=== PATIENT | female | born 1955 | race Caucasian/White ===

== ENCOUNTER → 2017-11-28 11:00 | Outpatient (CLI) | payer OTHER, SELFPAY ==
--- NOTE | 2017-11-28 11:05 | US_ITS ---
ULTRASOUND THYROID PROCEDURE: Multiple sagittal & transverse ultrasound images of the thyroid. HISTORY of right lobe resection & left lobe nodules COMPARISON: May 2016 ultrasound thyroid ----- FINDINGS: RIGHT LOBE: Surgically absent . LEFT LOBE: 3.1 cm length as 1.4 cm wide x 1.7 cm AP. Nodule A: Small solid nodule upper left lobe up to 8.5 mm size. This has show no significant change since previous 2015 study. This isoechoic nodule blends with the remainder gland is difficult to define margin of this nodule. However it appears similar. A tiny lypoechoic 2 mm debris-filled cyst appearing area again seen along the posterior margin of this nodule. ISTHMUS: Normal thickness 4.2 mm maximally. IMPRESSION no significant change since 2016 Right lobe is been resected. Vague isoechoic nodule at upper pole Left Lobe thyroid. .. Although difficult to delineate , Overall it appears very similar and stable;
== END ==
PROVIDERS: Family Provider Family Medicine; PCP Family Medicine; Visit Provider Otolaryngology
DX: E04.1 Nontoxic single thyroid nodule (principal)
CPT/HCPCS: 76536

== ENCOUNTER 2018-04-17 16:30 | Outpatient (RCR) | payer OTHER, SELFPAY | END 2018-04-17 16:31 | disposition home or self-care (01) | LOC: PT 16:30 | PROVIDERS: Family Provider Family Medicine; PCP Family Medicine; Visit Provider Family Medicine | DX: L03.115 Cellulitis of right lower limb (principal); S81.811A Laceration without foreign body, right lower leg, initial encounter | CPT/HCPCS: 97161; 97597 ==

== ENCOUNTER → 2019-12-07 09:35 | Outpatient (CLI) | payer BC, SELFPAY ==
[2019-12-07 10:22] LABS: Basophils # 0.1 K/mm3 (0-0.2); Basophils % 0.9 % (0.1-2.0); Eosinophils # 0.1 K/mm3 (0.0-0.4); Eosinophils % 1.7 % (0.1-12.0); Hematocrit 47.4 % (37.0-47.0); Hemoglobin 15.3 g/dL (12.2-16.2); Lymphocytes # 2.8 K/mm3 (0.7-4.5); Lymphocytes % 33.5 % (10-50); Mean Corpuscular HGB Conc 32.3 g/dL (31.8-35.4); Mean Corpuscular Volume 96.1 fl (81-99); Mean Platelet Volume 7.6 fl (7.4-10.4); Monocytes # 0.5 K/mm3 (0.1-1.0); Monocytes % 5.9 % (1.7-9.3); Neutrophils # 4.7 K/mm3 (1.8-7.8); Platelet Count 269 K/mm3 (142-424); Red Blood Count 4.93 M/mm3 (4.20-5.40); Red Cell Distribution Width 13.6 % (11.5-17.5); White Blood Count 8.2 K/mm3 (4.8-10.8)
[2019-12-07 10:49] LABS: Chloride 103 mmol/L (98-107); Sodium 143 mmol/L (136-145)
[2019-12-07 10:50] LABS: Potassium 4.1 mmoL/L (3.5-5.1)
[2019-12-07 10:52] LABS: Alanine Aminotransferase 24 U/L (12-78); Albumin Level 5.3 g/dl (3.5-5.0); Alkaline Phosphatase 59 U/L (38-126); Anion Gap 16.1 mEq/L (5-15); Aspartate Amino Transferase 30 U/L (14-36); Blood Urea Nitrogen 10 mg/dl (7-17); Calcium 11.1 mg/dl (8.4-10.2); Carbon Dioxide 28 mmol/L (22.0-30.0); Estimated Glomerular Filt Rate 85 ml/min (>60); GFR (African American) 102 ML/MIN (>60); Globulin 2.6 g/dL (1.3-3.2); Glucose 77 mg/dl (74-100); Total Protein,Serum 7.9 g/dl (6.3-8.2)
[2019-12-07 10:53] LABS: Magnesium 2.2 mg/dl (1.6-2.3)
[2019-12-07 11:19] LABS: Troponin I < 0.01 ng/ml (0.00-0.034)
[2019-12-08 08:15] LABS: Myoglobin 46 ng/mL (25-58)
== END ==
PROVIDERS: PCP Nurse Practitioner Family; Visit Provider Nurse Practitioner Family
DX: R07.9 Chest pain, unspecified (principal); I48.91 Unspecified atrial fibrillation; Z98.890 Other specified postprocedural states
CPT/HCPCS: 36415; 80053; 83735; 83874; 84443; 84484; 85025; 93225; 93226

== ENCOUNTER → 2021-04-15 07:06 | Outpatient (CLI) | payer BC, SELFPAY | PROVIDERS: Visit Provider Internal Medicine Gastroenterology | DX: U07.1 COVID-19 (principal) | CPT/HCPCS: C9803; U0003; U0005 ==

== ENCOUNTER 2021-11-08 09:58 | Emergency (ER) | payer BC, SELFPAY ==
--- NOTE | 2021-11-08 10:34 | HMH.EDUTC ---
[facility] [place] Disposition Clinical Impression: Bronchitis Sinusitis Qualifiers: Sinusitis location: unspecified location Chronicity: acute Recurrence: non-recurrent Qualified Code(s): J01.90 - Acute sinusitis, unspecified Disposition: Home, Self-Care Condition on Discharge: Good Instructions: DI for Sinusitis Additional Instructions: Drink plenty of fluids. Take tylenol or ibuprofen for pain or fever. Take the medications as directed. Follow up with your regular doctor. GO TO THE ER FOR ANY WORSENING SYMPTOMS Prescriptions: Benzonatate [Benzonatate 100mg cap] 100 mg PO TIDP PRN #30 cap PRN Reason: Cough [facility]: [facility] methylPREDNISolone [Medrol] 4 mg PO DIRECTED 6 Days #21 packet Transmission Status: Received by [facility] Azithromycin [Z-Fer 250mg Tab*] 250 mg PO UD DOSE PK #6 tab Transmission Status: [facility] Referrals: Gabby Ceron APRN [Primary Care Provider] - Time of Disposition: 11:10 Medical Decision Making - Medical Records Medical records reviewed: No: I reviewed the patient's medical records. - Bidr Inquiry Pt receiving controlled substance: No Vital Signs: 11/08/21 10:41 11/08/21 11:13 Temperature 98.2 F 98.2 F Temperature Source Oral Pulse Rate 78 Pulse Rate [Left] 78 Respiratory Rate 19 19 Blood Pressure 182/69 H Blood Pressure [Right Arm] 182/69 H Blood Pressure Mean [Right Arm] 106 02 Sat by Pulse Oximetry 95 - Lab Data Lab results reviewed: Yes: I reviewed the patient's lab results. [facility] [place] HPI - General Stated complaint: congestion, cough, DIXON Time Seen by Provider: 11/08/21 10:34 - History of Present Illness Provider Complaint: She states that for the past 5 days she has had worsening sinus congestion and a cough. She states that now her chest seems to be getting more congested. - Related Data Home Medications Medication Instructions Recorded Confirmed Montelukast Sodium [Montelukast 10 mg PO HS 12/11/17 06/13/21 10mg Tab] Alendronate Sodium [Fosamax 70mg 70 mg PO WEEKLY 04/10/21 06/13/21 Tablet] Aspirin [Aspirin 81mg chewable 81 mg PO DAILY 04/10/21 06/13/21 tab] Fluticasone Propionate 15.8 ml NS DAILY 04/10/21 06/13/21 Fluticasone/Umeclidin/Vilanter 1 each IH DAILY 04/10/21 06/13/21 [Speedy Ruiz 100-62.5-25] albuterol sulfate 90 mcg/actuation g INHALATION 06/13/21 06/13/21 aerosol inhaler cetirizine 10 mg tablet 10 mg PO DAILY tab 06/13/21 06/13/21 Previous Rx's Medication Instructions Recorded benzonatate 100 mg capsule 100 mg PO BID PRN #30 cap 06/13/21 cefuroxime axetil 250 mg tablet 250 mg PO BID 10 Days #20 tab 06/13/21 Azithromycin [Z-Fer 250mg Tab*] 250 mg PO UD DOSE PK #6 tab 11/08/21 Benzonatate [Benzonatate 100mg 100 mg PO TIDP PRN #30 cap 11/08/21 cap] methylPREDNISolone [Medrol] 4 mg PO DIRECTED 6 Days #21 11/08/21 packet Allergies Allergy/AdvReac Type Severity Reaction Status Date / Time No Known Allergies Allergy Verified 06/13/21 13:37 [facility] History - Hepatitis A Screen Attestation statement:: This patient has been screened for Hepatitis A risk factors. I have reviewed the patient's past medical history: Yes 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: Reports:: Asthma, Atrial Fibrillation, Chronic Obstructive Pulmonary Disease (COPD), Heart Murmur, Lung Disease Denies:: Cancer, Diabetes Mellitus Type 1, Diabetes Mellitus Type 2, Internal Pacemaker, MRSA, Seizures Laterality Cases: Bilateral: Tonsillectomy Other Surgeries: Yes: Appendectomy, Hysterectomy-Total, Open Heart Surgery, Thyroidectomy. No: Pacemaker Amputation: No Fractures: No - Social History Smoking Status: Never smoker Alcohol Intake: never Occupational Status: employed Housing: house Household Members: none ROS Obtained: Yes All systems reviewed & no additional complaints - Constitutional Constitutional: Reports as per HPI - Eyes Eyes:
[2021-11-08 10:41] VITALS: BP 182/69; PULSE 78; RESP 19; TEMP 36.8; O2SAT 95; BMI 24.1
[2021-11-08 11:13] VITALS: BP 182/69; PULSE 78; RESP 19; TEMP 36.8
== END 2021-11-08 11:23 | disposition home or self-care (01) ==
PROVIDERS: Emergency Provider Nurse Practitioner Family; PCP Nurse Practitioner Family
DX: J01.90 Acute sinusitis, unspecified (principal); R01.1 Cardiac murmur, unspecified; J98.4 Other disorders of lung; J44.9 Chronic obstructive pulmonary disease, unspecified; Z79.51 Long term (current) use of inhaled steroids; Z79.52 Long term (current) use of systemic steroids; Z79.82 Long term (current) use of aspirin; Z79.899 Other long term (current) drug therapy
CPT/HCPCS: 99213; G0463

== ENCOUNTER 2021-11-14 08:59 | Emergency (ER) | payer BC, SELFPAY ==
[2021-11-14 09:05] VITALS: BP 123/86; PULSE 74; RESP 17; TEMP 37.2; O2SAT 98; BMI 24.1
--- NOTE | 2021-11-14 09:15 | HMH.EDUTC ---
[facility] [place] Clinical Impression: Sinusitis Qualifiers: Sinusitis location: maxillary Chronicity: acute Recurrence: non-recurrent Qualified Code(s): J01.00 - Acute maxillary sinusitis, unspecified Disposition: Home, Self-Care Condition on Discharge: Good Instructions: DI for Sinusitis Additional Instructions: Take all medications as prescribed until gone Prescriptions: levoFLOXacin [Levofloxacin] 500 mg PO DAILY 10 Days #10 tab Transmission Status: Pending to [facility] methylPREDNISolone [Medrol 4mg tab] 4 mg PO DIRECTED #21 tab Transmission Status: Pending to [facility] Referrals: Gabby Ceron APRN [Primary Care Provider] - Time of Disposition: 09:30 Medical Decision Making - Bird Inquiry Pt receiving controlled substance: No [facility] [place] HPI - General Stated complaint: head congestion, h/a Time Seen by Provider: 11/14/21 09:15 - History of Present Illness Provider Complaint: Headache, congestion, sore throat, cough X 8 days. No improvement with Z-pack, Prednisone. Onset (ago): day(s) (8) Location: chest Relieving factors: none Exacerbating factors: none Associated symptoms: cough, malaise Treatments prior to arrival: other (zithromax, prednisone) - Related Data Home Medications Medication Instructions Recorded Confirmed Montelukast Sodium [Montelukast 10 mg PO HS 12/11/17 06/13/21 10mg Tab] Alendronate Sodium [Fosamax 70mg 70 mg PO WEEKLY 04/10/21 06/13/21 Tablet] Aspirin [Aspirin 81mg chewable 81 mg PO DAILY 04/10/21 06/13/21 tab] Fluticasone Propionate 15.8 ml NS DAILY 04/10/21 06/13/21 Fluticasone/Umeclidin/Vilanter 1 each IH DAILY 04/10/21 06/13/21 [Treleclinton Ellipta 100-62.5-25] albuterol sulfate 90 mcg/actuation g INHALATION 06/13/21 06/13/21 aerosol inhaler cetirizine 10 mg tablet 10 mg PO DAILY tab 06/13/21 06/13/21 Previous Rx's Medication Instructions Recorded benzonatate 100 mg capsule 100 mg PO BID PRN #30 cap 06/13/21 cefuroxime axetil 250 mg tablet 250 mg PO BID 10 Days #20 tab 06/13/21 Azithromycin [Z-Fer 250mg Tab*] 250 mg PO UD DOSE PK #6 tab 11/08/21 Benzonatate [Benzonatate 100mg 100 mg PO TIDP PRN #30 cap 11/08/21 cap] methylPREDNISolone [Medrol] 4 mg PO DIRECTED 6 Days #21 11/08/21 packet levoFLOXacin [Levofloxacin] 500 mg PO DAILY 10 Days #10 tab 11/14/21 methylPREDNISolone [Medrol 4mg 4 mg PO DIRECTED #21 tab 11/14/21 tab] Allergies Allergy/AdvReac Type Severity Reaction Status Date / Time No Known Allergies Allergy Verified 06/13/21 13:37 [facility] History - Hepatitis A Screen Attestation statement:: This patient has been screened for Hepatitis A risk factors. 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: Reports:: Asthma, Atrial Fibrillation, Chronic Obstructive Pulmonary Disease (COPD), Heart Murmur, Lung Disease Denies:: Cancer, Diabetes Mellitus Type 1, Diabetes Mellitus Type 2, Internal Pacemaker, MRSA, Seizures Laterality Cases: Bilateral: Tonsillectomy Other Surgeries: Yes: Appendectomy, Hysterectomy-Total, Open Heart Surgery, Thyroidectomy. No: Pacemaker Amputation: No Fractures: No - Social History Smoking Status: Never smoker Alcohol Intake: never Occupational Status: employed Housing: house Household Members: none ROS Obtained: Yes All systems reviewed & no additional complaints - Constitutional Constitutional: Reports headache(s) - ENT Ears, Nose, Mouth, and Throat: Reports nasal congestion, Reports nasal discharge - Respiratory Respiratory: Reports cough Physical Exam - General General appearance: alert, in no apparent distress - Head Head exam: normocephalic - Eye Eye exam: Present: PERRL - ENT ENT exam: Present: normal oropharynx, TM's normal bilaterally - Expanded ENT Exam Nose exam: Present: sinus tenderness Throat exam: Present: tonsillar erythema - Neck Neck exam: Present: normal inspection. Absent: lymphadenopathy - Chest Chest inspection: Present: normal in
[2021-11-14 09:41] VITALS: BP 123/86; PULSE 74; RESP 17; TEMP 37.2; O2SAT 98
== END 2021-11-14 09:49 | disposition home or self-care (01) ==
PROVIDERS: Emergency Provider Physician Assistant; PCP Nurse Practitioner Family
DX: J01.00 Acute maxillary sinusitis, unspecified (principal); I48.91 Unspecified atrial fibrillation; R01.1 Cardiac murmur, unspecified
CPT/HCPCS: 96372; 99212; G0463; J0696; J1040

== ENCOUNTER 2023-11-11 22:14 | Emergency (ER) | payer BC, SELFPAY ==
[2023-11-11 22:16] VITALS: BP 148/63; PULSE 67; RESP 20; TEMP 36.3; O2SAT 88; BMI 22.3
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
[2023-11-11 22:35] VITALS: BMI 21.4
[2023-11-11] MEDS: COCAINE 4% TOPICAL SOLN 4ML BOTTLE 1 ML TP (22:46)
[2023-11-11] MEDS: LIDOCAINE 2% UROJET 10ML TP (22:46)
[2023-11-11] MEDS: EPINEPHrine 1 MG/ML AMPUL TP (22:47)
[2023-11-12] MEDS: TET/DIPHTH/PERT-ADULT 0.5ML SYRINGE 0.5 ML IM (00:09)
[2023-11-12 00:27] VITALS: BP 135/63; PULSE 81; RESP 24; TEMP 36.7; O2SAT 87
[2023-11-12] MEDS: LIDOCAINE 1% W/EPI 1:100,000 20ML VIAL 5 ML SQ (00:37)
== END 2023-11-12 00:35 | disposition home or self-care (01) ==
PROVIDERS: Emergency Provider Emergency Medicine; PCP Family Medicine
DX: S01.511A Laceration without foreign body of lip, initial encounter (principal); S62.617A Displaced fracture of proximal phalanx of left little finger, initial encounter for closed fracture; Y04.0XXA Assault by unarmed brawl or fight, initial encounter; Z87.891 Personal history of nicotine dependence; Z23 Encounter for immunization
CPT/HCPCS: 13152; 73130; 90471; 90715; 99284

== ENCOUNTER 2023-11-24 13:55 | Outpatient (CLI) | payer BC, SELFPAY ==
--- NOTE | 2023-11-24 14:00 | XR_ITS ---
FINAL REPORT CLINICAL HISTORY: lt hand pain SPLINT PLACED 2 WEEKS AGO, F/U FX COMPARISON: 11/11/2023 FINDINGS: For images of the left hand were obtained. There is a splint overlying the fourth and fifth fingers of the left hand. The prior films of November 10. No significant callus formation is identified. The joint spaces are intact. There is no soft tissue abnormality identified. IMPRESSION: Mildly displaced transverse fracture of the base of the fifth proximal phalanx, slightly reduced when compared to the prior film of November 10. No significant callus formation is identified. Reviewed, Interpreted and Dictated by Dangelo Thomas MD Transcribed by Shelli Recinos Authenticated and [facility]
== END 2023-11-24 23:59 | disposition home or self-care (01) ==
LOC: RAD 13:56
PROVIDERS: PCP Family Medicine; Visit Provider Orthopaedic Surgery
DX: M79.645 Pain in left finger(s) (principal); S62.617A Displaced fracture of proximal phalanx of left little finger, initial encounter for closed fracture
CPT/HCPCS: 73130

== ENCOUNTER 2023-12-15 13:14 | Outpatient (CLI) | payer BC, SELFPAY ==
--- NOTE | 2023-12-15 13:25 | XR_ITS ---
FINAL REPORT CLINICAL HISTORY: Lt Hand Pain 5 week follow up fx at base of 5th metacarpal COMPARISON: 11/24/2023 FINDINGS: LEFT HAND Three views demonstrate a nondisplaced fracture of the proximal aspect of the fifth proximal phalanx. Mild degenerative changes are noted. Soft tissues are unremarkable. IMPRESSION: Fracture of the proximal aspect of the fifth proximal phalanx. Reviewed, Interpreted and Dictated by Eder Montano III, MD Transcribed by Priyanka Benedict Authenticated and [facility]
== END 2023-12-15 23:59 | disposition home or self-care (01) ==
LOC: RAD 13:15
PROVIDERS: PCP Family Medicine; Visit Provider Orthopaedic Surgery
DX: M79.642 Pain in left hand (principal); S62.617A Displaced fracture of proximal phalanx of left little finger, initial encounter for closed fracture
CPT/HCPCS: 73130

== ENCOUNTER 2024-01-12 13:36 | Outpatient (CLI) | payer BC, SELFPAY ==
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
== END 2024-01-12 23:59 | disposition home or self-care (01) ==
LOC: RAD 13:37
PROVIDERS: PCP Family Medicine; Visit Provider Orthopaedic Surgery
DX: M79.642 Pain in left hand (principal); S62.646A Nondisplaced fracture of proximal phalanx of right little finger, initial encounter for closed fracture
CPT/HCPCS: 73130

== ENCOUNTER 2024-05-25 21:08 | Emergency (ER) | payer BC, SELFPAY ==
[2024-05-25 21:11] VITALS: BP 127/59; PULSE 66; RESP 20; TEMP 36.3; O2SAT 85; BMI 21.9
--- NOTE | 2024-05-25 21:18 | ED_ITS ---
<Statement entered by Willa Kumari DO - 05/25/24 23:25> I was consulted by the ABHISHEK, and we discussed the complexity of the problems being addressed. I approved the treatment and management plan for this patient's care in the emergency department, thus performing a substantive portion of the medical decision making. Willa Kumari DO Discharge Plan Disposition Chief Complaint: Fall Prescriptions Prescriptions: No Action diltiazem HCl 180 mg capsule,extended release 24hr PO Patient Comments: TAKE 1 CAPSULE BY MOUTH ONCE DAILY rosuvastatin 10 mg tablet 10 mg PO DAILY Patient Comments: TAKE 1 TABLET BY MOUTH ONCE DAILY sertraline 50 mg tablet 50 mg PO DAILY sildenafil (pulm.hypertension) 20 mg tablet 20 mg PO TID Patient Comments: TAKE 1 TABLET BY MOUTH THREE TIMES DAILY Trelegy Ellipta 200-62.5-25 mcg blister with device 1 inh inhalation cetirizine 10 mg tablet 10 mg PO DAILY albuterol sulfate 90 mcg/actuation HFA aerosol inhaler INHALATION alendronate 70 MG tablet 70 mg PO WEEKLY aspirin 81 MG tablet,chewable 81 mg PO DAILY fluticasone propionate 15.8 ML spray,suspension 15.8 ml intranasal DAILY montelukast 10 MG tablet 10 mg PO HS Referrals Follow up/Referrals: Red Groves MD [Primary Care Provider] - See instructions Clinical Impressions Clinical Impression: Fall Print Language Print Language: German Discharge ED Provider: Willa Kumari General Adult HPI <Cherry Pollock (ED), STOCK ORDER LISTER - Last Filed: 05/25/24 22:34> General Chief complaint: Fall Stated complaint: AO 05/25/24 2020 injury to face Time Seen by Provider: 05/25/24 21:20 History of Present Illness HPI narrative: This is a 69-year-old female who presents to the ED today for complaint of a fall over a hitch onto the ground. She did not lose consciousness. She hit her face including her nose, forehead. She has skin tears to her right arm and then left elbow pain. Patient has a history of COPD and wears O2 at home. She does take blood pressure medication at home but no blood thinners. Patient complains of morning nasal pain and elbow pain. Related Data Home Medications ?Medication ?Instructions ?Recorded ?Confirmed montelukast 10 mg tablet 10 mg PO HS Allergy symptoms 12/11/17 01/12/24 alendronate 70 mg tablet 70 mg PO WEEKLY Osteoporosis 04/10/21 01/12/24 aspirin 81 mg chewable tablet 81 mg PO DAILY heart health 04/10/21 01/12/24 fluticasone propionate 50 15.8 ml intranasal DAILY Asthma 04/10/21 01/12/24 mcg/actuation nasal spray,suspension albuterol sulfate 90 mcg/actuation g inhalation 06/13/21 01/12/24 aerosol inhaler cetirizine 10 mg tablet 10 mg PO DAILY 06/13/21 01/12/24 diltiazem HCl 180 mg mg PO 07/27/23 01/12/24 capsule,extended release 24 hr fluticasone fur. 200 mcg-umeclid 1 inh inhalation 07/27/23 01/12/24 62.5 mcg-vilant 25 mcg inhalat.powder (Trelegy Ellipta) rosuvastatin 10 mg tablet 10 mg PO DAILY 07/27/23 01/12/24 sertraline 50 mg tablet 50 mg PO DAILY 07/27/23 01/12/24 sildenafil (pulm.hypertension) 20 20 mg PO TID 07/27/23 01/12/24 mg tablet Allergies Allergy/AdvReac Type Severity Reaction Status Date / Time No Known Allergies Allergy Verified 01/12/24 14:01 [facility] <Cherry Pollock (ED), STOCK ORDER LISTER - Last Filed: 05/25/24 22:34> [facility] Disclaimer: The information contained in this section may have been updated after the patient was seen, as this information can be updated by other users. 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 Anxiety and depression Hyperlipidemia History of deviated nasal septum Hammertoe of right foot Pulmonary hypertension Bronchitis Sinusitis Laceration of right lower extremity Visit for suture removal Scalp laceration Laceration Surgical History S/P correction of deviated nasal septum H/O thyroidectomy Hx of appendectomy Hx of tonsillectomy H/O: hysterectomy History of open heart surgery Family History Other No significant family history Social History Smoking Status: Former smoker alcohol intake: never current occupational status: employed Travel in the last 8 weeks: None household members: none housing: house 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 Other 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 Have you received the Flu Vaccine for this season: Yes (2019) Have you received the Pneumonia Vaccine: Yes <Cherry Pollock (ED), STOCK ORDER LISTER - Last Filed: 05/25/24 22:34> ROS Obtained: Yes Systems reviewed as appropriate & no additional complaints except as documented Constitutional Constitutional: Reports as per HPI Physical Exam <Cherry Pollock (ED), ST[employer] ORDER LISTER - Last Filed: 05/25/24 22:34> General General appearance: alert and in distress Comment: From the fall, facial bruising and skin tear to her nose left side forehead Head Head exam: other (Facial trauma) Eye Eye exam: Present PERRL ENT ENT exam: Present other (Abrasions to nose and forehead) Neck Neck exam: Present normal inspection Chest Chest inspection: Present normal inspection Respiratory Respiratory exam: Present normal lung sounds bilaterally Cardiovascular Cardiovascular exam: Present regular rate, +S1 and +S2 Abdominal Exam Abdominal exam: Present soft and normal bowel sounds Extremities Exam Extremities exam: Present full ROM and tenderness (Tenderness to left elbow, skin tears to bilateral arms) Neurological Exam Neurological exam: Present alert Skin Skin exam: Present warm and other (NoseAbrasions and skin tears to, forehead, bilateral arms) Medical Decision Making <Cherry Pollock (ED), ST[employer] ORDER LISTER - Last Filed: 05/25/24 22:34> Medical Records Screening: Per USPSTF and CDC recommendations, given the prevalence of disease in our region, it is our hospital?s policy to screen for HIV and viral Hepatitis for all patients aged 18 and over and those with ongoing risk factors. Bird Inquiry Pt receiving controlled substance: No Vital Signs: 05/25/24 21:11 05/25/24 22:01 05/25/24 22:30 Temperature 97.4 F L Temperature Source Oral Pulse Rate 71 68 Pulse Rate [Left Radial] 66 Respiratory Rate 20 Blood Pressure 118/34 L 104/60 L Blood Pressure [Right Arm] 127/59 L Blood Pressure Mean [Right Arm] 81 Blood Pressure Source [Right Arm] Automatic Cuff 02 Sat by Pulse Oximetry 85 L 97 97 Oxygen Delivery Method Room Air Orders (Tests/Meds): ED MEDICATIONS Discontinued Medications Generic Name Dose Route Start Last Admin Trade Name Freq PRN Reason Stop Dose Admin Hydrocodone Bitart/Acetaminophen 2 tab 05/25/24 21:24 05/25/24 21:30 Hydrocodone/Apap 5/325 Mg Tablet PO 05/25/24 21:25 2 tab ONCE ONE Administration Ondansetron HCl 4 mg 05/25/24 21:25 05/25/24 21:31 Ondansetron 4mg Odt SL 05/25/24 21:26 4 mg ONCE ONE Administration ORDERS Category Date Time Status CT cervical spine wo con Stat Cat Scan 05/25/24 21:[address] facial bones wo con Stat Cat Scan 05/25/24 21:[address] head/brain wo con Stat Cat Scan 05/25/24 21:23 Taken Elbow XR left mininum 3 views [XR elbow LT min 3V] Stat Exams 05/25/24 21:23 Ordered <Willa Kumari, DO - Last Filed: 05/25/24 23:25> Vital Signs: 05/25/24 21:11 05/25/24 22:01 05/25/24 22:30 Temperature 97.4 F L Temperature Source Oral Pulse Rate 71 68 Pulse Rate [Left Radial] 66 Respiratory Rate 20 Blood Pressure 118/34 L 104/60 L Blood Pressure [Right Arm] 127/59 L Blood Pressure Mean [Right Arm] 81 Blood Pressure Source [Right Arm] Automatic Cuff 02 Sat by Pulse Oximetry 85 L 97 97 Oxygen Delivery Method Room Air Orders (Tests/Meds): ED MEDICATIONS Discontinued Medications Generic Name Dose Route Start Last Admin Trade Name Dandyq PRN Reason Stop Dose Admin Hydrocodone Bitart/Acetaminophen 2 tab 05/25/24 21:24 05/25/24 21:30 Hydrocodone/Apap 5/325 Mg Tablet PO 05/25/24 21:25 2 tab ONCE ONE Administration Ondansetron HCl 4 mg 05/25/24 21:25 05/25/24 21:31 Ondansetron 4mg Odt SL 05/25/24 21:26 4 mg ONCE ONE Administration ORDERS Category Date Time Status CT cervical spine wo con Stat Cat Scan 05/25/24 21:[address] facial bones wo con Stat Cat Scan 05/25/24 21:[address] head/brain wo con Stat Cat Scan 05/25/24 21:23 Taken Elbow XR left mininum 3 views [XR elbow LT min 3V] Stat Exams 05/25/24 21:23 Ordered Medical Decision Narrative: In summary, this patient is a 69-year-old female presenting to the Emergency Department for evaluation of traumatic injuries from a ground-level fall. Differential diagnoses considered include but are not limited to fracture, contusion, strain/sprain, intracranial hemorrhage. Ruling out the most morbid conditions drove assessment. It should be noted patient's history includes hypertension, hyperlipidemia, chronic use of aspirin which may or may not be at goal therapy. This complicates all aspects of care by increasing patient's risk for morbidity. On exam, the patient is alert in no acute distress. She does have obvious traumatic injury to the face. CT head, face, C-spine, and x-rays of the injured upper extremity. Patient care signed out to the oncoming provider, Dr. Bailey, pending workup. Critical Care <Cherry Pollock (ED), STOCK ORDER LISTER - Last Filed: 05/25/24 22:34> Critical Care Time Critical Care Time: No
--- NOTE | 2024-05-25 21:23 | CT_ITS ---
PROCEDURE INFORMATION: Exam: CT Cervical Spine Without Contrast Exam date and time: 05/25/2024 11:21 PM Age: 69 years old Clinical indication: Injury or trauma; Fall; Blunt trauma TECHNIQUE: Imaging protocol: Computed tomography of the cervical spine without contrast. Total images: 642 Radiation optimization: All CT scans at this facility use at least one of these dose optimization techniques: automated exposure control; mA and/or kV adjustment per patient size (includes targeted exams where dose is matched to clinical indication); or iterative reconstruction. COMPARISON: CT FACIAL BONES WO CON 05/25/2024 11:15 PM FINDINGS: Bones: Osteopenia. Straightened lordosis. Minor levocurvature at the cervicothoracic junction. Vertebral body height is preserved. Minimal anterolisthesis C3-C4. The base of the dens and C1 and C2 articulations are maintained with moderate degenerative arthropathy. The cervicooccipital junction is intact. Severe multilevel degenerate facet joint spondylosis. Fusion of the right C4-C5 facet joint. Posterior elements are intact. Severe degenerative disc disease C6-C7 with large posterior projecting disc osteophyte complex resulting in moderate to severe acquired spinal canal stenosis. Moderate degenerative disc disease C5-C6. Mild degenerative changes remainder of the cervicothoracic spine. No concerning bone lesions. Status post median sternotomy. Prevertebral and retropharyngeal spaces: No prevertebral soft tissue swelling. Lungs: Upper lungs are clear. Thyroid: Status post right thyroid lobectomy. Vasculature: Moderate calcifications bilateral carotid artery bifurcations. Soft tissues: Unremarkable soft tissues of the neck. IMPRESSION: 1. No acute cervical fracture or traumatic subluxation. 2. Severe degenerative disc disease at C6-C7 with secondary moderate to severe acquired spinal canal stenosis. 3. Straightened cervical lordosis from position or muscle spasm 4. Additional degenerative changes as described
--- NOTE | 2024-05-25 21:23 | CT_ITS ---
PROCEDURE INFORMATION: Exam: CT Head Without Contrast Exam date and time: 05/25/2024 11:09 PM Age: 69 years old Clinical indication: Injury or trauma; Other: Pain after fall TECHNIQUE: Imaging protocol: Computed tomography of the head without contrast. Total images: 542 Radiation optimization: All CT scans at this facility use at least one of these dose optimization techniques: automated exposure control; mA and/or kV adjustment per patient size (includes targeted exams where dose is matched to clinical indication); or iterative reconstruction. COMPARISON: No relevant prior studies available. FINDINGS: Brain: No acute intracranial hemorrhage, midline shift, or mass. Mild cortical and cerebellar atrophy. Mild periventricular and scattered subcortical white matter hypodensity compatible with remote small vessel ischemic changes. Gutierrez-white interface and basilar cisterns are preserved. Cerebral ventricles: Mild ventriculomegaly compatible degree of central atrophy. Paranasal sinuses: 10 mm retention cyst or polyp anterior wall left maxillary sinus. Minor mucosal thickening base of the right maxillary sinus. 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 Mastoid air cells: Visualized mastoid air cells are well aerated. Orbital cavities: Status post bilateral orbital lens replacement. Bones: Osteopenia. Comminuted bilateral nasal bone fractures. Suspect fracture of the anterior nasal septum. No skull fracture. Soft tissues: Mild soft tissue swelling of the forehead and overlying bridge of the nose. Soft tissue swelling left face. Vasculature: Moderate to severe calcifications bilateral intracranial internal carotid arteries. IMPRESSION: 1. No acute intracranial process. 2. Comminuted bilateral nasal bone fractures. 3. Fracture anterior nasal septum. 4. Chronic intracranial findings. 5. No skull fracture.
--- NOTE | 2024-05-25 21:23 | CT_ITS ---
PROCEDURE INFORMATION: Exam: CT Maxillofacial Without Contrast Exam date and time: 05/25/2024 11:15 PM Age: 69 years old Clinical indication: Injury or trauma; Other: Pain after fall TECHNIQUE: Imaging protocol: Computed tomography of the face without contrast. Total images: 265 Radiation optimization: All CT scans at this facility use at least one of these dose optimization techniques: automated exposure control; mA and/or kV adjustment per patient size (includes targeted exams where dose is matched to clinical indication); or iterative reconstruction. COMPARISON: CT HEAD/BRAIN WO CON 05/25/2024 11:09 PM FINDINGS: Paranasal sinuses: Minor mucosal thickening base of the right maxillary sinus. 10 mm polyp or retention cyst anterior wall left maxillary sinus. Osteoma right ethmoid air cell, axial image 27 series 5. Orbital cavities: Status post bilateral orbital lens replacement. Orbital globes are intact and symmetric. Nasal cavity: Nasal septal deviation to the right. Unremarkable nasal turbinates. Teeth: Dental artifact limiting directly adjacent structures. Bones: Acute comminuted and displaced bilateral nasal bone fractures. Acute fracture anterior nasal septum. No additional facial bone fractures. Osteopenia. No mandibular fracture or dislocation. Symmetric bilateral temporomandibular joints. Soft tissues: Mild left facial soft tissue swelling. Soft tissue swelling overlying the bridge of the nose. Additional mild soft tissue swelling in the forehead. IMPRESSION: 1. Acute comminuted and displaced bilateral nasal bone fractures. 2. Acute fracture anterior nasal septum. 3. Facial soft tissue swelling. 4. No orbital globe injury. 5. Incidental findings in the paranasal sinuses.
--- NOTE | 2024-05-25 21:23 | XR_ITS ---
PROCEDURE INFORMATION: Exam: XR Left Elbow Exam date and time: 05/25/2024 11:14 PM Age: 69 years old Clinical indication: Injury or trauma; Other: Pain after fall TECHNIQUE: Imaging protocol: Radiologic exam of the left elbow. Views: 3 or more views. COMPARISON: CR XR HAND LT MIN 3V 01/12/2024 1:46 PM FINDINGS: Bones/joints: The elbow is normally aligned. No acute fracture or appreciable joint effusion. No significant degenerative changes. Soft tissues: Normal. IMPRESSION: No acute findings.
[2024-05-25] MEDS: HYDROCODONE/APAP 5/325 MG TABLET 2 TAB PO (21:30)
[2024-05-25] MEDS: ONDANSETRON 4MG ODT 4 MG SL (21:31)
[2024-05-25 22:01] VITALS: BP 118/34; PULSE 71; O2SAT 97
[2024-05-25 22:30] VITALS: BP 104/60; PULSE 68; O2SAT 97
[2024-05-25 23:00] VITALS: BP 107/71; PULSE 71; O2SAT 95
[2024-05-25 23:31] VITALS: BP 136/64; PULSE 75; O2SAT 90
[2024-05-26] VITALS: BP 103/63; PULSE 71; O2SAT 90
[2024-05-26] MEDS: LIDOCAINE 2% UROJET 10ML TP (01:30)
[2024-05-26] MEDS: COCAINE 4% TOPICAL SOLN 4ML BOTTLE 1 ML TP (01:49)
[2024-05-26 02:10] VITALS: BP 149/73; PULSE 78; RESP 16; TEMP 36.3; O2SAT 94
== END 2024-05-26 02:12 | disposition home or self-care (01) ==
PROVIDERS: Emergency Provider Emergency Medicine; PCP Family Medicine
DX: S01.21XA Laceration without foreign body of nose, initial encounter (principal); S02.2XXA Fracture of nasal bones, initial encounter for closed fracture; M25.522 Pain in left elbow; J34.89 Other specified disorders of nose and nasal sinuses; W01.0XXA Fall on same level from slipping, tripping and stumbling without subsequent striking against object, initial encounter; Y93.89 Activity, other specified; Y92.9 Unspecified place or not applicable
CPT/HCPCS: 12011; 70450; 70486; 72125; 73080; 99284; Q0162

== ENCOUNTER 2024-07-21 11:46 | Emergency (ER) | payer OTHER, SELFPAY ==
[2024-07-21 13:05] VITALS: BP 137/89; PULSE 72; RESP 18; TEMP 37.3; O2SAT 98; BMI 28.3
--- NOTE | 2024-07-21 13:23 | ED_ITS ---
Discharge Plan Disposition Patient Disposition: Home, Self-Care Condition: Good Prescriptions Prescriptions: New levofloxacin 500 mg tablet 500 mg PO DAILY Qty: 5 0RF No Action diltiazem HCl 180 mg capsule,extended release 24hr PO Patient Comments: TAKE 1 CAPSULE BY MOUTH ONCE DAILY rosuvastatin 10 mg tablet 10 mg PO DAILY Patient Comments: TAKE 1 TABLET BY MOUTH ONCE DAILY sertraline 50 mg tablet 50 mg PO DAILY sildenafil (pulm.hypertension) 20 mg tablet 20 mg PO TID Patient Comments: TAKE 1 TABLET BY MOUTH THREE TIMES DAILY Trelegy Ellipta 200-62.5-25 mcg blister with device 1 inh inhalation cetirizine 10 mg tablet 10 mg PO DAILY albuterol sulfate 90 mcg/actuation HFA aerosol inhaler INHALATION alendronate 70 MG tablet 70 mg PO WEEKLY aspirin 81 MG tablet,chewable 81 mg PO DAILY fluticasone propionate 15.8 ML spray,suspension 15.8 ml intranasal DAILY montelukast 10 MG tablet 10 mg PO HS Saline Nasal 0.65 % aerosol,spray 3 spray intranasal Q2H PRN (Reason: dry nasal passages) Qty: 44 0RF Referrals Follow up/Referrals: Red Groves MD [Primary Care Provider] - See instructions Activity Restrictions/Add. Instructions Additional Instructions/Restrictions: Start antibiotic patient to take as ordered for a full length of time even if you feel better. Sinus infections do not get better overnight. It may take 2-3 days to notice much improvement so be sure to use conservative measures as discussed for symptoms. Flonase 1 spray each nostril daily to help with nasal congestion, sinus and ear pressure/information Increase fluids Humidifier/vaporizer as needed Tylenol and ibuprofen as needed for fever or pain. If symptoms do not improve or get worse return or be seen in the ER Follow-up with primary care this week Clinical Impressions Clinical Impression: Sinusitis Qualifiers: Sinusitis location: maxillary Chronicity: acute Recurrence: non-recurrent Qualified Code(s): J01.00 - Acute maxillary sinusitis, unspecified Instructions Patient Instructions: DI for Sinusitis Print Language Print Language: Luxembourgish Discharge ED Provider: Darshan ([facility])[place] [facility] [place] Stated complaint: sinus congestion/ pressure Mode of Arrival: Ambulatory Source of Information: Patient Limitations: No Limitations Time Seen by Provider: 07/21/24 13:08 Description of Symptoms (Recalled from Triage Doc. by RN): PATIENT C/O SINUS PRESSURE AND CHEST CONGESTION THAT STARTED YESTERDAY HEENT Symptoms (Recalled from RN notes): Yes Resp Symptoms (Recalled from RN notes): No Skin Symptoms (Recalled from RN notes): No MS Symptoms (Recalled from RN notes): No Functional Status (Recalled from RN notes): WNL History of Present Illness Provider Complaint: 69-year-old female presents for complaints of sinus pressure, chest congestion, and coughing up thick green-yellow sputum. Related Data Home Medications ?Medication ?Instructions ?Recorded ?Confirmed montelukast 10 mg tablet 10 mg PO HS Allergy symptoms 12/11/17 01/12/24 alendronate 70 mg tablet 70 mg PO WEEKLY Osteoporosis 04/10/21 01/12/24 aspirin 81 mg chewable tablet 81 mg PO DAILY heart health 04/10/21 01/12/24 fluticasone propionate 50 15.8 ml intranasal DAILY Asthma 04/10/21 01/12/24 mcg/actuation nasal spray,suspension albuterol sulfate 90 mcg/actuation g inhalation 06/13/21 01/12/24 aerosol inhaler cetirizine 10 mg tablet 10 mg PO DAILY 06/13/21 01/12/24 diltiazem HCl 180 mg mg PO 07/27/23 01/12/24 capsule,extended release 24 hr fluticasone fur. 200 mcg-umeclid 1 inh inhalation 07/27/23 01/12/24 62.5 mcg-vilant 25 mcg inhalat.powder (Trelegy Ellipta) rosuvastatin 10 mg tablet 10 mg PO DAILY 07/27/23 01/12/24 sertraline 50 mg tablet 50 mg PO DAILY 07/27/23 01/12/24 sildenafil (pulm.hypertension) 20 20 mg PO TID 07/27/23 01/12/24 mg tablet Previous Rx's ?Medication ?Instructions ?Recorded sodium chloride 0.65 % nasal spray 3 spray intranasal Q2H PRN dry 05/26/24 aerosol (Saline Nasal) nasal passages #44 mL levofloxacin 500 mg tablet 500 mg PO DAILY #5 tabs 07/21/24 Allergies Allergy/AdvReac Type Severity Reaction Status Date / Time No Known Allergies Allergy Verified 01/12/24 14:01 Worker's Comp Is this a Worker's Comp case?: No [facility] Disclaimer: The information contained in this section may have been updated after the patient was seen, as this information can be updated by other users. 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) Anxiety and depression Hyperlipidemia History of deviated nasal septum Hammertoe of right foot Pulmonary hypertension Bronchitis Sinusitis Laceration of right lower extremity Visit for suture removal Scalp laceration Laceration Surgical History , OB/GYN PHYSICIAN) S/P correction of deviated nasal septum H/O thyroidectomy Hx of appendectomy Hx of tonsillectomy H/O: hysterectomy History of open heart surgery Family History , OB/GYN PHYSICIAN) No significant family history Social History , OB/GYN PHYSICIAN) Smoking Status: Former smoker alcohol intake: never current occupational status: employed Travel in the last 8 weeks: None household members: none housing: house 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 Have you lived/traveled outside [place] in past 30 days?: No Contact w/someone who lives/traveled outside [place] past 30 days?: No Exposure to someone with infectious disease in past 14 days?: No Do you have a fever (greater than 100.4 F or 38 C)?: No Have you tested positive for COVID-19: No Exposed to someone with COVID-19 in past 14 days?: No Do you have a sore throat?: No Do you have a cough?: Yes Do you have any weakness?: No Do you have any diarrhea?: No Are you experiencing any unusual bleeding?: No Do you have any muscle aches/pain?: No Do you have any abdominal pain?: No Are you experiencing loss of taste or smell?: No ROS Obtained: Yes Systems reviewed as appropriate & no additional complaints except as documented Physical Exam General General appearance: alert and in no apparent distress Eye Eye exam: Present normal appearance and PERRL ENT ENT exam: Present normal oropharynx, mucous membranes moist and TM's normal bilaterally Expanded ENT Exam Nose exam: Present sinus tenderness (Maxillary) Respiratory Respiratory exam: Present normal lung sounds bilaterally Cardiovascular Cardiovascular exam: Present regular rate and normal rhythm Neurological Exam Neurological exam: Present alert and oriented X3 Skin Skin exam: Present warm and intact Medical Decision Making Medical Records Medical records reviewed: Yes I reviewed the patient's medical records. Screening: Per USPSTF and CDC recommendations, given the prevalence of disease in our region, it is our hospital?s policy to screen for HIV and viral Hepatitis for all patients aged 18 and over and those with ongoing risk factors. Bird Inquiry Pt receiving controlled substance: No Vital Signs: 07/21/24 13:05 Temperature 99.2 F Temperature Source Temporal Artery Scan Pulse Rate [Right Brachial] 72 Respiratory Rate 18 Blood Pressure [Right Arm] 137/89 Blood Pressure Mean [Right Arm] 105 Blood Pressure Source [Right Arm] Automatic Cuff Blood Pressure Position [Right Arm] Sitting 02 Sat by Pulse Oximetry 98 Oxygen Delivery Method Nasal Cannula Oxygen Flow Rate (LPM) 3
[2024-07-21 13:34] VITALS: BP 137/89; PULSE 72; RESP 20; TEMP 37.3; O2SAT 98
== END 2024-07-21 13:37 | disposition home or self-care (01) ==
PROVIDERS: Emergency Provider Nurse Practitioner Family; PCP Family Medicine
DX: J01.00 Acute maxillary sinusitis, unspecified (principal)
CPT/HCPCS: 99213; G0381

== ENCOUNTER 2025-04-07 11:45 | Inpatient (IN) | payer MEDICARE, SELFPAY ==
--- OUTSIDE RECORDS SUMMARY | 2022-05-24 09:12 | XMS_ITS | Encounter Summary ---
[facility] [address] [place] [address] Care Team Providers Care Clinical Trials Assistant Name Role Phone Red Groves MD Primary Care Provider + Encounter Details Date Type Department Care Team (Late st Contact Info) Description 05/24/2022 9:12 AM EDT Hospital Encounter [facility] PULMONARY & CRITICAL CARE MEDICINE [address] [place] [phone] Social History Tobacco Use Types Packs/Day Years [...] or training? Not on file Preferred Language Mongolian 04/01/2023 PHQ-2 Answer Date Recorded Patient Health [...] 08/02/2024 9:15 AM Adilia Allen RN * [place] Suicide Severity Rating Scale (Screener/Recent Self-Report) Question [...] Care Team (Late st Contact Info) Description 04/09/2025 11:00 AM EDT Office Visit [facility] PULMONARY & CRITICAL CARE MEDICINE [address] [facility] [place] [phone] 04/09/2025 11:30 AM EDT Office Visit [facility] PULMONARY & CRITICAL CARE MEDICINE [address] [place] [address] Christopher Kelly DO [address] [place], [place] [id number] 04/10/2025 4:15 PM EDT Office Visit [facility] CARDIOLOGY [address] [facility] [address] [place] [phone] Jose Juan Landis MD [address] [facility] [address] [place] [address] 04/16/2025 8:00 AM EDT Appointment [facility] [place] [address] [facility] [address] [place] [address] 12/11/2025 3:00 PM EDT Office Visit [facility] CARDIOLOGY [address] [facility] [address] [place] [phone] Marguerite Moore MD [address] [facility] [address] [facility] [address] [place], [place] [id number] 12/16/2025 10:15 AM EDT Office Visit [facility] FAMILY MEDICINE [address] [facility] [place] [address] Red Groves MD [address] [facility] [place] [address] 03/19/2026 8:00 AM EDT Appointment [facility] BREAST CENTER [address] [facility] [place] [address] 03/19/2026 9:00 AM EDT Office Visit [facility] OBGYN [address] [place] [address] Keyona London, POLICE MANAGER [address] [place] [address] documented as of this encounter Procedures Procedure [...] Narrative 05/24/2022 1:58 PM EDT Davida Kaba [id number] 05/24/2022 Chest X-Ray PA & Lateral Indication: Shortness of breath Findings: Lungs are clear. No effusions. Chronic hyperexpansion of the lungs consistent with underlying emphysema. Heart and mediastinum unremarkable. No pneumothorax. Interpretation: No acute cardiopulmonary findings. Changes consistent with chronic obstructive pulmonary disease. Francisco Kelly, DO Please note that portions of this note may have been completed with a voice recognition program. Efforts were made to edit the dictations, but occasionally words are mistranscribed. Christopher Kelly DO IMG DIAGNOSTIC IMAG ING ORDERABLES Final Result documented in this encounter Visit Diagnoses Not on filedocumented in this encounter Care Teams Clinical Trials Assistant Relationship Specialty Start Date End Date Red Groves MD PCP - General 03/13/15 03/15/23 documented as of this encounter
--- OUTSIDE RECORDS SUMMARY | 2022-05-24 09:12 | XMS_ITS | Encounter Summary ---
[facility] [address] [place] [address] Care Team Providers Care Title 1 Tutor Name Role Phone Red Groves MD Primary Care Provider + Encounter Details Date Type Department Care Team (Late st Contact Info) Description 05/24/2022 9:12 AM EDT Hospital Encounter [facility] PULMONARY & CRITICAL CARE MEDICINE [address] [place] [phone] Social History Tobacco Use Types Packs/Day Years [...] or training? Not on file Preferred Language Occitan 04/01/2023 PHQ-2 Answer Date Recorded Patient Health [...] 08/02/2024 9:15 AM Adilia Allen RN * [place] Suicide Severity Rating Scale (Screener/Recent Self-Report) Question [...] Description 04/09/2025 11:00 AM EDT Office Visit [facility] PULMONARY & CRITICAL CARE MEDICINE [address] [place] [address] 04/09/2025 11:30 AM EDT Office Visit [facility] PULMONARY & CRITICAL CARE MEDICINE [address] [place] [address] Christopher Kelly DO [address] [place], [place] [id number] 04/10/2025 4:15 PM EDT Office Visit [facility] CARDIOLOGY [address] [facility] [address] [place] [address] Jose Juan Landis MD [address] [facility] [address] [place] [address] 04/16/2025 8:00 AM EDT Appointment [facility]VASIVE LAB [place] [address] [facility] [address] [place] [address] 12/11/2025 3:00 PM EDT Office Visit [facility] CARDIOLOGY [address] [facility] [address] [place] [address] Marguerite Moore MD [address] [facility] [address] E [facility] [address] [place], [place] [address] 12/16/2025 10:15 AM EDT Office Visit [facility] FAMILY MEDICINE 210 [facility] [place] [address] Red Groves MD 210 [facility] [place] [address] 03/19/2026 8:00 AM EDT Appointment [facility] BREAST CENTER [address] [facility] [place] [address] 03/19/2026 9:00 AM EDT Office Visit [facility] OBGYN [address] [place] [address] Keyona London, MANAGER GARDEN [address] [place] [address] documented as of this encounter Procedures Procedure [...] Narrative 05/24/2022 1:58 PM EDT Davida Kaba [id number] 05/24/2022 Chest X-Ray PA & Lateral Indication: [...] on filedocumented in this encounter Care Teams Title 1 Tutor Relationship Specialty Start Date End Date Red Groves MD PCP - General 03/13/15 03/15/23 documented as of this encounter
--- OUTSIDE RECORDS SUMMARY | 2022-07-06 20:45 | XMS_ITS | Encounter Summary ---
[facility] [address] [place] [address] Care Team Providers Care Rubber Goods Inspector Tester Name Role Phone Red Groves MD Primary Care Provider + Reason for Visit * Hospital - Outpatient (Routine) - Closed Specialty Diagnoses / Procedures Referred By Contac t Referred To Contact Sleep Medicine Diagnoses Sleep apnea, unspecified type Procedures Polysomnography 4 or More Parameters Todd Cruz MD Phone: tel: fax: [facility] SLEEP LAB [address] [address] Phone: tel: fax: Referral ID Status Reason Start Date Expiration Date Visits Re quested Visits Authorized [id number] Closed 06/21/2022 06/21/2023 1 1 Encounter Details Date Type Department Care Team (Late st Contact Info) Description 07/06/2022 7:45 PM EST Hospital Encounter [facility] SLEEP [facility] [address] [facility] [facility] [address] [place] [address] Todd Cruz MD [address] [place] [address] Social History Tobacco Use Types Packs/Day Years [...] or training? Not on file Preferred Language Maori 04/01/2023 PHQ-2 Answer Date Recorded Patient Health [...] 08/02/2024 9:15 AM Adilia Allen RN * [place] Suicide Severity Rating Scale (Screener/Recent Self-Report) Question [...] Description 04/09/2025 11:00 AM EDT Office Visit [facility] PULMONARY & CRITICAL CARE MEDICINE [address] [place] [address] 04/09/2025 11:30 AM EDT Office Visit [facility] PULMONARY & CRITICAL CARE MEDICINE [address] [place] [address] Christopher Kelly DO [address] [place] [address] 04/10/2025 4:15 PM EDT Office Visit [facility] CARDIOLOGY [address] [place] [address] Jose Juan Landis MD [address] [place] [address] 04/16/2025 8:00 AM EDT Appointment [facility] [place] [address] [facility] [address] [place] [phone] 12/11/2025 3:00 PM EDT Office Visit [facility] CARDIOLOGY [address] [facility] [address] [place] [address] Marguerite Moore MD [address] [facility] [address] [address] [place] [address] 12/16/2025 10:15 AM EDT Office Visit [facility] FAMILY MEDICINE [address] [place] [address] Red Groves MD [address] [place] [address] 03/19/2026 8:00 AM EDT Appointment [facility] [address] [place] [address] 03/19/2026 9:00 AM EDT Office Visit [facility] OBGYN [address] [place] [address] Keyona London, POWDER MONKEY 1700 [facility] [address] [place] [address] documented as of this encounter Procedures Procedure [...] by: Todd Cruz MD 07/21/22 09:28 EST Todd Campo MD - 07/21/2022 9:32 AM EST Table [...] on filedocumented in this encounter Care Teams Rubber Goods Inspector Tester Relationship Specialty Start Date End Date Red Groves MD PCP - General 03/13/15 03/15/23 documented as of this encounter
--- OUTSIDE RECORDS SUMMARY | 2022-07-06 20:45 | XMS_ITS | Encounter Summary ---
[facility] [address] [place] [address] Care Team Providers Care Customer Relations Advisor Name Role Phone Red Groves MD Primary Care Provider + Reason for Visit * Hospital - Outpatient (Routine) - Closed Specialty Diagnoses / Procedures Referred By Contac t Referred To Contact Sleep Medicine Diagnoses Sleep apnea, unspecified type Procedures Polysomnography 4 or More Parameters Todd Cruz MD Phone: tel: fax: [facility] SLEEP LAB [address] [address] Phone: tel: fax: Referral ID Status Reason Start Date Expiration Date Visits Re quested Visits Authorized [id number] Closed 06/21/2022 06/21/2023 1 1 Encounter Details Date Type Department Care Team (Late st Contact Info) Description 07/06/2022 7:45 PM EST Hospital Encounter [facility] SLEEP [facility] [address] [facility] [address] [place] [address] Todd Cruz MD [address] [place] [address] Social History Tobacco Use Types Packs/Day Years [...] or training? Not on file Preferred Language Sinhala 04/01/2023 PHQ-2 Answer Date Recorded Patient Health [...] 08/02/2024 9:15 AM Adilia Allen RN * [place] Suicide Severity Rating Scale (Screener/Recent Self-Report) Question [...] Description 04/09/2025 11:00 AM EDT Office Visit [facility] PULMONARY & CRITICAL CARE MEDICINE [address] [place] [address] 04/09/2025 11:30 AM EDT Office Visit [facility] PULMONARY & CRITICAL CARE MEDICINE [address] [place] [address] Christopher Kelly DO [address] [place] [address] 04/10/2025 4:15 PM EDT Office Visit [facility] CARDIOLOGY [address] [place] [address] Jose Juan Landis MD [address] [place] [address] 04/16/2025 8:00 AM EDT Appointment [facility] LAB [place] [address] [facility] [address] [address] [place] [address] 12/11/2025 3:00 PM EDT Office Visit [facility] CARDIOLOGY [address] [facility] [address] [place] [address] Marguerite Moore MD [address] [facility] [address] [address] [place] [address] 12/16/2025 10:15 AM EDT Office Visit [facility] FAMILY MEDICINE [address] [place] [address] Red Groves MD [address] [place] [address] 03/19/2026 8:00 AM EDT Appointment [facility] [address] [place] [address] 03/19/2026 9:00 AM EDT Office Visit [facility] OBGYN [address] [place] [address] Keyona London, CERTIFIED PHARMACY TECHNICIAN 1700 [facility] [address] [place] [address] documented as of this encounter Procedures Procedure [...] on filedocumented in this encounter Care Teams Customer Relations Advisor Relationship Specialty Start Date End Date Red Groves MD PCP - General 03/13/15 03/15/23 documented as of this encounter
--- OUTSIDE RECORDS SUMMARY | 2022-09-24 15:50 | XMS_ITS | Encounter Summary ---
[facility] Address [address] [place] [address] Care Team Providers Care Garnett Feeder Name Role Phone Red Groves MD Primary Care Provider + Encounter Details Date Type Department Care Team (Late st Contact Info) Description 09/24/2022 2:50 PM EST Hospital Encounter [facility] PULMONARY & [facility]IT[facility]ARE MEDICINE [address] [place] [phone] Social History Tobacco Use Types Packs/Day Years [...] or training? Not on file Preferred Language Bulgarian 04/01/2023 PHQ-2 Answer Date Recorded Patient Health [...] 08/02/2024 9:15 AM Adilia Allen RN * [place] Suicide Severity Rating Scale (Screener/Recent Self-Report) Question [...] Description 04/09/2025 11:00 AM EDT Office Visit [facility] MEDICINE [address] [place] [address] 04/09/2025 11:30 AM EDT Office Visit [facility] MEDICINE [address] [place] [address] Christopher Kelly DO [address] [place], [place] [phone] 04/10/2025 4:15 PM EDT Office Visit [facility] CARDIOLOGY [address] [facility] [address] [place] [phone] Jose Juan Landis MD [address] [facility] [address] [place] [address] 04/16/2025 8:00 AM EDT Appointment [facility] [place] [address] [facility] [address] [place] [address] 12/11/2025 3:00 PM EDT Office Visit [facility] C[facility] [address] [facility] [address] [place] [phone] Marguerite Moore MD [address] [facility] [address] [address] [place] [address] 12/16/2025 10:15 AM EDT Office Visit [facility] FAMILY MEDICINE [address] [facility] [place] [address] Red Groves MD [address] [facility] [place] [address] 03/19/2026 8:00 AM EDT Appointment [facility] [address] [facility] [place] [address] 03/19/2026 9:00 AM EDT Office Visit [facility] OBGYN [address] [place] [address] Lita Keyona Jo, KETTLE OPERATOR [address] [facility] [address] [place] [address] documented as of this encounter Procedures Procedure Name Priority Date/Time Associated Diagnosis Comments XR CHEST PA AND LATERAL Routine 09/24/2022 2:51 PM EST Preoperative respiratory examination documented in this encounter Results * XR Chest PA & Lateral (09/24/2022 2:51 PM EST) Anatomical Region Laterality Modality Body, Chest N/A Radiographic Shabnam ging Narrative 09/24/2022 4:31 PM EST Davida Kaba [id number] 09/24/2022 Chest X-Ray PA & Lateral Indication: [...] on filedocumented in this encounter Care Teams Garnett Feeder Relationship Specialty Start Date End Date Red Groves MD PCP - General 03/13/15 03/15/23 documented as of this encounter
--- OUTSIDE RECORDS SUMMARY | 2022-09-24 15:50 | XMS_ITS | Encounter Summary ---
[facility] [address] [place] [address] Care Team Providers Care Robotic Weld Technician Name Role Phone Red Groves MD Primary Care Provider + Encounter Details Date Type Department Care Team (Late st Contact Info) Description 09/24/2022 2:50 PM EST Hospital Encounter [facility] PULMONARY [facility] CRITICAL CARE MEDICINE [address] [place] [phone] Social History Tobacco Use Types Packs/Day Years [...] or training? Not on file Preferred Language French 04/01/2023 PHQ-2 Answer Date Recorded Patient Health [...] 08/02/2024 9:15 AM Adilia Allen RN * [place] Suicide Severity Rating Scale (Screener/Recent Self-Report) Question [...] Description 04/09/2025 11:00 AM EDT Office Visit [facility]ULMON[facility] CRITICAL CARE MEDICINE [address] [place] [address] 04/09/2025 11:30 AM EDT Office Visit [facility]ULMON[facility] CRITICAL CARE MEDICINE [address] [place] [address] Christopher Kelly DO [address] [place], [place] [phone] 04/10/2025 4:15 PM EDT Office Visit [facility] CARDIOLOG[facility] [address] [facility] 400 [place] [phone] Jose Juan Landis MD [address] [facility] [address] [address] [place] [address] 04/16/2025 8:00 AM EDT Appointment [facility] [place] [address] [facility] [address] [place] [address] 12/11/2025 3:00 PM EDT Office Visit [facility] CARDI[facility] [address] [facility] [address] [place] [phone] Marguerite Moore MD [address] [facility] [address] [address] [facility] [address] [place] [address] 12/16/2025 10:15 AM EDT Office Visit [facility] [address] [facility] [place] [address] Red Groves MD [address] [facility] [place] [address] 03/19/2026 8:00 AM EDT Appointment [facility] [address] [facility] [place] [address] 03/19/2026 9:00 AM EDT Office Visit [facility] OBG[facility] [address] [place] [address] Lita Keyona Jo, PLANNING LEAD [address] [facility] [address] [place] [address] documented as of this encounter Procedures Procedure Name Priority Date/Time Associated Diagnosis Comments XR CHEST PA AND LATERAL Routine 09/24/2022 2:51 PM EST Preoperative respiratory examination documented in this encounter Results * XR Chest PA & Lateral (09/24/2022 2:51 PM EST) Anatomical Region Laterality Modality Body, Chest N/A Radiographic Shabnam ging Narrative 09/24/2022 4:31 PM EST Davida Kaba [id number] 09/24/2022 Chest X-Ray PA & Lateral Indication: [...] on filedocumented in this encounter Care Teams Robotic Weld Technician Relationship Specialty Start Date End Date Red Groves MD PCP - General 03/13/15 03/15/23 documented as of this encounter
--- OUTSIDE RECORDS SUMMARY | 2025-03-06 11:00 | XMS_ITS | Encounter Summary ---
[facility] Address [address] [place] [address] Care Team Providers Care Consulting Sales Manager Name Role Phone Red Groves MD Primary Care Provider + Reason for Visit * Reason Comments Pulmonary hypertension Encounter Details Date Type Department Care Team (Late st Contact Info) Description 03/06/2025 11:00 AM EDT Office Visit [facility] CARDIOLOGY [address] [facility] [address] [address] [place] [phone] Marguerite Moore MD [address] [facility] [address] [place] [address] Atrial fibrillation and flutter (Primary Dx); ASD (atrial septal defect); Atherosclerotic vascular disease Social History Tobacco Use Types Packs/Day Years Used Date Smoking Tobacco: Former Cigarettes 1 30 0 08/01/1979 - 08/01/2009 Smokeless Tobacco: Never Tobacco Cessation:Counseling Given: Not Answered Alcohol Use Standard Drinks/Week Comments Not Currently [...] or training? Not on file Preferred Language Yemeni 04/01/2023 PHQ-2 Answer Date Recorded Patient Health [...] Sign Reading Time Taken Comments Blood Pressure 118/58 03/06/2025 10:51 AM EDT Pulse 80 03/06/2025 10:51 AM EDT Temperature - - Respiratory Rate - - Oxygen Saturation 94% 03/06/2025 10:51 AM EDT Inhaled Oxygen Concentration - - Weight 50.4 kg (111 lb 3.2 oz) 03/06/2025 10:51 AM EDT Height 154.9 cm (5' 1 ) 03/06/2025 10:51 AM EDT Body Mass Index 21.01 03/06/2025 10:51 AM EDT documented in this encounter Progress Notes * Marguerite Moore MD - 03/06/2025 11:00 AM EDT [facility] Cardiology Patient ID: Davida Kaba is a 70 y.o. female. : 1955 Contact: Encounter date: 03/06/2025 PCP: Red Groves MD Chief complaint: Chief Complaint Patient presents with Pulmonary hypertension Problem List: Pulmonary hypertension Echocardiogram 10/10/2008 RVSP 42 mmHg. Echo 04/14/2016: RVSP 37 mmHg by echo Echo 02/10/2021: RVSP by echo 64 mmHg. RHC, 04/20/2022: Excellent response to nitric oxide in a patient with severe pulmonary hypertension. Echo, 06/02/2022; LVEF estimated 55%. RVSP estimated 63 mmHg. Echo, 08/04/2021, LVEF 55%. RVSP improved from 63 to 53 mmHg Who Group 1, placed on sildenafil with improvement in RVSP from 63 to 53 mmHg Echo 06/20/2024: EF 55%, moderate to severe TR RVSP 66 mmHg RHC, 08/02/2024: Very good response to nitric oxide in a patient with severe pulmonary hypertension. Echo, 10/30/2024: EF 55%. Grade I impaired relaxation. Trace MR. Moderate to severe TR with RVSP of55 mmHg. Atrial fibrillation and flutter Atrial ablation, 2010 ECV, 09/20/2013; Successful external cardioversion of atrial flutter with a 50- joule shock. Dr. Landis. CTA chest, 07/16/2014; No evidence of significant pulmonary vein stenosis, or irregular pulmonary venous anatomy. No significant incidental chest findings. Echo, 04/14/2016; EF 55%. Mild [place]. Moderate TR. Mild MR. Echo, 02/10/2021; EF 46-50%. Moderate TR with RVSP >55 mmHg. Mild MR. Aortic valve stenosis. Echo, 06/02/2022; LVEF estimated 55%. RVSP estimated 63 mmHg. Echo, 08/04/2021, LVEF 55%. RVSP improved from 63 to 53 mmHg h. Echo 08/04/22: EF 55%, mod TR, RVSP 53 mmHg ASD Status postrepair at age 11 [facility] 2000: No coronary disease Atherosclerotic disease CT scan of the abdomen and pelvis 11/07/2009: Atherosclerotic disease within the abdominal aorta and iliac vessels. Atrial tachycardia COPD/asthma On CPAP Thyroid nodule/hyperthyroidism Diverticulosis Surgical history Hysterectomy Appendectomy Hammertoe repair Allergies Allergen Reactions Augmentin [Amoxicillin-Pot Clavulanate] Nausea And Vomiting Drixoral Non-Drowsy [Pseudoephedrine] Anxiety makes me anxious - cant sleep Current Medications: Current Outpatient Medications: albuterol sulfate HFA 108 (90 Base) MCG/ACT inhaler, Inhale 2 puffs Every 4 (Four) Hours As Needed for Wheezing., Disp: 18 g, Rfl: 11 alendronate (Fosamax) 70 MG tablet, Take 30 minutes before first morning food, drink or other medication. Avoid lying down for 30 minutes after dose administered., Disp: 4 tablet, Rfl: 12 Calcium Carbonate-Vitamin D 600-200 MG-UNIT tablet, Take 1 tablet by mouth 2 (Two) Times a Day., Disp: , Rfl: dilTIAZem XR (Dilt-XR) 180 MG 24 hr capsule, Take 1 capsule by mouth once daily, Disp: 90 capsule, Rfl: 3 fluticasone (FLONASE) 50 MCG/ACT nasal spray, Administer 2 sprays into the nostril(s) as directed by provider Daily for 360 days., Disp: 48 g, Rfl: 3 montelukast (SINGULAIR) 10 MG tablet, Take 1 tablet by mouth Every Night., Disp: 90 tablet, Rfl: 3 multivitamin with minerals (MULTIVITAMIN ADULT PO), Take 1 tablet by mouth Every Morning., Disp: 30tablet, Rfl: 1 NON FORMULARY, Place 1 dose under the tongue Daily. MULLEIN EXTRACT DROPS, Disp: , Rfl: O2 (OXYGEN), Inhale 3 L/min As Needed., Disp: , Rfl: rosuvastatin (CRESTOR) 10 MG tablet, Take 1 tablet by mouth Daily., Disp: 90 tablet, Rfl: 3 sertraline (ZOLOFT) 50 MG tablet, Take 1 tablet by mouth Daily., Disp: 90 tablet, Rfl: 3 sildenafil (REVATIO) 20 MG tablet, TAKE 1 TABLET BY MOUTH THREE TIMES DAILY, Disp: 90 tablet, Rfl: 6 Trelegy Ellipta 200-62.5-25 MCG/ACT inhaler, INHALE 1 PUFF ONCE DAILY, Disp: 60 each, Rfl: 3 cetirizine (zyrTEC) 10 MG tablet, Take 1 tablet by mouth Daily. (Patient not taking: Reported on 03/05/2025), Disp: 90 tablet, Rfl: 3 HPI Davida Kaba is a 70 y.o. female who presents today for a follow up of ASD, atrial fibrillation, and cardiac risk factors. Since last visit, patient has been doing well overall from a cardiovascular standpoint. She reports her breathing is stable and is on oxygen (3 L/min). Patient mentions her right foot can swell at night. She is on CPAP and her recent CPAP machine readings have been good. She recently retired and remains active walking her dog daily and housework. Patient denies chest pain, shortness of breath, orthopnea, palpitations, dizziness, and syncope. The following portions of the patient's history were reviewed and updated as appropriate: allergies, current medications and problem list. Pertinent positives as listed in the HPI. All other systems reviewed are negative. Vitals: 03/06/25 1051 BP: 118/58 BP Location: Left arm Patient Position: Sitting Pulse: 80 SpO2: 94% Weight: 50.4 kg (111 lb 3.2 oz) Height: 154.9 cm (61 ) Physical Exam: General: Alert and oriented. Neck: Jugular venous pressure is within normal limits. Carotids have normal upstrokes without bruits. Cardiovascular: Heart has a nondisplaced focal PMI. Regular rate and rhythm. No murmur, gallop or rub. Lungs: Clear, no rales or wheezes. Equal expansion is noted. Extremities: Show no edema. Skin: Warm and dry. Neurologic: Nonfocal. Diagnostic Data (reviewed with patient): Lab Results Component Value Date GLUCOSE 67 10/17/2024 BUN 7 (L) 10/17/2024 CREATININE 0.49 (L) 10/17/2024 BCR 14.3 10/17/2024 NA 140 10/17/2024 K 3.0 (L) 10/17/2024 CL 104 10/17/2024 CO2 24.0 10/17/2024 CALCIUM 9.9 10/17/2024 ALBUMIN 3.8 10/17/2024 ALKPHOS 67 10/17/2024 AST 24 10/17/2024 ALT 17 10/17/2024 Lab Results Component Value Date WBC 12.03 (H) 10/17/2024 RBC 4.16 10/17/2024 HGB 13.1 10/17/2024 HCT 37.9 10/17/2024 MCV 91.1 10/17/2024 PLT 225 10/17/2024 Advance Care Planning ACP discussion was held with the patient during this visit. Patient has an advance directive in EMRwhich is still valid. Procedures Assessment: ICD-10-CM ICD-9-CM 1. Atrial fibrillation and flutter I48.91 427.31 I48.92 427.32 2. ASD (atrial septal defect) Q21.10 745.5 3. Atherosclerotic vascular disease I70.90 440.9 Plan: Recheck echo to reevaluate pulmonary hypertension. Encouraged to remain active for 30 mins daily. Continue on diltiazem 180 mg daily for rate control and hypertension. Continue on rosuvastatin 10 mg daily for hyperlipidemia. Continue Revatio 20 mg 3 times daily Continue all other current medications. F/up in 6 months, sooner if needed. Scribed for Marguerite Moore MD by Austin Dai. 03/06/2025 11:15 EDT I Marguerite Moore MD personally performed the services described in this documentation as scribed by the above individual in my presence, and it is both accurate and complete. Marguerite Moore MD, FACC documented in this encounter Plan of Treatment Upcoming Encounters Date Type Department Care Team (Late st Contact Info) Description 04/09/2025 11:00 AM EDT Office Visit [facility] PULMONARY & CRITICAL CARE MEDICINE [address] [facility] [place] [address] 04/09/2025 11:30 AM EDT Office Visit [facility] PULMONARY & CRITICAL CARE MEDICINE [address] [place] [address] Christopher Kelly, [address] [place] [address] 04/10/2025 4:15 PM EDT Office Visit [facility] CARDIOLOGY [address] [place] [phone] Jose Juan Landis MD [address] [place] [address] 04/16/2025 8:00 AM EDT Appointment [facility] [place] [address] [facility] [address] [place] [address] 12/11/2025 3:00 PM EDT Office Visit [facility]ARDIOLOGY [address] [facility] [address] [place] [phone] Marguerite Moore MD [address] [place] [address] 12/16/2025 10:15 AM EDT Office Visit [facility] FAMILY MEDICINE [address] [place] [address] Red Groves MD [address] [place] [address] 03/19/2026 8:00 AM EDT Appointment [facility] [address] [place] [address] 03/19/2026 9:00 AM EDT Office Visit [facility] OBGYN [address] [place] [address] Keyona London, [employer] [address] [facility] [address] [place] [address] documented as of this encounter Visit Diagnoses Diagnosis Atrial fibrillation and flutter- Primary ASD (atrial septal defect) Ostium secundum type atrial septal defect Atherosclerotic vascular disease Generalized and unspecified atherosclerosis documented in this encounter Care Teams Consulting Sales Manager Relationship Specialty Start Date End Date Red Groves MD [address] [place] [address] PCP - General Family Medicine 03/16/23 documented as of this encounter
--- OUTSIDE RECORDS SUMMARY | 2025-03-06 11:00 | XMS_ITS | Encounter Summary ---
[facility] Address [address] [place] [address] Care Team Providers Care Wood Stainer Name Role Phone Red Groves MD Primary Care Provider + Reason for Visit * Reason Comments Pulmonary hypertension Encounter Details Date Type Department Care Team (Late st Contact Info) Description 03/06/2025 11:00 AM EDT Office Visit [facility] CARDIOLOGY [address] [facility] [address] [place] [phone] Marguerite Moore MD [address] [facility] [address] [facility] [address] [place] [address] Atrial fibrillation and flutter (Primary Dx); ASD [...] or training? Not on file Preferred Language Dutch 04/01/2023 PHQ-2 Answer Date Recorded Patient Health [...] Moore MD - 03/06/2025 11:00 AM EDT [facility] Cardiology Patient ID: Davida Kaba is a [...] chest findings. Echo, 04/14/2016; EF 55%. Mild [place]. Moderate TR. Mild MR. Echo, 02/10/2021; EF 46-50%. Moderate TR with RVSP >55 mmHg. Mild MR. Aortic valve stenosis. Echo, 06/02/2022; LVEF estimated 55%. RVSP estimated 63 mmHg. Echo, 08/04/2021, LVEF 55%. RVSP improved from 63 to 53 mmHg h. Echo 08/04/22: EF 55%, mod TR, RVSP 53 mmHg ASD Status postrepair at age 11 [facility] 2000: No coronary disease Atherosclerotic disease [...] Description 04/09/2025 11:00 AM EDT Office Visit [facility] PULMONARY & CRITICAL CARE MEDICINE [address] [facility] [place] [address] 04/09/2025 11:30 AM EDT Office Visit [facility] PULMONARY & CRITICAL CARE MEDICINE [address] [place] [address] Christopher Kelly, [address] [place] [address] 04/10/2025 4:15 PM EDT Office Visit [facility] CARDIOLOGY [address] [place] [phone] Jose Juan Landis MD [address] [place] [address] 04/16/2025 8:00 AM EDT Appointment [facility] [place] [address] [facility] [facility] [place] [address] 12/11/2025 3:00 PM EDT Office Visit [facility] [address] [facility] [address] [place] [phone] Marguerite Moore MD [address] [facility] [address] [address] [place] [address] 12/16/2025 10:15 AM EDT Office Visit [facility] FAMILY MEDICINE [address] [place] [address] Red Groves MD [address] [place] [address] 03/19/2026 8:00 AM EDT Appointment [facility] [address] [place] [address] 03/19/2026 9:00 AM EDT Office Visit [facility] OBGYN [address] [place] [address] Keyona London, VALET PARKER [address] [facility] [address] [place] [address] documented as of this encounter Visit Diagnoses Diagnosis Atrial fibrillation and flutter- Primary ASD (atrial septal defect) Ostium secundum type atrial septal defect Atherosclerotic vascular disease Generalized and unspecified atherosclerosis documented in this encounter Care Teams Wood Stainer Relationship Specialty Start Date End Date Red Groves MD [address] [place] [address] PCP - General Family Medicine 03/16/23 documented as of this encounter
--- OUTSIDE RECORDS SUMMARY | 2025-03-13 13:00 | XMS_ITS | Encounter Summary ---
[facility] Address [address] [place] [address] Care Team Providers Care Medical Sales Name Role Phone Red Groves MD Primary Care Provider + Reason for Visit * Reason Comments Gynecologic Exam Encounter Details Date Type Department Care Team (Late st Contact Info) Description 03/13/2025 1:00 PM EDT Office Visit [facility] [address] [place] [address] Keyona London, TURBINE OPERATOR [address] [facility] [address] [place] [address] Pap test, as part of routine gynecological examination (Primary Dx); Women's annual routine gynecological examination; Breast cancer screening by mammogram; Menopausal state; Osteopenia, senile; History of hysterectomy, supracervical; Age-related osteoporosis without current pathological fracture Social History Tobacco Use Types Packs/Day Years [...] or training? Not on file Preferred Language Maltese 04/01/2023 PHQ-2 Answer Date Recorded Patient Health [...] Sign Reading Time Taken Comments Blood Pressure 124/64 03/13/2025 1:19 PM EDT Pulse - - Temperature - - Respiratory Rate 18 03/13/2025 1:19 PM EDT Oxygen Saturation - - Inhaled Oxygen Concentration - - Weight 50.8 kg (112 lb) 03/13/2025 1:19 PM EDT Height 154.9 cm (5' 0.98 ) 03/13/2025 1:19 PM ED T Body Mass Index 21.17 03/13/2025 1:19 PM EDT documented in this encounter Progress Notes * Keyona London, ACACIA - 03/13/2025 1:00 PM EDT Images from the original note were not included. Gynecologic Annual Exam Note CLIENT MANAGER LARGE LAW Annual Exam CC - Here for annual exam. HPI Davida Kaba is a 70 y.o. female, , who presents for annual well woman exam as a established patient. She is s/p Supracervical abdominal hysterectomy, bilateral salpingo-oophorectomy in 2006 for endometriosis .. Denies vaginal bleeding. There were no changes to her medical or surgical history since her last visit. Marital Status: . She is not currently sexually active. STDtesting recommendations have been explained to the patient and she declines STD testing. The patient would like to discuss the following complaints today: none Additional VISUAL MERCHANDISER History On HRT? No Last Pap : 02/24/2022. Results: negative. HPV: negative. History of abnormal Pap smear: no Family history of uterine, colon, breast, or ovarian cancer: no Performs monthly Self-Breast Exam: no Last mammogram: 03/08/2024. Done at [facility]. There is a copy in the chart. Last Completed Mammogram Upcoming MAMMOGRAM (Every 2 Years) Next due on 03/08/2026 03/08/2024 Mammo Screening Digital Tomosynthesis Bilateral With CAD 02/24/2022 SCANNED - MAMMO 12/22/2021 Done - [facility] - Normal 06/10/2017 SCANNED - MAMMO 04/26/2016 SCANNED - MAMMO Only the first 5 history entries have been loaded, but more history exists. Last colonoscopy: has had a colonoscopy 3 years ago Last Completed Colonoscopy Upcoming COLORECTAL CANCER SCREENING (COLONOSCOPY - Every 10 Years) Next due on 09/07/2031 09/07/2021 COLONOSCOPY (Done - Repeat in 2026) Her last bone density scan was 3 years ago and results were Osteopenia Exercises Regularly: yes Feelings of Anxiety or Depression: yes - zoloft Tobacco Usage?: No Current Outpatient Medications: albuterol sulfate HFA 108 [...] mouth Every Morning., Disp: 30tablet, Rfl: 1 nxcxpvwe-jvyucpxlk-eimtzbqmvsysx (MAXITROL) 0.1 % ophthalmic suspension, INSTILL 1 DROP INTO LEFT EYE 4 TIMES DAILY FOR 7 DAYS, Disp: , Rfl: NON FORMULARY, Place 1 dose under the [...] ONCE DAILY, Disp: 60 each, Rfl: 3 Patient is requesting refills of fosamax. OB History 2 Para 2 Term 2 0 AB 0 Living 2 SAB 0 IAB 0 Ectopic 0 Molar 0 Multiple 0 Live Births 2 Past 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: Diagnosis Date Abnormal ECG Anxiety Arrhythmia Previously Asthma rescue inhaler prn and trilegy daily Asthma, extrinsic Atherosclerotic vascular disease 04/08/[address] scan of abdomen and pelvis, 11/07/2009: Atherosclerotic disease within abdominal aorta and iliac vessels. Atrial fibrillation and flutter 04/08/2016 COPD (chronic obstructive pulmonary disease) Coronary artery disease Diverticulosis 04/08/2016 Emphysema of lung GERD (gastroesophageal reflux disease) Heart murmur Heart valve disease History of atrial septal defect repair repaired 50plus years ago History of transfusion transfused with heart surgery approx 50 years ago Hyperlipidemia Hypertension Hyperthyroidism 04/08/2016 Thyroid nodule/hyperthyroidism: Diagnosed, September 2013. On methimazole with upcoming thyroidectomy per Dr. Magallanes, December 2013. Partial thyroidectomy by Dr. Jonathan Magallanes, 03/18/2014, with benign biopsy. Menopause On home O2 1L with cpap at HS, PRN 3 liters during day Osteopenia 2018 Osteoporosis Pneumonia PONV (postoperative nausea and vomiting) moderate after thyroidectomy; for EP ablation used scopolamine patch which prevented PONV Primary central sleep apnea Pulmonary hypertension 04/08/2016 Sleep apnea cpap compliant with 1L o2 Tobacco abuse 04/08/2016 Past Surgical History: Procedure Laterality Date ABLATION OF DYSRHYTHMIC FOCUS APPENDECTOMY CARDIAC ABLATION x2 (last one in 2013) CARDIAC CATHETERIZATION Right 04/20/2022 Procedure: Right Heart Cath; Surgeon: Marguerite Moore MD; Location: [facility]; Service: Cardiology; Laterality: Right; CARDIAC CATHETERIZATION N/A 08/02/2024 Procedure: Right Heart Cath - Right brachial/Right femoral access; Surgeon: Marguerite Moore MD; Location: [facility]; Service: Cardiovascular; Laterality: N/A; CARDIAC SURGERY paco patch 11 y/o CARDIOVERSION x 2 CATARACT EXTRACTION Bilateral COLONOSCOPY HAMMER TOE REPAIR Right LAPAROSCOPY WITH LASER attempted removal of endometriosis (unsuccessful) SEPTOPLASTY, RESECTION INFERIOR TURBINATES Left 04/08/2023 Procedure: SEPTOPLASTY, LEFT NASAL TURBINATE REDUCTION; Surgeon: Jonathan Magallanes MD; Location: [facility] OR; Service: ENT; Laterality: Left; SUPRACERVICAL HYSTERECTOMY SALPINGO OOPHORECTOMY Bilateral 2006 THYROIDECTOMY, PARTIAL Right TONSILLECTOMY WISDOM TOOTH EXTRACTION Health Maintenance Topic Date Due DXA SCAN 04/23/2018 COVID-19 Vaccine ( season) 2024 INFLUENZA VACCINE 05/01/2025 ANNUAL WELLNESS VISIT 12/10/2025 MAMMOGRAM 03/08/2026 TDAP/TD VACCINES (3 - Td or Tdap) 05/29/2026 COLORECTAL CANCER SCREENING 09/07/2031 HEPATITIS C SCREENING Completed Pneumococcal Vaccine 50+ Completed ZOSTER VACCINE Completed LUNG CANCER SCREENING Discontinued The additional following portions of the patient's history were reviewed and updated as appropriate: allergies, current medications, past family history, past medical history, past social history, past surgical history, and problem list. Review of Systems I have reviewed and agree with the HPI, ROS, and historical information as entered above. Keyona Marilou Lita, TURBINE OPERATOR Objective BP 124/64 Resp 18 Ht 154.9 cm (60.98 ) Wt 50.8 kg (112 lb) LMP (LMP Unknown) BMI 21.17 kg/m?? Physical Exam Vitals and nursing note reviewed. Exam conducted with a remote recruiter present. Constitutional: General: She is not in acute distress. Appearance: Normal appearance. She is well-developed. She is not ill-appearing. Pulmonary: Effort: Pulmonary effort is normal. No respiratory distress or retractions. Chest: Chest wall: No mass. Breasts: Right: Normal. No mass, nipple discharge, skin change or tenderness. Left: Normal. No mass, nipple discharge, skin change or tenderness. Abdominal: General: There is no distension. Palpations: Abdomen is soft. Abdomen is not rigid. There is no mass. Tenderness: There is no abdominal tenderness. There is no guarding or rebound. Hernia: No hernia is present. There is no hernia in the left inguinal area. Genitourinary: General: Normal vulva. Labia: Right: No rash, tenderness or lesion. Left: No rash, tenderness or lesion. Vagina: Normal. No vaginal discharge or lesions. Cervix: Normal. Uterus: Normal. Not enlarged, not fixed and not tender. Adnexa: Right adnexa normal and left adnexa normal. Right: No mass or tenderness. Left: No mass or tenderness. Rectum: No external hemorrhoid. Comments: Vaginal atrophy Skin: General: Skin is warm and dry. Neurological: Mental Status: She is alert and oriented to person, place, and time. Psychiatric: Mood and Affect: Mood normal. Behavior: Behavior normal. Assessment and Plan Problem List Items Addressed This Visit Endocrine and Metabolic Age-related osteoporosis without current pathological fracture Relevant Medications rosuvastatin (CRESTOR) 10 MG tablet alendronate (Fosamax) 70 MG tablet Other Visit Diagnoses Pap test, as part of routine gynecological examination - Primary Relevant Orders LIQUID-BASED PAP SMEAR WITH HPV GENOTYPING IF ASCUS (RADHA,COR,MAD) Women's annual routine gynecological examination Breast cancer screening by mammogram Menopausal state Osteopenia, senile Relevant Medications alendronate (Fosamax) 70 MG tablet History of hysterectomy, supracervical CLIENT MANAGER LARGE LAW annual well woman exam. Reviewed monthly self breast exams. Instructed to call with lumps, pain, or breast discharge. Yearly mammograms ordered. Ordered mammogram today. Recommended use of Vitamin D and getting adequate calcium in her diet. (1500mg) Reviewed exercise as a preventative health measures. Colonoscopy recommended. Recommended Flu Vaccine in Fall of each year. RTC in 1 year or PRN with problems. Return in about 1 year (around 03/13/2026) for Annual physical. Pt declines another DEXA and requests refill Fosamax. D/w pt need to repeat DEXA; also need for drug holiday. She declines both. Will visit/recommend again next year. Keyona London APRN 03/13/2025 documented in this encounter Plan of Treatment Upcoming Encounters Date Type Department Care Team (Late st Contact Info) Description 04/09/2025 11:00 AM EDT Office Visit [facility] MEDICINE [address] [place] [address] 04/09/2025 11:30 AM EDT Office Visit [facility] [address] [place] [address] Christopehr Kelly, [address] [place] [address] 04/10/2025 4:15 PM EDT Office Visit [facility] [address] [facility] [address] [place] [address] Jose Juan Landis MD 1720 [facility] [address] [place] [address] 04/16/2025 8:00 AM EDT Appointment [facility] [place] [address] [facility] [address] [place] [id number] 12/11/2025 3:00 PM EDT Office Visit [facility] [address] [facility] [address] [place] [address] Marguerite Moore MD [address] [facility] [address] [address] [place], [place] [id number] 12/16/2025 10:15 AM EDT Office Visit [facility] [address] [place] [address] Red Groves MD [address] [place], [place] [id number] 03/19/2026 8:00 AM EDT Appointment [facility] [address] [place] [address] 03/19/2026 9:00 AM EDT Office Visit [facility] [address] [place] [address] Keyona London, TURBINE OPERATOR [address] [facility] [address] [place] [address] Scheduled Orders Name Type Priority Associated Diagnoses Orde r Schedule LIQUID-BASED PAP SMEAR WITH HPV GENOTYPING IF ASCUS (RADHA,COR,MAD) Pathology and Cytology Routine Pap test, as part of routine gynecological examination Expected: 03/13/2025 (Approximate), Expires: 06/13/2026 documented as of this encounter Visit Diagnoses Diagnosis Pap test, as part of routine gynecological examination- Primary Screening for malignant neoplasm of the cervix Women's annual routine gynecological examination Breast cancer screening by mammogram Menopausal state Symptomatic menopausal or female climacteric states Osteopenia, senile History of hysterectomy, supracervical Acquired absence of uterus with remaining cervical stump Age-related osteoporosis without current pathological fracture documented in this encounter Care Teams Medical Sales Relationship Specialty Start Date End Date Red Groves MD [address] [place] [address] PCP - General Family Medicine 03/16/23 documented as of this encounter
--- OUTSIDE RECORDS SUMMARY | 2025-03-13 13:00 | XMS_ITS | Encounter Summary ---
[facility] Address [address] [place] [address] Care Team Providers Care Centrifuge Separator Tender Name Role Phone Red Groves MD Primary Care Provider + Reason for Visit * Reason Comments Gynecologic Exam Encounter Details Date Type Department Care Team (Late st Contact Info) Description 03/13/2025 1:00 PM EDT Office Visit [facility] OBGYN [address] [place] [address] Keyona London, SPECIAL MACHINE STITCHER [address] [facility] [address] [place] [address] Pap test, as part of routine gynecological [...] or training? Not on file Preferred Language Lao 04/01/2023 PHQ-2 Answer Date Recorded Patient Health [...] were not included. 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 No Last Pap : 02/24/2022. Results: negative. HPV: negative. History of abnormal Pap smear: no Family history of uterine, colon, breast, or ovarian cancer: no Performs monthly Self-Breast Exam: no Last mammogram: 03/08/2024. Done at [facility]. There is a copy in the chart. Last Completed Mammogram Upcoming MAMMOGRAM (Every 2 Years) Next due on 03/08/2026 03/08/2024 Mammo Screening Digital Tomosynthesis Bilateral With CAD 02/24/2022 SCANNED - MAMMO 12/22/2021 Done - [facility] - Normal 06/10/2017 SCANNED - MAMMO [...] mouth Every Morning., Disp: 30tablet, Rfl: 1 chosbbru-qvzfjupoe-ircactlcgbmoa (MAXITROL) 0.1 % ophthalmic suspension, INSTILL 1 [...] information as entered above. Keyona Marilou Lita, SPECIAL MACHINE STITCHER Objective BP 124/64 Resp 18 Ht 154.9 cm (60.98 ) Wt 50.8 kg (112 lb) LMP (LMP Unknown) BMI 21.17 kg/m?? Physical Exam Vitals and nursing note reviewed. Exam conducted with a professor of kinesiology present. Constitutional: General: She is not in [...] 70 MG tablet History of hysterectomy, supracervical RENEWALS SPECIALIST annual well woman exam. Reviewed monthly self [...] Description 04/09/2025 11:00 AM EDT Office Visit [facility] PULMON[facility] & CRITICAL CARE MEDICINE [address] [place] [address] 04/09/2025 11:30 AM EDT Office Visit [facility] PULMON[facility] & CRITICAL CARE MEDICINE [address] [facility] [place] [address] Christopher Kelly, [address] [place] [address] 04/10/2025 4:15 PM EDT Office Visit [facility] C[facility] 1720 [facility] [address] [place] [address] Jose Juan Landis MD [address] [facility] [address] [place] [address] 04/16/2025 8:00 AM EDT Appointment [facility] [place] [address] [facility] [address] [place] [id number] 12/11/2025 3:00 PM EDT Office Visit [facility] [address] [facility] [address] [place] [address] Marguerite Moore MD [address] [facility] [address] [address] [place], [place] [id number] 12/16/2025 10:15 AM EDT Office Visit [facility] FAM[facility] MEDIC[facility] [address] [place] [address] Red Groves MD [address] [place], [place] [id number] 03/19/2026 8:00 AM EDT Appointment [facility] [address] [place] [address] 03/19/2026 9:00 AM EDT Office Visit [facility] OBGYN [address] [place] [address] Keyona London, SPECIAL MACHINE STITCHER [address] [facility] [address] [address] [place] [address] Scheduled Orders Name Type Priority Associated Diagnoses [...] fracture documented in this encounter Care Teams Centrifuge Separator Tender Relationship Specialty Start Date End Date Red Groves MD [address] [place] [address] PCP - General Family Medicine 03/16/23 documented as of this encounter
--- OUTSIDE RECORDS SUMMARY | 2025-04-02 08:00 | XMS_ITS | Encounter Summary ---
[facility] Address [address] [place] [address] Care Team Providers Care Cloth Presser Name Role Phone Red Groves MD Primary Care Provider + Reason for Referral * Diagnostic Imaging (Routine) - Closed Specialty Diagnoses / Procedures Referred By Jaime fountain Referred To Contact Radiology Diagnoses Abnormality of left breast on screening mammogram Procedures Mammo Diagnostic Digital Tomosynthesis Left With CAD Red Groves MD [address] [place] [address] Phone: tel: fax: [facility] [address] [place] [address] Phone: tel: Referral ID Status Reason Start Date Expiration Date Visits Re quested Visits Authorized [id number] Closed 03/18/2025 06/17/2026 1 1 Reason for Visit * Diagnostic Imaging (Routine) - Closed Specialty Diagnoses / Procedures Referred By Jaime fountain Referred To Contact Radiology Diagnoses Abnormality of left breast on screening mammogram Procedures Mammo Diagnostic Digital Tomosynthesis Left With CAD Red Groves MD [address] [place] [address] Phone: tel: fax: [facility] [address] [place] [address] Phone: tel: Referral ID Status Reason Start Date Expiration Date Visits Re quested Visits Authorized [id number] Closed 03/18/2025 06/17/2026 1 1 Encounter Details Date Type Department Care Team (Latest Contact Info) Description 04/02/2025 8:00 AM EDT - 04/02/2025 11:59 PM EDT Hospital Encounter [facility] BREAST [facility]ENTER [address] [facility] [address] [place] [address] Red Groves MD [address] [place] [address] Abnormality of left breast on screening mammogram Discharge Disposition: Home or Self Care Social History Tobacco Use Types Packs/Day Years [...] or training? Not on file Preferred Language Turkmen 04/01/2023 PHQ-2 Answer Date Recorded Patient Health Questionnaire-2 Score 0 12/10/2024 Comments No Sex and Gender Information Value Date Recorded Sex Assigned at Female 04/01/2025 8:23 AM EDT Legal Sex Female 10:22 AM EDT Gender Identity Not on file Sexual Orientation Straight 04/01/2025 8: 23 AM EDT documented as of this encounter Medications at Time of Discharge albuterol sulfate HFA 108 (90 Base) MCG/ACT inhalerIndications :Asthma-COPD overlap syndrome Inhale 2 puffs Every 4 (Four) Hours As Needed for Wheezing. 18 g 11 12/07/2023 alendronate (Fosamax) 70 MG tabletIndications: Osteopenia, senile,Age-related osteoporosis without current pathological fracture Take 30 minutes before first morning food, drink or other medication. Avoid lying down for 30 minutes after dose administered. 4 tablet 12 03/13/2025 Calcium Carbonate-Vitamin D 600-200 MG-UNIT tablet Take 1 tablet by mouth 2 (Two) Times a Day. dilTIAZem XR (Dilt-XR) 180 MG 24 hr capsule Take 1 capsule by mouth once daily 90 capsule 3 07/04/2024 fluticasone (FLONASE) 50 MCG/ACT nasal sprayIndications:N on-seasonal allergic rhinitis due to pollen Administer 2 sprays into the nostril(s) as directed by provider Daily for 360 days. 48 g 3 12/10/2024 montelukast (SINGULAIR) 10 MG tabletIndications: Non-seasonal allergic rhinitis due to pollen Take 1 tablet by mouth Every Night. 90 tablet 3 12/10/2024 multivitamin with minerals (MULTIVITAMIN ADULT PO) Take 1 tablet by mouth Every Morning. 30 tablet 1 04/09/2023 neomycin-polymyxin -dexamethasone (MAXITROL) 0.1 % ophthalmic suspension INSTILL 1 DROP INTO LEFT EYE 4 TIMES DAILY FOR 7 DAYS 03/08/[address] 1 dose under the tongue Daily. MULLEIN EXTRACT DROPS O2 (OXYGEN) Inhale 3 L/min As Needed. rosuvastatin (CRESTOR) 10 MG tabletIndications: Atherosclerotic vascular disease Take 1 tablet by mouth Daily. 90 tablet 3 12/10/2024 sertraline (ZOLOFT) 50 MG tabletIndications: Anxiety disorder, unspecified type Take 1 tablet by mouth Daily. 90 tablet 3 12/10/2024 sildenafil (REVATIO) 20 MG tablet TAKE 1 TABLET BY MOUTH THREE TIMES DAILY 90 tablet 6 09/06/2024 Trelegy Ellipta 200-62.5-25 MCG/ACT inhalerIndications :Asthma-COPD overlap syndrome INHALE 1 PUFF ONCE DAILY 60 each 3 12/12/2024 documented as of this encounter Plan of Treatment Upcoming Encounters Date Type Department Care Team (Late st Contact Info) Description 04/09/2025 11:00 AM EDT Office Visit [facility] PULMONARY & CRITICAL CARE MEDICINE [address] [place] [address] 04/09/2025 11:30 AM EDT Office Visit [facility] PULMONARY & CRITICAL CARE MEDICINE [address] [place] [address] Christopher Kelly DO [address] [place] [address] 04/10/2025 4:15 PM EDT Office Visit [facility] CARDIOLOGY [address] [facility] [address] [place] [address] Jose Juan Landis MD [address] [facility] E [address] [place] [address] 04/16/2025 8:00 AM EDT Appointment [facility] NONINVASIVE LAB [place] [address] [facility] [address] [place] [address] 12/11/2025 3:00 PM EDT Office Visit [facility] CARDIOLOGY [address] [facility] [address] [place] [address] Marguerite Moore MD [address] [facility] [address] [address] [place] [address] 12/16/2025 10:15 AM EDT Office Visit [facility] FAMILY MEDICINE [address] [place] [address] Red Groves MD [address] [place] [address] 03/19/2026 8:00 AM EDT Appointment [facility] BREAST CENTER [address] [place] [address] 03/19/2026 9:00 AM EDT Office Visit [facility] OBGYN [address] [place] [address] Keyona London, SOFTWARE DEVELOPMENT MANAGER [address] [facility] [address] [place] [address] documented as of this encounter Procedures Procedure Name Priority Date/Time Associated Diagnosis Comments MAMMO DIAGNOSTIC DIGITAL TOMOSYNTHESIS LEFT W CAD Routine 04/02/2025 9:12 AM EDT Abnormality of left breast on screening mammogram documented in this encounter Results * Mammo Diagnostic Digital Tomosynthesis Left With CAD (04/02/2025 9:12 AM EDT) Anatomical Region Laterality Modality Breast Left Mammography 04/02/2025 9:02 AM EDT Impressions 04/02/2025 9:03 AM EDT BI-RADS 1 negative exam RECOMMENDATION: Routine annual screening mammography in 1 year unless clinically indicated sooner. The standard false-negative rate of mammography is between 10% and 25%. Complex patterns or increased breast density will markedly elevate the false-negative rate of mammography. A results letter, in lay terminology, will be given to the patient at the conclusion of the exam. 04/02/2025 9:[address] Tisha Brown MD on Narrative 04/02/2025 9:03 AM EDT EXAMINATION:MAMMO DIAGNOSTIC DIGITAL TOMOSYNTHESIS LEFT W CAD- HISTORY: 70-year-old female recalled from screening examination with tomosynthesis from [facility] for focal asymmetry in the left breast TECHNIQUE: Combination 2D 3D standard views of the left breast combination 2D 3D left CC and left MLO spot compression views combination 2D 3D left 90 degree lateral view COMPARISON: Comparison is made to prior left mammograms dating back to 12/22/2021 FINDINGS: There are scattered areas of fibroglandular density. No suspicious masses microcalcifications or areas of architectural distortion are identified. Focused compression effaces the area of concern on screening mammography. The breast parenchymal pattern is stable dating back to 12/22/2021 Red Groves MD IMG MAMMOGRAPHY ORDERABL ES Final Result documented in this encounter Visit Diagnoses Diagnosis Abnormality of left breast on screening mammogram documented in this encounter Care Teams Cloth Presser Relationship Specialty Start Date End Date Red Groves MD [address] [place] [address] [place] [address] PCP - General Family Medicine 03/16/23 documented as of this encounter
--- OUTSIDE RECORDS SUMMARY | 2025-04-02 08:00 | XMS_ITS | Encounter Summary ---
[facility] Address [address] [place] [address] Care Team Providers Care Ground Water Technician Name Role Phone Red Groves MD Primary Care Provider + Reason for Referral * Diagnostic Imaging (Routine) - Closed Specialty Diagnoses / Procedures Referred By Jaime fountain Referred To Contact Radiology Diagnoses Abnormality of left breast on screening mammogram Procedures Mammo Diagnostic Digital Tomosynthesis Left With CAD Red Groves MD [address] [place] [address] Phone: tel: fax: [facility] [address] [place] [address] Phone: tel: Referral ID Status Reason Start Date Expiration Date Visits Re quested Visits Authorized [id number] Closed 03/18/2025 06/17/2026 1 1 Reason for Visit * Diagnostic Imaging (Routine) - Closed Specialty Diagnoses / Procedures Referred By Jaime fountain Referred To Contact Radiology Diagnoses Abnormality of left breast on screening mammogram Procedures Mammo Diagnostic Digital Tomosynthesis Left With CAD Red Groves MD [address] [place] [address] Phone: tel: fax: [facility] [address] [facility] [place] [address] Phone: tel: Referral ID Status Reason Start Date Expiration Date Visits Re quested Visits Authorized [id number] Closed 03/18/2025 06/17/2026 1 1 Encounter Details Date Type Department Care Team (Latest Contact Info) Description 04/02/2025 8:00 AM EDT - 04/02/2025 11:59 PM EDT Hospital Encounter [facility] BREAST CENTER [address] [facility] [address] [place] [address] Red Groves MD [address] [place] [address] Abnormality of left breast on [...] Description 04/09/2025 11:00 AM EDT Office Visit [facility] PULMONARY & CRITICAL CARE MEDICINE [address] [facility] [place] [address] 04/09/2025 11:30 AM EDT Office Visit [facility] PULMONARY & CRITICAL CARE MEDICINE [address] [place] [address] Christopher Kelly DO [address]00 [place] [address] 04/10/2025 4:15 PM EDT Office Visit [facility] CARDIOLOGY [address] [facility] [address] [place] [address] Jose Juan Landis MD [address] [facility] [address] [place] [address] 04/16/2025 8:00 AM EDT Appointment [facility] NONINVASIVE LAB [place] [address] [facility] [address] [place] [address] 12/11/2025 3:00 PM EDT Office Visit [facility] CARDIOLOGY [address] [facility] [address] [place] [address] Marguerite Moore MD [address] [facility] [address] [place] [address] 12/16/2025 10:15 AM EDT Office Visit [facility] FAMILY MEDICINE [address] [place] [address] Red Groves MD [address] [place] [address] 03/19/2026 8:00 AM EDT Appointment [facility] BREAST CENTER [address] [place] [address] 03/19/2026 9:00 AM EDT Office Visit [facility] OBGYN [address] [place] [address] Keyona London, REPEAT PHOTOCOMPOSING MACHINE OPERATOR [address] [facility] [address] [place] [address] documented as of this encounter Procedures Procedure [...] the exam. 04/02/2025 9:[address] Tihsa Brown MD on Narrative 04/02/2025 9:03 AM EDT EXAMINATION:MAMMO DIAGNOSTIC DIGITAL TOMOSYNTHESIS LEFT W CAD- HISTORY: 70-year-old female recalled from screening examination with tomosynthesis from [facility] for focal asymmetry in the left breast [...] mammogram documented in this encounter Care Teams Ground Water Technician Relationship Specialty Start Date End Date Red Groves MD [address] [place] [address] [place] [address] PCP - General Family Medicine 03/16/23 documented as of this encounter
[2025-04-07] VITALS (20 sets, daily range): BP systolic 102–147; BP diastolic 45–103; PULSE 83–113; RESP 20–43; TEMP 37.2–37.8; O2SAT 85–96; BMI 21.5
--- OUTSIDE RECORDS SUMMARY | 2025-04-07 11:59 | XMS_ITS | Encounter Summary ---
[facility] Address [address] [place] [address] Care Team Providers Care Critical Care Specialist Name Role Phone Red Groves MD Primary Care Provider + Encounter Details Date Type Department Care Team (Late st Contact Info) Description 03/06/2025 Patient rounding ([facility] only) [facility] CARDIOLOGY [address] [facility] [address] [place] [address] Addis Rubalcava, [facility] Rep Social History Tobacco Use Types Packs/Day Years [...] or training? Not on file Preferred Language Serbian 04/01/2023 PHQ-2 Answer Date Recorded Patient Health Questionnaire-2 Score 0 12/10/2024 Comments No Sex and Gender Information Value Date Recorded Sex Assigned at Female 04/01/2025 8:23 AM EDT Legal Sex Female 10:22 AM EDT Gender Identity Not on file Sexual Orientation Straight 04/01/2025 8: 23 AM EDT documented as of this encounter Progress Notes * Addis Rubalcava RegSched Rep - 03/06/2025 11:14 AM EDT March 06, 2025 gwendolyn I speak with Davida Kaba? My name is ADDIS I am with KARMEN JOHNSON [facility] CARDIOLOGY [address] [facility] [address] [facility] [address] . Before we get started november I verify your date of ? 1955 I am calling to officially welcome you to our practice and ask about your recent visit. Is this a good time to talk? yes Tell me about your visit with us. What things went well? EVERYTHING WAS GOOD. We're always looking for ways to make our patients' experiences even better. Do you have recommendations on ways we may improve? NO NONE Overall were you satisfied with your first visit to our practice? VERY SATISFIED. I appreciate you taking the time to speak with me today. Is there anything else I can do for you? no Thank you, and have a great day. documented in this encounter Plan of Treatment Upcoming Encounters Date Type Department Care Team (Late st Contact Info) Description 04/09/2025 11:00 AM EDT Office Visit [facility] PULMONARY & CRITICAL CARE MEDICINE [address] [place] [address] 04/09/2025 11:30 AM EDT Office Visit [facility] PULMONARY & CRITICAL CARE MEDICINE [address] [place] [address] Christopher Kelly DO [address] [place] [address] 04/10/2025 4:15 PM EDT Office Visit [facility] CARDIOLOGY [address] [facility] [address] [place] [address] Jose Juan Landis MD [address] [facility] [address] [address] [place] [address] 04/16/2025 8:00 AM EDT Appointment [facility] NONINVASIVE LAB [place] [address] [facility] [address] [place] [address] 12/11/2025 3:00 PM EDT Office Visit [facility] CARDIOLOGY [address] [facility] [address] [place] [address] Marguerite Moore MD [address] [facility] [address] [address] [place] [address] 12/16/2025 10:15 AM EDT Office Visit [facility] FAMILY MEDICINE [address] [place] [address] Red Groves MD 210 [place] [address] 03/19/2026 8:00 AM EDT Appointment [facility] 206 [place] [address] 03/19/2026 9:00 AM EDT Office Visit [facility] OBGYN [address] [place] [address] Keyona London, MANAGER OUTPATIENT [address] [facility] [address] [place] [id number] documented as of this encounter Visit Diagnoses Not on filedocumented in this encounter Care Teams Critical Care Specialist Relationship Specialty Start Date End Date Red Groves MD [address] [place] [address] PCP - General Family Medicine 03/16/23 documented as of this encounter
--- OUTSIDE RECORDS SUMMARY | 2025-04-07 11:59 | XMS_ITS | Encounter Summary ---
[facility] Address [address] [place] [id number] Care Team Providers Care Business Services Vice President Name Role Phone Red Groves MD Primary Care Provider + Reason for Referral * Diagnostic Imaging (Routine) - Closed Specialty Diagnoses / Procedures Referred By Contac t Referred To Contact Radiology Diagnoses Abnormality of left breast on screening mammogram Procedures US breast left limited Red Groves MD [address] [place] [address] Phone: tel: fax: [facility] [place] [address] [place] [address] Phone: tel: Referral ID Status Reason Start Date Expiration Date Visits Re quested Visits Authorized [id number] Closed 03/18/2025 06/17/2026 1 1 * Diagnostic Imaging (Routine) - Closed Specialty Diagnoses / Procedures Referred By Contac t Referred To Contact Radiology Diagnoses Abnormality of left breast on screening mammogram Procedures Mammo Diagnostic Digital Tomosynthesis Left With CAD Red Groves MD [address] [place] [address] Phone: tel: fax: [facility] [address] [place] [address] Phone: tel: Referral ID Status Reason Start Date Expiration Date Visits Re quested Visits Authorized [id number] Closed 03/18/2025 06/17/2026 1 1 Encounter Details Date Type Department Care Team (Late st Contact Info) Description 03/18/2025 Results Follow-Up [facility] FAMILY MEDICINE [address] [address] Red Groves MD [address] [place] [address] Social History Tobacco Use Types Packs/Day Years [...] with school or training? Not on file 09 /08/2022 Preferred Language Marshallese 04/01/2023 PHQ-2 Answer Date Recorded Patient Health Questionnaire-2 Score 0 12/10/2024 Comments No Sex and Gender Information Value Date Recorded Sex Assigned at Female 04/01/2025 8:23 AM EDT Legal Sex Female 10:22 AM EDT Gender Identity Not on file Sexual Orientation Straight 04/01/2025 8: 23 AM EDT documented as of this encounter Plan of Treatment Upcoming Encounters Date Type Department Care Team (Late st Contact Info) Description 04/09/2025 11:00 AM EDT Office Visit [facility] P[facility] MEDICINE [address] [place] [address] 04/09/2025 11:30 AM EDT Office Visit [facility] MEDICINE [address] [place] [address] Christopher Kelly DO [address] [place] [address] 04/10/2025 4:15 PM EDT Office Visit [facility] CARDIOLOGY [address] [facility] [address] [place] [address] Jose Juan Landis MD [address] [facility] E [facility] [address] [place] [address] 04/16/2025 8:00 AM EDT Appointment [facility] [place] [address] [facility] [address] [place] [address] 12/11/2025 3:00 PM EDT Office Visit [facility] [address] [facility] [address] [place] [address] Marguerite Moore MD [address] [facility] [address] [place] [address] 12/16/2025 10:15 AM EDT Office Visit [facility] [address] [place] [address] Red Groves MD [address] [place] [address] 03/19/2026 8:00 AM EDT Appointment [facility] [address] [place] [address] 03/19/2026 9:00 AM EDT Office Visit [facility] OBGYN [address] [place] [address] Keyona London, BRIM CUTTER [address] [facility] [address] [place] [address] Scheduled Orders Name Type Priority Associated Diagnoses Orde r Schedule US breast left limited Imaging Routine Abnormality of left breast on screening mammogram Expected: 03/19/2025, Expires: 06/18/2026 documented as of this encounter Results * Mammo Diagnostic Digital [...] recalled from screening examination with tomosynthesis from [facility] for focal asymmetry in the left [...] Diagnosis Abnormality of left breast on screening mammogram- Primary Abnormality of left breast on screening mammogram documented in this encounter Care Teams Business Services Vice President Relationship Specialty Start Date End Date Red Groves MD [address] [place] [address] PCP - General Family Medicine 03/16/23 documented as of this encounter
--- OUTSIDE RECORDS SUMMARY | 2025-04-07 11:59 | XMS_ITS | Encounter Summary ---
[facility] Address [address] [place] [address] Care Team Providers Care Utility Inspector Name Role Phone Red Groves MD Primary Care Provider + Encounter Details Date Type Department Care Team (Latest Contact Info) Description 03/06/2025 Travel Social History Tobacco Use Types Packs/Day Years [...] or training? Not on file Preferred Language Kiswahili 04/01/2023 PHQ-2 Answer Date Recorded Patient Health [...] [facility] [address] [facility] [place] [address] 04/09/2025 11:30 AM EDT Office Visit [facility] [address] [facility] [place] [address] Christopher Kelly DO [address] [place] [address] 04/10/2025 4:15 PM EDT Office Visit [facility] CARDIOLOGY [address] [facility] [address] [place] [address] Jose Juan Landis MD [address] [facility] [address] [place] [address] 04/16/2025 8:00 AM EDT Appointment [facility] [place] [address] [facility] [address] [place] [address] 12/11/2025 3:00 PM EDT Office Visit [facility] [address] [facility] [address] [place] [address] Marguerite Moore MD [address] [facility] [address] [address] [place] [address] 12/16/2025 10:15 AM EDT Office Visit [facility] FAM[facility] [address] [place] [address] Red Groves MD [address] [place] [address] 03/19/2026 8:00 AM EDT Appointment [facility] [address] [place] [address] 03/19/2026 9:00 AM EDT Office Visit [facility] OBGYN [address] [place] [address] Keyona London, GREETING CARD WRITER [address] [facility] [address] [place] [id number] documented as of this encounter Visit Diagnoses Not on filedocumented in this encounter Care Teams Utility Inspector Relationship Specialty Start Date End Date Red Groves MD [address] [place] [address] PCP - General Family Medicine 03/16/23 documented as of this encounter
--- OUTSIDE RECORDS SUMMARY | 2025-04-07 11:59 | XMS_ITS | Clinical Summary ---
[facility] [address] [place] [address] Care Team Providers Care Barrel Roller Name Role Phone Red Groves MD Primary Care Provider + Allergies Active Allergy Reactions Criticality Noted Date Comments Amoxicillin-Pot Clavulanate Nausea And Vomiting Low 03/14/2023 Pseudoephedrine Anxiety Low 04/08/2016 makes me anxious - cant sleep Medications Calcium Carbonate-Vitami n D 600-200 MG-UNIT tablet Take 1 tablet by mouth 2 (Two) Times a Day. Active multivitamin with minerals (MULTIVITAMIN ADULT PO) Take 1 tablet by mouth Every Morning. 30 tablet 1 3 Active O2 (OXYGEN) Inhale 3 L/min As Needed. Active albuterol sulfate HFA 108 (90 Base) MCG/ACT inhalerIndicatio ns:Asthma-COPD overlap syndrome Inhale 2 puffs Every 4 (Four) Hours As Needed for Wheezing. 18 g 11 4 Active dilTIAZem XR (Dilt-XR) 180 MG 24 hr capsule Take 1 capsule by mouth once daily 90 capsule 3 4 Active sildenafil (REVATIO) 20 MG tablet TAKE 1 TABLET BY MOUTH THREE TIMES DAILY 90 tablet 6 5 Active fluticasone (FLONASE) 50 MCG/ACT nasal sprayIndications :Non-seasonal allergic rhinitis due to pollen Administer 2 sprays into the nostril(s) as directed by provider Daily for 360 days. 48 g 3 5 026 Active montelukast (SINGULAIR) 10 MG tabletIndication s:Non-seasonal allergic rhinitis due to pollen Take 1 tablet by mouth Every Night. 90 tablet 3 5 Active rosuvastatin (CRESTOR) 10 MG tabletIndication s:Atheroscleroti c vascular disease Take 1 tablet by mouth Daily. 90 tablet 3 5 Active sertraline (ZOLOFT) 50 MG tabletIndication s:Anxiety disorder, unspecified type Take 1 tablet by mouth Daily. 90 tablet 3 5 Active Trelegy Ellipta 200-62.5-25 MCG/ACT inhalerIndicatio ns:Asthma-COPD overlap syndrome INHALE 1 PUFF ONCE DAILY 60 each [address] 1 dose under the tongue Daily. MULLEIN EXTRACT DROPS Active neomycin-polymyx in-dexamethasone (MAXITROL) 0.1 % ophthalmic suspension INSTILL 1 DROP INTO LEFT EYE 4 TIMES DAILY FOR 7 DAYS 5 Active alendronate (Fosamax) 70 MG tabletIndication s:Osteopenia, senile,Age-relat ed osteoporosis without current pathological fracture Take 30 minutes before first morning food, drink or other medication. Avoid lying down for 30 minutes after dose administered. 4 tablet 12 5 Active cetirizine (zyrTEC) 10 MG tabletIndication s:Non-seasonal allergic rhinitis due to pollen Take 1 tablet by mouth Daily. 90 tablet 3 4 025 Discontin ued(*Ther apy completed ) alendronate (Fosamax) 70 MG tabletIndication s:Age-related osteoporosis without current pathological fracture Take 30 minutes before first morning food, drink or other medication. Avoid lying down for 30 minutes after dose administered. 4 tablet 12 4 025 Discontin ued(Reord er) Active Problems Problem Noted Date Diagnosed Date Pulmonary HTN 07/02/2024 Pulmonary hypertension 11/22/2023 Chronic rhinitis 01/05/2023 Obstructive sleep apnea 11/22/2022 Chronic respiratory failure with hypoxia 022 Atrial tachycardia, paroxysmal 01/31/2019 Age-related osteoporosis wit hout current pathological fracture 07/12/2017 Vaginal atrophy 04/21/2016 Thyroid nodule 04/21/2016 Atrial fibrillation and flutter 04/08/2016 Overview (04/08/2016): a. Diagnosed in 2006, at the time of foot surgery. b. ROXI external cardioversion to normal sinus rhythm, 12/12/2006, with moderate pulmonary hypertension, EF 35%. c. Holter monitor, 04/04/2007, heart rate 44-92; average 60 BPM with no arrhythmias. d. CHADS score of 0. e. ROXI-guided external cardioversion of atrial flutter, May 2010, by Dr. Marguerite Moore with ROXI demonstrating a left ventricular ejection fraction of 55% to 60%, moderate to severe TR, and mild to moderate MR. f. EP study with radiofrequency ablation of 2 right atrial tachycardias, induction of a left atrial flutter not ablated, 08/20/2010. g. Echocardiogram, 03/06/2012, showing left ventricular ejection fraction of 50% to 55%, mild MR and mild to moderate TR. h. Recurrent atrial flutter, status post external cardioversion to normal sinus rhythm, 09/21/2013. i. Atrial flutter by EKG, 10/23/2013. j. External cardioversion of her atrial flutter with recurrent atrial fibrillation shortly thereafter, May 2014. k. Tikosyn initiation, May 2014 with conversion to normal sinus rhythm. l. Pulmonary vein ablation, RFA of atrial flutter and RFA of atrial tachycardia, 07/17/[address] Jose Juan Landis. m. Event monitor, April 2015: no evidence of atrial fibrillation, predominant rhythm is sinus with occasional PACs, with subsequent discontinuation of Eliquis. n. A 12-lead EKG 09/23/2015 shows normal sinus rhythm with PACs, ventricular rate of 63 beats per minute. Normal TX, QRS and QTc intervals. Nonspecific ST-T wave abnormality. Diverticulosis 04/08/2016 Atherosclerotic vascular disease 04/08/2016 Overview (04/08/2016): A. CT scan of abdomen and pelvis, 11/07/2009: Atherosclerotic disease within abdominal aorta and iliac vessels. Assessment & Plan (12/10/2024 10:49 AM EDT): Orders: rosuvastatin (CRESTOR) 10 MG tablet; Take 1 tablet by mouth Daily. ASD (atrial septal defect) 04/08/2016 Overview (04/08/2016): a. Repair at age 11. b. Left heart catheterization in 2000, with no coronary artery disease. c. Echocardiogram, 10/10/2008, with mild pulmonary hypertension, RVSP 42 mmHg, EF 65%. Personal history of smoking (quit 2009) 04/08/20 16 Hyperthyroidism 04/08/2016 Overview (04/08/2016): Thyroid nodule/hyperthyroidism: a. Diagnosed, September 2013. b. On methimazole with upcoming thyroidectomy per Dr. Magallanes, December 2013. c. Partial thyroidectomy by Dr. Jonathan Magallanes, 03/18/2014, with benign biopsy. WHO group 1 PAH 04/08/2016 Overview (04/08/2016): Mild pulmonary hypertension per echocardiogram in 2011. Menopause Asthma-COPD overlap syndrome Encounters Date Type Department Care Team Description 04/02/2025 8:00 AM EDT - 04/02/2025 11:59 PM EDT [facility] [address] [id number] Red Groves MD Abnormality of left breast on screening mammogram Discharge Disposition: Home or Self Care 04/02/2025 Results Follow-Up [facility] [address] [address] Red Groves MD 04/02/2025 Travel 03/26/2025 Telephone [facility] [address] [address] Red Groves MD 03/26/2025 Results [facility]Up [facility] [address] [facility] [address] [place] [address] Red Groves MD 03/18/2025 Results Follow-Up [facility] [address] [address] Red Groves MD 03/13/2025 1:00 PM EDT Office Visit [facility] [address] [place] [address] Keyona London, WEB APPLICATIONS PROGRAMMER Pap test, as part of routine gynecological examination (Primary Dx); Women's annual routine gynecological examination; Breast cancer screening by mammogram; Menopausal state; Osteopenia, senile; History of hysterectomy, supracervical; Age-related osteoporosis without current pathological fracture 03/13/2025 Telephone [facility] [address] [facility] [address] [place] [address] Keyona London APRN 03/13/2025 Travel 03/06/2025 11:00 AM EDT Office Visit [facility]IOLOG[facility] [address] [facility] [address] [place] [address] Marguerite Moore MD Atrial fibrillation and flutter (Primary Dx); ASD (atrial septal defect); Atherosclerotic vascular disease 03/06/2025 Patient rounding ([facility]) [facility] [address] [facility] [address] [place] [address] Addis Rubalcava, RegSched Rep 03/06/2025 Travel 03/05/2025 Telephone [facility] [address] [facility] [address] [place] [address] Marguerite Moore MD Medication Reconciliation from Last 3 Months Immunizations Immunization Administration Dates Next Due Arexvy (RSV, Adults 60+ yrs) 08/25/2023 COVID-19 (PFIZER) Purple Cap Monovalent 04/25/20,10/14/2020,09/21/2020 Covid-19 (Pfizer) Gutierrez Cap Monovalent 12/09/2021 Flu Vaccine Quad PF >36MO 04/04/2020,04/30/2019, 04/23/2017 Fluzone >6mos 05/15/2010 Fluzone (or Fluarix & Flulav al for VFC) >6mos 04/04/2020,04/30/2019,04/23/2017 Fluzone High-Dose 65+YRS 05/12/2024 Fluzone High-Dose 65+yrs 05/07/2023,04/27/2022,1 Hepatitis A 01/22/2019,07/20/2018 Pneumococcal Conjugate 13-Valent (PCV13) 021 Pneumococcal Conjugate 20-Valent (PCV20) 022 Shingrix 09/07/2019,05/25/2019 Td (TDVAX) 10/05/1996 Tdap 05/29/2016 Zostavax 04/03/2016 Family History 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 Relation Name Comments Diabetes Brother 1 Manohar Barber Scoliosis Brother 2 Cancer Father Zak Barber bladder cancer Scoliosis Maternal Grandmother Alzheimer's disease Mother Shila Barber - dece ased Thyroid disease Mother Shila Barber - Heart attack Paternal Grandfather Eder Barber Heart attack Paternal Grandmother Mackenzie Barber Breast cancer Neg Hx Colon cancer Neg Hx Ovarian cancer Neg Hx Uterine cancer Neg Hx Relation Name Status Comments Brother 1 Manohar Elisabeth Brother 2 Father Zak Barber Maternal Grandmother Mother Shila Barber - Paternal Grandfather Eder Barber Paternal Grandmother Mackenzie Barber Social History Tobacco Use Types Packs/Day Years [...] or training? Not on file Preferred Language Panamanian 04/01/2023 PHQ-2 Answer Date Recorded Patient Health Questionnaire-2 Score 0 12/10/2024 Comments No Sex and Gender Information Value Date Recorded Sex Assigned at Female 04/01/2025 8:23 AM EDT Legal Sex Female 10:22 AM EDT Gender Identity Not on file Sexual Orientation Straight 04/01/2025 8: 23 AM EDT Last Filed Vital Signs Vital Sign Reading Time Taken Comments Blood Pressure 124/64 03/13/2025 1:19 PM EDT Pulse 80 03/06/2025 10:51 AM EDT Temperature 36.4 C (97.5 F) 12/10/2024 10:22 AM EDT Respiratory Rate 18 03/13/2025 1:19 PM EDT Oxygen Saturation 94% 03/06/2025 10:51 AM EDT Inhaled Oxygen Concentration - - Weight 50.8 kg (112 lb) 03/13/2025 1:19 PM EDT Height 154.9 cm (5' 0.98 ) 03/13/2025 1:19 PM ED T Body Mass Index 21.17 03/13/2025 1:19 PM EDT Plan of Treatment Upcoming Encounters Date Type Department Care Team (Late st Contact Info) Description 04/09/2025 11:00 AM EDT Office Visit [facility] [address] [place] [address] 04/09/2025 11:30 AM EDT Office Visit [facility] [address] [place] [address] Christopher Kelly DO [address] [place] [address] 04/10/2025 4:15 PM EDT Office Visit [facility] [address] [facility] [address] [place] [address] Jose Juan Landis MD [address] [facility] [address] [place] [address] 04/16/2025 8:00 AM EDT Appointment [facility] [place] [address] [facility] [address] [place] [address] 12/11/2025 3:00 PM EDT Office Visit [facility] [address] [facility] [address] [place] [address] Marguerite Moore MD [address] [facility] [address] [address] [place], [place] [address] 12/16/2025 10:15 AM EDT Office Visit [facility] [address] [place] [address] Red Groves MD [address] [place] [address] 03/19/2026 8:00 AM EDT Appointment [facility] [address] [place] [address] 03/19/2026 9:00 AM EDT Office Visit [facility] O[facility]YN [address] [place] [address] Keyona London, WEB APPLICATIONS PROGRAMMER [address] [facility] [address] [place] [address] Health Maintenance Due Date Last Done Comments COLOGUARD 01/27/2001 COLON CANCER SCREENING 5 YEA R SIGMOIDOSCOPY 01/27/2001 CT COLONOGRAPHY 01/27/2001 FECAL OCCULT BLOOD TEST 01/27/2001 FIT Testing (1 year) 01/27/2001 DXA SCAN 04/23/2018 04/23/2016 COVID-19 Vaccine (8 - 2023-2 5 season) 2025 05/12/2024, 07/02/2023, 05/15/2022, Additional history exists INFLUENZA VACCINE 05/01/2025 05/12/2024, , 04/27/2022, Additional history exists ANNUAL WELLNESS VISIT 12/10/2025 12/10/2024, 025 TDAP/TD VACCINES (3 - Td or Tdap) 05/29/2026 016, 10/05/1996 MAMMOGRAM 04/02/2027 04/02/2025, 03/01, 03/13/2025, Additional history exists COLONOSCOPY 09/07/2031 09/07/2021 COLORECTAL CANCER SCREENING 09/07/2031 ZOSTER VACCINE Completed 09/07/2019, 05/02, 04/03/2016 HEPATITIS C SCREENING Completed 11/20/2021 Pneumococcal Vaccine 50+ Completed 04/27/2022, 09/2020 LUNG CANCER SCREENING Discontinued 08/14/2024, 014 Medical Devices Implanted Type Area Boiler Attendant Device Identifier Shelf Expiration Date Model / Serial / Lot Tam Patch (Asd Repair) Procedures Procedure Name Priority Date/Time Associated Diagnosis Comments MAMMO DIAGNOSTIC DIGITAL TOMOSYNTHESIS LEFT W CAD Routine 04/02/2025 9:12 AM EDT Abnormality of left breast on screening mammogram AMBRY GENETIC ASSESSMENT Routine 04/01/2025 7:08 PM EDT MAMMO OUTSIDE FILMS Routine 03/13/2025 1 2:00 AM EDT H/O mammogram SCANNED - MAMMO 03/13/2025 CT CHEST LOW DOSE WO CANCER SCREENING Routine 08/14/2024 9:28 AM EST Personal history of smoking HEPATITIS C ANTIBODY Routine 11/20/2021 9:10 AM EDT DEXA BONE DENSITY AXIAL Routine 04/23/2016 8:32 AM EDT Menopause from Last 3 Months or Most Recently Relevant to Health Maintenance Results * Mammo Diagnostic Digital Tomosynthesis Left [...] recalled from screening examination with tomosynthesis from [facility] for focal asymmetry in the left [...] MD IMG MAMMOGRAPHY ORDERABL ES Final Result * [facility] GENETIC RISK ASSESSMENT QUESTIONNAIRE - , (04/01/2025 7:08 PM EDT) Robbin 2.6 [employer] NCCN NCCN not met [employer] Comment:High Risk Cancer Ris k Assessment 04/01/2025 7:08 PM EDT us Red Groves MD GENETIC TESTING Final Re sult GEM MITCHELL
[address] [place] [address], [place] [phone] * MAMMO Scan (03/13/2025) Anatomical Region Laterality Modality Other us Red Groves MD CHART REVIEW TABS Fin al Result * MAMMO Outside Films (03/13/2025 12:00 AM EDT) Narrative 03/25/2025 1:02 PM EDT This procedure was auto-finalized with no dictation required. Procedure Note 03/25/2025 This procedure was auto-finalized with no dictation required. us Red Groves MD IMG MAMMOGRAPHY ORDERABL ES Final Result * CT Chest Low Dose Cancer Screening WO (08/14/2024 9:28 AM EST) Anatomical Region Laterality Modality Chest Computed Tomogra phy 08/15/2024 3:52 PM EST Impressions 08/15/2024 3:56 PM EST Impression: 1.No suspicious pulmonary nodules. Recommendation: Continue annual screening with LDCT Lung Rads Assessment: Lung-RADS L1 - Negative, <1% chance of malignancy. Electronically Signed: Brent Wood MD 08/15/2024 3:56 PM EST Workstation ID: [id number] Narrative 08/15/2024 3:[address] CHEST LOW DOSE CANCER SCREENING WO Date of Exam: 08/14/2024 9:15 AM EST Indication: . Smoker Comparison: None available. Technique: Low dose CT imaging of the chest was performed without intravenous contrast enhancement. Automated exposure control and iterative reconstruction methods were used. Findings: Central airways are patent. Moderate changes of emphysema. Linear opacities consistent with atelectasis. Calcified pulmonary nodules consistent with prior granulomatous infection. Scarring in the lingula. Status post right thyroidectomy. No axillary or mediastinal adenopathy. Aorta and pulmonary artery are normal in caliber. Moderate coronary artery calcifications. The esophagus is unremarkable. Limited evaluation of the upper abdomen is unremarkable. No aggressive appearing lytic or sclerotic bone lesions. Status post median sternotomy. Procedure Note Brent Wood MD - 08/15/2024 CT CHEST LOW DOSE CANCER SCREENING WO Date of Exam: 08/14/2024 9:15 AM EST Indication: . Smoker Comparison: None available. Technique: Low dose CT imaging of the chest was performed withoutintravenous contrast enhancement. Automated exposure control anditerative reconstruction methods were used. Findings: Central airways are patent. Moderate changes of emphysema. Linearopacities consistent with atelectasis. Calcified pulmonary nodulesconsistent with prior granulomatous infection. Scarring in the lingula. Status post right thyroidectomy. No axillary or mediastinal adenopathy.Aorta and pulmonary artery are normal in caliber. Moderate coronary arterycalcifications. The esophagus is unremarkable. Limited evaluation of theupper abdomen is unremarkable. No aggressive appearing lytic or sclerotic bone lesions. Status postmedian sternotomy. IMPRESSION: Impression: 1.No suspicious pulmonary nodules. Recommendation: Continue annual screening with LDCT Lung Rads Assessment: Lung-RADS L1 - Negative, <1% chance of malignancy. Electronically Signed: Brent Wood MD 08/15/2024 3:56 PM EST Workstation ID: [id number] Christopher Kelly DO [facility] [place] ORDERABLES F inal Result * Hepatitis C Antibody (11/20/2021 9:10 AM EDT) Hep C Virus Ab <0.1 0.0 - 0.9 s/co ratio [facility] Comment: Negative: < 0.8 Indeterminate: 0.8 - 0.9 Positive: > 0.9 The CDC recommends that a positive HCV antibody result be followed up with a HCV Nucleic Acid Amplification test (566116). 11/20/2021 9:10 AM EDT 11/20/2021 Narrative [facility] - 11/21/2021 8:11 AM EDT Performed at: 02 - [facility] [address] [place], [place] [id number] Allergist: Kt Sinclair PhD, Phone: [phone] Patient Fasting: Y us Red Groves MD LAB BLOOD ORDERABLES Fin al Result [facility] ([facility]) [address] [place] [address], [facility] [address] [place] [address], * DEXA Bone Density Axial (04/23/2016 8:32 AM EDT) Anatomical Region Laterality Modality Wrist, Hip, L-spine N/A Other 04/23/2016 4:32 PM EDT Impressions 04/23/2016 4:34 PM EDT The BMD fulfills the WHO classification for osteoporosis. FOLLOWUP: Consider repeating the study in 2-3 years to reassess the patient's status or sooner if there is some new clinical indication. This report was finalized on 04/23/2016 4:[address] Cata Duque MD. Narrative 04/23/2016 4:34 PM EDT BONE DENSITOMETRY: HISTORY: 61-year-old patient was currently on calcium and vitamin D supplementation. The patient has COPD. COMPARISON: baseline EXAM: A BMD test was performed using the IntellitixXA DXA System manufactured by [employer]. The bone densitometry was evaluated by determining the bone mineral density (BMD) of the first four lumbar vertebral bodies and at 4 sites in the bilateral proximal femurs. The World Health Organization ten year fracture risk assessment (FRAX) was then calculated based on the patient's bone mineral density and specific International Society of Clinical Densitometry (ISCD) qualifiers, as provided by the patient's personal risk history (attached). The T value compares the patient's BMD with the peak BMD of young normal patients. Postmenopausal patients with T values between 1 and 2.5 standard deviations below the mean are osteopenic. Patients with T values greater than 2.5 standard deviations below the mean are osteoporotic. The Z score compares the patient's BMD with age and sex matched peers. Premenopausal patients with Z scores below 2.0 have lower than expected bone mineral density. At this facility, the least significant change in the BMD at the lumbar spine with 95% confidence is 0.010 g/cm2. The least significant change in the BMD at the femoral neck with 95% confidence is 0.014 g/cm2. The least significant change in the BMD at the total femur with 95% confidence is 0.012 g/cm2. The average bone mineral density in the lumbar spine is 1.000 grams per square cm. This represents a T value of -1.5 and a Z score of -0.2. The average bone mineral density of the right hip is 0.657 grams per square cm. The average T value is -2.8. The Z score is -1.8. The T value of the femoral neck is -2.8. The average bone mineral density of the left hip is 0.667 grams per square cm. The average T value is -2.7. The Z score is -1.7. The T value of the femoral neck is -2.8. Procedure Note Cata Duque MD - 04/23/2016 BONE DENSITOMETRY: HISTORY: 61-year-old patient was currently on calcium and vitamin D supplementation. The patient has COPD. COMPARISON: baseline EXAM: A BMD test was performed using the IntellitixXA DXA System manufactured by [employer]. The bone densitometry was evaluated by determining the bone mineral density (BMD) of the first four lumbar vertebral bodies and at 4 sites in the bilateral proximal femurs. The World Health Organization ten year fracture risk assessment (FRAX) was then calculated based on the patient's bone mineral density and specific International Society of Clinical Densitometry (ISCD) qualifiers, as provided by the patient's personal risk history (attached). The T value compares the patient's BMD with the peak BMD of young normal patients. Postmenopausal patients with T values between 1 and 2.5 standard deviations below the mean are osteopenic. Patients with T values greater than 2.5 standard deviations below the mean are osteoporotic. The Z score compares the patient's BMD with age and sex matched peers. Premenopausal patients with Z scores below 2.0 have lower than expected bone mineral density. At this facility, the least significant change in the BMD at the lumbar spine with 95% confidence is 0.010 g/cm2. The least significant change in the BMD at the femoral neck with 95% confidence is 0.014 g/cm2. The least significant change in the BMD at the total femur with 95% confidence is 0.012 g/cm2. The average bone mineral density in the lumbar spine is 1.000 grams per square cm. This represents a T value of -1.5 and a Z score of -0.2. The average bone mineral density of the right hip is 0.657 grams per square cm. The average T value is -2.8. The Z score is -1.8. The T value of the femoral neck is -2.8. The average bone mineral density of the left hip is 0.667 grams per square cm. The average T value is -2.7. The Z score is -1.7. The T value of the femoral neck is -2.8. IMPRESSION: The BMD fulfills the WHO classification for osteoporosis. FOLLOWUP: Consider repeating the study in 2-3 years to reassess the patient's status or sooner if there is some new clinical indication. This report was finalized on 04/23/2016 4:[address] Cata Duque MD. Abraham Garrett MD IMG DXA ORDERABLES Final Result from Last 3 Months or Most Recently Relevant to Health Maintenance Insurance [facility] MEDICARE ADVANTAGE PPO Advance Directives Documents on File Type Date Recorded Patient Telephone Clerks Supervisor Expl anation PATIENT ADVANCE DIRECTIVES - SCAN 04/20/2022 10:30 AM JEFFERY ADVANCE DIRECTIVE S, 08/18/2010 POWER OF MASTER CONTROL ENGINEER - SCAN 04/20/2022 10:30 AM DURABLE POWER OF MASTER CONTROL ENGINEER, 08/18/2010 * CPR (Attempt to Resuscitate) (Latest Code Status on File) Date Activated Date Inactivated Comments 04/20/2022 1:44 PM 04/20/2022 8:27 PM Question Answer Comments Code Status (Patient has no pulse and is not breathing): CPR (Attempt to Resuscitate) Medical Interventions (Patie nt has pulse or is breathing): Full Level Of Support Discussed With: Patient Care Teams Barrel Roller Relationship Specialty Start Date End Date Red Groves MD [address] [place] [address] PCP - General Family Medicine 03/16/23
--- OUTSIDE RECORDS SUMMARY | 2025-04-07 11:59 | XMS_ITS | Encounter Summary ---
Author Organization [facility] Address [address] [place] [address] Care Team Providers Care Supervisor Concrete Stone Fabricating Name Role Phone Red Groves MD Primary Care Provider + Encounter Details Date Type Department Care Team (Late st Contact Info) Description 03/26/2025 Results Follow-Up [facility] [address] [address] Red Groves MD [address] [place] [address] Social History Tobacco Use Types Packs/Day Years [...] no 08/02/2024 Feels Threatened by Someone no 01/0 09/2024 Does Anyone Try to Keep You [...] Description 04/09/2025 11:00 AM EDT Office Visit [facility] PULMONARY & [facility]ICAL [facility]ARE MEDICINE [address] [place] [address] 04/09/2025 11:30 AM EDT Office Visit [facility] P[facility] MEDICINE [address] [place] [address] Christopher Kelly, 2400 [place] [address] 04/10/2025 4:15 PM EDT Office Visit [facility] CARDIOLOGY 1720 [facility] 400 [place] [address] Jose Juan Landis MD [address] [facility] [address] [place] [address] 04/16/2025 8:00 AM EDT Appointment [facility] NONINVASIVE LAB [place] 3000 [facility] STAN [address] [place] [address] 12/11/2025 3:00 PM EDT Office Visit [facility]ARDI[facility] 1720 [facility] [address] [place] [address] Marguerite Moore MD 1720 [facility] [address] STAN [address] [place] [address] 12/16/2025 10:15 AM EDT Office Visit [facility] FAMILY MEDICINE 210 [place] [address] Red Groves MD 210 [place] [address] 03/19/2026 8:00 AM EDT Appointment [facility] 206 [place] [address] 03/19/2026 9:00 AM EDT Office Visit [facility] OBGYN 206 [place] [address] Keyona London, DRUPAL WEB DEVELOPER 17[address] [facility] [address] [address] [address] [place] [address] documented as of this encounter Visit Diagnoses Not on filedocumented in this encounter Care Teams Supervisor Concrete Stone Fabricating Relationship Specialty Start Date End Date Red Groves MD 210 [place] [address] PCP - General Family Medicine 03/16/23 documented as of this encounter
--- OUTSIDE RECORDS SUMMARY | 2025-04-07 11:59 | XMS_ITS | Encounter Summary ---
[facility] Organization [facility] Address [address] [place] [address] Care Team Providers Care Office Machine Installer Name Role Phone Red Groves MD Primary Care Provider + Encounter Details Date Type Department Care Team (Late st Contact Info) Description 10/22/2024 Results Follow-Up [facility] 206 [place] [address] Giovanna rPater L, KNIFE EDGER 210 [place] [address] Social History Tobacco Use Types Packs/Day [...] or training? Not on file Preferred Language Thai 04/01/2023 PHQ-2 Answer Date Recorded Patient Health Questionnaire-2 Score 0 10/17/2024 Comments No Sex and Gender Information Value [...] CENTER PULMONARY & CRITICAL CARE MEDICINE [address]00 [place] [address] 04/09/2025 11:30 AM EDT Office Visit [facility] PULMONARY & [facility]ITICAL CARE MEDICINE [address] [facility] [place] [address] Christopher Kelly DO 2400 [place] [address] 04/10/2025 4:15 PM EDT Office Visit [facility] CARDIOLOGY 1720 [facility] 400 [place] [address] Jose Juan Landis MD 1720 [facility] 400 [place] [address] 04/16/2025 8:00 AM EDT Appointment [facility] NONINVASIVE LAB [place] 3000 [facility] 210 [place] [address] 12/11/2025 3:00 PM EDT Office Visit [facility] CARDI[facility] 1720 [facility] [address] [place] [address] Marguerite Moore MD 1720 [facility] [address] [address] [address] [place] [address] 12/16/2025 10:15 AM EDT Office Visit [facility] FAMILY MEDICINE 210 [place] [address] Red Groves MD 210 [place] [address] 03/19/2026 8:00 AM EDT Appointment [facility] 206 [place] [address] 03/19/2026 9:00 AM EDT Office Visit [facility] OBGYN 206 [place] [address] Keyona London, KNIFE EDGER 1700 [facility] 701 [place] [address] documented as of this encounter Visit Diagnoses Not on filedocumented in this encounter Care Teams Office Machine Installer Relationship Specialty Start Date End Date Red Groves MD 210 [place] [address] PCP - General Family Medicine 03/16/23 documented as of this encounter
--- OUTSIDE RECORDS SUMMARY | 2025-04-07 11:59 | XMS_ITS | Patient Health Record ---
Author Organization Cecelia Sampson MD [facility] Address [address] [id number] Reason For Referral No Information Plan Of Treatment No Information Medical (General) History 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 History ICD Code pulmonary htn osteoporosis sleep apnea congenital heart disease- surgery at 11 years old at [place]
--- OUTSIDE RECORDS SUMMARY | 2025-04-07 11:59 | XMS_ITS | Encounter Summary ---
Author Organization [facility] Address [address] [place] [address] Care Team Providers Care Cold Roll Operator Name Role Phone eRd Groves MD Primary Care Provider + Encounter Details Date Type Department Care Team (Late st Contact Info) Description 10/18/2024 Results [facility]-Up [facility] 206 [place] [address] Giovanna Prater L, WING COMMANDER 210 [place] [address] Social History Tobacco Use Types [...] or training? Not on file Preferred Language Japanese 04/01/2023 PHQ-2 Answer Date Recorded Patient Health [...] HOSPITAL PULMONARY & CRITICAL CARE MEDICINE 2400 [place] [address] 04/09/2025 11:30 AM EDT Office Visit [facility] PULMONARY & CRITICAL CARE MEDICINE [address]00 [facility] [place] [address] Christopher Kelly DO 2400 [place] [address] 04/10/2025 4:15 PM EDT Office Visit [facility] CARDIOLOGY 1720 [facility] 400 [place] [address] Jose Juan Landis MD [address] [facility] 400 [place] [address] 04/16/2025 8:00 AM EDT Appointment NONINVASIVE [facility] [place] 3000 [facility] 210 [place] [address] 12/11/2025 3:00 PM EDT Office Visit [facility] CARDIOLOG[facility] 17[address] [facility] 400 [place] [address] Marguerite Moore MD 1720 [facility] [address] STAN 400 [place] [address] 12/16/2025 10:15 AM EDT Office Visit [facility] FAMILY MEDICINE 210 [place] [address] Red Groves MD 210 [place] [address] 03/19/2026 8:00 AM EDT Appointment [facility] 206 [place] [address] 03/19/2026 9:00 AM EDT Office Visit [facility] OBGYN 206 [place] [address] Keyona London, WING COMMANDER 1700 [facility] 701 [place] [address] documented as of this encounter Visit Diagnoses Not on filedocumented in this encounter Care Teams Cold Roll Operator Relationship Specialty Start Date End Date Red Groves MD 210 [place] [address] PCP - General Family Medicine 03/16/23 documented as of this encounter
--- OUTSIDE RECORDS SUMMARY | 2025-04-07 11:59 | XMS_ITS | Encounter Summary ---
[facility] Address [address] [id number] Care Team Providers Care Bush And Vine Farmer Fruit Crops Name Role Phone Red Groves MD Primary Care Provider + Encounter Details Date Type Department Care Team (Late st Contact Info) Description 03/13/2025 Telephone [facility] OBGYN 1700 [facility] [address] [place] [address] LitaKeyona, PROCESS TANK TENDER 1700 [facility] [address] [place], [place] [id number] Social History Tobacco Use Types Packs/Day Years [...] or training? Not on file Preferred Language Swazi 04/01/2023 PHQ-2 Answer Date Recorded Patient Health Questionnaire-2 Score 0 12/10/2024 Comments No Sex and Gender Information Value Date Recorded Sex Assigned at Female 04/01/2025 8:23 AM EDT Legal Sex Female 10:22 AM EDT Gender Identity Not on file Sexual Orientation Straight 04/01/2025 8: 23 AM EDT documented as of this encounter Miscellaneous Notes * Telephone Encounter - Mariola Hernandez RN - 03/13/2025 3:09 PM EDT Patient of Dr. Amos; JIHAN was today with Carlos London APRN. Returned call to Melissa at [facility] pharmacy. Clarified that Fosamax dosing should be one tablet onceweekly. She v/u. * Telephone Encounter - Sherry Mendez RegSched Rep - 03/13/2025 2:56 PM EDT [facility] Melissa needing some medication clarification on alendronate (Fosamax) 70 MG tablet - please call Melissa at [phone] documented in this encounter Plan of Treatment Upcoming Encounters Date Type Department Care Team (Late st Contact Info) Description 04/09/2025 11:00 AM EDT Office Visit [facility] PULMONARY & CRITICAL CARE MEDICINE [address] [place] [address] 04/09/2025 11:30 AM EDT Office Visit [facility] PULMONARY & CRITICAL CARE MEDICINE [address] [place] [address] Christopher Kelly DO [address] [place] [address] 04/10/2025 4:15 PM EDT Office Visit [facility] CARDIOLOGY 1720 [facility] [address] 400 [place] [address] Jose Juan Landis MD 1720 [facility] [address] [place] [address] 04/16/2025 8:00 AM EDT Appointment [facility] NONINVASIVE LAB [place] 3000 [facility] [address] [place] [address] 12/11/2025 3:00 PM EDT Office Visit [facility] CARDIOLOGY 1720 [facility] [address] [address] [place] [address] Marguerite Moore MD 1720 [facility] [address] [address] [place] [address] 12/16/2025 10:15 AM EDT Office Visit [facility] FAMILY MEDICINE 210 [place] [address] Red Groves MD 210 [place] [address] 03/19/2026 8:00 AM EDT Appointment [facility] 206 [place] [address] 03/19/2026 9:00 AM EDT Office Visit [facility] OBGYN 206 [place] [address] Keyona London, PROCESS TANK TENDER 1700 [facility] 701 [place] [address] documented as of this encounter Visit Diagnoses Not on filedocumented in this encounter Care Teams Bush And Vine Farmer Fruit Crops Relationship Specialty Start Date End Date Red Groves MD [address] [place] [address] PCP - General Family Medicine 03/16/23 documented as of this encounter
--- OUTSIDE RECORDS SUMMARY | 2025-04-07 11:59 | XMS_ITS | Encounter Summary ---
[facility] Address [address] [place] [address] Care Team Providers Care Imagery Analyst Name Role Phone Red Groves MD Primary Care Provider + Encounter Details Date Type Department Care Team (Latest Contact Info) Description 03/13/2025 Travel Social History Tobacco Use Types Packs/Day [...] or training? Not on file Preferred Language Georgian 04/01/2023 PHQ-2 Answer Date Recorded Patient Health [...] Description 04/09/2025 11:00 AM EDT Office Visit [facility] PULMONARY & CRITICAL CARE MEDICINE [address]00 [facility] [place] [address] 04/09/2025 11:30 AM EDT Office Visit [facility] PULMONARY & CRITICAL CARE MEDICINE [address] [facility] [place] [address] Christopher Kelly DO 2400 [place] [address] 04/10/2025 4:15 PM EDT Office Visit [facility] CARDIOLOGY 1720 [facility] ST[address] 400 [place] [address] Jose Juan Landis MD 1720 [facility] ST[facility] [address] [place] [address] 04/16/2025 8:00 AM EDT Appointment [facility] NONINVASIVE LAB [place] 3000 [facility] STAN 210 [place] [address] 12/11/2025 3:00 PM EDT Office Visit [facility] CARDIOLOGY 1720 [facility] ST[facility] [address] [place] [address] Marguerite Moore MD 1720 [facility] [address] [place] [address] 12/16/2025 10:15 AM EDT Office Visit [facility] FAMILY MEDICINE [address] [place] [address] Red Groves MD 210 [place] [address] 03/19/2026 8:00 AM EDT Appointment [facility] 206 [place] [address] 03/19/2026 9:00 AM EDT Office Visit [facility] OBGYN [address] [place] [address] Keyona London, CUTTER AND PASTER PRESS CLIPPINGS 1700 [facility] [address] [place] [address] documented as of this encounter Visit Diagnoses Not on filedocumented in this encounter Care Teams Imagery Analyst Relationship Specialty Start Date End Date Red Groves MD [address] [place] [address] PCP - General Family Medicine 03/16/23 documented as of this encounter
--- OUTSIDE RECORDS SUMMARY | 2025-04-07 11:59 | XMS_ITS | Encounter Summary ---
[facility] Address [address] [place] [address] Care Team Providers Care Shore Working Supervisor Name Role Phone Red Groves MD Primary Care Provider + Reason for Visit * Reason Onset Date Comments Medication Reconciliation 03/05/2025 Encounter Details Date Type Department Care Team (Late st Contact Info) Description 03/05/2025 Telephone [facility] CARDIOLOGY 1720 [facility] STAN [address] [place] [address] Marguerite Moore MD 17[address] [facility] [address] [place] [address] Medication Reconciliation Social History Tobacco Use Types Packs/Day Years [...] or training? Not on file Preferred Language Danish 04/01/2023 PHQ-2 Answer Date Recorded Patient Health Questionnaire-2 Score 0 12/10/2024 Comments No Sex and Gender Information Value Date Recorded Sex Assigned at Female 04/01/2025 8:23 AM EDT Legal Sex Female 10:22 AM EDT Gender Identity Not on file Sexual Orientation Straight 04/01/2025 8: 23 AM EDT documented as of this encounter Miscellaneous Notes * Telephone Encounter - Gillian Hay CMA - 03/05/2025 8:55 AM EDT Medication reconciliation completed with patient. documented in this encounter Plan of Treatment Upcoming Encounters Date Type Department Care Team (Late st Contact Info) Description 04/09/2025 11:00 AM EDT Office Visit [facility] PULMONARY & CRITICAL CARE MEDICINE [address] [place] [address] 04/09/2025 11:30 AM EDT Office Visit [facility] PULMONARY & CRITICAL CARE MEDICINE [address] [place] [address] Christopher Kelly, [address] [place] [address] 04/10/2025 4:15 PM EDT Office Visit [facility] CARDIOLOGY 1720 [facility] STAN [address] [place] [address] Jose Juan Landis MD 1720 [facility] [address]LD[address] E STAN 400 [place] [address] 04/16/2025 8:00 AM EDT Appointment [facility] NONINVASIVE LAB [place] 3000 [facility] [address] [place] [address] 12/11/2025 3:00 PM EDT Office Visit [facility] CARDIOLOGY 1720 [facility] STAN [address] [place] [address] Marguerite Moore MD 1720 [facility] ST[address] 400 [place], [place] [address] 12/16/2025 10:15 AM EDT Office Visit [facility] FAMILY MEDICINE 210 [place] [address] Red Groves MD 210 [place] [address] 03/19/2026 8:00 AM EDT Appointment [facility] 206 [place] [address] 03/19/2026 9:00 AM EDT Office Visit [facility] OBGYN 206 [place] [address] Keyona London, CLERICAL STOCK INSPECTOR 1700 [facility] 701 [place] [address] documented as of this encounter Visit Diagnoses Not on filedocumented in this encounter Care Teams Shore Working Supervisor Relationship Specialty Start Date End Date Red Groves MD 210 [place] [address] PCP - General Family Medicine 03/16/23 documented as of this encounter
--- NOTE | 2025-04-07 12:00 | ED_ITS ---
Discharge Plan Disposition Patient Disposition: Admitted Condition: Serious Prescriptions Prescriptions: No Action diltiazem HCl 180 mg capsule,extended release 24hr PO Patient Comments: TAKE 1 CAPSULE BY MOUTH ONCE DAILY rosuvastatin 10 mg tablet 10 mg PO DAILY Patient Comments: TAKE 1 TABLET BY MOUTH ONCE DAILY sertraline 50 mg tablet 50 mg PO DAILY sildenafil (pulm.hypertension) 20 mg tablet 20 mg PO TID Patient Comments: TAKE 1 TABLET BY MOUTH THREE TIMES DAILY Trelegy Ellipta 200-62.5-25 mcg blister with device 1 inh inhalation methylprednisolone [Medrol (Fer)] 4 mg tablets,dose pack See Rx Instructions PO PER PKG DIR Qty: 21 0RF Rx Instructions: PO PER PKG DIR for 6 days benzonatate 100 mg capsule 100 mg PO TID PRN (Reason: cough) Qty: 30 0RF guaifenesin [Mucinex] 600 mg tablet extended release 12hr 600 mg PO BID PRN (Reason: congestion) Qty: 10 0RF cetirizine 10 mg tablet 10 mg PO DAILY albuterol sulfate 90 mcg/actuation HFA aerosol inhaler INHALATION nystatin 100,000 unit/mL suspension 5 ml PO QID 7 Days Qty: 140 0RF Rx Instructions: swish and spit alendronate 70 MG tablet 70 mg PO WEEKLY fluticasone propionate 15.8 ML spray,suspension 15.8 ml intranasal DAILY montelukast 10 MG tablet 10 mg PO HS Referrals Follow up/Referrals: Red Groves MD [Primary Care Provider, Medical] - See instructions Clinical Impressions Clinical Impression: Multifocal pneumonia, Acute and chronic respiratory failure with hypoxia, Nausea vomiting and diarrhea, Severe sepsis Print Language Print Language: [place] Islander Discharge ED Provider: Abraham Stuart Adult HPI General Chief complaint: Weakness Stated complaint: vomiting, diarrhea Time Seen by Provider: 04/07/25 12:00 History of Present Illness HPI narrative: Patient is a 70-year-old female with history of COPD on 3 L nasal cannula at home, pulmonary hypertension, A-fib. She is not currently anticoagulated. She presents today due to concerns for diarrhea vomiting and shortness of breath. She reports that late last week, she began to develop nonbloody diarrhea that then progressed to vomiting 2 days ago nonbloody. She has not been able to keep any down. Just this morning, she is more short of breath than usual, worse on exertion. She is not significantly orthopneic. She denies any chest pain. She reports cough that is more significantly purulent. She denies known sick contacts. She reports no dysuria hematuria or flank pain, but does endorse some cramping diffuse abdominal pain. Chills without objective fever. On 5 L nasal cannula now up from her home 3 L. Denies any lower extremity edema. Related Data Home Medications ?Medication ?Instructions ?Recorded ?Confirmed montelukast 10 mg tablet 10 mg PO HS Allergy symptoms 12/11/17 10/13/24 alendronate 70 mg tablet 70 mg PO WEEKLY Osteoporosis 04/10/21 10/13/24 fluticasone propionate 50 15.8 ml intranasal DAILY Ast hma 04/10/21 10/13/24 mcg/actuation nasal spray,suspension albuterol sulfate 90 mcg/actuation g inhalation 10/13/24 aerosol inhaler cetirizine 10 mg tablet 10 mg PO DAILY 06/13/2109/29 diltiazem HCl 180 mg mg PO 07/27/23 10/13/24 capsule,extended release 24 hr fluticasone fur. 200 mcg-umeclid 1 inh inhalation 07/0210/13/24 62.5 mcg-vilant 25 mcg inhalat.powder (Trelegy Ellipta) rosuvastatin 10 mg tablet 10 mg PO DAILY 07/27/2309/29 sertraline 50 mg tablet 50 mg PO DAILY 07/27/2309/29 sildenafil (pulm.hypertension) 20 20 mg PO TID 3 10/13/24 mg tablet Previous Rx's ?Medication ?Instructions ?Recorded benzonatate 100 mg capsule 100 mg PO TID PRN cough #30 caps 10/04/24 guaifenesin 600 mg tablet, 600 mg PO BID PRN congestio n #10 10/04/24 extended release 12 hr (Mucinex) tabs methylprednisolone 4 mg tablets in See Rx Instructions PO PER PKG DIR 10/04/24 a dose pack (Medrol (Fer)) #21 tabs nystatin 100,000 unit/mL oral 5 ml PO QID 7 days #140 mL 10/13/24 suspension Allergies Allergy/AdvReac Type Severity Reaction Status Date / Time No Known Allergies Allergy Verified 10/13/24 09:26 [facility] Disclaimer: The information contained in this section may have been updated after the patient was seen, as this information can be updated by other users. 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 MACHINE TENDER) No significant family history Social History Smoking Status: Former smoker alcohol intake: never current occupational status: employed Travel in the last 8 weeks?: None household members: none housing: house 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 Have you lived/traveled outside US in past 30 days?: No Contact w/someone who lives/traveled outside US past 30 days?: No Exposure to someone with infectious disease in past 14 days?: No Do you have a fever (greater than 100.4 F or 38 C)?: No Have you tested positive for COVID-19?: No Exposed to someone with COVID-19 in past 14 days?: No Do you have a sore throat?: No Do you have a cough?: No Do you have any weakness?: No Do you have any diarrhea?: Yes Are you experiencing any unusual bleeding?: No Do you have any muscle aches/pain?: No Do you have any abdominal pain?: No Are you experiencing loss of taste or smell?: No Other 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 Have you received the Flu Vaccine for this season: Yes (2019) Have you received the Pneumonia Vaccine: Yes ROS Obtained: Yes All systems reviewed & no additional complaints except as documented Physical Exam General General appearance: alert and cachectic Head Head exam: atraumatic and normocephalic Eye Eye exam: Present PERRL and EOMI ENT ENT exam: Present mucous membranes dry Neck Neck exam: Present full ROM and trachea midline Chest Chest inspection: Present symmetric chest wall rise Respiratory Respiratory exam: Present normal lung sounds bilaterally and wheezes (Scant expiratory, with diminished breath sounds in the bases with prolonged expiratory phase. Tachypnea. Retractions.); Absent stridor Cardiovascular Cardiovascular exam: Present normal rhythm and tachycardia Abdominal Exam Abdominal exam: Present soft and tenderness (Diffuse mild); Absent distention, guarding or rebound Extremities Exam Extremities exam: Present full ROM Neurological Exam Neurological exam: Present alert and oriented X3 Psychiatric Psychiatric exam: Present normal mood Skin Skin exam: Present warm and dry Medical Decision Making Medical Records Screening: Per USPSTF and CDC recommendations, given the prevalence of disease in our region, it is our hospital?s policy to screen for HIV and viral Hepatitis for all patients aged 18 and over and those with ongoing risk factors. Bird Inquiry Pt receiving controlled substance: No Vital Signs: 04/07/25 12:01 04/07/25 12:01 04/07/25 12:30 Temperature 99.0 F 99.0 F Temperature Source Oral Pulse Rate 112 H 101 H Pulse Rate [Left] 112 H Respiratory Rate 26 H 26 H Blood Pressure 147/64 H 134/71 Blood Pressure [Right Arm] 147/64 H Blood Pressure Mean [Right Arm] 91 02 Sat by Pulse Oximetry 85 L 85 L 96 Oxygen Delivery Method Nasal Cannula Nasal Cannula Nasal Cannula Oxygen Flow Rate (LPM) 3 3 3 Fraction of Inspired Oxygen 04/07/25 13:00 04/07/25 13:30 04/07/25 13:41 Temperature Temperature Source Pulse Rate 96 H 96 H 94 H Pulse Rate [Left] Respiratory Rate 39 H Blood Pressure 137/45 L 129/51 L Blood Pressure [Right Arm] Blood Pressure Mean [Right Arm] 02 Sat by Pulse Oximetry 96 91 L 92 L Oxygen Delivery Method Nasal Cannula Nasal Cannula Oxygen Flow Rate (LPM) 3 3 Fraction of Inspired Oxygen 04/07/25 13:45 04/07/25 13:57 04/07/25 14:02 Temperature Temperature Source Pulse Rate 100 H 99 H 83 Pulse Rate [Left] Respiratory Rate 33 H 28 H 43 H Blood Pressure 135/103 H 115/81 Blood Pressure [Right Arm] Blood Pressure Mean [Right Arm] 02 Sat by Pulse Oximetry 86 L 87 L 88 L Oxygen Delivery Method Oxygen Flow Rate (LPM) 3 3 Fraction of Inspired Oxygen 04/07/25 14:25 Temperature Temperature Source Pulse Rate Pulse Rate [Left] Respiratory Rate Blood Pressure Blood Pressure [Right Arm] Blood Pressure Mean [Right Arm] 02 Sat by Pulse Oximetry 92 L Oxygen Delivery Method Vapotherm Oxygen Flow Rate (LPM) 30 Fraction of Inspired Oxygen 50 Lab Data Lab Results 04/07/25 12:00: SARS-CoV-2 (PCR) Not detected, Influenza A Untype (PCR) Not detected, Influenza Type B (PCR) Not detected 04/07/25 12:20: WBC 17.8 H, RBC 4.56, Hgb 14.0, Hct 42.0, MCV 92.1, MCH 30.7, MCHC 33.3, RDW 14.0, Plt Count 178, MPV 10.2, Neut % (Auto) 87.4 H, Lymph % (Auto) 4.5 L, [place] % (Auto) 4.6, Eos % (Auto) 2.1, Baso % (Auto) 0.5, Neut # (Auto) 15.6 H, Lymph # (Auto) 0.8, [place] # (Auto) 0.8, Eos # (Auto) 0.4, Baso # (Auto) 0.1, PT 13.5 H, INR 1.24 H, VBG pH 7.37, VBG pCO2 37.0, VBG pO2 29.5, VBG HCO3 20.8 L, VBG Total CO2 21.9 L, VBG O2 Saturation 57.9, VBG Base Excess -4.5 L, VBG Lactic Acid 2.6 H, Sodium 141, Potassium 3.1 L, Chloride 108 H, Carbon Dioxide 23, Anion Gap 13.1, BUN 27 H, Creatinine 0.90, Estimated Creat Clear 43, Estimated GFR 62, Est GFR ( Amer) 75, Glucose 125 H, Calcium 9.7, P hosphorus 2.1 L, Magnesium 1.7, Total Bilirubin 2.5 H, AST 63 H, ALT 38, Alkaline Phosphatase 82, Troponin I 0.02, NT-Pro-B Natriuret Pep 4560 H, Total Protein 7.4, Albumin 4.4, Globulin 3.0, Albumin/Globulin Ratio 1.5, Lipase 17 L 04/07/25 12:20 04/07/25 12:20 Orders (Tests/Meds): ED MEDICATIONS Generic Name Dose Route Start Last Admin Trade Name Freq PRN Reason Stop Dose Admin Piperacillin Sod/Tazobactam 100 mls @ 200 mls/hr 04/07/25 13:00 04/07/25 13:55 Sod 4.5 gm/ Sodium Chloride IV 04/17/25 12:59 Infused Q6H KRISTYN Infusion Vancomycin/PEG/NADA/Lysine/Water 1.25 gm in 250 mls @ 125 mls/hr 04/07/25 13:15 04/07/25 13:55 Vancomycin 1.25gm/250ml (Peg) Premix IV 04/07/25 15:14 125 mls/hr ONCE ONE Administration Discontinued Medications Generic Name Dose Route Start Last Admin Trade Name Freq PRN Reason Stop Dose Admin Albuterol/Ipratropium 3 ml 04/07/25 12:10 04/07/25 12:28 Ipratropium/Albuterol 3 Ml Neb IH 04/07/25 12:11 3 ml ONCE ONE Administration Lactated Ringer's 1,000 mls @ 999 mls/hr 04/07/25 12:10 04/07/25 12:28 Lactated Ringer's 1000 Ml Bag IV 04/07/25 13:10 999 mls/hr .Q1H1M ONE Administration Iopamidol 80 ml 04/07/25 13:10 04/07/25 13:13 Iopamidol-370 (76%);100ml Bottle IV 04/07/25 13:11 80 ml ONCE ONE Administration Miscellaneous 1 each 04/07/25 13:00 04/07/25 13:58 Vancomycin Consult Request NOTAPPLIC 05/07/25 12:59 1 each CONSULT PHARMACY KRISTYN Administration Sodium Chloride 10 ml 04/07/25 13:10 04/07/25 13:13 Sodium Chloride 0.9% 10ml Syr (Rad Only) IV 04/07/25 13:11 10 ml ONCE ONE Administration Sodium Chloride 50 ml 04/07/25 13:10 04/07/25 13:13 0.9 % Sodium Chloride 50 Ml Vial IV 04/07/25 13:11 50 ml ONCE ONE Administration ORDERS Category Date Time Status CT abdomen pelvis w con Stat Cat Scan 04/07/25 12:11 Completed CTA Chest [CT angio chest PE protocol] Stat Cat Scan 04/07/25 12:11 Completed BNP [NT Pro Brain Natriuretic Pep.] Stat Lab 04/07/25 12:20 Completed CBC w/Auto Diff [Complete Blood Count Auto Diff] Stat Lab 04/07/25 12:20 Completed CMP [Comprehensive Metabolic Panel] Stat Lab 04/07/25 12:20 Completed Lactic Acid Stat Lab 04/07/25 12:12 Ordered Lipase Stat Lab 04/07/25 12:20 Completed MAG [Magnesium] Stat Lab 04/07/25 12:20 Completed PHOS [Phosphorous] Stat Lab 04/07/25 12:20 Completed PT INR [Prothrombin Time INR] Stat Lab 04/07/25 12:20 Completed Rapid PCR Covid and Flu A/B Stat Lab 04/07/25 12:00 Completed Trop I [Troponin I] Stat Lab 04/07/25 12:20 Completed Troponin I Q3H Lab 04/07/25 15:15 Ordered Troponin I Q3H Lab 04/07/25 18:15 Ordered UA [Urinalysis and Microscopic] Stat Lab 04/07/25 12:12 Ordered Blood Culture Stat Micro 04/07/25 12:59 Received Urine Culture Stat Micro 04/07/25 12:12 Ordered VBG [Venous Blood Gas] Stat RT 04/07/25 12:20 Completed Tissue Perfus/Sepsis Re-Eval Sepsis Re-Evaluation Performed: Yes Date Performed: 04/07/25 Time Performed: 14:38 Medical Decision Narrative: In summary, this 70-year-old female presents to the emergency department today with vomiting diarrhea and shortness of breath and cough. On initial evaluation patient is afebrile, tachycardic, hypoxic requiring increased oxygen requirement to maintain oxygen saturations above 88%, tachypneic, retractions, diminished breath sounds bilaterally. Diffuse abdominal tenderness without peritoneal signs.. Differential diagnosis includes but is not limited to intra-abdominal abscess, bowel obstruction, viral gastroenteritis, pneumonia, acute hypoxic respiratory failure, COPD exacerbation, PE. Based on these concerns, I ordered as above. I am concerned for sepsis, will begin with 1 L of crystalloid resuscitation with holding further given volume overload and elevated BNP, lactate elevated, good perfusion initially, will begin broad-spectrum antibiotics given severe sepsis criteria met with source of infection of the probable pneumonia I suspect it may be aspiration pneumonia given that she was vomiting and then her cough and shortness of breath began. ECG personally interpreted demonstrates significant artifact, looks like A-fib with slight RVR with a rate of 106 no obvious acute ischemic ST changes, there are some T wave inversions in the anterior and throughout the lateral precordium, will obtain repeat when patient is more relaxed.. Patient received IV fluid resuscitation, vancomycin, Zosyn, Zofran for treatment. Labs personally reviewed demonstrate leukocytosis to 17.8, lactate elevated to 2.7, BNP elevated to 4500, no evidence of respiratory acidosis. CT imaging personally interpreted demonstrate bilateral pneumonia. I had an interactive discussion with Dr. Levine who agrees to admit the patient to the service for further workup definitive management. Patient returns to the service hemodynamically stable on Vapotherm 30 L, 50%. On reassessment, her perfusion remains good. On reassessment patient's work of breathing is slightly increased, her oxygenation remains okay at 90% which is appropriate given her COPD. Given her increased work of breathing with tachypnea at 40, I have placed her on Vapotherm. She is beginning to improve on this.. Of note, social determinants of health include poor health literacy. Critical Care Critical Care Time Critical Care Time: Yes Attestation: On 04/07/25, the high probability of a clinically significant, sudden or life threatening deterioration of the following system(s) required my full and direct attention, intervention and personal management. The time I documented below is in addition to time spent performing reported procedures but includes the following listed in this critical care notation. Frequent reassessments, uptitrated respiratory support with high flow Vapotherm, business systems consultant consultations Total Time Total Critical Care Time: 32
--- OUTSIDE RECORDS SUMMARY | 2025-04-07 12:00 | XMS_ITS | Encounter Summary ---
[facility] Address [address] [place] [address] Care Team Providers Care Patcher Wood Welder Name Role Phone Red Groves MD Primary Care Provider + Encounter Details Date Type Department Care Team (Latest Contact Info) Description 04/02/2025 Travel Social History Tobacco Use Types Packs/Day [...] or training? Not on file Preferred Language Divehi 04/01/2023 PHQ-2 Answer Date Recorded Patient Health [...] HOSPITAL PULMONARY & CRITICAL CARE MEDICINE 2400 [facility] [address] 04/09/2025 11:30 AM EDT Office Visit [facility] PULMONARY & CRITICAL CARE MEDICINE 2400 [facility] [address] Christopher Kelly DO [address]00 [place] [address] 04/10/2025 4:15 PM EDT Office Visit [facility] CARDIOLOGY 1720 [facility] ST[facility] [address] [place] [address] Jose Juan Landis MD 1720 [facility] ST[address] [place] [address] 04/16/2025 8:00 AM EDT Appointment [facility] NONINVASIVE LAB [place] 3000 [facility] ST[address] [place] [address] 12/11/2025 3:00 PM EDT Office Visit [facility]IOLOGY [facility] [facility] [address] [address] [place] [address] Marguerite Moore MD 17[address] [facility] [address] [address] [address] [place] [address] 12/16/2025 10:15 AM EDT Office Visit [facility] FAMILY MEDICINE [address] [place] [address] Red Groves MD 210 [place] [address] 03/19/2026 8:00 AM EDT Appointment [facility] 206 [place] [address] 03/19/2026 9:00 AM EDT Office Visit [facility] OBGYN [address] [place] [address] Keyona London, CITRUS PICKER 1700 [facility] [address] [place] [address] documented as of this encounter Visit Diagnoses Not on filedocumented in this encounter Care Teams Patcher Wood Welder Relationship Specialty Start Date End Date Red Groves MD [address] [place] [address] PCP - General Family Medicine 03/16/23 documented as of this encounter
--- OUTSIDE RECORDS SUMMARY | 2025-04-07 12:00 | XMS_ITS | Encounter Summary ---
Author Organization [facility] Address [address] [place] [address] Care Team Providers Care Section Leader Screen Printing Name Role Phone Red Groves MD Primary Care Provider + Encounter Details Date Type Department Care Team (Late st Contact Info) Description 04/02/2025 Results Follow-Up [facility] FAMILY MEDICINE 210 [place] [address] Red Groves MD 210 [place] [address] Social History Tobacco Use Types [...] or training? Not on file Preferred Language Syriac 04/01/2023 PHQ-2 Answer Date Recorded Patient Health Questionnaire-2 Score 0 12/10/2024 Comments No Sex and Gender Information Value Date Recorded Sex Assigned at Female 04/01/2025 8:23 AM EDT Legal Sex Female 10:22 AM EDT Gender Identity Not on file Sexual Orientation Straight 04/01/2025 8 :23 AM EDT documented as of this encounter Plan of Treatment Upcoming Encounters Date Type Department Care Team (Late st Contact Info) Description 04/09/2025 11:00 AM EDT Office Visit [facility] PULMONARY & CRITICAL CARE MEDICINE [address] [place] [address] 04/09/2025 11:30 AM EDT Office Visit [facility] PULMONARY & CRITICAL CARE MEDICINE [address]00 [place] [address] Christopher Kelly, 2400 [place] [address] 04/10/2025 4:15 PM EDT Office Visit [facility] CARDIOLOGY 1720 [facility] 400 [place] [address] Jose Juan Landis MD [address] [place] [address] 04/16/2025 8:00 AM EDT Appointment [facility]INVASIVE [facility] [place] 3000 [facility] [address] [place] [address] 12/11/2025 3:00 PM EDT Office Visit [facility] CARDIOLOGY 1720 [facility] ST[facility] [address] [place] [address] Marguerite Moore MD 1720 [facility] [address] ST[address] [place] [address] 12/16/2025 10:15 AM EDT Office Visit [facility] FAMILY MEDICINE 210 [place] [address] Red Groves MD 210 [place] [address] 03/19/2026 8:00 AM EDT Appointment [facility] 206 [place] [address] 03/19/2026 9:00 AM EDT Office Visit [facility] OBGYN 206 [place] [address] Keyona London, LINKING MACHINE OPERATOR 1700 [facility] 701 [place] [address] documented as of this encounter Visit Diagnoses Not on filedocumented in this encounter Care Teams Section Leader Screen Printing Relationship Specialty Start Date End Date Red Groves MD 210 [place] [address] PCP - General Family Medicine 03/16/23 documented as of this encounter
--- OUTSIDE RECORDS SUMMARY | 2025-04-07 12:00 | XMS_ITS | Encounter Summary ---
Author Organization [facility] Address [address] [place] [address] Care Team Providers Care Distribution Dispatcher Name Role Phone Red Mills MD Primary Care Provider + Encounter Details Date Type Department Care Team (Late st Contact Info) Description 03/26/2025 Telephone [facility] [address] [place] [address] Red Mills MD [address] [place] [address] Social History Tobacco Use Types [...] or training? Not on file Preferred Language Wallisian 04/01/2023 PHQ-2 Answer Date Recorded Patient Health Questionnaire-2 Score 0 12/10/2024 Comments No Sex and Gender Information Value Date Recorded Sex Assigned at Female 04/01/2025 8:23 AM EDT Legal Sex Female 10:22 AM EDT Gender Identity Not on file Sexual Orientation Straight 04/01/2025 8: 23 AM EDT documented as of this encounter Miscellaneous Notes * Telephone Encounter - Red Mills MD - 03/26/2025 1:27 PM EDT I called and spoke with the patient. I had reviewed her previous years mammogram and incorrectly informed the patient that she did not need repeat testing for another year. Current mammogram performed March 13, 2025 did show an asymmetry that requires further views which are already scheduled for April. Patient will complete additional testing * Telephone Encounter - Vaishali Jay RegSched Rep - 03/26/2025 8:46 AM EDT PATIENT CALLED IN ASKING IF SHE NEEDS TO KEEP HER YOLIS THAT IS SCHEDULED FOR OR BECAUSE OF DR MILLS NOTE FRON 824 SHE IS ASKING IF SHE SHOULD WAIT A YEAR. documented in this encounter Plan of Treatment Upcoming Encounters Date Type Department Care Team (Late st Contact Info) Description 04/09/2025 11:00 AM EDT Office Visit [facility] [address] [place] [address] 04/09/2025 11:30 AM EDT Office Visit [facility] [address] [place] [address] Christopher Kelly DO [address] [place] [address] 04/10/2025 4:15 PM EDT Office Visit [facility] [address] [facility] [address] [place] [phone] Jose Juan Landis MD [address] [facility] [address] [place] [address] 04/16/2025 8:00 AM EDT Appointment [facility] [place] [address] [facility] [address] [place] [phone] 12/11/2025 3:00 PM EDT Office Visit [facility] [address] [facility] [address] [place] [phone] Marguerite Moore MD [address] [facility] [address] [facility] [address] [place] [address] 12/16/2025 10:15 AM EDT Office Visit [facility] [address] [place] [address] Red Mills MD [address] [place] [address] 03/19/2026 8:00 AM EDT Appointment [facility] [address] [place] [address] 03/19/2026 9:00 AM EDT Office Visit [facility] [address] [place] [address] Keyona London, [employer] [address] [facility] [address] [place] [address] documented as of this encounter Visit Diagnoses Not on filedocumented in this encounter Care Teams Distribution Dispatcher Relationship Specialty Start Date End Date Red Mills MD [address] [place] [address] PCP - General Family Medicine 03/16/23 documented as of this encounter
--- NOTE | 2025-04-07 12:02 | ECG_ITS ---
APPROVED REPORT Exam: Resting ECG HR:106 bpm ECG Measurements Heart Rate 106 AXES QRSd 105 QRS 102 QT 317 T 267 QTc 379 Conclusion ATRIAL FIBRILLATION WITH RAPID VENTRICULAR RESPONSE ST DEPRESSION, CONSIDER SUBENDOCARDIAL INJURY [0.1+ mV ST DEPRESSION] ABNORMAL ECG UNCONFIRMED REPORT Electronically signed by : Abraham Stuart, 04/07/2025 16:10:00
[2025-04-07 12:08] LABS: Coronavirus 19, PCR Not Detected (NotDetected); Influenza A, PCR Not Detected (NotDetected); Influenza B, PCR Not Detected (NotDetected)
--- NOTE | 2025-04-07 12:11 | CT_ITS ---
PROCEDURE INFORMATION: Exam: CTA Chest With Contrast Exam date and time: 04/07/2025 1:13 PM Age: 70 years old Clinical indication: Other: Hypoxic; Additional info: Tachy, hypoxic TECHNIQUE: Imaging protocol: Computed tomographic angiography of the chest with contrast. Exam focused on the arteries. 3D rendering (Not supervised by radiologist): MIP and/or 3D reconstructed images were created by the technologist. Radiation optimization: All CT scans at this facility use at least one of these dose optimization techniques: automated exposure control; mA and/or kV adjustment per patient size (includes targeted exams where dose is matched to clinical indication); or iterative reconstruction. Contrast material: ISOVUE; Contrast volume: 80 ml; Contrast route: INTRAVENOUS (IV); COMPARISON: CT CERVICAL SPINE WO CON 05/25/2024 11:21 PM FINDINGS: Pulmonary arteries: Normal. No pulmonary emboli. Great vessels off aortic arch: Supra-aortic great vessel atherosclerosis. Aorta: Aortic atherosclerosis. Lungs: Large areas of consolidation with air bronchograms in the upper lobes and lingula, consistent with pneumonia. Calcified pulmonary granulomata. Pleural spaces: Unremarkable. No pneumothorax. No pleural effusion. Heart: Unremarkable. No cardiomegaly. No pericardial effusion. Coronary arteries: Coronary artery atherosclerosis. Lymph nodes: Mild mediastinal and bilateral hilar adenopathy, including 1.5 cm short axis diameter distal pre-carinal lymph node. Calcified infra carinal granulomata. Bones/joints: Osteopenia. Sternal sutures. Soft tissues: Unremarkable. IMPRESSION: 1. Bilateral multi lobar pneumonia. 2. Mild mediastinal and bilateral hilar adenopathy is probably probably reactive, although a neoplastic process is not excluded if there is clinical concern. 3. Atherosclerosis, including the coronary arteries. 4. Evidence of prior granulomatous disease. 5. Upper abdominal findings are reported with dedicated CT abdomen and pelvis.
--- NOTE | 2025-04-07 12:11 | CT_ITS ---
PROCEDURE INFORMATION: Exam: CT Abdomen And Pelvis With Contrast Exam date and time: 04/07/2025 1:13 PM Age: 70 years old Clinical indication: Abdominal pain; Additional info: Diffuse abd ttp, vomiting, diarrhea, septic TECHNIQUE: Imaging protocol: Computed tomography of the abdomen and pelvis with contrast. 3D rendering (Not supervised by radiologist): MIP and/or 3D reconstructed images were created by the technologist. Radiation optimization: All CT scans at this facility use at least one of these dose optimization techniques: automated exposure control; mA and/or kV adjustment per patient size (includes targeted exams where dose is matched to clinical indication); or iterative reconstruction. Contrast material: ISOVUE; Contrast volume: 80 ml; Contrast route: IV; COMPARISON: CT ANGIO CHEST PE PROTOCOL 04/07/2025 1:13 PM FINDINGS: Liver: Mild fatty liver. 9 mm left lobe liver cyst. Gallbladder and biliary ducts: Normal. No calcified stones. No ductal dilation. Pancreas: Normal. No ductal dilation. Spleen: Calcified splenic granulomata. Adrenal glands: Normal. No mass. Kidneys and ureters: Normal. No hydronephrosis. Stomach and bowel: Colonic diverticulosis. No bowel dilation. No bowel wall thickening. Appendix: No evidence of appendicitis. Intraperitoneal space: Unremarkable. No free air. No significant fluid collection. Vasculature: Atherosclerosis. Lymph nodes: Unremarkable. No enlarged lymph nodes. Urinary bladder: Unremarkable as visualized. Reproductive: Unremarkable as visualized. Bones/joints: Osteopenia. Soft tissues: Unremarkable. IMPRESSION: 1. No acute findings. 2. Additional chronic/nonemergent findings as detailed above.
[2025-04-07 12:28] LABS: Hematocrit 42.0 % (37.0-47.0); Hemoglobin 14.0 g/dL (12.2-16.2); Immature Granulocytes % 0.9 %; Mean Corpuscular HGB Conc 33.3 g/dL (31.8-35.4); Mean Corpuscular Hemoglobin 30.7 pg (27.0-31.2); Mean Corpuscular Volume 92.1 fl (81-99); Nucleated Red Blood Cells % 0 %; Platelet Count 178 K/mm3 (142-424); Red Blood Count 4.56 M/mm3 (4.20-5.40); Red Cell Distribution Width-SD 47.6 fL; White Blood Count 17.8 K/mm3 (4.8-10.8)
[2025-04-07] MEDS: LACTATED RINGERS 1000ML 1,000 ML 999 ML IV (12:28)
[2025-04-07] MEDS: IPRATROPIUM/ALBUTEROL 3 ML NEB IH (12:28)
[2025-04-07 12:33] LABS: Albumin Level 4.4 g/dl (3.5-5.0); Chloride 108 mmol/L (98-107); Potassium 3.1 mmoL/L (3.5-5.1); Sodium 141 mmol/L (136-145); VBG HCO3 20.8 mmol/L (23-30); VBG PCO2 37.0 mmol/L (35-51); VBG PH 7.37 mmol/L (7.31-7.41); VBG PO2 29.5 mmol/L (28-40)
[2025-04-07 12:34] LABS: Lactate Venous 2.6 mmol/L (0.4-2.0)
[2025-04-07 12:36] LABS: Alanine Aminotransferase 38 U/L (12-78); Albumin/Globulin Ratio 1.5 (1.1-1.8); Alkaline Phosphatase 82 U/L (38-126); Anion Gap 13.1 mEq/L (5-15); Aspartate Amino Transferase 63 U/L (14-36); Bilirubin,Total 2.5 mg/dl (0.2-1.3); Blood Urea Nitrogen 27 mg/dl (7-17); Carbon Dioxide 23 mmol/L (22.0-30.0); Creatinine Clearance Estimated 43 mL/min (50-200); Creatinine,Serum 0.90 mg/dl (0.52-1.04); Estimated Glomerular Filt Rate 62 ml/min (>60); GFR (African American) 75 ML/MIN (>60); Globulin 3.0 g/dL (1.3-3.2); Lipase 17 U/L (23-300); Phosphorous 2.1 mg/dl (2.5-4.5); Total Protein,Serum 7.4 g/dl (6.3-8.2)
[2025-04-07 12:37] LABS: Calcium 9.7 mg/dl (8.4-10.2); Glucose 125 mg/dl (74-100); Magnesium 1.7 mg/dl (1.6-2.3)
[2025-04-07 12:42] LABS: INR 1.24 (0.9-1.1); Prothrombin Time 13.5 seconds (10.1-12.5)
[2025-04-07 12:46] LABS: NT Pro Brain Natriuretic Pep. 4560 pg/mL (0-125)
[2025-04-07 12:48] LABS: Troponin I 0.02 ng/ml (0.00-0.034)
[2025-04-07] MEDS: IOPAMIDOL-370 (76%);100ML BOTTLE 80 ML IV (13:13)
[2025-04-07] MEDS: SODIUM CHLORIDE 0.9% 10ML SYR (RAD ONLY) 10 ML IV (13:13)
[2025-04-07] MEDS: 0.9 % SODIUM CHLORIDE 50 ML VIAL IV (13:13)
[2025-04-07] MEDS: PIPERACILLIN/TAZO 4.5 GM in 0.9 % SODIUM CHLORIDE 100 ML IV (13:21)
--- NOTE | 2025-04-07 13:40 | ECG_ITS ---
APPROVED REPORT Exam: Resting ECG HR:97 bpm ECG Measurements Heart Rate 97 AXES QRSd 102 QRS 103 QT 315 T -51 QTc 370 Conclusion ATRIAL FIBRILLATION RIGHT AXIS DEVIATION [QRS AXIS > 100] ST DEVIATION AND MODERATE T-WAVE ABNORMALITY, CONSIDER ANTERIOR ISCHEMIA [-0.1+ mV T-WAVE IN V3/V4] ABNORMAL ECG UNCONFIRMED REPORT Electronically signed by : Abraham Stuart, 04/07/2025 16:09:39
[2025-04-07] MEDS: VANCOMYCIN/WATER FOR INJ (PEG) 1.25 GM/250 ML PIGGYBACK IV (13:55)
[2025-04-07] MEDS: VANCOMYCIN CONSULT REQUEST 1 EACH NOTAPPLIC (13:58)
--- NOTE | 2025-04-07 14:03 | PC.NURSE ---
Respiratory was called per Dr. Stuart.
--- NOTE | 2025-04-07 14:29 | PC.NURSE ---
press supervisor contacted for bed.
--- NOTE | 2025-04-07 15:22 | PC.NURSE ---
Report called to IVIS Sharpe at this time.
--- NOTE | 2025-04-07 15:33 | EXP.HP ---
History of Present Illness *Admission Date: 04/07/25 *Reason for visit:: Nausea/vomiting/diarrhea, shortness of breath *History of present illness: Belle Kaba is a 70-year-old female with a medical history significant for COPD on 3 L baseline, pulmonary hypertension, former tobacco smoker, A-fib s/p ablation x 2, anxiety/depression presents to the ED with nausea/vomiting/diarrhea and shortness of breath. Patient states she began having nausea/vomiting on Tuesday after eating supper at [employer]. She then proceeded to have shortness of breath, diarrhea on Tuesday and Tuesday which have progressively gotten worse. She denies fever/chills, chest pain, abdominal pain, urinary symptoms. No recent sick known contacts. Has been adherent to her oxygen, trilogy at home. She also notes that her A-fib has been in NSR for many years since ablation, and that she is in A-fib today. Workup in the ED significant for WBC 17.8 , proBNP 4560, and CTA chest revealing bilateral multifocal pneumonia, with likely reactive hilar adenopathy. She was saturating 87% on 3 L, escalated to Vapotherm 30 L 50% with saturations in the low 90s. She was given vancomycin, Zosyn, DuoNeb, 1 L LR bolus. Full sepsis bolus was not given due to elevated BNP and concern for heart failure. Given these findings, ED provider discussed case with me and I decided to admit patient for acute hypoxic respiratory failure secondary to community-acquired pneumonia. [facility] Disclaimer: The information contained in this section may have been updated after the patient was seen, as this information can be updated by other users. 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) Bronchitis Anxiety and depression Hyperlipidemia History of deviated nasal septum Hammertoe of right foot Pulmonary hypertension Bronchitis Sinusitis Laceration of right lower extremity Visit for suture removal Scalp laceration Laceration Surgical History , ENVIRONMENTAL ADVISER) S/P correction of deviated nasal septum H/O thyroidectomy Hx of appendectomy Hx of tonsillectomy H/O: hysterectomy History of open heart surgery Family History , ENVIRONMENTAL ADVISER) No significant family history Social History Smoking Status: Former smoker alcohol intake: never current occupational status: employed Travel in the last 8 weeks?: None household members: none housing: house 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 Have you lived/traveled outside [place] in past 30 days?: No Contact w/someone who lives/traveled outside US past 30 days?: No Exposure to someone with infectious disease in past 14 days?: No Do you have a fever (greater than 100.4 F or 38 C)?: No Have you tested positive for COVID-19?: No Exposed to someone with COVID-19 in past 14 days?: No Do you have a sore throat?: No Do you have a cough?: No Do you have any weakness?: No Do you have any diarrhea?: Yes Are you experiencing any unusual bleeding?: No Do you have any muscle aches/pain?: No Do you have any abdominal pain?: No Are you experiencing loss of taste or smell?: No Other 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 Have you received the Flu Vaccine for this season: Yes (2019) Have you received the Pneumonia Vaccine: Yes Meds Home Medications and Allergies Home Medications ?Medication ?Instructions ?Recorded ?Confirmed ?Type montelukast 10 mg tablet 10 mg PO HS Allergy symptoms 12/11/17 04/07/25 History alendronate 70 mg tablet 70 mg PO WEEKLY Osteoporosis 04/10/21 04/07/25 History albuterol sulfate 90 mcg/actuation 2 puff inhalation Q4HP PRN short 06/13/21 04/07/25 History aerosol inhaler of breath diltiazem HCl 180 mg 180 mg PO DAILY 07/27/23 04/07/25 History capsule,extended release 24 hr fluticasone fur. 200 mcg-umeclid 1 inh inhalation AM 07/27/23 04/07/25 History 62.5 mcg-vilant 25 mcg inhalat.powder (Trelegy Ellipta) rosuvastatin 10 mg tablet 10 mg PO DAILY 07/27/23 04/07/25 History sertraline 50 mg tablet 50 mg PO DAILY 07/27/23 04/07/25 History sildenafil (pulm.hypertension) 20 20 mg PO TID 07/27/23 04/07/25 History mg tablet guaifenesin 600 mg tablet, 600 mg PO BID PRN congestion #10 10/04/24 04/07/25 Rx extended release 12 hr (Mucinex) tabs New Prescriptions to Start Prescriptions: Allergies Allergy/AdvReac Type Severity Reaction Status Date / Time No Known Allergies Allergy Verified 04/07/25 16:44 Exam Data for Last 24 hours Vital signs and Labs for Last 24 Hours: Temp Pulse Resp BP Pulse Ox O2 Del Method O2 Flow Rate 99.0 F 102 H 31 H 106/53 L 93 L Nasal Cannula 3 04/07/25 12:01 04/07/25 14:04/07/25 14:04/07/25 14:31 04/07/25 14:04/07/25 14:04/07/25 14:31 FiO2 50 04/07/25 14:25 Laboratory Results - last 24 hr 04/07/25 12:00: SARS-CoV-2 (PCR) Not detected, Influenza A Untype (PCR) Not detected, Influenza Type B (PCR) Not detected 04/07/25 12:20: WBC 17.8 H, RBC 4.56, Hgb 14.0, Hct 42.0, MCV 92.1, MCH 30.7, MCHC 33.3, RDW 14.0, Plt Count 178, MPV 10.2, Neut % (Auto) 87.4 H, Lymph % (Auto) 4.5 L, [place] % (Auto) 4.6, Eos % (Auto) 2.1, Baso % (Auto) 0.5, Neut # (Auto) 15.6 H, Lymph # (Auto) 0.8, [place] # (Auto) 0.8, Eos # (Auto) 0.4, Baso # (Auto) 0.1, PT 13.5 H, INR 1.24 H, VBG pH 7.37, VBG pCO2 37.0, VBG pO2 29.5, VBG HCO3 20.8 L, VBG Total CO2 21.9 L, VBG O2 Saturation 57.9, VBG Base Excess -4.5 L, VBG Lactic Acid 2.6 H, Sodium 141, Potassium 3.1 L, Chloride 108 H, Carbon Dioxide 23, Anion Gap 13.1, BUN 27 H, Creatinine 0.90, Estimated Creat Clear 43, Estimated GFR 62, Est GFR ( Amer) 75, Glucose 125 H, Calcium 9.7, Phosphorus 2.1 L, Magnesium 1.7, Total Bilirubin 2.5 H, AST 63 H, ALT 38, Alkaline Phosphatase 82, Troponin I 0.02, NT-Pro-B Natriuret Pep 4560 H, Total Protein 7.4, Albumin 4.4, Globulin 3.0, Albumin/Globulin Ratio 1.5, Lipase 17 L I & O for Last 24 hours: Intake & Output 04/04/25 04/05/25 04/06/25 04/07/25 23:59 23:59 23:59 23:59 Intake Total 100 / 100 Balance 100 / 100 Weight 51.71 kg Constitutional Constitutional: mild distress *Routine HEENT Exam Head: Present normocephalic Eye: Present EOMI and PERRL ENT: Present mucous membranes moist *Routine Neck Exam Neck: Present supple; Absent lymphadenopathy *Routine Respiratory Exam Respiratory: Present distant breath sounds and diminished air movement; Absent CTA bilaterally *Routine Cardiovascular Exam Cardiovascular: Present RRR *Routine Abdominal Exam Abdominal: Present soft and normoactive bowel sounds; Absent tenderness *Routine Rectal Exam Rectal:: deferred *Routine Genitalia Exam Genitalia:: deferred *Routine Extremities Exam Extremities: Absent cyanosis, clubbing or edema *Routine Skin Exam Skin: Present warm; Absent rash *Routine Neurological Exam Neurological: Present alert and oriented X3 Assessment and Plan *Assessment and plan (1) Severe sepsis: Status: Acute Category: Medical Code(s): A41.9 - Sepsis, unspecified organism; R65.20 - Severe sepsis without septic shock (2) Nausea vomiting and diarrhea: Status: Acute Category: Medical Code(s): R11.2 - Nausea with vomiting, unspecified; R19.7 - Diarrhea, unspecified (3) Multifocal pneumonia: Status: Acute Category: Medical Code(s): J18.8 - Other pneumonia, unspecified organism (4) Afib: Status: Acute Category: Medical Code(s): I48.91 - Unspecified atrial fibrillation (5) COPD (chronic obstructive pulmonary disease): Status: Acute Category: Medical Code(s): J44.9 - Chronic obstructive pulmonary disease, unspecified Plan Belle Kaba is a 70-year-old female with a medical history significant for COPD on 3 L baseline, pulmonary hypertension, former tobacco smoker, A-fib s/p ablation x 2, anxiety/depression presents to the ED with nausea/vomiting/diarrhea and shortness of breath. Patient states she began having nausea/vomiting on Tuesday after eating supper at [employer]. She then proceeded to have shortness of breath, diarrhea on Tuesday and Tuesday which have progressively gotten worse. She denies fever/chills, chest pain, abdominal pain, urinary symptoms. No recent sick known contacts. Has been adherent to her oxygen, trilogy at home. She also notes that her A-fib has been in NSR for many years since ablation, and that she is in A-fib today. Workup in the ED significant for WBC 17.8 , proBNP 4560, and CTA chest revealing bilateral multifocal pneumonia, with likely reactive hilar adenopathy. She was saturating 87% on 3 L, escalated to Vapotherm 30 L 50% with saturations in the low 90s. She was given vancomycin, Zosyn, DuoNeb, 1 L LR bolus. Full sepsis bolus was not given due to elevated BNP and concern for heart failure. Given these findings, ED provider discussed case with me and I decided to admit patient for acute hypoxic respiratory failure secondary to community-acquired pneumonia. #Acute hypoxic respiratory failure #Community-acquired pneumonia #COPD exacerbation #Severe sepsis ? Presented with nausea/vomiting/diarrhea, shortness of breath. CTA chest showed multifocal pneumonia. ? Initial WBC 17.8, lactic acid 2.7, heart rate 104, procalcitonin 11.3, CRP 433. Currently requiring Vapotherm 30L 50%. Baseline 3 L. ? On my evaluation, patient had restricted airway and was breathing through pursed lips. Concern for COPD exacerbation as well. ? Started vancomycin, cefepime 2 g every 12 hours. Continue to renally dose. ? Started levalbuterol, ipratropium every 4 hours, Pulmicort twice daily. ? Ordered one-time dose of IV Solu-Medrol 40 mg. Will hold off on further steroids pending pulmonology recommendations. ? Follow-up sputum, blood cultures, UA. ? Follow-up full respiratory panel, MRSA screen. ? Follow-up morning CBC, CMP. ? Pulmonology consulted for further recommendations. #Possible heart failure ? Initial BNP 4560, escalated to Vapotherm after 1L LR bolus in the ED. ? Ordered one-time dose of IV Lasix 20 mg. Follow-up response. #A-fib ? Currently rate controlled, 90 bpm. In A-fib however. ? Patient states he has been in NSR since ablation few years ago at [facility]. Not on anticoagulation since. ? Started therapeutic Lovenox, cardiology consulted for further recommendations. ? Hold home diltiazem 180 mg pending ECHO to rule out HFrEF. IV Lopressor 5 mg as needed for HR >120. ? Follow-up ECHO in the morning. #Nausea/vomiting/diarrhea ? Follow-up full respiratory panel, diarrhea panel. Concern for viral syndrome, gastroenteritis. No abdominal pain. #History of pulmonary hypertension ? Resume home sildenafil once appropriate and reconciled. Full code DVT prophylaxis: Therapeutic Lovenox as above
--- NOTE | 2025-04-07 16:21 | PC.NURSE ---
patient arrived to the unit via stretcher at 1550
[2025-04-07 16:35] LABS: Reflex Lactic Add Lactic Reflex
[2025-04-07 16:47] LABS: Troponin I 0.03 ng/ml (0.00-0.034)
--- NOTE | 2025-04-07 17:00 | P.ENSEP_ITS ---
[facility] Tissue Perfusion Eval Sepsis Re-Evaluation Performed: Yes Date Performed: 04/07/25 Time Performed: 17:00
[2025-04-07 17:07] LABS: Procalcitonin 11.3 ng/mL (0.0-2.0)
[2025-04-07] MEDS: WHITE PETROLATUM 5GM UDP 5 GM TP (17:20)
[2025-04-07] MEDS: HYDROCODONE/APAP 5/325 MG TABLET 1 TAB PO (17:58)
[2025-04-07 18:13] LABS: Lactic Acid Follow Up (RFLX 1) 2.7 mmol/L (0.7-2.1)
[2025-04-07 18:22] LABS: Troponin I 0.03 ng/ml (0.00-0.034)
[2025-04-07 18:27] LABS: C-Reactive Protein 433.4 mg/L (0-4)
[2025-04-07] MEDS: POTASSIUM CHLORIDE 20MEQ TAB 40 MEQ PO ×2 (18:29→21:38)
[2025-04-07] MEDS: FUROSEMIDE 40MG/4ML VIAL 20 MG IV (18:30)
[2025-04-07 19:55] LABS: Reflex Lactic (2 hrs) Add Lactic Reflex
[2025-04-07] MEDS: CEFEPIME HCL 2 GM in 0.9 % SODIUM CHLORIDE 50 ML IV (20:02)
[2025-04-07] MEDS: METHYLPREDNISOLONE SOD SUCC 40MG VIAL 40 MG IV (20:06)
[2025-04-07 20:33] LABS: Adenovirus F 40/41, stool Not Detected (NotDetected); Clostridium Difficile A/B, PCR Not Detected (NotDetected); Cyclospora Cayetanesis Not Detected (NotDetected); Plesimonas Shigalloides, PCR Not Detected (NotDetected); Salmonella, PCR Not Detected (NotDetected); Shiga-like toxin E coli Not Detected (NotDetected); Shigella Enterovasive E coli Not Detected (NotDetected); Vibrio, PCR Not Detected (NotDetected); Yersinia Entercolitica, PCR Not Detected (NotDetected)
[2025-04-07 20:37] LABS: Adenovirus,PCR Not Detected (NotDetected); Chlamydophila Pneumoniae, PCR Not Detected (NotDetected); Coronavirus 19, PCR Not Detected (NotDetected); Coronovirus HKU1,PCR Not Detected (NotDetected); Influenza A, PCR Not Detected (NotDetected); Influenza AH1, 2009 Not Detected (NotDetected); Influenza AH1, PCR Not Detected (NotDetected); Influenza AH3,PCR Not Detected (NotDetected); Influenza B, PCR Not Detected (NotDetected); Mycoplasma Pneumoniae, PCR Not Detected (NotDetected); Parainfluenza 1, PCR Not Detected (NotDetected); Parainfluenza 2, PCR Not Detected (NotDetected); Parainfluenza 3, PCR Not Detected (NotDetected); Parainfluenza 4, PCR Not Detected (NotDetected)
[2025-04-07 20:41] LABS: Lactic Acid Follow up (RFLX 2) 1.9 mmol/L (0.7-2.1)
[2025-04-07] MEDS: LEVALBUTEROL 1.25MG/3ML NEB 1.25 MG IH (22:21)
[2025-04-07] MEDS: IPRATROPIUM BROMIDE 0.5 MG/2.5ML SOLUTION IH (22:21)
[2025-04-08] VITALS (41 sets, daily range): BP systolic 85–148; BP diastolic 52–105; PULSE 78–118; RESP 15–33; TEMP 36.5–37.2; O2SAT 80–99; BMI 21.2
[2025-04-08] MEDS: LEVALBUTEROL 1.25MG/3ML NEB 1.25 MG IH ×6 (01:59→23:05)
[2025-04-08] MEDS: IPRATROPIUM BROMIDE 0.5 MG/2.5ML SOLUTION IH ×6 (02:00→23:05)
[2025-04-08] MEDS: POTASSIUM CHLORIDE 20MEQ TAB 40 MEQ PO (03:05)
[2025-04-08] MEDS: ACETAMINOPHEN 325MG TAB 650 MG PO ×2 (03:05→10:08)
[2025-04-08 06:17] LABS: Hematocrit 33.9 % (37.0-47.0); Immature Granulocytes % 0.3 %; Mean Corpuscular HGB Conc 33.6 g/dL (31.8-35.4); Mean Corpuscular Hemoglobin 31.1 pg (27.0-31.2); Mean Corpuscular Volume 92.6 fl (81-99); Nucleated Red Blood Cells % 0 %; Platelet Count 172 K/mm3 (142-424); Red Blood Count 3.66 M/mm3 (4.20-5.40); Red Cell Distribution Width-SD 48.3 fL; White Blood Count 12.6 K/mm3 (4.8-10.8)
[2025-04-08] MEDS: BUDESONIDE 0.5MG/2ML NEB 0.5 MG IH ×2 (06:18→18:41)
[2025-04-08 06:20] LABS: Hemoglobin 11.1 g/dL (12.2-16.2)
[2025-04-08 06:49] LABS: Alanine Aminotransferase 40 U/L (12-78); Albumin Level 3.3 g/dl (3.5-5.0); Albumin/Globulin Ratio 1.3 (1.1-1.8); Alkaline Phosphatase 72 U/L (38-126); Anion Gap 11.9 mEq/L (5-15); Aspartate Amino Transferase 54 U/L (14-36); Bilirubin,Total 1.2 mg/dl (0.2-1.3); Blood Urea Nitrogen 25 mg/dl (7-17); Calcium 8.3 mg/dl (8.4-10.2); Carbon Dioxide 18 mmol/L (22.0-30.0); Chloride 112 mmol/L (98-107); Creatinine Clearance Estimated 43 mL/min (50-200); Creatinine,Serum 0.70 mg/dl (0.52-1.04); Estimated Glomerular Filt Rate 83 ml/min (>60); GFR (African American) 100 ML/MIN (>60); Globulin 2.6 g/dL (1.3-3.2); Glucose 203 mg/dl (74-100); Magnesium 2.0 mg/dl (1.6-2.3); Potassium 3.9 mmoL/L (3.5-5.1); Sodium 138 mmol/L (136-145); Total Protein,Serum 5.9 g/dl (6.3-8.2)
[2025-04-08 07:14] LABS: RBC Morphology Normal; Total Cells Counted 100
[2025-04-08 07:30] LABS: Procalcitonin 12.5 ng/mL (0.0-2.0)
--- NOTE | 2025-04-08 07:32 | P.CONPHA_ITS ---
Pharmacy Consult Date: 04/08/25 Time: 07:32 Referring provider: DR. NIEVES Reason for Consult:: VANCOMYCIN DOSING Allergies Allergy/AdvReac Type Severity Reaction Status Date / Time No Known Allergies Allergy Verified 04/07/25 16:44 Home Medications ?Medication ?Instructions ?Recorded ?Confirmed ?Type montelukast 10 mg tablet 10 mg PO HS Allergy symptoms 12/11/17 04/07/25 History alendronate 70 mg tablet 70 mg PO WEEKLY Osteoporosis 04/10/21 04/07/25 History albuterol sulfate 90 mcg/actuation 2 puff inhalation Q 4HP PRN short 06/13/21 04/07/25 History aerosol inhaler of breath diltiazem HCl 180 mg 180 mg PO DAILY 07/27/2302/22 History capsule,extended release 24 hr fluticasone fur. 200 mcg-umeclid 1 inh inhalation AM 1 09/27/22 04/07/25 History 62.5 mcg-vilant 25 mcg inhalat.powder (Trelegy Ellipta) rosuvastatin 10 mg tablet 10 mg PO DAILY 07/27/2302/22 History sertraline 50 mg tablet 50 mg PO DAILY 07/27/2302/22 History sildenafil (pulm.hypertension) 20 20 mg PO TID 3 04/07/25 History mg tablet guaifenesin 600 mg tablet, 600 mg PO BID PRN congestio n #10 10/04/24 04/07/25 Rx extended release 12 hr (Mucinex) tabs New Prescriptions to Start Prescriptions: Height: 1.55 m Weight: 50.9 kg Laboratory Results:: Laboratory Results - last 24 hr 04/07/25 12:00: SARS-CoV-2 (PCR) Not detected, Influenza A Untype (PCR) Not detected, Influenza Type B (PCR) Not detected 04/07/25 12:20: WBC 17.8 H, RBC 4.56, Hgb 14.0, Hct 42.0, MCV 92.1, MCH 30.7, MCHC 33.3, RDW 14.0, Plt Count 178, MPV 10.2, Neut % (Auto) 87.4 H, Lymph % (Auto) 4.5 L, [place] % (Auto) 4.6, Eos % (Auto) 2.1, Baso % (Auto) 0.5, Neut # (Auto) 15.6 H, Lymph # (Auto) 0.8, [place] # (Auto) 0.8, Eos # (Auto) 0.4, Baso # (Auto) 0.1, ESR 40 H, PT 13.5 H, INR 1.24 H, VBG pH 7.37, VBG pCO2 37.0, VBG pO2 29.5, VBG HCO3 20.8 L, VBG Total CO2 21.9 L, VBG O2 Saturation 57.9, VBG Base Excess -4.5 L, VBG Lactic Acid 2.6 H, Sodium 141, Potassium 3.1 L, Chloride 108 H, Carbon Dioxide 23, Anion Gap 13.1, BUN 27 H, Creatinine 0.90, Estimated Creat Clear 43, Estimated GFR 62, Est GFR ( Amer) 75, Glucose 125 H, Calcium 9.7, Phosphorus 2.1 L, Magnesium 1.7, Total Bilirubin 2.5 H, AST 63 H, ALT 38, Alkaline Phosphatase 82, Troponin I 0.02, NT-Pro-B Natriuret Pep 4560 H, Total Protein 7.4, Albumin 4.4, Globulin 3.0, Albumin/Globulin Ratio 1.5, Lipase 17 L 04/07/25 16:20: Lactate 1.8, Lactate Dehydrogenase 299 L, Troponin I 0.03, C- Reactive Protein 433.4 H, Procalcitonin 11.3 H 04/07/25 17:55: Lactate 2.7 H, Troponin I 0.03 04/07/25 18:50: Stl C. cayetanensis PCR Not detected, Stool Rotavirus (PCR) Not detected, Stl Adenov F 40/41 PCR Not detected, Stool Astrovirus (PCR) Not detected, Stool Campylobacter PCR Not detected, Stl C.difficile Tox PCR Not detected, Stool Cryptosporidium PCR Not detected, Stl E.coli Shiga Tox PCR Not detected, Stool E coli O157 PCR Not detected, Stl Enterotoxigenic E PCR Not detected, Stool EPEC (PCR) Not detected, Stool EAEC (PCR) Not detected, Stl E. histolytica PCR Not detected, Stool Giardia Lamblia PCR Not detected, Stool Salmonella PCR Not detected, Stool Sapovirus (PCR) Not detected, Stl P. sh igelloides PCR Not detected, Stl Shigella/EIEC PCR Not detected, St Y.enterocolitica PCR Not detected, Stool Vibrio (PCR) Not detected, Stl Vibrio cholerae PCR Not detected, Stl Norovirus GI/GII PCR Not detected 04/07/25 20:02: Chlamy pneumoniae PCR Not detected, Adenovirus (PCR) Not detected, B. pertussis DNA (PCR) Not detected, Coronavirus OC43 (PCR) Not detected, Coronavirus HKU1 (PCR) Not detected, Coronavirus 229E (PCR) Not detected, SARS-CoV-2 (PCR) Not detected, Coronavirus NL63 (PCR) Not detected, Human Metapneumovir PCR Not detected, Influenza A (H1) PCR Not detected, Influ A (H1N1/09) PCR Not detected, Influenza A (H3) PCR Not detected, Influenza Type A (PCR) Not detected, Influenza Type B (PCR) Not detected, M. pneumoniae (PCR) Not detected, Parainfluenza 1 (PCR) Not detected, Parainfluenza 2 (PCR) Not detected, Parainfluenza 3 (PCR) Not detected, Parainfluenza 4 (PCR) Not detected, RSV (PCR) Not detected, Entero/Rhino (PCR) Not detected 04/07/25 20:20: Lactate 1.9 04/08/25 05:41: WBC 12.6 H D, RBC 3.66 L, Hgb 11.1 L D, Hct 33.9 L, MCV 92.6, MCH 31.1, MCHC 33.6, RDW 14.2, Plt Count 172, MPV 10.8 H, Neut % (Auto) 90.6 H, Lymph % (Auto) 4.0 L, [place] % (Auto) 4.7, Eos % (Auto) 0.0 L, Baso % (Auto) 0.4, Neut # (Auto) 11.4 H, Lymph # (Auto) 0.5 L, [place] # (Auto) 0.6, Eos # (Auto) 0.0, Baso # (Auto) 0.1, Total Counted 100, Neutrophils % (Manual) 85 H, Lymphocytes % (Manual) 12, Atypical Lymphs % 1.0, Monocytes % (Manual) 2, Platelet Estimate Normal, RBC Morphology Normal, ESR 81 H, Sodium 138, Potassium 3.9 D, Chloride 112 H, Carbon Dioxide 18 L, Anion Gap 11.9, BUN 25 H, Creatinine 0.70 D, Estimated Creat Clear 43, Estimated GFR 83, Est GFR ( Amer) 100 D, Glucose 203 H D, Calcium 8.3 L, Magnesium 2.0 D, Total Bilirubin 1.2, AST 54 H, ALT 40, Alkaline Phosphatase 72, Total Protein 5.9 L, Albumin 3.3 L D, Globulin 2.6, Albumin/Globulin Ratio 1.3 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: 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 (Updated 04/07/25 @ 20:38 by Sridhar Nieves MD) Bronchitis Anxiety and depression Hyperlipidemia History of deviated nasal septum Hammertoe of right foot Pulmonary hypertension Bronchitis Sinusitis Laceration of right lower extremity Visit for suture removal Scalp laceration Laceration Assessment and Plan Assessment and plan all Dx Assessment and Plan for all problems:: Pharmacokinetic dosing service Objective: Patient: Floor: Age: 70 yo Serum creatinine: 0.70 mg/dL Height: 61.0 Inches Weight (kg): 50.9 Assessment: IBW (kg): 47.80 Dosing wt(kg): 50.9 Estimated Creatinine clearance (ml/min): 57.2 CRCL method: Cockcroft and Gault using ibw(default). Drug selected: Vancomycin Loading dose (mg): Vd (liters): 40.7 (factor used: 0.8 L/kg) John (hr-1): 0.052 Half life (hrs): 13.33 CLvanco=?? 2.116 L/hr Recommended dose: 1250 mg Interval: 24 hrs Infusion time (hrs): 2.0 Predicted peak (mcg/mL): 40.9 Predicted trough (mcg/mL): 13.03 Total body weight is being used for vancomycin dosing. Recommendations: Give Vancomycin 1250 mg q 24 hrs with an expected Cpeak of 40.9 mcg/ml and an expected Ctrough of 13.03 mcg/ml AUC 0-24 /MARIUSZ Data: MARIUSZ 0.5 mcg/mL:?? AUC/MARIUSZ:? 1181.5 MARIUSZ 1.0 mcg/mL:?? AUC/MARIUSZ:? 590.7 --------- MARIUSZ 1.5 mcg/mL:?? AUC/MARIUSZ:? 393.8 MARIUSZ 2.0 mcg/mL:?? AUC/MARIUSZ:? 295.4 Thank you for the consult, will continue to follow. -PREET DUFFY, NANCYD
[2025-04-08 07:37] LABS: C-Reactive Protein 436.8 mg/L (0-4)
--- NOTE | 2025-04-08 08:03 | HMH.PHAINT1 ---
Pharmacy Intervention Comments: HOME MEDICATION RECONCILIATION LIST CONFIRMED USING LIST FROM OUTPATIENT PHARMACY
--- NOTE | 2025-04-08 08:30 | PC.NURSE ---
Respiratory at bedside. Respiratory titrated patients Vapotherm. Patient on 20 LPM and FiO2 of 30. Patients oxygen saturation of 93% at this time. Continuation of care plan.
--- NOTE | 2025-04-08 08:32 | EXP.ACUTE.PN ---
Subjective *Date: 04/08/25 *Time: 15:51 Interval history: Continues to shortness of breath today. Weaning off Vapotherm this morning on rounds however. Weaned from Vapotherm 25 L/35% to 3 L nasal cannula oxygen. Sats are main above 90%. Cardiology and pulmonology to see patient today. Still tachycardic but questionable as to whether it is A-fib versus MAT on telemetry. Denies chest pain. Afebrile. No nausea or vomiting. Medical Exam Vital signs and Labs for Last 24 Hours: Vital Signs Temp Pulse Pulse Pulse Resp BP BP 04/08/25 08:01 98 H 18 127/69 04/08/25 08:00 97.7 F 101 H 20 04/08/25 08:00 100 H 04/08/25 07:58 04/08/25 07:45 88 28 H 04/08/25 07:30 93 H 26 H 04/08/25 07:15 95 H 20 04/08/25 07:00 98 H 18 120/60 04/08/25 06:58 04/08/25 06:18 82 04/08/25 06:18 81 04/08/25 06:18 04/08/25 06:00 87 22 119/64 04/08/25 04:57 04/08/25 04:00 98.9 F 85 27 H 101/52 L 04/08/25 04:00 90 04/08/25 03:10 83 04/08/25 03:00 04/08/25 02:00 80 27 H 104/55 L 04/08/25 02:00 84 04/08/25 01:00 04/08/25 00:10 04/08/25 00:01 98.7 F 88 31 H 124/61 04/08/25 00:00 80 04/07/25 23:00 04/07/25 22:30 87 04/07/25 22:00 88 27 H 102/52 L 04/07/25 21:00 04/07/25 20:00 99.2 F 98 H 119/62 04/07/25 20:00 90 04/07/25 20:00 90 04/07/25 19:00 04/07/25 18:00 104 H 20 110/64 04/07/25 17:00 04/07/25 16:18 96 H 04/07/25 16:00 100.0 F H 113 H 32 H 110/64 04/07/25 15:42 99.0 F 99 H 26 H 131/79 04/07/25 15:30 98 H 33 H 131/79 04/07/25 15:05 101 H 04/07/25 15:00 100 H 31 H 128/57 L 04/07/25 14:31 102 H 31 H 106/53 L 04/07/25 14:25 04/07/25 14:02 83 43 H 115/81 04/07/25 13:57 99 H 28 H 135/103 H 04/07/25 13:45 100 H 33 H 04/07/25 13:41 94 H 39 H 04/07/25 13:30 96 H 129/51 L 04/07/25 13:00 96 H 137/45 L 04/07/25 12:30 101 H 134/71 04/07/25 12:01 99.0 F 112 H 26 H 147/64 H 04/07/25 12:01 99.0 F 112 H 26 H 147/64 H Pulse Ox O2 Del Method O2 Flow Rate FiO2 04/08/25 08:01 93 L Vapotherm 25 35 04/08/25 08:00 91 L Vapotherm 25 35 04/08/25 08:00 04/08/25 07:58 90 L Vapotherm 25 35 04/08/25 07:45 93 L Vapotherm 25 35 04/08/25 07:30 95 Vapotherm 25 35 04/08/25 07:15 94 L Vapotherm 25 35 04/08/25 07:00 94 L Vapotherm 25 35 04/08/25 06:58 Vapotherm 25 04/08/25 06:18 04/08/25 06:18 04/08/25 06:18 93 L Vapotherm 25 35 04/08/25 06:00 91 L Vapotherm 25 35 04/08/25 04:57 Vapotherm 25 04/08/25 04:00 93 L Vapotherm 25 35 04/08/25 04:00 04/08/25 03:10 04/08/25 03:00 Vapotherm 25 04/08/25 02:00 93 L Vapotherm 25 35 04/08/25 02:00 95 Vapotherm 25 35 04/08/25 01:00 Vapotherm 25 04/08/25 00:10 93 L Vapotherm 25 35 04/08/25 00:01 90 L Vapotherm 25 35 04/08/25 00:00 04/07/25 23:00 Vapotherm 25 04/07/25 22:30 04/07/25 22:00 91 L Vapotherm 30 50 04/07/25 21:00 Vapotherm 30 04/07/25 20:00 93 L Vapotherm 30 50 04/07/25 20:00 93 L Vapotherm 30 50 04/07/25 20:00 04/07/25 19:00 Vapotherm 30 04/07/25 18:00 90 L Vapotherm 30 50 04/07/25 17:00 Vapotherm 30 04/07/25 16:18 04/07/25 16:00 90 L Vapotherm 30 50 04/07/25 15:42 04/07/25 15:30 91 L 04/07/25 15:05 92 L Vapotherm 30 50 04/07/25 15:00 92 L 04/07/25 14:31 93 L Nasal Cannula 3 04/07/25 14:25 92 L Vapotherm 30 50 04/07/25 14:02 88 L 3 04/07/25 13:57 87 L 3 04/07/25 13:45 86 L 04/07/25 13:41 92 L 04/07/25 13:30 91 L Nasal Cannula 3 04/07/25 13:00 96 Nasal Cannula 3 04/07/25 12:30 96 Nasal Cannula 3 04/07/25 12:01 85 L Nasal Cannula 3 04/07/25 12:01 85 L Nasal Cannula 3 Intake and Output 04/07/25 04/08/25 04/08/25 23:59 07:59 15:59 Intake Total 1540 / 1640 Output Total 0 / 0 Balance 1540 / 1640 Intake: Intake, Oral Amount 240 / 240 Intake, Total IV Amount 1300 / 1400 Cefepime HCl 2 gm In 0.9 % 50 / 50 Sodium Chloride 50 ml @ 100 mls /hr IV Q12H [facility] Rx#:[id number] Lactated Ringers 1000ML 1,000 1000 / 1000 ml @ 999 mls/hr IV .Q1H1M ONE Rx#:[id number] Vancomycin/Water For Inj (Peg) 250 / 250 1.25 gm In 250 ml @ 125 mls/hr IV ONCE ONE Rx#:[id number] Output: Output, Urine Amount 0 / 0 Other: Number of Unmeasured Voids 1 0 Number of Bowel Movements 1 1 Weight 50.9 kg Patient Weight 04/08/25 23:59 Weight 50.9 kg Laboratory Results - last 24 hr 04/07/25 12:00: SARS-CoV-2 (PCR) Not detected, Influenza A Untype (PCR) Not detected, Influenza Type B (PCR) Not detected 04/07/25 12:20: WBC 17.8 H, RBC 4.56, Hgb 14.0, Hct 42.0, MCV 92.1, MCH 30.7, MCHC 33.3, RDW 14.0, Plt Count 178, MPV 10.2, Neut % (Auto) 87.4 H, Lymph % (Auto) 4.5 L, Miller % (Auto) 4.6, Eos % (Auto) 2.1, Baso % (Auto) 0.5, Neut # (Auto) 15.6 H, Lymph # (Auto) 0.8, Miller # (Auto) 0.8, Eos # (Auto) 0.4, Baso # (Auto) 0.1, ESR 40 H, PT 13.5 H, INR 1.24 H, VBG pH 7.37, VBG pCO2 37.0, VBG pO2 29.5, VBG HCO3 20.8 L, VBG Total CO2 21.9 L, VBG O2 Saturation 57.9, VBG Base Excess -4.5 L, VBG Lactic Acid 2.6 H, Sodium 141, Potassium 3.1 L, Chloride 108 H, Carbon Dioxide 23, Anion Gap 13.1, BUN 27 H, Creatinine 0.90, Estimated Creat Clear 43, Estimated GFR 62, Est GFR ( Amer) 75, Glucose 125 H, Calcium 9.7, Phosphorus 2.1 L, Magnesium 1.7, Total Bilirubin 2.5 H, AST 63 H, ALT 38, Alkaline Phosphatase 82, Troponin I 0.02, NT-Pro-B Natriuret Pep 4560 H, Total Protein 7.4, Albumin 4.4, Globulin 3.0, Albumin/Globulin Ratio 1.5, Lipase 17 L 04/07/25 16:20: Lactate 1.8, Lactate Dehydrogenase 299 L, Troponin I 0.03, C-Reactive Protein 433.4 H, Procalcitonin 11.3 H 04/07/25 17:55: Lactate 2.7 H, Troponin I 0.03 04/07/25 18:50: Stl C. cayetanensis PCR Not detected, Stool Rotavirus (PCR) Not detected, Stl Adenov F 40/41 PCR Not detected, Stool Astrovirus (PCR) Not detected, Stool Campylobacter PCR Not detected, Stl C.difficile Tox PCR Not detected, Stool Cryptosporidium PCR Not detected, Stl E.coli Shiga Tox PCR Not detected, Stool E coli O157 PCR Not detected, Stl Enterotoxigenic E PCR Not detected, Stool EPEC (PCR) Not detected, Stool EAEC (PCR) Not detected, Stl E. histolytica PCR Not detected, Stool Giardia Lamblia PCR Not detected, Stool Salmonella PCR Not detected, Stool Sapovirus (PCR) Not detected, Stl P. shigelloides PCR Not detected, Stl Shigella/EIEC PCR Not detected, St Y.enterocolitica PCR Not detected, Stool Vibrio (PCR) Not detected, Stl Vibrio cholerae PCR Not detected, Stl Norovirus GI/GII PCR Not detected 04/07/25 20:02: Chlamy pneumoniae PCR Not detected, Adenovirus (PCR) Not detected, B. pertussis DNA (PCR) Not detected, Coronavirus OC43 (PCR) Not detected, Coronavirus HKU1 (PCR) Not detected, Coronavirus 229E (PCR) Not detected, SARS-CoV-2 (PCR) Not detected, Coronavirus NL63 (PCR) Not detected, Human Metapneumovir PCR Not detected, Influenza A (H1) PCR Not detected, Influ A (H1N1/09) PCR Not detected, Influenza A (H3) PCR Not detected, Influenza Type A (PCR) Not detected, Influenza Type B (PCR) Not detected, M. pneumoniae (PCR) Not detected, Parainfluenza 1 (PCR) Not detected, Parainfluenza 2 (PCR) Not detected, Parainfluenza 3 (PCR) Not detected, Parainfluenza 4 (PCR) Not detected, RSV (PCR) Not detected, Entero/Rhino (PCR) Not detected 04/07/25 20:20: Lactate 1.9 04/08/25 05:41: WBC 12.6 H D, RBC 3.66 L, Hgb 11.1 L D, Hct 33.9 L, MCV 92.6, MCH 31.1, MCHC 33.6, RDW 14.2, Plt Count 172, MPV 10.8 H, Neut % (Auto) 90.6 H, Lymph % (Auto) 4.0 L, Miller % (Auto) 4.7, Eos % (Auto) 0.0 L, Baso % (Auto) 0.4, Neut # (Auto) 11.4 H, Lymph # (Auto) 0.5 L, Miller # (Auto) 0.6, Eos # (Auto) 0.0, Baso # (Auto) 0.1, Total Counted 100, Neutrophils % (Manual) 85 H, Lymphocytes % (Manual) 12, Atypical Lymphs % 1.0, Monocytes % (Manual) 2, Platelet Estimate Normal, RBC Morphology Normal, ESR 81 H, Sodium 138, Potassium 3.9 D, Chloride 112 H, Carbon Dioxide 18 L, Anion Gap 11.9, BUN 25 H, Creatinine 0.70 D, Estimated Creat Clear 43, Estimated GFR 83, Est GFR ( Amer) 100 D, Glucose 203 H D, Calcium 8.3 L, Magnesium 2.0 D, Total Bilirubin 1.2, AST 54 H, ALT 40, Alkaline Phosphatase 72, C-Reactive Protein 436.8 H, Total Protein 5.9 L, Albumin 3.3 L D, Globulin 2.6, Albumin/Globulin Ratio 1.3, Procalcitonin 12.5 H I & O for Labs for Last 24 Hours: Intake & Output 04/05/25 04/06/25 04/07/25 04/08/25 23:59 23:59 23:59 23:59 Intake Total 1640 / 1640 Output Total 0 / 0 Balance 1640 / 1640 Weight 51.71 kg 50.9 kg Constitutional: Present moderate distress, thin and cooperative Head: Present atraumatic and normocephalic ENT: Present normal exam Respiratory: Present accessory muscle use, prolonged expiratory phase and crackles; Absent rhonchi or wheezes Cardiac: Present Tachycardia Comment:: Irregular rhythm; well-healed midline scar of chest GI: Present soft and normal bowel sounds; Absent distention or tenderness Extremities: Present normal inspection and full ROM; Absent edema Skin: Present intact; Absent erythema Neuro: Present Grossly Intact, alert, awake, oriented x 3 and moves all extremities Assessment and Plan *Assessment and plan (1) Severe sepsis: Status: Acute Category: Medical Code(s): A41.9 - Sepsis, unspecified organism; R65.20 - Severe sepsis without septic shock (2) Acute hypoxemic respiratory failure: Status: Acute Category: Medical Code(s): J96.01 - Acute respiratory failure with hypoxia (3) Multifocal pneumonia: Status: Acute Category: Medical Code(s): J18.8 - Other pneumonia, unspecified organism (4) Nausea vomiting and diarrhea: Status: Acute Category: Medical Code(s): R11.2 - Nausea with vomiting, unspecified; R19.7 - Diarrhea, unspecified (5) Afib: Status: Acute Qualifiers: Atrial fibrillation type: paroxysmal Qualified Code(s): I48.0 - Paroxysmal atrial fibrillation Category: Medical Code(s): I48.91 - Unspecified atrial fibrillation (6) COPD (chronic obstructive pulmonary disease): Status: Acute Qualifiers: COPD type: unspecified COPD Qualified Code(s): J44.9 - Chronic obstructive pulmonary disease, unspecified Category: Medical Code(s): J44.9 - Chronic obstructive pulmonary disease, unspecified (7) Pulmonary hypertension: Status: Acute Category: Medical Code(s): I27.20 - Pulmonary hypertension, unspecified Plan Belle Kaba is a 70-year-old female with a medical history significant for COPD on 3 L baseline, pulmonary hypertension, former tobacco smoker, A-fib s/p ablation x 2, anxiety/depression presents to the ED with nausea/vomiting/diarrhea and shortness of breath. Patient states she began having nausea/vomiting on Tuesday after eating supper at [employer]. She then proceeded to have shortness of breath, diarrhea on Tuesday and Tuesday which have progressively gotten worse. She denies fever/chills, chest pain, abdominal pain, urinary symptoms. No recent sick known contacts. Has been adherent to her oxygen, trilogy at home. She also notes that her A-fib has been in NSR for many years since ablation, and that she is in A-fib today. Workup in the ED significant for WBC 17.8 , proBNP 4560, and CTA chest revealing bilateral multifocal pneumonia, with likely reactive hilar adenopathy. She was saturating 87% on 3 L, escalated to Vapotherm 30 L 50% with saturations in the low 90s. She was given vancomycin, Zosyn, DuoNeb, 1 L LR bolus. Full sepsis bolus was not given due to elevated BNP and concern for heart failure. Given these findings, ED provider discussed case with me and I decided to admit patient for acute hypoxic respiratory failure secondary to community-acquired pneumonia. Continues to require stepdown level of care. Weaning oxygen as tolerated. Cardiology and pulmonology evaluating today. Problems addressed as follows: #Acute hypoxic respiratory failure #Community-acquired pneumonia #COPD exacerbation #Severe sepsis ? Presented with nausea/vomiting/diarrhea, shortness of breath. CTA chest showed multifocal pneumonia. ? Initial WBC 17.8, lactic acid 2.7, heart rate 104, procalcitonin 11.3, CRP 433. White count improved to 12.6 today, ESR remains elevated to 81, CRP 486, Pro-Olivier 12. -Continue supplemental oxygen for goal sats greater 90%. Currently on 3 L nasal cannula oxygen, discontinued Vapotherm this morning -Pulmonology evaluated, discussed case today, plan to continue broad-spectrum antibiotics with vancomycin and cefepime 2 g IV every 12 hours. -Continue levalbuterol/ipratropium every 4 hours scheduled. Pulmicort twice daily -Pulmonology recommends considering transition to Zosyn and then Levaquin pending sputum cultures and blood cultures -Blood cultures pending, inducing sputum today. If able to produce sputum sample, will hold on bronchoscopy. If unable to get any samples, consider bronchoscopy in the next day or 2. -Respiratory panel negative - Repeat CBC, CMP, magnesium ordered for the morning #Possible heart failure Tachyarrhythmia ? Initial BNP 4560, escalated to Vapotherm after 1L LR bolus in the ED. ? Ordered one-time dose of IV Lasix 20 mg. Follow-up response. - Cardiology evaluated today, feels the patient is in multifocal atrial tachycardia and not A-fib. Converted back to sinus rhythm after rounds. Continue anticoagulation with therapeutic Lovenox. ? Patient states he has been in NSR since ablation few years ago at [facility]. Not on anticoagulation since. -Echo obtained, formal read still pending - Continue diltiazem 180 mg daily, Anxiety/depression: Continue Zoloft 50 mg daily #Nausea/vomiting/diarrhea ? Diarrhea panel negative. Concern for viral syndrome, gastroenteritis. No abdominal pain. Imodium as needed for diarrhea #History of pulmonary hypertension ? Resume sildenafil 20 mg 3 times a day Full code DVT prophylaxis: Therapeutic Lovenox 1 mg/kg twice daily Cardiac diet
[2025-04-08] MEDS: CEFEPIME HCL 2 GM in 0.9 % SODIUM CHLORIDE 100 ML IV ×2 (08:33→20:20)
--- OUTSIDE RECORDS SUMMARY | 2025-04-08 08:39 | XMS_ITS | Encounter Summary ---
Author Organization [facility] Address [address] [place] [address] Care Team Providers Care Gis Developer Name Role Phone Red Groves MD Primary Care Provider + Encounter Details Date Type Department Care Team (Late st Contact Info) Description 03/06/2025 Patient rounding ([facility] [facility] CARDIOLOGY [address] [facility] [address] [place] [address] Addis Rubalcava, [facility] Rep Social History Tobacco Use Types Packs/Day [...] or training? Not on file Preferred Language Telugu 04/01/2023 PHQ-2 Answer Date Recorded Patient Health [...] is ADDIS I am with KARMEN JOHNSON [facility] CARDIOLOGY [address] [facility] [address] [facility] [address] . Before we get [...] PULMONARY & CRITICAL CARE MEDICINE [address] [place] [address] 04/09/2025 11:30 AM EDT Office Visit [facility] PULMONARY & CRITICAL CARE MEDICINE [address] [place] [address] Christopher Kelly DO [address] [place] [address] 04/10/2025 4:15 PM EDT Office Visit [facility] CARDIOLOGY [address] [facility] [address] [place] [address] Jose Juan Landis MD [address] [facility] [facility] [address] [place] [address] 04/16/2025 8:00 AM EDT Appointment [facility] [place] [address] [facility] [address] [place] [address] 12/11/2025 3:00 PM EDT Office Visit [facility] CARDIOLOGY [address] [facility] [address] [place] [address] Marguerite Moore MD [address] [facility] [facility] [address] [place] [address] 12/16/2025 10:15 AM EDT Office Visit [facility] FAMILY MEDICINE [address] [place] [address] Red Groves MD [address] [place] [address] 03/19/2026 8:00 AM EDT Appointment [facility] [address] [place] [address] 03/19/2026 9:00 AM EDT Office Visit [facility] OBGYN [address] [place] [address] Keyona London, CHIEF CONCIERGE [address] [facility] [address] [place] [id number] documented as of this encounter Visit Diagnoses Not on filedocumented in this encounter Care Teams Gis Developer Relationship Specialty Start Date End Date Red Groves MD [address] [place] [address] PCP - General Family Medicine 03/16/23 documented as of this encounter
--- OUTSIDE RECORDS SUMMARY | 2025-04-08 08:39 | XMS_ITS | Encounter Summary ---
[facility] Organization [facility] Address [address] [place] [address] Care Team Providers Care Data Specialist Name Role Phone Red Groves MD Primary Care Provider + Encounter Details Date Type Department Care Team (Late st Contact Info) Description 03/26/2025 Results [facility]Up [facility] [address] [address] Red Groves MD [address] [place] [id number] Social History Tobacco Use Types Packs/Day Years [...] or training? Not on file Preferred Language Upper Sorbian 04/01/2023 PHQ-2 Answer Date Recorded Patient Health [...] 11:00 AM EDT Office Visit [facility] PULMONARY & CRITICAL CARE MEDICINE [address] [facility] [place] [address] 04/09/2025 11:30 AM EDT Office Visit [facility] PULMONARY & CRITICAL CARE MEDICINE [address] [facility] [place] [place] [address] Christopher Kelly, [address] [place] [address] 04/10/2025 4:15 PM EDT Office Visit [facility] CARDIOLOGY [address] [facility] 400 [place] [address] Jose Juan Landis MD [address] [facility] [address] [place] [address] 04/16/2025 8:00 AM EDT Appointment [facility] [place] [address] [facility] [address] [place] [phone] 12/11/2025 3:00 PM EDT Office Visit [facility] CARDIOLOGY [address] [facility] [address] [place] [address] Marguerite Moore MD [address] [facility] [address] [place] [address] 12/16/2025 10:15 AM EDT Office Visit [facility] FAMILY MEDICINE [address] [place] [address] Red Groves MD [address] [place] [address] 03/19/2026 8:00 AM EDT Appointment [facility] 206 [place] [address] 03/19/2026 9:00 AM EDT Office Visit [facility] OBGYN [address] [place] [address] Keyona London, OUTBOUND TELEMARKETING REPRESENTATIVE [address] [facility] [address] [place] [address] documented as of this encounter Visit Diagnoses Not on filedocumented in this encounter Care Teams Data Specialist Relationship Specialty Start Date End Date Red Groves MD [address] [place] [address] PCP - General Family Medicine 03/16/23 documented as of this encounter
--- OUTSIDE RECORDS SUMMARY | 2025-04-08 08:39 | XMS_ITS | Encounter Summary ---
[facility] [address] [place] [address] Care Team Providers Care Abstract Writer Name Role Phone Red Groves MD Primary [...] or training? Not on file Preferred Language Indonesian 04/01/2023 PHQ-2 Answer Date Recorded Patient Health [...] Description 04/09/2025 11:00 AM EDT Office Visit [facility] PULMONARY & CRITICAL CARE MEDICINE [address] [facility] [place] [place] [address] 04/09/2025 11:30 AM EDT Office Visit [facility] PULMONARY & CRITICAL CARE MEDICINE [address] [facility] [place] [place] [address] Christopher Kelly DO [address] [place] [address] 04/10/2025 4:15 PM EDT Office Visit [facility] CARDIOLOGY [address] [facility] [address] [place] [address] Jose Juan Landis MD [address] [facility] [address] [address] [place] [address] 04/16/2025 8:00 AM EDT Appointment [facility] [place] [address] [facility] [address] [place] [phone] 12/11/2025 3:00 PM EDT Office Visit [facility]ARDIOLOGY [address] [facility] [address] [place] [address] Marguerite Moore MD [address] [facility] [address] [place] [address] 12/16/2025 10:15 AM EDT Office Visit [facility] FAMILY MEDICINE [address] [place] [address] Red Groves MD 210 [place] [address] 03/19/2026 8:00 AM EDT Appointment [facility] 206 [place] [address] 03/19/2026 9:00 AM EDT Office Visit [facility] OBGYN [address] [place] [address] Keyona London, BI DEVELOPER [address] [facility] [address] [place] [address] documented as of this encounter Visit Diagnoses Not on filedocumented in this encounter Care Teams Abstract Writer Relationship Specialty Start Date End Date Red Groves MD [address] [place] [address] PCP - General Family Medicine 03/16/23 documented as of this encounter
--- OUTSIDE RECORDS SUMMARY | 2025-04-08 08:39 | XMS_ITS | Encounter Summary ---
[facility] Address [address] [place] [address] Care Team Providers Care Silk Screen Operator Name Role Phone Red Groves MD Primary Care Provider + Encounter Details Date Type Department Care Team (Late st Contact Info) Description 10/22/2024 Results Follow-Up [facility] [address] [place] [address] Giovanna Prater L, RADIO DIRECTOR [address] [place] [address] Social History Tobacco Use Types [...] or training? Not on file Preferred Language Pashto 04/01/2023 PHQ-2 Answer Date Recorded Patient Health [...] CENTER PULMONARY & CRITICAL CARE MEDICINE [address] [place] [address] 04/09/2025 11:30 AM EDT Office Visit [facility] PULMONARY & CRITICAL CARE MEDICINE [address] [facility] [address] Christopher Kelly DO [address] [place] [address] 04/10/2025 4:15 PM EDT Office Visit [facility] CARDIOLOGY [address] [facility] [address] [place] [phone] Jose Juan Landis MD [address] [facility] [address] [place] [address] 04/16/2025 8:00 AM EDT Appointment [facility] [place] [address] [facility] [address] [place] [address] 12/11/2025 3:00 PM EDT Office Visit [facility] CARDIOLOGY [address] [facility] [address] [place] [address] Marguerite Moore MD [address] [facility] [address] [address] [place] [address] 12/16/2025 10:15 AM EDT Office Visit [facility] FAMILY MEDICINE [address] [place] [address] Red Groves MD 210 [place] [address] 03/19/2026 8:00 AM EDT Appointment [facility] 206 [place] [address] 03/19/2026 9:00 AM EDT Office Visit [facility] OBGYN 206 [place] [address] Keyona London, RADIO DIRECTOR [address] [facility] [address] [place] [address] documented as of this encounter Visit Diagnoses Not on filedocumented in this encounter Care Teams Silk Screen Operator Relationship Specialty Start Date End Date Red Groves MD [address] [place] [address] PCP - General Family Medicine 03/16/23 documented as of this encounter
--- OUTSIDE RECORDS SUMMARY | 2025-04-08 08:39 | XMS_ITS | Encounter Summary ---
[facility] Address [address] [place] [address] Care Team Providers Care Core Winding Operator Name Role Phone Red Groves MD Primary Care Provider + Encounter Details Date Type Department Care Team (Late st Contact Info) Description 10/18/2024 Results Follow-Up [facility] 206 [place] [address] Giovanna Prater L, ROOFING APPRENTICE 210 [place] [address] Social History Tobacco Use Types [...] or training? Not on file Preferred Language Vietnamese 04/01/2023 PHQ-2 Answer Date Recorded Patient Health [...] HOSPITAL PULMONARY & CRITICAL CARE MEDICINE [address] [place] [address] 04/09/2025 11:30 AM EDT Office Visit [facility] PULMONARY & [facility]ICAL [facility]ARE MEDICINE 2400 [facility] [place] [address] Christopher Kelly DO 2400 [place] [address] 04/10/2025 4:15 PM EDT Office Visit [facility] CARDIOLOGY 1720 [facility] 400 [place] [address] Jose Juan Landis MD [address] [facility] 400 [place] [address] 04/16/2025 8:00 AM EDT Appointment [facility] NONINVASIVE LAB [place] 3000 [facility] 210 [place] [address] 12/11/2025 3:00 PM EDT Office Visit [facility]ARDIOLOGY [address] [facility] [address] [place] [address] Marguerite Moore MD 1720 [facility] STAN 400 [place] [address] 12/16/2025 10:15 AM EDT Office Visit [facility] FAMILY MEDICINE 210 [place] [address] Red Groves MD 210 [place] [address] 03/19/2026 8:00 AM EDT Appointment [facility] 206 [place] [address] 03/19/2026 9:00 AM EDT Office Visit [facility] OBGYN 206 [place] [address] Keyona London, ROOFING APPRENTICE 1700 [facility] 701 [place] [address] documented as of this encounter Visit Diagnoses Not on filedocumented in this encounter Care Teams Core Winding Operator Relationship Specialty Start Date End Date Red Groves MD 210 [place] [address] PCP - General Family Medicine 03/16/23 documented as of this encounter
--- OUTSIDE RECORDS SUMMARY | 2025-04-08 08:39 | XMS_ITS | Encounter Summary ---
[facility] Address [address] [place] [id number] Care Team Providers Care Flag Car Driver Name Role Phone Red Groves MD Primary Care Provider + Encounter Details Date Type Department Care Team (Late st Contact Info) Description 03/13/2025 Telephone [facility] OBGYN 1700 [facility] [address] [place] [address] LitaKeyona, INSIDE UPHOLSTERER 1700 [facility] [address] [place], [place] [address] Social History Tobacco Use Types Packs/Day Years [...] or training? Not on file Preferred Language Swedish 04/01/2023 PHQ-2 Answer Date Recorded Patient Health [...] London APRN. Returned call to Melissa at [facility] pharmacy. Clarified that Fosamax dosing should be one tablet onceweekly. She v/u. * Telephone Encounter - Sherry Mendez RegSched Rep - 03/13/2025 2:56 PM EDT [facility] Melissa needing some medication clarification on alendronate (Fosamax) 70 MG tablet - please call Melissa at [phone] documented in this encounter Plan of Treatment Upcoming Encounters Date Type Department Care Team (Late st Contact Info) Description 04/09/2025 11:00 AM EDT Office Visit [facility] PULMONARY & CRITICAL CARE MEDICINE [address] [place] [address] 04/09/2025 11:30 AM EDT Office Visit [facility] PULMONARY & CRITICAL CARE MEDICINE [address] [place] [address] Christopher Kelly DO [address] [place] [address] 04/10/2025 4:15 PM EDT Office Visit [facility] CARDIOLOGY [address] [facility] [address] [place] [address] Jose Juan Landis MD [address] [facility] [address] [address] [place] [address] 04/16/2025 8:00 AM EDT Appointment [facility] NONINVASIVE LAB [place] 3000 [facility] STAN 210 [place] [address] 12/11/2025 3:00 PM EDT Office Visit [facility] CARDIOLOGY [address] [facility] [address] [address] [place] [address] Marguerite Moore MD [address] [facility] [address] [address] [place] [address] 12/16/2025 10:15 AM EDT Office Visit [facility] FAMILY MEDICINE 210 [place] [address] Red Groves MD 210 [place] [address] 03/19/2026 8:00 AM EDT Appointment [facility] [address] [place] [address] 03/19/2026 9:00 AM EDT Office Visit [facility] OBGYN [address] [place] [address] Keyona London, INSIDE UPHOLSTERER 1700 [facility] 701 [place] [address] documented as of this encounter Visit Diagnoses Not on filedocumented in this encounter Care Teams Flag Car Driver Relationship Specialty Start Date End Date Red Groves MD [address] [place] [address] PCP - General Family Medicine 03/16/23 documented as of this encounter
--- OUTSIDE RECORDS SUMMARY | 2025-04-08 08:39 | XMS_ITS | Encounter Summary ---
Author Organization [facility] Address [address] [place] [phone] Care Team Providers Care Silk Spreader Name Role Phone Red Groves MD Primary Care Provider + Reason for Referral * Diagnostic Imaging (Routine) - Closed Specialty Diagnoses / Procedures Referred By Contac t Referred To Contact Radiology Diagnoses Abnormality of left breast on screening mammogram Procedures US breast left limited Red Groves MD 210 [place] [address] Phone: tel: fax: [facility] [place] 206 [place] [address] Phone: tel: Referral ID Status Reason Start Date Expiration Date Visits Re quested Visits Authorized [id number] Closed 03/18/2025 06/17/2026 1 1 * Diagnostic Imaging (Routine) - Closed Specialty Diagnoses / Procedures Referred By Contac t Referred To Contact Radiology Diagnoses Abnormality of left breast on screening mammogram Procedures Mammo Diagnostic Digital Tomosynthesis Left With CAD Red Groves MD 210 [place] [address] Phone: tel: fax: [facility] BREAST [facility]ENTER 206 [place] [address] Phone: tel: Referral ID Status Reason Start Date Expiration Date Visits Re quested Visits Authorized [id number] Closed 03/18/2025 06/17/2026 1 1 Encounter Details Date Type Department Care Team (Late st Contact Info) Description 03/18/2025 Results Follow-Up [facility] FAMILY MEDICINE [address] [place] [address] Red Groves MD [address] [place] [address] Social History Tobacco Use Types Packs/Day [...] Not on file 09 /08/2022 Preferred Language Malawian 04/01/2023 PHQ-2 Answer Date Recorded Patient Health [...] Description 04/09/2025 11:00 AM EDT Office Visit [facility] PULMONARY & CRITICAL CARE MEDICINE 2400 [place] [address] 04/09/2025 11:30 AM EDT Office Visit [facility] PULMONARY & CRITICAL CARE MEDICINE 2400 [place] [address] Christopher Kelly DO 2400 [place] [address] 04/10/2025 4:15 PM EDT Office Visit [facility] CARDIOLOGY 1720 [facility] 400 [place] [address] Jose Juan Landis MD 1720 [facility] 400 [place] [address] 04/16/2025 8:00 AM EDT Appointment [facility] NONINVASIVE LAB [place] 3000 [facility] 210 [place] [address] 12/11/2025 3:00 PM EDT Office Visit [facility] CARDIOLOGY 1720 [facility] 400 [place] [address] Marguerite Moore MD 1720 [facility] ST[facility] [address] [place] [address] 12/16/2025 10:15 AM EDT Office Visit [facility] FAMILY MEDICINE [address] [place] [address] Red Groves MD [address] [place] [address] 03/19/2026 8:00 AM EDT Appointment [facility] [address] [place] [address] 03/19/2026 9:00 AM EDT Office Visit [facility] OBGYN [address] [place] [address] Keyona London, CHARGE MASTER COORDINATOR 1700 [facility] 701 [place] [address] Scheduled Orders Name Type Priority Associated Diagnoses [...] recalled from screening examination with tomosynthesis from [facility] for focal asymmetry in the left [...] mammogram documented in this encounter Care Teams Silk Spreader Relationship Specialty Start Date End Date Red Groves MD 210 [place] [address] PCP - General Family Medicine 03/16/23 documented as of this encounter
--- OUTSIDE RECORDS SUMMARY | 2025-04-08 08:39 | XMS_ITS | Encounter Summary ---
[facility] Address [address] [place] [address] Care Team Providers Care Electric Gas Appliances Demonstrator Name Role Phone Red Groves MD Primary Care Provider + Reason for Visit * Reason Onset Date Comments Medication Reconciliation 03/05/2025 Encounter Details Date Type Department Care Team (Late st Contact Info) Description 03/05/2025 Telephone [facility] CARDIOLOGY 1720 [facility] ST[facility] 400 [place] [address] Marguerite Moore MD [address] [facility] [address] [place] [address] Medication Reconciliation Social History Tobacco Use Types [...] & CRITICAL CARE MEDICINE [address] [place] [address] 04/09/2025 11:30 AM EDT Office Visit [facility] PULMONARY & CRITICAL CARE MEDICINE [address] [place] [address] Christopher Kelly, [address] [place] [address] 04/10/2025 4:15 PM EDT Office Visit [facility] CARDIOLOGY 17[address] [facility] ST[facility] [address] [place] [address] Jose Juan Landis MD 17[address] [facility] [address] [address] ST[address] [place] [address] 04/16/2025 8:00 AM EDT Appointment [facility] NONINVASIVE LAB [place] 3000 [facility] ST[facility] 210 [place] [address] 12/11/2025 3:00 PM EDT Office Visit [facility] CARDIOLOGY 17[address] [facility] ST[facility] [address] [place] [address] Marguerite Moore MD 1720 [facility] ST[facility] [address] [place], [place] [address] 12/16/2025 10:15 AM EDT Office Visit [facility] FAMILY MEDICINE 210 [place] [address] Red Groves MD 210 [place] [address] 03/19/2026 8:00 AM EDT Appointment [facility] 206 [place] [address] 03/19/2026 9:00 AM EDT Office Visit [facility] OBGYN 206 [place] [address] Keyona London, HAIRSPRING FABRICATION SUPERVISOR 1700 [facility] 701 [place] [address] documented as of this encounter Visit Diagnoses Not on filedocumented in this encounter Care Teams Electric Gas Appliances Demonstrator Relationship Specialty Start Date End Date Red Groves MD 210 [place] [address] PCP - General Family Medicine 03/16/23 documented as of this encounter
--- OUTSIDE RECORDS SUMMARY | 2025-04-08 08:39 | XMS_ITS | Encounter Summary ---
Author Organization [facility] Address [address] [place] [address] Care Team Providers Care Control Officer Name Role Phone Red Groves MD [...] or training? Not on file Preferred Language Fijian 04/01/2023 PHQ-2 Answer Date Recorded Patient Health [...] CENTER PULMONARY & CRITICAL CARE MEDICINE [address] [facility] [address] 04/09/2025 11:30 AM EDT Office Visit [facility] PULMONARY & CRITICAL CARE MEDICINE 2400 [facility] [address] Christopher Kelly DO 2400 [place] [address] 04/10/2025 4:15 PM EDT Office Visit [facility] CARDIOLOGY 17[address] [facility] ST[facility] 400 [place] [address] Jose Juan Landis MD 1720 [facility] ST[facility] 400 [place] [address] 04/16/2025 8:00 AM EDT Appointment [facility] NONINVASIVE LAB [place] 3000 [facility] ST[facility] 210 [place] [address] 12/11/2025 3:00 PM EDT Office Visit [facility] CARDIOLOGY [address] [facility] [address] [place] [address] Marguerite Moore MD [address] [facility] [address] [place] [address] 12/16/2025 10:15 AM EDT Office Visit [facility] FAMILY MEDICINE [address] [place] [address] Red Groves MD 210 [place] [address] 03/19/2026 8:00 AM EDT Appointment [facility] 206 [place] [address] 03/19/2026 9:00 AM EDT Office Visit [facility] OBGYN [address] [place] [address] Keyona London, POULTRY FARM SUPERVISOR 1700 [facility] [address] [place] [address] documented as of this encounter Visit Diagnoses Not on filedocumented in this encounter Care Teams Control Officer Relationship Specialty Start Date End Date Red Groves MD [address] [place] [address] PCP - General Family Medicine 03/16/23 documented as of this encounter
--- OUTSIDE RECORDS SUMMARY | 2025-04-08 08:40 | XMS_ITS | Encounter Summary ---
Author Organization [facility] Address [address] [place] [address] Care Team Providers Care Elephant Tamer Name Role Phone Red Groves MD Primary Care Provider + Encounter Details Date Type Department Care Team (Late st Contact Info) Description 04/02/2025 Results Follow-Up [facility] FAMILY MEDICINE 210 [place] [address] Red Groves MD 210 [place] [address] Social History Tobacco Use Types [...] or training? Not on file Preferred Language Hungarian 04/01/2023 PHQ-2 Answer Date Recorded Patient Health [...] Description 04/09/2025 11:00 AM EDT Office Visit [facility] PULMONARY & CRITICAL CARE MEDICINE [address] [place] [address] 04/09/2025 11:30 AM EDT Office Visit [facility] PULMONARY & CRITICAL CARE MEDICINE [address]00 [place] [address] Christopher Kelly, 2400 [place] [address] 04/10/2025 4:15 PM EDT Office Visit [facility] CARDIOLOGY 1720 [facility] 400 [place] [address] Jose Juan Landis MD [address] [place] [address] 04/16/2025 8:00 AM EDT Appointment [facility] NONINVASIVE LAB [place] 3000 [facility] ST[facility] 210 [place] [address] 12/11/2025 3:00 PM EDT Office Visit [facility] CARDIOLOGY 1720 [facility] ST[facility] [address] [place] [address] Marguerite Moore MD 1720 [facility] BLD[facility] E STAN [address] [place] [address] 12/16/2025 10:15 AM EDT Office Visit [facility] FAMILY MEDICINE 210 [place] [address] Red Groves MD 210 [place] [address] 03/19/2026 8:00 AM EDT Appointment [facility] 206 [place] [address] 03/19/2026 9:00 AM EDT Office Visit [facility] OBGYN 206 [place] [address] Keyona London, SAFE AND VAULT INSTALLER 1700 [facility] 701 [place] [address] documented as of this encounter Visit Diagnoses Not on filedocumented in this encounter Care Teams Elephant Tamer Relationship Specialty Start Date End Date Red Groves MD 210 [place] [address] PCP - General Family Medicine 03/16/23 documented as of this encounter
--- OUTSIDE RECORDS SUMMARY | 2025-04-08 08:40 | XMS_ITS | Clinical Summary ---
Author Organization [facility] Address [address] [place] [address] Care Team Providers Care Center Machine Operator Name Role Phone Red Groves MD [...] rate of 63 beats per minute. Normal [place], QRS and QTc intervals. Nonspecific ST-T wave [...] - 04/02/2025 11:59 PM EDT Hospital Encounter [facility] [address] [place] [phone] Red Groves MD Abnormality of left breast on screening mammogram Discharge Disposition: Home or Self Care 04/02/2025 Results Follow-Up [facility] FAMILY MEDICINE [address] [place] [address] Red Groves MD 04/02/2025 Travel 03/26/2025 Telephone [facility] MEDIC[facility] [address] [place] [address] Red Groves MD 03/26/2025 Results Follow-Up [facility] 1760 [facility] [address] [place] [address] Red Groves MD 03/18/2025 Results Follow-Up [facility] FAMILY MEDICINE [address] [place] [address] Red Groves MD 03/13/2025 1:00 PM EDT Office Visit [facility] OBGYN [address] [place] [address] Keyona London, MANAGER CUSTOMS Pap test, as part of routine gynecological examination (Primary Dx); Women's annual routine gynecological examination; Breast cancer screening by mammogram; Menopausal state; Osteopenia, senile; History of hysterectomy, supracervical; Age-related osteoporosis without current pathological fracture 03/13/2025 Telephone [facility] OBGYN 1700 [facility] ST[facility] [address] [place] [address] Keyona London APRN 03/13/2025 Travel 03/06/2025 11:00 AM EDT Office Visit [facility] CARDIOLOGY 1720 [facility] ST[facility] [address] [place] [address] Marguerite Moore MD Atrial fibrillation and flutter (Primary Dx); ASD (atrial septal defect); Atherosclerotic vascular disease 03/06/2025 Patient rounding ([facility] only) [facility] CARDIOLOGY 1720 [facility] ST[facility] [address] [place] [address] Addis Rubalcava, RegSched Rep 03/06/2025 Travel 03/05/2025 Telephone [facility] CARDIOLOGY 1720 [facility] ST[facility] [address] [place] [address] Marguerite Moore MD Medication Reconciliation from Last [...] or training? Not on file Preferred Language Mexican 04/01/2023 PHQ-2 Answer Date Recorded Patient Health [...] Description 04/09/2025 11:00 AM EDT Office Visit [facility] PULMONARY & CRITICAL CARE MEDICINE [address] [place] [address] 04/09/2025 11:30 AM EDT Office Visit [facility] PULMONARY & CRITICAL CARE MEDICINE [address] [place] [address] Christopher Kelly DO [address] [place] [address] 04/10/2025 4:15 PM EDT Office Visit [facility]ARDIOLOGY [facility] [facility] [address] [place] [address] Jose Juan Landis MD 1720 [facility] BLD[facility] E STAN [address] [place] [address] 04/16/2025 8:00 AM EDT Appointment [facility] NONINVASIVE LAB [place] 3000 [facility] ST[facility] [address] [place] [address] 12/11/2025 3:00 PM EDT Office Visit [facility] CARDIOLOGY [facility] [facility] [address] [place] [address] Marguerite Moore MD 1720 [facility] [address] ST[address] [place], [place] [address] 12/16/2025 10:15 AM EDT Office Visit [facility] FAMILY MEDICINE [address] [place] [address] Red Groves MD 210 [place] [address] 03/19/2026 8:00 AM EDT Appointment [facility] [address] [place] [address] 03/19/2026 9:00 AM EDT Office Visit [facility] OBGYN [address] [place] [address] Keyona London, MANAGER CUSTOMS 1700 [facility] ST[facility] [address] [place] [address] Health Maintenance Due Date Last Done Comments [...] 08/14/2024, 014 Medical Devices Implanted Type Area Scrum Project Manager Device Identifier Shelf Expiration Date Model / [...] recalled from screening examination with tomosynthesis [facility] for focal asymmetry in the left [...] IMG MAMMOGRAPHY ORDERABL ES Final Result * [facility] GENETIC RISK ASSESSMENT QUESTIONNAIRE - , (04/01/2025 7:08 PM EDT) Robbin 2.6 [employer] NCCN NCCN not met spotflux Comment:High Risk Cancer Ris k Assessment 04/01/2025 7:08 PM EDT us Red Groves MD GENETIC TESTING Final Re sult GEM MITCHELL
[address] [place] [address], [place] [phone] * MAMMO Scan (03/13/2025) Anatomical Region Laterality [...] MD 08/15/2024 3:56 PM EST Workstation ID: [id number] Narrative 08/15/2024 3:[address] CHEST [...] MD 08/15/2024 3:56 PM EST Workstation ID: [id number] Christopher Kelly DO [facility] ORDERABLES F inal Result * Hepatitis C Antibody (11/20/2021 9:10 AM EDT) Hep C Virus Ab <0.1 0.0 - 0.9 s/co ratio [facility] Comment: Negative: < 0.8 Indeterminate: 0.8 - 0.9 Positive: > 0.9 The CDC recommends that a positive HCV antibody result be followed up with a HCV Nucleic Acid Amplification test (548528). 11/20/2021 9:10 AM EDT 11/20/2021 Narrative [facility] - 11/21/2021 8:11 AM EDT Performed at: 02 - [facility] [address] [place], [place] [id number] Director Of Public Safety: Kt Sinclair PhD, Phone: [phone] Patient Fasting: Y us Red Groves MD LAB BLOOD ORDERABLES Fin al Result [facility] ([facility]UL[facility]) [address] [place] [address], [facility] [address] [place] [address], * DEXA Bone Density Axial (04/23/2016 8:32 [...] A BMD test was performed using the [employer] DXA System manufactured by [employer]. The bone densitometry was evaluated by determining [...] A BMD test was performed using the [employer] DXA System manufactured by [employer]. The bone densitometry was evaluated by determining [...] Most Recently Relevant to Health Maintenance Insurance [facility] MEDICARE ADVANTAGE PPO Advance Directives Documents on File Type Date Recorded Patient Esthetician Makeup Artist Expl anation PATIENT ADVANCE DIRECTIVES - SCAN 04/20/2022 10:30 AM JEFFERY ADVANCE DIRECTIVE S, 08/18/2010 POWER OF DOOR TO DOOR SELLING DISTRIBUTOR - SCAN 04/20/2022 10:30 AM DURABLE POWER OF DOOR TO DOOR SELLING DISTRIBUTOR, 08/18/2010 * CPR (Attempt to Resuscitate) (Latest Code Status on File) Date Activated Date Inactivated Comments 04/20/2022 1:44 PM 04/20/2022 8:27 PM Question Answer Comments Code Status (Patient has no pulse and is not breathing): CPR (Attempt to Resuscitate) Medical Interventions (Patie nt has pulse or is breathing): Full Level Of Support Discussed With: Patient Care Teams Center Machine Operator Relationship Specialty Start Date End Date Red Groves MD [address] [place] [address] PCP - General Family Medicine 03/16/23
--- OUTSIDE RECORDS SUMMARY | 2025-04-08 08:40 | XMS_ITS | Encounter Summary ---
[facility] Organization [facility] Address [address] [place] [address] Care Team Providers Care Director Of Research Name Role Phone Red Mills MD Primary Care Provider + Encounter Details Date Type Department Care Team (Late st Contact Info) Description 03/26/2025 Telephone [facility] FAMILY MEDICINE [address] [place] [address] Red Mills MD [address] [place] [address] Social History Tobacco Use Types [...] or training? Not on file Preferred Language Moroccan 04/01/2023 PHQ-2 Answer Date Recorded Patient Health [...] Description 04/09/2025 11:00 AM EDT Office Visit [facility] PULMONARY & CRITICAL CARE MEDICINE [address] [place] [address] 04/09/2025 11:30 AM EDT Office Visit [facility] PULMONARY & CRITICAL CARE MEDICINE [address] [place] [address] Christopher Kelly DO [address] [place] [address] 04/10/2025 4:15 PM EDT Office Visit [facility] CARDIOLOGY [address] [facility] [address] [place] [phone] Jose Juan Landis MD [address] [facility] [address] [place] [address] 04/16/2025 8:00 AM EDT Appointment [facility] NONINVASIVE LAB [place] [address] [facility] [address] [place] [phone] 12/11/2025 3:00 PM EDT Office Visit [facility] CARDIOLOGY [address] [facility] [address] [place] [phone] Marguerite Moore MD [address] [facility] [address] [place] [address] 12/16/2025 10:15 AM EDT Office Visit [facility] FAMILY MEDICINE [address] [place] [address] Red Mills MD [address] [place] [address] 03/19/2026 8:00 AM EDT Appointment [facility] [address] [place] [address] 03/19/2026 9:00 AM EDT Office Visit [facility] OBGYN [address] [place] [address] Keyona oLndon, PUBLIC POLICY MEDIATOR [address] [facility] [address] [place] [address] documented as of this encounter Visit Diagnoses Not on filedocumented in this encounter Care Teams Director Of Research Relationship Specialty Start Date End Date Red Mills MD [address] [place] [address] PCP - General Family Medicine 03/16/23 documented as of this encounter
--- OUTSIDE RECORDS SUMMARY | 2025-04-08 08:40 | XMS_ITS | Patient Health Record ---
Author Organization Cecelia Sampson MD [facility] Address [address] [phone] Reason For Referral No Information Plan Of Treatment No Information Medical (General) History 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 History ICD Code pulmonary htn osteoporosis sleep apnea congenital heart disease- surgery at 11 years old at [place]
--- OUTSIDE RECORDS SUMMARY | 2025-04-08 08:40 | XMS_ITS | Encounter Summary ---
Author Organization [facility] Address [address] [place] [address] Care Team Providers Care Nurse Transitional Name Role Phone Red Groves MD Primary [...] CENTER PULMONARY & CRITICAL CARE MEDICINE [address] [place] [address] 04/09/2025 11:30 AM EDT Office Visit [facility] PULMONARY & CRITICAL CARE MEDICINE [address] [place] [address] Christopher Kelly DO [address] [place] [address] 04/10/2025 4:15 PM EDT Office Visit [facility] CARDIOLOGY [address] [facility] [address] [place] [address] Jose Juan Landis MD [address] [facility] [address] [place] [address] 04/16/2025 8:00 AM EDT Appointment [facility] NONINVASIVE LAB [place] [address] [facility] [address] [place] [phone] 12/11/2025 3:00 PM EDT Office Visit [facility] CARDIOLOGY [address] [facility] [address] [place] [address] Marguerite Moore MD [address] [facility] [address] [place] [address] 12/16/2025 10:15 AM EDT Office Visit [facility] FAMILY MEDICINE [address] [place] [address] Red Groves MD [address] [place] [address] 03/19/2026 8:00 AM EDT Appointment [facility] [address] [place] [address] 03/19/2026 9:00 AM EDT Office Visit [facility] OBGYN [address] [place] [address] Keyona London, EXCEPTION[employer] CHILDREN[employer] TE[employer]ER [address] [facility] [address] [place] [address] documented as of this encounter Visit Diagnoses Not on filedocumented in this encounter Care Teams Nurse Transitional Relationship Specialty Start Date End Date Red Groves MD [address] [place] [address] PCP - General Family Medicine 03/16/23 documented as of this encounter
--- NOTE | 2025-04-08 09:24 | HMH.OTEV ---
OT Evaluation Rehab OT IP Evaluation Start: 04/07/25 17:11 Freq: ONCE Status: Active Protocol: [facility]25 [facility] (Rec: 04/08/25 09:24 [id number]) Rehab OT IP Assessment Subjective History Pt oriented x 3 on arrival. Pt agreeable to engage in therapy evaluation. Pt admitted on 04/07/25 due to respiratory failure, nausea, and vomiting. History and physical: Belle Kaba is a 70-year-old female with a medical history significant for COPD on 3 L baseline, pulmonary hypertension, former tobacco smoker, A-fib s/p ablation x 2, anxiety/depression presents to the ED with nausea/vomiting/diarrhea and shortness of breath. Patient states she began having nausea/vomiting on Tuesday after eating supper at [employer]. She then proceeded to have shortness of breath, diarrhea on Tuesday and Tuesday which have progressively gotten worse. She denies fever/chills, chest pain, abdominal pain, urinary symptoms. No recent sick known contacts. Has been adherent to her oxygen, trilogy at home. She also notes that her A-fib has been in NSR for many years since ablation, and that she is in A-fib today. Workup in the ED significant for WBC 17.8 , proBNP 4560 , and CTA chest revealing bilateral multifocal pneumonia, with likely reactive hilar adenopathy. She was saturating 87% on 3 L, escalated to Vapotherm 30 L 50% with saturations in the low 90s. She was given vancomycin, Zosyn, DuoNeb, 1 L LR bolus. Full sepsis bolus was not given due to elevated BNP and concern for heart failure. Given these findings, ED provider discussed case with me and I decided to admit patient for acute hypoxic respiratory failure secondary to community-acquired pneumonia. Subjective Prior to admission, pt claims she was independent with all ADL and IADL tasks including functional mobility, bathing, dressing, oral and self-care, cleaning, cooking, etc. Pt also claims prior to admission that she was still driving. Pt states she lives alone in a one story home and although previously completed functional mobility independently, she has a walker and cane at home if necessary. Pt was also oxygen dependent prior to admission. Objective Patient Orientation Person,Place,Name,Birthday Right Upper WFL Extremity Gross ROM Left Upper Extremity WFL Gross ROM Bed Mobility bed mobility-scooting,bed mobility - supine/sit Assist Level Contact Guard/Hand Hold Transfer Training Sit/Stand Transfer Assist Level Contact Guard/Hand Hold Decrease in Yes Endurance Rehab OT IP prob,goals,plan Problems Date of Evaluation: 04/08/25 OT IP Problems Bed Mobility,Transfers,Balance,Self care,Safety Rehab Potential Rehab Potential Good Equipment Needs Assistive Devices Rolling / Wheeled Walker Plan OT intervention Plan Bed Mobility,Transfers,Balance,Self care,Safety, Therapeutic Exercise OT Plan Frequency Daily Duration LOS Discharge Goals Bed Mobility Ability Standby Assistance Sit to Stand Chair Supervision/Stand by Transfer Ability Chair Transfer Supervision/Stand by Ability Chair Transfer Stand Step Pivot Technique Chair Transfer Rolling Walker Assistive Devices Self care skills fully toilet trained,dressing/undressing independently, uses utensils to feed self Lower Body Dressing Standby Assistance Ability Performing Toilet Standby Assistance Hygiene Ability Overall Commode/ Standby Assistance Toilet Transfer Ability Commode/Toilet Sit to/from Ambulatory Transfer Technique Discharge Plan OT Discharge Plan Pt will continue to be seen for OT services while at [facility]. At this time, pt would benefit most from short term rehab following discharge since she does live alone and will not have 24/7 assistance. However, if she demonstrates improvement with functional transfers and overall endurance while in the hospital, she could possibly discharge home with OT evaluation. Continued skilled therapy is important in order for patient to improve strength, safety, endurance, functional transfers, and ADL independence to reach OF. Eval Complexity Eval Charge Codes 23875 - Moderate Complexity PHYSICIAN CERTIFICATION: I certify the specified therapy services for Belle Kaba are required, authorized, and reviewed every 30 days.
[2025-04-08] MEDS: SODIUM CHLORIDE 3% 15ML NEB 3 ML IH ×2 (09:30→13:42)
--- NOTE | 2025-04-08 09:51 | EXP.PULM.CON ---
History of Present Illness History of present illness: Ms. Kaba is a 70-year-old female with reported history of COPD chronic hypoxic respiratory failure 3 L nasal oxygen supplementation, pulmonary hypertension atrial fibrillation status post ablation presented here with worsening respiratory status nausea and vomiting and pulmonary was called for further evaluation and management. [facility] Disclaimer: The information contained in this section may have been updated after the patient was seen, as this information can be updated by other users. 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 (Updated 04/08/25 @ 12:02 by Karen Morales MD) Pneumonia Bronchitis Anxiety and depression Hyperlipidemia History of deviated nasal septum Hammertoe of right foot Pulmonary hypertension Bronchitis Sinusitis Laceration of right lower extremity Visit for suture removal Scalp laceration Laceration Surgical History S/P correction of deviated nasal septum H/O thyroidectomy Hx of appendectomy Hx of tonsillectomy H/O: hysterectomy History of open heart surgery Family History (Reviewed 10/13/24 @ 09:34 by Tarah Sexton ([facility] LION TRAINER) No significant family history Social History Smoking Status: Former smoker alcohol intake: never current occupational status: employed Travel in the last 8 weeks?: None household members: none housing: house 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 Have you lived/traveled outside US in past 30 days?: No Contact w/someone who lives/traveled outside US past 30 days?: No Exposure to someone with infectious disease in past 14 days?: No Do you have a fever (greater than 100.4 F or 38 C)?: No Have you tested positive for COVID-19?: No Exposed to someone with COVID-19 in past 14 days?: No Do you have a sore throat?: No Do you have a cough?: No Do you have any weakness?: No Do you have any diarrhea?: Yes Are you experiencing any unusual bleeding?: No Do you have any muscle aches/pain?: No Do you have any abdominal pain?: No Are you experiencing loss of taste or smell?: No Review of Systems Constitutional Constitutional: Reports anorexia, Reports body ache(s) and Reports fatigue Eyes Eyes: Denies eye discharge, Denies dry eyes, Denies irritation and Denies itchy eyes ENT Ears, Nose, Mouth, and Throat: Denies epistaxis, Denies facial pain, Denies lip swelling and Denies throat swelling *Cardiovascular Cardiovascular: Reports dyspnea and Reports dyspnea on exertion *Respiratory Respiratory: Reports change in phlegm color, Reports chest congestion, Reports cough, Reports dyspnea, Reports dyspnea on exertion, Reports excessive phlegm production, Denies hemoptysis, Reports pain on inspiration and Reports wheezing *Gastrointestinal Gastrointestinal: Denies abdominal pain, Denies belching and Denies cramping *Musculoskeletal Musculoskeletal: Reports back pain, Reports myalgias and Reports other (No small joint swelling or Pain) Psychiatric Psychiatric: Denies homicidal ideation and Denies suicidal ideation Endocrine Endocrine: Reports fatigue and Denies heat intolerance Hematologic/Lymphatic Hematologic/Lymphatic: Denies easy bleeding and Denies lymphadenopathy Allergic/Immunologic Allergic/Immunologic: Denies itchy eyes, Denies lip swelling, Denies throat swelling and Reports wheezing Pulmonology Exam Inpatient Vital signs and Labs for Last 24 Hours: Temp Pulse Resp BP Pulse Ox O2 Del Method O2 Flow Rate 97.7 F 96 H 18 127/69 92 L Vapotherm 20 04/08/25 08:00 04/08/25 09:37 04/08/25 09:37 04/08/25 08:01 04/08/25 09:37 04/08/25 09:37 04/08/25 09:37 FiO2 30 04/08/25 09:37 Laboratory Results - last 24 hr 04/07/25 12:00: SARS-CoV-2 (PCR) Not detected, Influenza A Untype (PCR) Not detected, Influenza Type B (PCR) Not detected 04/07/25 12:20: WBC 17.8 H, RBC 4.56, Hgb 14.0, Hct 42.0, MCV 92.1, MCH 30.7, MCHC 33.3, RDW 14.0, Plt Count 178, MPV 10.2, Neut % (Auto) 87.4 H, Lymph % (Auto) 4.5 L, [place] % (Auto) 4.6, Eos % (Auto) 2.1, Baso % (Auto) 0.5, Neut # (Auto) 15.6 H, Lymph # (Auto) 0.8, [place] # (Auto) 0.8, Eos # (Auto) 0.4, Baso # (Auto) 0.1, ESR 40 H, PT 13.5 H, INR 1.24 H, VBG pH 7.37, VBG pCO2 37.0, VBG pO2 29.5, VBG HCO3 20.8 L, VBG Total CO2 21.9 L, VBG O2 Saturation 57.9, VBG Base Excess -4.5 L, VBG Lactic Acid 2.6 H, Sodium 141, Potassium 3.1 L, Chloride 108 H, Carbon Dioxide 23, Anion Gap 13.1, BUN 27 H, Creatinine 0.90, Estimated Creat Clear 43, Estimated GFR 62, Est GFR ( Amer) 75, Glucose 125 H, Calcium 9.7, Phosphorus 2.1 L, Magnesium 1.7, Total Bilirubin 2.5 H, AST 63 H, ALT 38, Alkaline Phosphatase 82, Troponin I 0.02, NT-Pro-B Natriuret Pep 4560 H, Total Protein 7.4, Albumin 4.4, Globulin 3.0, Albumin/Globulin Ratio 1.5, Lipase 17 L 04/07/25 16:20: Lactate 1.8, Lactate Dehydrogenase 299 L, Troponin I 0.03, C-Reactive Protein 433.4 H, Procalcitonin 11.3 H 04/07/25 17:55: Lactate 2.7 H, Troponin I 0.03 04/07/25 18:50: Stl C. cayetanensis PCR Not detected, Stool Rotavirus (PCR) Not detected, Stl Adenov F 40/41 PCR Not detected, Stool Astrovirus (PCR) Not detected, Stool Campylobacter PCR Not detected, Stl C.difficile Tox PCR Not detected, Stool Cryptosporidium PCR Not detected, Stl E.coli Shiga Tox PCR Not detected, Stool E coli O157 PCR Not detected, Stl Enterotoxigenic E PCR Not detected, Stool EPEC (PCR) Not detected, Stool EAEC (PCR) Not detected, Stl E. histolytica PCR Not detected, Stool Giardia Lamblia PCR Not detected, Stool Salmonella PCR Not detected, Stool Sapovirus (PCR) Not detected, Stl P. shigelloides PCR Not detected, Stl Shigella/EIEC PCR Not detected, St Y.enterocolitica PCR Not detected, Stool Vibrio (PCR) Not detected, Stl Vibrio cholerae PCR Not detected, Stl Norovirus GI/GII PCR Not detected 04/07/25 20:02: Chlamy pneumoniae PCR Not detected, Adenovirus (PCR) Not detected, B. pertussis DNA (PCR) Not detected, Coronavirus OC43 (PCR) Not detected, Coronavirus HKU1 (PCR) Not detected, Coronavirus 229E (PCR) Not detected, SARS-CoV-2 (PCR) Not detected, Coronavirus NL63 (PCR) Not detected, Human Metapneumovir PCR Not detected, Influenza A (H1) PCR Not detected, Influ A (H1N1/09) PCR Not detected, Influenza A (H3) PCR Not detected, Influenza Type A (PCR) Not detected, Influenza Type B (PCR) Not detected, M. pneumoniae (PCR) Not detected, Parainfluenza 1 (PCR) Not detected, Parainfluenza 2 (PCR) Not detected, Parainfluenza 3 (PCR) Not detected, Parainfluenza 4 (PCR) Not detected, RSV (PCR) Not detected, Entero/Rhino (PCR) Not detected 04/07/25 20:20: Lactate 1.9 04/08/25 05:41: WBC 12.6 H D, RBC 3.66 L, Hgb 11.1 L D, Hct 33.9 L, MCV 92.6, MCH 31.1, MCHC 33.6, RDW 14.2, Plt Count 172, MPV 10.8 H, Neut % (Auto) 90.6 H, Lymph % (Auto) 4.0 L, [place] % (Auto) 4.7, Eos % (Auto) 0.0 L, Baso % (Auto) 0.4, Neut # (Auto) 11.4 H, Lymph # (Auto) 0.5 L, [place] # (Auto) 0.6, Eos # (Auto) 0.0, Baso # (Auto) 0.1, Total Counted 100, Neutrophils % (Manual) 85 H, Lymphocytes % (Manual) 12, Atypical Lymphs % 1.0, Monocytes % (Manual) 2, Platelet Estimate Normal, RBC Morphology Normal, ESR 81 H, Sodium 138, Potassium 3.9 D, Chloride 112 H, Carbon Dioxide 18 L, Anion Gap 11.9, BUN 25 H, Creatinine 0.70 D, Estimated Creat Clear 43, Estimated GFR 83, Est GFR ( Amer) 100 D, Glucose 203 H D, Calcium 8.3 L, Magnesium 2.0 D, Total Bilirubin 1.2, AST 54 H, ALT 40, Alkaline Phosphatase 72, C-Reactive Protein 436.8 H, Total Protein 5.9 L, Albumin 3.3 L D, Globulin 2.6, Albumin/Globulin Ratio 1.3, Procalcitonin 12.5 H I & O for Labs for Last 24 Hours: Intake & Output 04/05/25 04/06/25 04/07/25 04/08/25 23:59 23:59 23:59 23:59 Intake Total 1640 / 1640 200 / 200 Output Total 0 / 0 Balance 1640 / 1640 200 / 200 Weight 114 lb 112 lb 3.445 oz Constitutional: Present moderate distress Head: Present normocephalic and atraumatic ENT: Present normal exam, normal oropharynx and mucous membranes moist Neck: Present normal inspection and full ROM Respiratory: Present respiratory distress, rhonchi, wheezes, crackles, diminished air movement and able to speak in complete sentences; Absent prolonged expiratory phase Cardiac: Present S1/S2, Tachycardia and radial pulses present GI: Present soft and distention; Absent tenderness or guarding Rectal (female): Present deferred (female): Present deferred Skin: Present intact; Absent cyanosis or jaundice Neuro: Present alert, awake and oriented x 3 Extremities: Present normal inspection; Absent clubbing or cyanosis Psychiatric: Present normal affect and cooperative Meds Home Medications and Allergies Home Medications ?Medication ?Instructions ?Recorded ?Confirmed ?Type montelukast 10 mg tablet 10 mg PO HS 12/11/17 04/07/25 History alendronate 70 mg tablet 70 mg PO WEEKLY Osteoporosis 04/10/21 04/07/25 History albuterol sulfate 90 mcg/actuation 2 puff inhalation Q4HP PRN short 06/13/21 04/07/25 History aerosol inhaler of breath diltiazem HCl 180 mg 180 mg PO DAILY 07/27/23 04/07/25 History capsule,extended release 24 hr fluticasone fur. 200 mcg-umeclid 1 inh inhalation DAILY 07/27/23 04/08/25 History 62.5 mcg-vilant 25 mcg inhalat.powder (Trelegy Ellipta) rosuvastatin 10 mg tablet 10 mg PO DAILY 07/27/23 04/07/25 History sertraline 50 mg tablet 50 mg PO DAILY 07/27/23 04/07/25 History sildenafil (pulm.hypertension) 20 20 mg PO TID 07/27/23 04/07/25 History mg tablet New Prescriptions to Start Prescriptions: Allergies Allergy/AdvReac Type Severity Reaction Status Date / Time No Known Allergies Allergy Verified 04/07/25 16:44 Results Laboratory Findings 04/08/25 05:41 04/08/25 05:41 PT/INR, D-dimer PT 13.5 seconds (10.1-12.5) H 04/07/25 12:20 INR 1.24 (0.9-1.1) H 04/07/25 12:20 Abnormal lab findings: Abnormal Labs 04/07/25 04/07/25 04/07/25 12:20 16:20 17:55 WBC 17.8 H RBC Hgb Hct MPV Neut % (Auto) 87.4 H Lymph % (Auto) 4.5 L Eos % (Auto) Neut # (Auto) 15.6 H Lymph # (Auto) Neutrophils % (Manual) ESR 40 H PT 13.5 H INR 1.24 H VBG HCO3 20.8 L VBG Total CO2 21.9 L VBG Base Excess -4.5 L VBG Lactic Acid 2.6 H Potassium 3.1 L Chloride 108 H Carbon Dioxide BUN 27 H Glucose 125 H Lactate 2.7 H Calcium Phosphorus 2.1 L Total Bilirubin 2.5 H AST 63 H Lactate Dehydrogenase 299 L C-Reactive Protein 433.4 H NT-Pro-B Natriuret Pep 4560 H Total Protein Albumin Lipase 17 L Procalcitonin 11.3 H 04/08/25 05:41 WBC 12.6 H D RBC 3.66 L Hgb 11.1 L D Hct 33.9 L MPV 10.8 H Neut % (Auto) 90.6 H Lymph % (Auto) 4.0 L Eos % (Auto) 0.0 L Neut # (Auto) 11.4 H Lymph # (Auto) 0.5 L Neutrophils % (Manual) 85 H ESR 81 H PT INR VBG HCO3 VBG Total CO2 VBG Base Excess VBG Lactic Acid Potassium Chloride 112 H Carbon Dioxide 18 L BUN 25 H Glucose 203 H D Lactate Calcium 8.3 L Phosphorus Total Bilirubin AST 54 H Lactate Dehydrogenase C-Reactive Protein 436.8 H NT-Pro-B Natriuret Pep Total Protein 5.9 L Albumin 3.3 L D Lipase Procalcitonin 12.5 H Assessment and Plan *Assessment and plan (1) Pulmonary hypertension: Status: Acute Category: Medical Code(s): I27.20 - Pulmonary hypertension, unspecified (2) Acute and chronic respiratory failure with hypoxia: Status: Acute Category: Medical Code(s): J96.21 - Acute and chronic respiratory failure with hypoxia (3) Severe sepsis: Status: Acute Category: Medical Code(s): A41.9 - Sepsis, unspecified organism; R65.20 - Severe sepsis without septic shock (4) Pneumonia: Status: Acute Category: Medical Code(s): J18.9 - Pneumonia, unspecified organism Plan Ms. Kaba is a 70-year-old female with reported history of COPD chronic hypoxic respiratory failure 3 L nasal oxygen supplementation, pulmonary hypertension atrial fibrillation status post ablation presented here with worsening respiratory status nausea and vomiting and pulmonary was called for further evaluation and management. Afebrile. Hemodynamically stable. Neutrophilic predominant leukocytosis. Comprehensive respiratory viral PCR panel negative. Blood gas upon admission no evidence of hypercarbic respiratory failure. CTA upon admission no evidence of pulmonary embolism. Bilateral upper lobe predominant dense consolidative changes noted right greater than left. Mediastinal and hilar lymphadenopathy noted bilateral. Currently receiving vancomycin and cefepime. On examination severe respiratory distress. Patient admits including abdominal distress nausea and vomiting followed by worsening respiratory distress. Concerning for aspiration event. Plan: Continue oxygen supplementation to maintain O2 saturation goal of 90% and above Continue vancomycin and cefepime pending blood culture results. Will repeat sputum induction. Follow urine strep Legionella antigens and nasal MRSA PCR Incentive spirometry and flutter valve Unable to perform bronchoscopy today, patient ate her breakfast this morning
--- NOTE | 2025-04-08 09:57 | PC.NURSE ---
Respiratory at bedside. Patient placed on 3 L NC. Patients oxygen saturation 94% at this time. Continuation of care plan.
[2025-04-08 09:58] LABS: Hemoglobin A1C 5.4 % (4.0-6.0)
--- NOTE | 2025-04-08 10:11 | HMH.PTEV ---
Physical Therapy Evaluation Rehab PT IP Evaluation Start: 04/07/25 17:11 Freq: ONCE Status: Active Protocol: Document 04/08/25 09:31 NARAYAN (Rec: 04/08/25 10:11 NARAYAN [id number]) Subjective/History History History Per H&P: Belle Kaba is a 70-year-old female with a medical history significant for COPD on 3 L baseline, pulmonary hypertension, former tobacco smoker, A-fib s /p ablation x 2, anxiety/depression presents to the ED with nausea/vomiting/diarrhea and shortness of breath. Patient states she began having nausea/vomiting on Tuesday after eating supper at [employer]. She then proceeded to have shortness of breath, diarrhea on Tuesday and Tuesday which have progressively gotten worse. She denies fever/chills, chest pain, abdominal pain, urinary symptoms. No recent sick known contacts. Has been adherent to her oxygen, trilogy at home. She also notes that her A-fib has been in NSR for many years since ablation, and that she is in A-fib today. Workup in the ED significant for WBC 17.8 , proBNP 4560 , and CTA chest revealing bilateral multifocal pneumonia, with likely reactive hilar adenopathy. She was saturating 87% on 3 L, escalated to Vapotherm 30 L 50% with saturations in the low 90s. She was given vancomycin, Zosyn, DuoNeb, 1 L LR bolus. Full sepsis bolus was not given due to elevated BNP and concern for heart failure. Given these findings, ED provider discussed case with me and I decided to admit patient for acute hypoxic respiratory failure secondary to community-acquired pneumonia. Subjective Subjective PLOF: IND with all household and community level mobility without AD use. Still driving. HOME: Lives alone in a single-story home. Pt owns a RW. New diagnosis of No cancer in past 12 months? [facility] How much help from another person do you currently need... Turning from your None back to your side while in a flat bed without using bedrails? Moving from lying on None back to sitting on the side of a flat bed without using bedrails? Moving to and from a None bed to a chair ( including a wheelchair)? Standing up from a None chair using your arms? (e.g., wheelchair, bedside chair) Walking in hospital A little room? Climbing 3-5 steps A little with a railing? Mobility Score 22 Mobility Level [facility] Mobility 7 Walk 25 feet or more Mobility Calculator Rehab PT IP Eval Objective Appearance Patient Behavior Appropriate,Cooperative Patient Orientation Person,Place,Situation Difficulty following none instructions Speech Pattern Clear Balance Ability to Arise Able, uses arms to help Sitting Balance Steady, safe Standing Balance Steady, wide stance Dynamic Sitting Good Balance Ability Dynamic Standing Good Balance Ability Transfers Bed Transfer Ability Independent Sit to Stand Bed Supervision/Stand by Transfer Ability Rehab PT IP prob,goals,plan Problems Date of Evaluation: 04/08/25 PT IP Problems Transfers,Gait,Balance,Self care,Safety Rehab Potential Rehab Potential Good Plan PT Intervention Plan Bed Mobility,Transfers,Gait,Balance,Self care,Safety, Therapeutic Exercise Other Intervention 1- 2 times Plan PT Plan Frequency Daily Duration Goals Met Discharge Goals Bed Transfer Ability Independent Sit to Stand Chair Independent Transfer Ability Ambulation Assistive Rolling Walker Device Ambulation Distance 50 (feet) Discharge Plan PT Discharge Plan Initial physical therapy evaluation performed. Patient presents below baseline at this time in functional mobility, transfers, and strength. At this time, pt's mobility level mostly limited by SOB, lightheadedness, and bowel incontinence. Pt demo'd good static standing balance at EOB but ambulation assessment not attempted at this time d/t Vapotherm and O2 saturation <88% SpO2 after standing. PT will further assess pt's mobility during her stay at [facility]. PT recommending pt ambulate with RW and d/c home once medically stable with 24/7 assistance. PT recommending PT services. However, if pt's mobility does not improve (ambulate with independence) during her stay and she does not have 24/ 7 assistance at home, PT recommending IRF placement upon d/c from [facility] to maximize safety. Pt would benefit from skilled PT while at [facility] to prevent further functional decline and maximize safety with mobility. Eval Complexity Eval Charge Codes 28219 - Moderate Complexity PHYSICIAN CERTIFICATION: I certify the specified therapy services for Belle Kaba are required, authorized, and reviewed every 30 days.
--- NOTE | 2025-04-08 10:29 | PC.NURSE ---
Janett Portillo at bedside. Continuation of care plan.
--- NOTE | 2025-04-08 10:31 | PC.NURSE ---
Per Janett Portillo, Resume patients Diltiazem order of 180mg capsule extended release PO Q24H and get an EKG one hour following administration of Diltiazem. Continuation of care plan.
--- NOTE | 2025-04-08 10:40 | PC.NURSE ---
at bedside. Per , keep patient NPO for a bronchoscopy today. Continuation of care plan.
[2025-04-08] MEDS: dilTIAZem HCL 180MG CAP.ER.24H 180 MG PO (10:49)
--- NOTE | 2025-04-08 10:58 | PC.NURSE ---
Patient bladder scanned at this time. Bladder scanner reads >908ml. notified. Per , get patient up to bathroom to try to pee. Wait until 1300, then if patient has not peed In and Out cath patient. Continuation of care plan.
--- NOTE | 2025-04-08 10:58 | PC.NURSE ---
Patient bladder scanned at this time. Bladder scanner reads >908ml. notified. Per , get patient up to bathroom to try to pee. If patient has not peed by 1300, then In and Out cath patient. Continuation of care plan.
--- NOTE | 2025-04-08 11:20 | PC.NURSE ---
Patient up to bedside commode. Patient urinated 600mL's at this time. notified. Continuation of care plan.
[2025-04-08] MEDS: HYDROCODONE/APAP 5/325 MG TABLET 1 TAB PO ×3 (11:23→20:37)
[2025-04-08 11:27] LABS: Microscopic, Urine URINE MICROSCOPIC (MICROSCOPIC)
[2025-04-08 11:36] LABS: Bilirubin,Urine Negative (Negative); Color,Urine YELLOW (Yellow); Glucose,Urine (UA) Negative (Negative); Ketones,Urine Negative (Negative); Leukocyte Esterase,Urine Negative (Negative); PH,Urine 6.0 (5.0-8.5); Protein,Urine 2+ (Negative); Specific Gravity, Urine 1.015 (1.005-1.030); Urobilinogen,Urine 0.2 EU/dl (0.2)
--- NOTE | 2025-04-08 11:39 | P.CONCA_ITS ---
History of Present Illness History of Present Illness Consult date: 04/08/25 Requesting physician: Khadar Kay Chief complaint: Nausea, vomiting, diarrhea, shortness of breath History of present illness: This is a 70-year-old white female who has a past medical history of atrial fibrillation status post ablation x 2, pulmonary hypertension, anxiety/depression and former smoker. The patient states that she started having nausea and vomiting on Tuesday. Then on Tuesday it turned in to diarrhea and the nausea and vomiting stopped. She states that on Tuesday she was still having diarrhea and was very short of breath. She states that her shortness of breath just continued to progressively worsen throughout the day. She denied any chest pain or pressure. She denied any fever, chills, PND or orthopnea. She was not around any sick contacts that she is aware of. She states that she has a history of paroxysmal atrial fibrillation and she sees Dr. Moore and had an ablation done x 2 with her last [place] [address] Landis. She is also treated for pulmonary hypertension with sildenafil. She has no history of coronary artery disease. She states that she is feeling much better since being in the hospital. [facility] Disclaimer: The information contained in this section may have been updated after the olegario fountain was seen, as this information can be updated by other users. 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 (Updated 04/08/25 @ 12:02 by Karen Morales MD) Pneumonia Bronchitis Anxiety and depression Hyperlipidemia History of deviated nasal septum Hammertoe of right foot Pulmonary hypertension Bronchitis Sinusitis Laceration of right lower extremity Visit for suture removal Scalp laceration Laceration Surgical History S/P correction of deviated nasal septum H/O thyroidectomy Hx of appendectomy Hx of tonsillectomy H/O: hysterectomy History of open heart surgery Family History , ADDING MACHINE OPERATOR) No significant family history Social History Smoking Status: Former smoker alcohol intake: never current occupational status: employed Travel in the last 8 weeks?: None household members: none housing: house 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 Have you lived/traveled outside [place] in past 30 days?: No Contact w/someone who lives/traveled outside US past 30 days?: No Exposure to someone with infectious disease in past 14 days?: No Do you have a fever (greater than 100.4 F or 38 C)?: No Have you tested positive for COVID-19?: No Exposed to someone with COVID-19 in past 14 days?: No Do you have a sore throat?: No Do you have a cough?: No Do you have any weakness?: No Do you have any diarrhea?: Yes Are you experiencing any unusual bleeding?: No Do you have any muscle aches/pain?: No Do you have any abdominal pain?: No Are you experiencing loss of taste or smell?: No Review of Systems Review of Systems Review of systems:: pertinent systems reviewed and negative unless documented below Constitutional Constitutional: Reports system reviewed and no additional complaints, except as documented, Reports fatigue and Reports lethargy Eyes Eyes: Reports system reviewed and no additional complaints, except as documented ENT Ears, Nose, Mouth, and Throat: Reports system reviewed and no additional complaints, except as documented *Cardiovascular Cardiovascular: Reports system reviewed and no additional complaints, except as documented, Reports dyspnea and Reports dyspnea on exertion *Respiratory Respiratory: Reports system reviewed and no additional complaints, except as documented, Reports dyspnea and Reports dyspnea on exertion *Gastrointestinal Gastrointestinal: Reports system reviewed and no additional complaints, except as documented, Reports diarrhea, Reports nausea and Reports vomiting *Genitourinary Genitourinary: Reports system reviewed and no additional complaints, except as documented *Musculoskeletal Musculoskeletal: Reports system reviewed and no additional complaints, except as documented Integumentary/Breasts Skin/Breast: Reports system reviewed and no additional complaints, except as documented *Neurologic Neurologic: Reports system reviewed and no additional complaints, except as documented Psychiatric Psychiatric: Reports system reviewed and no additional complaints, except as documented Endocrine Endocrine: Reports system reviewed and no additional complaints, except as documented and Reports fatigue Hematologic/Lymphatic Hematologic/Lymphatic: Reports system reviewed and no additional complaints, except as documented Allergic/Immunologic Allergic/Immunologic: Reports system reviewed and no additional complaints, except as documented Exam Data for Last 24 hours Vital signs and Labs for Last 24 Hours: Temp Pulse Resp BP Pulse Ox O2 Del Method O2 Flow Rate 97.7 F 95 H 26 H 114/63 99 Nasal Cannula 3 04/08/25 08:00 04/08/25 10:00 04/08/25 10:00 04/08/25 10:00 04/08/25 10:00 04/08/25 11:00 04/08/25 11:00 FiO2 35 04/08/25 10:00 Laboratory Results - last 24 hr 04/07/25 12:00: SARS-CoV-2 (PCR) Not detected, Influenza A Untype (PCR) Not detected, Influenza Type B (PCR) Not detected 04/07/25 12:20: WBC 17.8 H, RBC 4.56, Hgb 14.0, Hct 42.0, MCV 92.1, MCH 30.7, MCHC 33.3, RDW 14.0, Plt Count 178, MPV 10.2, Neut % (Auto) 87.4 H, Lymph % (Auto) 4.5 L, Holmes % (Auto) 4.6, Eos % (Auto) 2.1, Baso % (Auto) 0.5, Neut # (Auto) 15.6 H, Lymph # (Auto) 0.8, Holmes # (Auto) 0.8, Eos # (Auto) 0.4, Baso # (Auto) 0.1, ESR 40 H, PT 13.5 H, INR 1.24 H, VBG pH 7.37, VBG pCO2 37.0, VBG pO2 29.5, VBG HCO3 20.8 L, VBG Total CO2 21.9 L, VBG O2 Saturation 57.9, VBG Base Excess -4.5 L, VBG Lactic Acid 2.6 H, Sodium 141, Potassium 3.1 L, Chloride 108 H, Carbon Dioxide 23, Anion Gap 13.1, BUN 27 H, Creatinine 0.90, Estimated Creat Clear 43, Estimated GFR 62, Est GFR ( Amer) 75, Glucose 125 H, Calcium 9.7, Phosphorus 2.1 L, Magnesium 1.7, Total Bilirubin 2.5 H, AST 63 H, ALT 38, Alkaline Phosphatase 82, Troponin I 0.02, NT-Pro-B Natriuret Pep 4560 H, Total Protein 7.4, Albumin 4.4, Globulin 3.0, Albumin/Globulin Ratio 1.5, Lipase 17 L 04/07/25 16:20: Lactate 1.8, Lactate Dehydrogenase 299 L, Troponin I 0.03, C- Reactive Protein 433.4 H, Procalcitonin 11.3 H 04/07/25 17:55: Lactate 2.7 H, Troponin I 0.03 04/07/25 18:50: Stl C. cayetanensis PCR Not detected, Stool Rotavirus (PCR) Not detected, Stl Adenov F 40/41 PCR Not detected, Stool Astrovirus (PCR) Not detected, Stool Campylobacter PCR Not detected, Stl C.difficile Tox PCR Not detected, Stool Cryptosporidium PCR Not detected, Stl E.coli Shiga Tox PCR Not detected, Stool E coli O157 PCR Not detected, Stl Enterotoxigenic E PCR Not detected, Stool EPEC (PCR) Not detected, Stool EAEC (PCR) Not detected, Stl E. histolytica PCR Not detected, Stool Giardia Lamblia PCR Not detected, Stool Salmonella PCR Not detected, Stool Sapovirus (PCR) Not detected, Stl P. shigelloides PCR Not detected, Stl Shigella/EIEC PCR Not detected, St Y.enterocolitica PCR Not detected, Stool Vibrio (PCR) Not detected, Stl Vibrio cholerae PCR Not detected, Stl Norovirus GI/GII PCR Not detected 04/07/25 20:02: Chlamy pneumoniae PCR Not detected, Adenovirus (PCR) Not detected, B. pertussis DNA (PCR) Not detected, Coronavirus OC43 (PCR) Not detected, Coronavirus HKU1 (PCR) Not detected, Coronavirus 229E (PCR) Not detected, SARS-CoV-2 (PCR) Not detected, Coronavirus NL63 (PCR) Not detected, Human Metapneumovir PCR Not detected, Influenza A (H1) PCR Not detected, Influ A (H1N1/09) PCR Not detected, Influenza A (H3) PCR Not detected, Influenza Type A (PCR) Not detected, Influenza Type B (PCR) Not detected, M. pneumoniae (PCR) Not detected, Parainfluenza 1 (PCR) Not detected, Parainfluenza 2 (PCR) Not detected, Parainfluenza 3 (PCR) Not detected, Parainfluenza 4 (PCR) Not detected, RSV (PCR) Not detected, Entero/Rhino (PCR) Not detected 04/07/25 20:20: Lactate 1.9 04/08/25 05:41: WBC 12.6 H D, RBC 3.66 L, Hgb 11.1 L D, Hct 33.9 L, MCV 92.6, MCH 31.1, MCHC 33.6, RDW 14.2, Plt Count 172, MPV 10.8 H, Neut % (Auto) 90.6 H, Lymph % (Auto) 4.0 L, Holmes % (Auto) 4.7, Eos % (Auto) 0.0 L, Baso % (Auto) 0.4, Neut # (Auto) 11.4 H, Lymph # (Auto) 0.5 L, Holmes # (Auto) 0.6, Eos # (Auto) 0.0, Baso # (Auto) 0.1, Total Counted 100, Neutrophils % (Manual) 85 H, Lymphocytes % (Manual) 12, Atypical Lymphs % 1.0, Monocytes % (Manual) 2, Platelet Estimate Normal, RBC Morphology Normal, ESR 81 H, Sodium 138, Potassium 3.9 D, Chloride 112 H, Carbon Dioxide 18 L, Anion Gap 11.9, BUN 25 H, Creatinine 0.70 D, Estimated Creat Clear 43, Estimated GFR 83, Est GFR ( Amer) 100 D, Glucose 203 H D, Hemoglobin A1c 5.4, Calcium 8.3 L, Magnesium 2.0 D, Total Bilirubin 1.2, AST 54 H, ALT 40, Alkaline Phosphatase 72, C-Reactive Protein 43 6.8 H, Total Protein 5.9 L, Albumin 3.3 L D, Globulin 2.6, Albumin/Globulin Ratio 1.3, Procalcitonin 12.5 H 04/08/25 11:18: Urine Color Yellow, Urine Appearance Clear, Urine pH 6.0, Ur Specific [place] 1.015, Urine Protein 2+ A, Urine Glucose (UA) Negative, Urine Ketones Negative, Urine Blood 2+ A, Urine Nitrate Negative, Urine Bilirubin Negative, Urine Urobilinogen 0.2, Ur Leukocyte Esterase Negative I & O for Last 24 hours: Intake & Output 04/05/25 04/06/25 04/07/25 04/08/25 23:59 23:59 23:59 23:59 Intake Total 1640 / 1640 200 / 200 Output Total 0 / 0 600 / 600 Balance 1640 / 1640 -400 / -400 Weight 114 lb 112 lb 3.445 oz Constitutional Constitutional: no acute distress and average body habitus *Routine HEENT Exam Head: Present normocephalic and atraumatic ENT: Present mucous membranes moist *Routine Neck Exam Neck: Present supple, full ROM and normal carotid upstroke; Absent JVD, carotid bruit or lymphadenopathy *Routine Respiratory Exam Respiratory: Present CTA bilaterally, normal respiratory effort, able to speak in complete sentences and symmetric chest movement *Routine Cardiovascular Exam Cardiovascular: Present RRR, Normal S1 and Normal S2; Absent murmur or gallop *Routine Abdominal Exam Abdominal: Present soft and normoactive bowel sounds; Absent tenderness, distended or organomegaly *Routine Extremities Exam Extremities: Present full ROM, pulses intact and normal capillary refill; Absent cyanosis, clubbing or edema *Routine Skin Exam Skin: Present intact and warm; Absent erythema *Routine Neurological Exam Neurological: Present alert, oriented X3 and CN II-XII intact; Absent sensory deficit or motor deficit Routine Psychiatric Exam Psychiatric: Present normal affect Meds Home Medications and Allergies Home Medications ?Medication ?Instructions ?Recorded ?Confirmed ?Type montelukast 10 mg tablet 10 mg PO HS 12/11/17 5 History alendronate 70 mg tablet 70 mg PO WEEKLY Osteoporosis 04/10/21 04/07/25 History albuterol sulfate 90 mcg/actuation 2 puff inhalation Q 4HP PRN short 06/13/21 04/07/25 History aerosol inhaler of breath diltiazem HCl 180 mg 180 mg PO DAILY 07/27/2302/22 History capsule,extended release 24 hr fluticasone fur. 200 mcg-umeclid 1 inh inhalation SHARLENE Y 07/27/23 04/08/25 History 62.5 mcg-vilant 25 mcg inhalat.powder (Trelegy Ellipta) rosuvastatin 10 mg tablet 10 mg PO DAILY 07/27/2302/22 History sertraline 50 mg tablet 50 mg PO DAILY 07/27/2302/22 History sildenafil (pulm.hypertension) 20 20 mg PO TID 3 04/07/25 History mg tablet New Prescriptions to Start Prescriptions: Allergies Allergy/AdvReac Type Severity Reaction Status Date / Time No Known Allergies Allergy Verified 04/07/25 16:44 Assessment and Plan *Assessment and plan (1) Afib: Status: Acute Qualifiers: Atrial fibrillation type: paroxysmal Qualified Code(s): I48.0 - Paroxysmal atrial fibrillation Category: Medical Code(s): I48.91 - Unspecified atrial fibrillation (2) Severe sepsis: Status: Acute Category: Medical Code(s): A41.9 - Sepsis, unspecified organism; R65.20 - Severe sepsis without septic shock (3) COPD (chronic obstructive pulmonary disease): Status: Acute Qualifiers: COPD type: unspecified COPD Qualified Code(s): J44.9 - Chronic obstructive pulmonary disease, unspecified Category: Medical Code(s): J44.9 - Chronic obstructive pulmonary disease, unspecified (4) Nausea vomiting and diarrhea: Status: Acute Category: Medical Code(s): R11.2 - Nausea with vomiting, unspecified; R19.7 - Diarrhea, unspecified (5) Acute and chronic respiratory failure with hypoxia: Status: Acute Category: Medical Code(s): J96.21 - Acute and chronic respiratory failure with hypoxia (6) Multifocal pneumonia: Status: Acute Category: Medical Code(s): J18.8 - Other pneumonia, unspecified organism (7) Pulmonary hypertension: Status: Acute Category: Medical Code(s): I27.20 - Pulmonary hypertension, unspecified (8) Hyperlipidemia: Status: Acute Qualifiers: Hyperlipidemia type: mixed hyperlipidemia Qualified Code(s): E78.2 - Mixed hyperlipidemia Category: Medical Code(s): E78.5 - Hyperlipidemia, unspecified Plan Plan: 1. The patient was admitted to the hospital with sepsis and bilateral pneumonia. She is getting IV antibiotics. Will defer to the hospitalist. 2. The patient was found to be in multifocal atrial tachycardia on admission. She was not in atrial fibrillation. However, she does have a history of atrial fibrillation with an ablation x 2. During my examination this morning the patient appears to be in sinus rhythm. Will restart her home diltiazem ER 180 mg p.o. daily for suppression of her atrial fibrillation and atrial tachycardia. 3. The patient is currently on Lovenox for anticoagulation. However she was not in atrial fibrillation on admission and does not need to be anticoagulated for multifocal tachycardia per Dr. Gonzalez. 4. Her blood pressure is well-controlled. 5. Her LDL goal is less than 100. Will get a lipid panel. She is on Crestor at home. 6. She denies chest pain or pressure. She ruled out for an CA. No plans for invasive left cardiac catheterization at this time. She does have coronary calcifications noted on CT of the chest. She would benefit from an outpatient ischemic evaluation once she is discharged from the hospital. She sees Dr. Moore for cardiology. 7. The patient does have a history of pulmonary hypertension. She is on sildenafil. Her BNP was elevated on admission. Will continue sildenafil at this time and she will need to be aggressively diuresed. Will start her on Lasix 40 mg IV twice daily. 8. Her echocardiogram shows a normal ejection fraction. The patient does have a septal bounce and elevated RVSP at 50 to 55 mmHg very suspicious for constrictive pericarditis. As mentioned above we will diurese her with IV Lasix. She will also need to have right cardiac catheterization tomorrow to evaluate her intracardial pressures to evaluate for constrictive pericarditis. 9. The patient has been educated on the risks and benefits of proceeding with right cardiac catheterization. The patient verbalizes understanding and is agreeable in proceeding with the procedure. 10. The patient will be n.p.o. after midnight in preparation for right cardiac catheterization in the morning. 11. Further recommendations will be made pending the patient's response to treatment. Thank you for the opportunity to help participate in the care of this patient. All recommendations and orders as per Dr. Carr.
[2025-04-08 11:44] LABS: Bacteria,Urine Trace /lpf; Hyaline Casts,Urine OCC #/lpf (0); Squamous Epithelial Cell,Urine Occasional #/hpf (0-5); WBC,Urine Occasional #/hpf (0-3)
--- NOTE | 2025-04-08 11:49 | PC.NURSE ---
EKG obtained. Continuation of care plan.
--- NOTE | 2025-04-08 11:55 | ECG_ITS ---
APPROVED REPORT Exam: Resting ECG HR:105 bpm ECG Measurements Heart Rate 105 AXES SC 106 P 49 QRSd 102 QRS 92 QT 330 T -10 QTc 391 Conclusion SINUS TACHYCARDIA WITH SHORT SC INTERVAL WITH FREQUENT SUPRAVENTRICULAR PREMATURE COMPLEXES BORDERLINE RIGHT AXIS DEVIATION [QRS AXIS > 90] ST DEVIATION AND MODERATE T-WAVE ABNORMALITY, CONSIDER ANTERIOR ISCHEMIA [-0.1+ mV T-WAVE IN V3/V4] ABNORMAL ECG UNCONFIRMED REPORT Electronically signed by : Red Costello MD 04/08/2025 14:33:56
[2025-04-08] MEDS: VANCOMYCIN/WATER FOR INJ (PEG) 1.25 GM/250 ML PIGGYBACK IV (14:10)
--- NOTE | 2025-04-08 14:33 | SW/DCPLANNER ---
Spoke with patient and her son regarding home health services or going to rehab for services. Pt and OT recommended both. Patient and son asked if i could give them some time to think it over for they can either see if she can get someone to stay 24/7 care. I will go back tomorrow 04/09/25 and see if the patient and son has made their decision. Rika Payan
--- NOTE | 2025-04-08 15:00 | PC.NURSE ---
Janett Portillo at bedside. Per Janett Portillo, Patient can be unhooked from monitor to go down for ordered MRI. Continuation of care plan.
--- NOTE | 2025-04-08 15:07 | PC.NURSE ---
Patient off unit with Primary RN to MRI.
--- NOTE | 2025-04-08 15:10 | PC.NURSE ---
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 MRI notified. Brenda from MRI states she will contact Janett Portillo. Continuation of care plan.
--- NOTE | 2025-04-08 15:32 | PC.NURSE ---
Patient requests Sertraline like she takes at home. notified. Continuation of care plan.
--- NOTE | 2025-04-08 15:40 | PC.NURSE ---
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 Per Janett Portillo, MRI is getting information on the Tam. Continuation of care plan.
[2025-04-08] MEDS: FUROSEMIDE 40MG/4ML VIAL 40 MG IV (16:22)
[2025-04-08] MEDS: SERTRALINE 50MG TABLET 50 MG PO (16:22)
[2025-04-08] MEDS: SILDENAFIL 20 MG 1 EACH PO ×2 (16:25→20:21)
--- NOTE | 2025-04-08 16:43 | HMH.ITSTN ---
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 Implant information request sent to [facility]. [facility] stated they will have to request the information from an off site facility since the records are so old. Dr. Gonzalez and Janett Portillo were both informed of this, and Dr. Gonzalez declined to sign off on the procedure being done without implant information. waiting for implant information at this time.
--- NOTE | 2025-04-08 20:38 | CA_ITS ---
APPROVED REPORT EXAM: Comprehensive 2D, Doppler, and color-flow Echocardiogram Traveling Electrician: Chichi Glover CRT Ht: 5 ft 1 in Wt: 114lbs BSA: 1.49 BP: 106/53 mmHg Indications: Congestive Heart Failure, COPD, Shortness of Breath, Atrial Fibrillation, ablation x 2 2D Dimensions LA Volume 26.10 mL LA Volume Index 17.20 mL/m2 (M/F) 16-34 M-Mode Dimensions RVDd 2.50 cm (0.9-2.6) LA Diam 2.95 cm (1.9-4.0) LVDd 4.17 cm (3.5-5.7) LVDs 2.89 cm (3.5-5.7) IVSd 1.07 cm (0.6-1.1) PWd 0.64 cm (0.6-1.1) EF (Teich) 58.70% FS 30.70% EDV (Teich) 77.30 mL TAPSE 0.75 (<1.7) ESV (Teich) 31.90 mL LV Diastology E Decel Time 127 (160-240 msec) E/A Ratio 1.65 MED A' 10.70 cm/s LAT A' 12.60 cm/s Aortic Valve AO Peak GR. 10.20 mmHg Mitral Valve MV A Velocity 71.0 (40-130 cm/s) E/A Ratio 1.65 Pulmonary Valve PV Peak Velocity 266.0 (50-150 cm/s) Tricuspid Valve TR P. Velocity 388.00 cm/s RAP Estimate 10.00 mmHg RVSP 70.40 mmHg Left Ventricle The left ventricle is normal size. Left ventricular systolic function is normal. The left ventricular ejection fraction is within the normal range. There is increased left ventricular wall thickness. A septal bounce is noted. The left ventricular diastolic function is indeterminate. LVEF is 55%. Right Ventricle The right ventricle is moderately dilated. The right ventricular systolic function is moderately reduced. Atria The left atrium is mildly dilated. The right atrium is mildly dilated. There is no color Doppler evidence of interatrial shunt. Aortic Valve The aortic valve is mildly thickened. There is no hemodynamically significant aortic valvular stenosis. Mild aortic regurgitation is present. Mitral Valve The mitral valve is normal in structure. No evidence of mitral valve stenosis. Mild mitral regurgitation is present. Tricuspid Valve The tricuspid valve leaflets are thin and pliable. Moderate tricuspid regurgitation. RVSP is 50-55 mmHg. Pulmonic Valve The pulmonary valve is grossly normal in structure. Trace pulmonic valve regurgitation is present. Great Vessels The aortic root is normal in size. IVC is normal in size and collapses >50% with inspiration. Pericardium There is no pericardial effusion. Other Information Study Quality: Fair Conclusion Normal LV systolic function. A septal bounce is noted. Moderate RV dilation with moderate reduction in RV function. Biatrial dilation. Moderate TR. Mild MR, mild AI. Markedly elevated RVSP 50-55 mmHg. The presence of RV dilation, presence of septal bounce, and elevated RVSP raise the suspicion for constrictive pericarditis, in the appropriate clinical setting. Clinical correlation is recommended. Electronically signed by : Lisa Carr MD 04/08/2025 12:55:10
[2025-04-08 22:20] LABS: MRSA DNA PCR Positive (Negative)
[2025-04-09] VITALS (22 sets, daily range): BP systolic 100–153; BP diastolic 45–71; PULSE 66–103; RESP 16–28; TEMP 36.5–37.2; O2SAT 87–96; BMI 22.3
[2025-04-09 06:16] LABS: Hematocrit 32.4 % (37.0-47.0); Hemoglobin 11.0 g/dL (12.2-16.2); Immature Granulocytes % 0.8 %; Mean Corpuscular HGB Conc 34.0 g/dL (31.8-35.4); Mean Corpuscular Hemoglobin 31.1 pg (27.0-31.2); Mean Corpuscular Volume 91.5 fl (81-99); Nucleated Red Blood Cells % 0 %; Platelet Count 203 K/mm3 (142-424); Red Blood Count 3.54 M/mm3 (4.20-5.40); Red Cell Distribution Width-SD 49.1 fL; White Blood Count 14.7 K/mm3 (4.8-10.8)
[2025-04-09] MEDS: LEVALBUTEROL 1.25MG/3ML NEB 1.25 MG IH ×4 (06:17→23:24)
[2025-04-09] MEDS: BUDESONIDE 0.5MG/2ML NEB 0.5 MG IH ×2 (06:17→18:24)
[2025-04-09] MEDS: IPRATROPIUM BROMIDE 0.5 MG/2.5ML SOLUTION IH ×4 (06:17→23:24)
[2025-04-09 06:28] LABS: Alanine Aminotransferase 53 U/L (12-78); Albumin Level 3.4 g/dl (3.5-5.0); Albumin/Globulin Ratio 1.2 (1.1-1.8); Alkaline Phosphatase 78 U/L (38-126); Anion Gap 10.2 mEq/L (5-15); Aspartate Amino Transferase 57 U/L (14-36); Bilirubin,Total 0.8 mg/dl (0.2-1.3); Blood Urea Nitrogen 26 mg/dl (7-17); Calcium 9.0 mg/dl (8.4-10.2); Carbon Dioxide 22 mmol/L (22.0-30.0); Chloride 111 mmol/L (98-107); Creatinine Clearance Estimated 45 mL/min (50-200); Creatinine,Serum 0.80 mg/dl (0.52-1.04); Estimated Glomerular Filt Rate 71 ml/min (>60); GFR (African American) 86 ML/MIN (>60); Globulin 2.9 g/dL (1.3-3.2); Glucose 112 mg/dl (74-100); Magnesium 2.1 mg/dl (1.6-2.3); Potassium 3.2 mmoL/L (3.5-5.1); Sodium 140 mmol/L (136-145); Total Protein,Serum 6.3 g/dl (6.3-8.2)
[2025-04-09] MEDS: HYDROCODONE/APAP 5/325 MG TABLET 1 TAB PO (06:28)
[2025-04-09 06:47] LABS: Cholesterol 95 mg/dl (140-200); HDL Cholesterol 24 mg/dl (40-60); Triglycerides 125 mg/dl (30-150)
[2025-04-09] MEDS: POTASSIUM CHLORIDE 20MEQ TAB 40 MEQ PO ×2 (06:54→11:43)
[2025-04-09] MEDS: dilTIAZem HCL 180MG CAP.ER.24H 180 MG PO (08:19)
[2025-04-09] MEDS: SILDENAFIL 20 MG 1 EACH PO ×3 (08:19→20:17)
[2025-04-09] MEDS: FUROSEMIDE 40MG/4ML VIAL 40 MG IV ×2 (08:19→16:21)
[2025-04-09] MEDS: SERTRALINE 50MG TABLET 50 MG PO (08:19)
--- NOTE | 2025-04-09 11:32 | EXP.CARD.PN ---
Subjective Subjective Date: 04/09/25 Time: 09:30 Principal diagnosis: PAH, Interval history: This is a 70-year-old white female who has a past medical history of atrial fibrillation status post ablation x 2, pulmonary hypertension, anxiety/depression and former smoker. The patient states that she started having nausea and vomiting on Tuesday. Then on Tuesday it turned in to diarrhea and the nausea and vomiting stopped. She states that on Tuesday she was still having diarrhea and was very short of breath. She states that her shortness of breath just continued to progressively worsen throughout the day. She denied any chest pain or pressure. She denied any fever, chills, PND or orthopnea. She was not around any sick contacts that she is aware of. She states that she has a history of paroxysmal atrial fibrillation and she sees Dr. Moore and had an ablation done x 2 with her last ablation in [address] Landis. She is also treated for pulmonary hypertension with sildenafil. She has no history of coronary artery disease. The patient reports that her shortness of breath is much better today. She states that she has no chest pain or pressure. She denies any fever, chills, nausea, vomiting or diarrhea. She is able to lie flat today much better than she was yesterday without feeling like she needs to sit up. Exam Data for Last 24 hours Vital signs and Labs for Last 24 Hours: Temp Pulse Resp BP Pulse Ox O2 Del Method O2 Flow Rate 98.9 F 87 18 120/71 93 L Nasal Cannula 2 04/09/25 10:05 04/09/25 11:12 04/09/25 10:05 04/09/25 10:05 04/09/25 11:12 04/09/25 11:12 04/09/25 11:12 FiO2 35 04/08/25 10:00 Laboratory Results - last 24 hr 04/07/25 18:11: MRSA (PCR) Positive A 04/08/25 11:18: Urine Color Yellow, Urine Appearance Clear, Urine pH 6.0, Ur Specific [place] 1.015, Urine Protein 2+ A, Urine Glucose (UA) Negative, Urine Ketones Negative, Urine Blood 2+ A, Urine Nitrate Negative, Urine Bilirubin Negative, Urine Urobilinogen 0.2, Ur Leukocyte Esterase Negative, Urine RBC None, Urine WBC Occasional, Ur Squamous Epith Cells Occasional, Urine Bacteria Trace, Hyaline Casts Occ 04/09/25 05:29: WBC 14.7 H, RBC 3.54 L, Hgb 11.0 L, Hct 32.4 L, MCV 91.5, MCH 31.1, MCHC 34.0, RDW 14.6, Plt Count 203, MPV 10.5 H, Neut % (Auto) 84.6 H, Lymph % (Auto) 7.6 L, [place] % (Auto) 6.8, Eos % (Auto) 0.0 L, Baso % (Auto) 0.2, Neut # (Auto) 12.4 H, Lymph # (Auto) 1.1, [place] # (Auto) 1.0, Eos # (Auto) 0.0, Baso # (Auto) 0.0, Sodium 140, Potassium 3.2 L, Chloride 111 H, Carbon Dioxide 22, Anion Gap 10.2, BUN 26 H, Creatinine 0.80, Estimated Creat Clear 45, Estimated GFR 71, Est GFR ( Amer) 86, Glucose 112 H D, Calcium 9.0, Magnesium 2.1, Total Bilirubin 0.8, AST 57 H, ALT 53 D, Alkaline Phosphatase 78, Total Protein 6.3, Albumin 3.4 L, Globulin 2.9, Albumin/Globulin Ratio 1.2, Triglycerides 125, Cholesterol 95 L, LDL Cholesterol Direct 36.84 L, VLDL Cholesterol 25, HDL Cholesterol 24 L, Cholesterol/HDL Ratio 4.0 H I & O for Last 24 hours: Intake & Output 04/06/25 04/07/25 04/08/25 04/09/25 23:59 23:59 23:59 23:59 Intake Total 1640 / 1640 740 / 740 120 / 120 Output Total 0 / 0 2500 / 2750 250 / 250 Balance 1640 / 1640 -1760 / -2009130 / -130 Weight 114 lb 112 lb 3.445 oz 118 lb 6.212 oz Microbiology Reports for the Last 24 Hours: Microbiology 04/08/25 12:35 Nose - Nasal MRSA Culture - Final 04/07/25 12:57 Blood Blood Culture - Preliminary NO GROWTH AFTER 24 HOURS 04/07/25 12:20 Blood Blood Culture - Preliminary NO GROWTH AFTER 24 HOURS Constitutional Constitutional: no acute distress and average body habitus *Routine HEENT Exam Head: Present normocephalic and atraumatic ENT: Present mucous membranes moist *Routine Neck Exam Neck: Present supple, full ROM and normal carotid upstroke; Absent JVD, carotid bruit or lymphadenopathy *Routine Respiratory Exam Respiratory: Present CTA bilaterally, normal respiratory effort, able to speak in complete sentences and symmetric chest movement *Routine Cardiovascular Exam Cardiovascular: Present RRR, Normal S1 and Normal S2; Absent murmur or gallop *Routine Abdominal Exam Abdominal: Present soft and normoactive bowel sounds; Absent tenderness, distended or organomegaly *Routine Extremities Exam Extremities: Present full ROM, pulses intact and normal capillary refill; Absent cyanosis, clubbing or edema *Routine Skin Exam Skin: Present intact and warm; Absent erythema *Routine Neurological Exam Neurological: Present alert, oriented X3 and CN II-XII intact; Absent sensory deficit or motor deficit Routine Psychiatric Exam Psychiatric: Present normal affect Progress Note: A&P Assessment and plan (1) Restrictive pericarditis: Status: Suspected (2) Multifocal atrial tachycardia: Status: Acute (3) Pulmonary hypertension: Status: Acute (4) Severe sepsis: Status: Acute (5) Acute hypoxemic respiratory failure: Status: Acute (6) Multifocal pneumonia: Status: Acute (7) Nausea vomiting and diarrhea: Status: Acute (8) Afib: Status: Acute (9) COPD (chronic obstructive pulmonary disease): Status: Acute Assessment and Plan Assessment and Plan for All Diagnoses:: Plan: 1. The patient was admitted to the hospital with sepsis and bilateral pneumonia. She is getting IV antibiotics. Will defer to the hospitalist. 2. The patient was found to be in multifocal atrial tachycardia on admission. She was not in atrial fibrillation. However, she does have a history of atrial fibrillation with an ablation x 2. During my examination this morning the patient appears to be in sinus rhythm. Will restart her home diltiazem ER 180 mg p.o. daily for suppression of her atrial fibrillation and atrial tachycardia. 3. The patient is currently on Lovenox for anticoagulation. However she was not in atrial fibrillation on admission and does not need to be anticoagulated for multifocal tachycardia per Dr. Gonzalez. 4. Echocardiogram shows a normal ejection fraction with a septal bounce and elevated RVSP. This is very concerning for restrictive pericarditis. The septal bounce is new. Her echocardiogram from October 2024 from her primary novelty balloon assembler and packer, Dr. Moore showed normal septal motion at that time. Because of this new septal bounce and elevated RVSP, would like to proceed with right cardiac catheterization at this time to rule out restrictive pericarditis. However, the patient and son decline and states that she would like to have this completed once she recovers from her pneumonia with Dr. Moore so she can compare her previous exams and pressures at that time. This is reasonable to wait and do as an outpatient with her primary novelty balloon assembler and packer as we want the patient's lungs to be in its most optimal state when she does have her right cardiac catheterization. 6. Will cancel her right cardiac catheterization this morning. 7. We did attempt to proceed with cardiac MRI for evaluation of restrictive pericarditis but the patient has a Tam patch in her heart from a previous ASD repair. At the age of 11. We have requested the records for this Tam patch to make sure it is MRI compatible but we are still awaiting these records. They state that it might be a while because the records are so old and they are at a outlying facility that they have to physically go get the records. 8. Her LDL goal is less than 100. Her LDL is 36.8.. She is on Crestor at home. 9. She denies chest pain or pressure. She ruled out for an [place]. No plans for invasive left cardiac catheterization at this time. She does have coronary calcifications noted on CT of the chest. She would benefit from an outpatient ischemic evaluation once she is discharged from the hospital. She would like this completed with Dr. Moore. 10. The patient does have a history of pulmonary hypertension. She is on sildenafil. Her BNP was elevated on admission. Will continue sildenafil at this time and she will need to be aggressively diuresed. Continue IV diuretics for her pulmonary hypertension. She will need to be discharged on oral diuretics when she is ready for discharge home as well. 11. Further recommendations will be made pending the patient's response to treatment. Thank you for the opportunity to help participate in the care of this patient. All recommendations and orders as per Dr. Carr.
[2025-04-09] MEDS: MAGIC MOUTHWASH 300ML BOTTLE 15 ML PO ×3 (13:22→20:17)
[2025-04-09] MEDS: CEFEPIME HCL 2 GM in 0.9 % SODIUM CHLORIDE 100 ML IV ×2 (13:33→20:17)
[2025-04-09] MEDS: VANCOMYCIN/WATER FOR INJ (PEG) 1.25 GM/250 ML PIGGYBACK IV (14:24)
--- NOTE | 2025-04-09 16:59 | PC.NURSE ---
Pt is A&Ox4. Vital signs stable tolerating baseline O2 requirement of 3L NC. No complaints of shortness of breath. Pt states she feels better. IV diuretics and abx given per SEP. Pt unable to produce sputum for a sample this shift. Pt resting comfortably supine in bed with no further needs voiced at this time. Call light within reach.
--- NOTE | 2025-04-09 17:00 | P.PN_ITS ---
Subjective *Date: 04/09/25 *Time: 17:00 Interval history: Patient states she continues to feel better, breathing easier. Requiring 2 L nasal cannula. Exam Data for Last 24 hours Vital signs and Labs for Last 24 Hours: Temp Pulse Resp BP Pulse Ox O2 Del Method O2 Flow Rate 97.8 F 95 H 28 H 129/65 87 L Nasal Cannula 3 04/09/25 12:00 04/09/25 12:01 04/09/25 12:01 04/09/25 12:01 04/09/25 12:01 04/09/25 15:00 04/09/25 15:00 FiO2 35 04/08/25 10:00 Laboratory Results - last 24 hr 04/07/25 18:11: MRSA (PCR) Positive A 04/09/25 05:29: WBC 14.7 H, RBC 3.54 L, Hgb 11.0 L, Hct 32.4 L, MCV 91.5, MCH 31.1, MCHC 34.0, RDW 14.6, Plt Count 203, MPV 10.5 H, Neut % (Auto) 84.6 H, Lymph % (Auto) 7.6 L, [place] % (Auto) 6.8, Eos % (Auto) 0.0 L, Baso % (Auto) 0.2, Neut # (Auto) 12.4 H, Lymph # (Auto) 1.1, [place] # (Auto) 1.0, Eos # (Auto) 0.0, Baso # (Auto) 0.0, Sodium 140, Potassium 3.2 L, Chloride 111 H, Carbon Dioxide 22, Anion Gap 10.2, BUN 26 H, Creatinine 0.80, Estimated Creat Clear 45, Estimated GFR 71, Est GFR ( Amer) 86, Glucose 112 H D, Calcium 9.0, Magnesium 2.1, Total Bilirubin 0.8, AST 57 H, ALT 53 D, Alkaline Phosphatase 78, Total Protein 6.3, Albumin 3.4 L, Globulin 2.9, Albumin/Globulin Ratio 1.2, Triglycerides 125, Cholesterol 95 L, LDL Cholesterol Direct 36.84 L, VLDL Cholesterol 25, HDL Cholesterol 24 L, Cholesterol/HDL Ratio 4.0 H I & O for Last 24 hours: Intake & Output 09/06/25 09/07/25 09/08/25 09/09/25 23:59 23:59 23:59 23:59 Intake Total 1640 / 1640 740 / 740 740 / 740 Output Total 0 / 0 2500 / 2750 250 / 250 Balance 1640 / 1640 -1760 / -2009 490 / 490 Weight 51.71 kg 50.9 kg 53.7 kg Microbiology Reports for the Last 24 Hours: Microbiology 04/07/25 12:57 Blood Blood Culture - Preliminary NO GROWTH AFTER 48 HOURS 04/07/25 12:20 Blood Blood Culture - Preliminary NO GROWTH AFTER 48 HOURS 04/08/25 12:35 Nose - Nasal MRSA Culture - Final Constitutional Constitutional: no acute distress and average body habitus *Routine HEENT Exam Head: Present normocephalic and atraumatic ENT: Present mucous membranes moist *Routine Neck Exam Neck: Present supple, full ROM and normal carotid upstroke; Absent JVD, carotid bruit or lymphadenopathy *Routine Respiratory Exam Respiratory: Present CTA bilaterally, normal respiratory effort, able to speak in complete sentences and symmetric chest movement *Routine Cardiovascular Exam Cardiovascular: Present RRR, Normal S1 and Normal S2; Absent murmur or gallop *Routine Abdominal Exam Abdominal: Present soft and normoactive bowel sounds; Absent tenderness, distended or organomegaly *Routine Extremities Exam Extremities: Present full ROM, pulses intact and normal capillary refill; Absent cyanosis, clubbing or edema *Routine Skin Exam Skin: Present intact and warm; Absent erythema *Routine Neurological Exam Neurological: Present alert, oriented X3 and CN II-XII intact; Absent sensory deficit or motor deficit Routine Psychiatric Exam Psychiatric: Present normal affect Assessment and Plan *Assessment and plan (1) Severe sepsis: Status: Acute Category: Medical Code(s): A41.9 - Sepsis, unspecified organism; R65.20 - Severe sepsis without septic shock (2) Acute hypoxemic respiratory failure: Status: Acute Category: Medical Code(s): J96.01 - Acute respiratory failure with hypoxia (3) Multifocal pneumonia: Status: Acute Category: Medical Code(s): J18.8 - Other pneumonia, unspecified organism (4) Nausea vomiting and diarrhea: Status: Acute Category: Medical Code(s): R11.2 - Nausea with vomiting, unspecified; R19.7 - Diarrhea, unspecified (5) Afib: Status: Acute Qualifiers: Atrial fibrillation type: paroxysmal Qualified Code(s): I48.0 - Paroxysmal atrial fibrillation Category: Medical Code(s): I48.91 - Unspecified atrial fibrillation (6) COPD (chronic obstructive pulmonary disease): Status: Acute Qualifiers: COPD type: unspecified COPD Qualified Code(s): J44.9 - Chronic obstructive pulmonary disease, unspecified Category: Medical Code(s): J44.9 - Chronic obstructive pulmonary disease, unspecified (7) Pulmonary hypertension: Status: Acute Category: Medical Code(s): I27.20 - Pulmonary hypertension, unspecified Plan Belle Kaba is a 70-year-old female with a medical history significant for COPD on 3 L baseline, pulmonary hypertension, former tobacco smoker, A-fib s/p ablation x 2, anxiety/depression presents to the ED with nausea/vomiting/diarrhea and shortness of breath. Patient states she began having nausea/vomiting on Tuesday after eating supper at [employer]. She then proceeded to have shortness of breath, diarrhea on Tuesday and Tuesday which have progressively gotten worse. She denies fever/chills, chest pain, abdominal pain, urinary symptoms. No recent sick known contacts. Has been adherent to her oxygen, trilogy at home. She also notes that her A-fib has been in NSR for many years since ablation, and that she is in A-fib today. Workup in the ED significant for WBC 17.8 , proBNP 4560, and CTA chest revealing bilateral multifocal pneumonia, with likely reactive hilar adenopathy. She was saturating 87% on 3 L, escalated to Vapotherm 30 L 50% with saturations in the low 90s. She was given vancomycin, Zosyn, DuoNeb, 1 L LR bolus. Full sepsis bolus was not given due to elevated BNP and concern for heart failure. Given these findings, ED provider discussed case with me and I decided to admit patient for acute hypoxic respiratory failure secondary to community-acquired pneumonia. #Acute hypoxic respiratory failure #Community-acquired pneumonia #COPD exacerbation #Severe sepsis ? Presented with nausea/vomiting/diarrhea, shortness of breath. CTA chest 04/07/2025 showed multifocal pneumonia. ? Initial WBC 17.8, lactic acid 2.7, heart rate 104, procalcitonin 11.3, CRP 433. WBC bumped slightly to 14.7 today. - Currently on 3 L nasal cannula oxygen. Initially required Vapotherm. ? MRSA PCR positive, patient unable to produce sputum. Blood cultures NGTD. Respiratory panel negative. - Pulmonology following, discussed case today, plan to continue broad-spectrum antibiotics with vancomycin and cefepime 2 g IV every 12 hours. May consider weaning tomorrow. - Continue levalbuterol/ipratropium every 6 hours scheduled. Pulmicort twice daily. - Repeat CBC, CMP, magnesium, CRP, procalcitonin ordered for the morning #HFpEF exacerbation #RV failure #Suspected restrictive pericarditis #Atrial tachyarrhythmia ? Initial BNP 4560, ECHO 04/08/2025 showing moderately reduced RV function, septal bounce, elevated RVSP 50 to 55 mmHg. Has history of pulmonary hypertension. ? Cardiology consider cardiac MRI, but patient has Tam patch for her ASD repair. Patient refused RHC as she has had an RHC earlier this year, but her cardiology team believes there was increased RVSP which would benefit from RHC. Patient will discuss with family. ? Discussed with cardiology, continue IV Lasix 40 mg twice daily. - Cardiology believes the patient is in multifocal atrial tachycardia and not A- fib. Converted back to sinus rhythm during admission. Continue anticoagulation with therapeutic Lovenox. ? Patient states he has been in NSR since ablation few years ago at [facility]. Not on anticoagulation since. - Continue diltiazem 180 mg daily. #Sleep apnea ? Resumed CPAP nightly. Anxiety/depression: Continue Zoloft 50 mg daily #Nausea/vomiting/diarrhea ? Diarrhea panel negative. Concern for viral syndrome, gastroenteritis. No abdominal pain. Imodium as needed for diarrhea #History of pulmonary hypertension ? Resume sildenafil 20 mg 3 times a day Full code DVT prophylaxis: Therapeutic Lovenox 1 mg/kg twice daily Cardiac diet
[2025-04-10] VITALS (7 sets, daily range): BP systolic 102–128; BP diastolic 43–65; PULSE 70–99; RESP 18; TEMP 36.6–37.3; O2SAT 91–95; BMI 21.7
--- NOTE | 2025-04-10 02:11 | PC.NURSE ---
Pt AOx4. No acute changes this shift. VSS. Currently resting in bed with eyes closed. Respirations even and unlabored. Bed is low, locked, and call light is in reach.
[2025-04-10] MEDS: BUDESONIDE 0.5MG/2ML NEB 0.5 MG IH (05:26)
[2025-04-10] MEDS: LEVALBUTEROL 1.25MG/3ML NEB 1.25 MG IH ×2 (05:26→11:04)
[2025-04-10] MEDS: IPRATROPIUM BROMIDE 0.5 MG/2.5ML SOLUTION IH ×2 (05:27→11:04)
[2025-04-10 05:58] LABS: Hematocrit 34.2 % (37.0-47.0); Hemoglobin 11.4 g/dL (12.2-16.2); Immature Granulocytes % 2.6 %; Mean Corpuscular HGB Conc 33.3 g/dL (31.8-35.4); Mean Corpuscular Hemoglobin 30.3 pg (27.0-31.2); Mean Corpuscular Volume 91.0 fl (81-99); Nucleated Red Blood Cells % 0 %; Platelet Count 227 K/mm3 (142-424); Red Blood Count 3.76 M/mm3 (4.20-5.40); Red Cell Distribution Width-SD 49.1 fL; White Blood Count 13.3 K/mm3 (4.8-10.8)
--- NOTE | 2025-04-10 06:00 | XR_ITS ---
PROCEDURE INFORMATION: Exam: XR Chest Exam date and time: 04/10/2025 6:08 AM Age: 70 years old Clinical indication: Other: Pnm TECHNIQUE: Imaging protocol: Radiologic exam of the chest. Views: 1 view. COMPARISON: CT ANGIO CHEST PE PROTOCOL 04/07/2025 1:13 PM FINDINGS: Lungs: There is redemonstration of bilateral upper lobe and lingula pulmonary opacities. Continued radiographic follow-up is recommended. Pleural spaces: Unremarkable. No pleural effusion. No pneumothorax. Heart/Mediastinum: Postoperative changes from prior coronary artery bypass graft. Bones/joints: Sternotomy wires are intact. IMPRESSION: There is redemonstration of bilateral upper lobe and lingula pulmonary opacities. Continued radiographic follow-up is recommended to rule out the possibility of underlying lesion.
[2025-04-10 06:07] LABS: Alanine Aminotransferase 56 U/L (12-78); Albumin Level 3.4 g/dl (3.5-5.0); Albumin/Globulin Ratio 1.2 (1.1-1.8); Alkaline Phosphatase 77 U/L (38-126); Anion Gap 12.5 mEq/L (5-15); Aspartate Amino Transferase 53 U/L (14-36); Bilirubin,Total 1.0 mg/dl (0.2-1.3); Blood Urea Nitrogen 26 mg/dl (7-17); Calcium 9.2 mg/dl (8.4-10.2); Carbon Dioxide 20 mmol/L (22.0-30.0); Chloride 110 mmol/L (98-107); Creatinine Clearance Estimated 44 mL/min (50-200); Creatinine,Serum 0.90 mg/dl (0.52-1.04); Estimated Glomerular Filt Rate 62 ml/min (>60); GFR (African American) 75 ML/MIN (>60); Globulin 2.8 g/dL (1.3-3.2); Glucose 104 mg/dl (74-100); Magnesium 2.0 mg/dl (1.6-2.3); Potassium 3.5 mmoL/L (3.5-5.1); Sodium 139 mmol/L (136-145); Total Protein,Serum 6.2 g/dl (6.3-8.2)
[2025-04-10 06:12] LABS: C-Reactive Protein 150.8 mg/L (0-4)
[2025-04-10 06:37] LABS: Thyroid Stimulating Hormone 1.89 uIU/mL (0.465-4.68)
[2025-04-10 06:45] LABS: Procalcitonin 4.71 ng/mL (0.0-2.0)
[2025-04-10 06:46] LABS: Free T4 (Free Thyroxine) 1.60 ng/dl (0.78-2.19)
[2025-04-10] MEDS: SERTRALINE 50MG TABLET 50 MG PO (09:11)
[2025-04-10] MEDS: FUROSEMIDE 40MG/4ML VIAL 40 MG IV (09:11)
[2025-04-10] MEDS: dilTIAZem HCL 180MG CAP.ER.24H 180 MG PO (09:11)
[2025-04-10] MEDS: POTASSIUM CHLORIDE 20MEQ TAB 40 MEQ PO ×2 (09:11→12:02)
[2025-04-10] MEDS: SILDENAFIL 20 MG 1 EACH PO ×2 (09:11→12:02)
[2025-04-10] MEDS: CEFEPIME HCL 2 GM in 0.9 % SODIUM CHLORIDE 100 ML IV (09:11)
[2025-04-10] MEDS: MAGIC MOUTHWASH 300ML BOTTLE 15 ML PO (09:12)
[2025-04-10] MEDS: HYDROCODONE/APAP 5/325 MG TABLET 1 TAB PO (09:26)
--- NOTE | 2025-04-10 09:46 | EXP.CARD.PN ---
Subjective Subjective Date: 04/10/25 Time: 09:00 Principal diagnosis: PAH, suspected restrictive pericarditis Interval history: This is a 70-year-old white female who has a past medical history of atrial fibrillation status post ablation x 2, pulmonary hypertension, anxiety/depression and former smoker. The patient states that she started having nausea and vomiting on Tuesday. Then on Tuesday it turned in to diarrhea and the nausea and vomiting stopped. She states that on Tuesday she was still having diarrhea and was very short of breath. She states that her shortness of breath just continued to progressively worsen throughout the day. She denied any chest pain or pressure. She states that she has a history of paroxysmal atrial fibrillation and she sees Dr. Moore and had an ablation done x 2 with her last ablation in [address] Landis. She is also treated for pulmonary hypertension with sildenafil. She has no history of coronary artery disease. The patient reports that her shortness of breath is much better today, almost back to her baseline. She states that she has no chest pain or pressure. She denies any fever, chills, nausea, vomiting or diarrhea. She is able to lie flat today with no complaints. Exam Data for Last 24 hours Vital signs and Labs for Last 24 Hours: Temp Pulse Resp BP Pulse Ox O2 Del Method O2 Flow Rate 99.2 F 78 18 128/65 94 L Nasal Cannula 3 04/10/25 08:00 04/10/25 08:00 04/10/25 08:00 04/10/25 08:00 04/10/25 08:00 04/10/25 09:00 04/10/25 09:00 FiO2 35 04/08/25 10:00 Laboratory Results - last 24 hr 04/10/25 05:34: WBC 13.3 H, RBC 3.76 L, Hgb 11.4 L, Hct 34.2 L, MCV 91.0, MCH 30.3, MCHC 33.3, RDW 14.6, Plt Count 227, MPV 10.3, Neut % (Auto) 74.1, Lymph % (Auto) 13.4, [place] % (Auto) 9.1, Eos % (Auto) 0.6, Baso % (Auto) 0.2, Neut # (Auto) 9.8 H, Lymph # (Auto) 1.8, [place] # (Auto) 1.2 H, Eos # (Auto) 0.1, Baso # (Auto) 0.0, Sodium 139, Potassium 3.5, Chloride 110 H, Carbon Dioxide 20 L, Anion Gap 12.5, BUN 26 H, Creatinine 0.90, Estimated Creat Clear 44, Estimated GFR 62, Est GFR ( Amer) 75, Glucose 104 H, Calcium 9.2, Magnesium 2.0, Total Bilirubin 1.0, AST 53 H, ALT 56, Alkaline Phosphatase 77, C-Reactive Protein 150.8 H, Total Protein 6.2 L, Albumin 3.4 L, Globulin 2.8, Albumin/Globulin Ratio 1.2, Procalcitonin 4.71 H, TSH 1.89, Free T4 1.60 I & O for Last 24 hours: Intake & Output 04/07/25 04/08/25 04/09/25 04/10/25 23:59 23:59 23:59 23:59 Intake Total 1640 / 1640 740 / 740 840 / 960 120 / 120 Output Total 0 / 0 2500 / 2750 1025 / 1025 Balance 1640 / 1640 -1760 / -2010 -185 / -65 120 / 120 Weight 114 lb 112 lb 3.445 oz 118 lb 6.212 oz 115 lb Microbiology Reports for the Last 24 Hours: Microbiology 04/07/25 12:57 Blood Blood Culture - Preliminary NO GROWTH AFTER 48 HOURS 04/07/25 12:20 Blood Blood Culture - Preliminary NO GROWTH AFTER 48 HOURS 04/08/25 12:35 Nose - Nasal MRSA Culture - Final Constitutional Constitutional: no acute distress and average body habitus *Routine HEENT Exam Head: Present normocephalic and atraumatic ENT: Present mucous membranes moist *Routine Neck Exam Neck: Present supple, full ROM and normal carotid upstroke; Absent JVD, carotid bruit or lymphadenopathy *Routine Respiratory Exam Respiratory: Present CTA bilaterally, normal respiratory effort, able to speak in complete sentences and symmetric chest movement *Routine Cardiovascular Exam Cardiovascular: Present RRR, Normal S1 and Normal S2; Absent murmur or gallop *Routine Abdominal Exam Abdominal: Present soft and normoactive bowel sounds; Absent tenderness, distended or organomegaly *Routine Extremities Exam Extremities: Present full ROM, pulses intact and normal capillary refill; Absent cyanosis, clubbing or edema *Routine Skin Exam Skin: Present intact and warm; Absent erythema *Routine Neurological Exam Neurological: Present alert, oriented X3 and CN II-XII intact; Absent sensory deficit or motor deficit Routine Psychiatric Exam Psychiatric: Present normal affect Progress Note: A&P Assessment and plan (1) Restrictive pericarditis: Status: Suspected (2) Pulmonary hypertension: Status: Acute (3) Multifocal atrial tachycardia: Status: Acute (4) Severe sepsis: Status: Acute (5) Acute hypoxemic respiratory failure: Status: Acute (6) Multifocal pneumonia: Status: Acute (7) Nausea vomiting and diarrhea: Status: Acute (8) Afib: Status: Acute (9) COPD (chronic obstructive pulmonary disease): Status: Acute (10) Pneumonia: Status: Acute (11) Hyperlipidemia: Status: Acute (12) Acute and chronic respiratory failure with hypoxia: Status: Acute Assessment and Plan Assessment and Plan for All Diagnoses:: Plan: 1. The patient was admitted to the hospital with sepsis and bilateral pneumonia. She is getting IV antibiotics. Will defer to the hospitalist. 2. The patient was found to be in multifocal atrial tachycardia on admission. She was not in atrial fibrillation. However, she does have a history of atrial fibrillation with an ablation x 2. She remains in sinus rhythm today. Continue diltiazem ER 180 mg p.o. daily for suppression of her atrial fibrillation and atrial tachycardia. 3. The patient is currently on Lovenox for anticoagulation. However she was not in atrial fibrillation on admission and does not need to be anticoagulated for multifocal tachycardia per Dr. Gonzalez. 4. Echocardiogram shows a normal ejection fraction with a septal bounce and elevated RVSP. This is very concerning for restrictive pericarditis. The septal bounce is new. Her echocardiogram from October 2024 from her primary regulatory services consultant, Dr. Moore showed normal septal motion at that time. Because of this new septal bounce and elevated RVSP, would like to proceed with right cardiac catheterization at this time to rule out restrictive pericarditis. However, the patient and son decline and states that she would like to have this completed once she recovers from her pneumonia with Dr. Moore so she can compare her previous exams and pressures at that time. This is reasonable to wait and do as an outpatient with her primary regulatory services consultant as we want the patient's lungs to be in its most optimal state when she does have her right cardiac catheterization. 6. We did attempt to proceed with cardiac MRI for evaluation of restrictive pericarditis but the patient has a Tam patch in her heart from a previous ASD repair. At the age of 11. We have requested the records for this Tam patch to make sure it is MRI compatible but we are still awaiting these records. They state that it might be a while because the records are so old and they are at a outlying facility that they have to physically go get the records. Still awaiting records. 7. Her BP is well controlled. 8. Her LDL goal is less than 100. Her LDL is 36.8.. She is on Crestor at home, continue this. 9. She denies chest pain or pressure. She ruled out for an SC. No plans for invasive left cardiac catheterization at this time. She does have coronary calcifications noted on CT of the chest. She would benefit from an outpatient ischemic evaluation once she is discharged from the hospital. She would like this completed with Dr. Moore. 10. The patient does have a history of pulmonary hypertension. She is on sildenafil. Her BNP was elevated on admission. Will continue sildenafil at this time. She has diuresed with IV Lasix. Will stop IV Lasix and start Lasix 40 mg p.o. daily with her sildenafil for treatment of her pulmonary hypertension. 11. The patient reports that she is having a bronchoscopy today with pulmonology to clean out her lungs but there are no orders for this in place at this time. Will defer to pulmonology. 12. No further recommendations at this time from a cardiac standpoint. When she is stable from a medical standpoint she can be discharged home from a cardiac standpoint. She will need to follow-up with Dr. Moore who is her primary regulatory services consultant within 1 week. The patient will need to be discharged on the following cardiac medications: Diltiazem ER 180 mg p.o. daily Crestor 10 mg daily Sildenafil 20 mg 3 times daily Lasix 40 mg p.o. daily Thank you for the opportunity to help participate in the care of this patient. All recommendations and orders as per Dr. Carr.
--- NOTE | 2025-04-10 09:48 | EXP.PULM.PN ---
Subjective *Date: 04/10/25 *Time: 10:44 Interval history: No acute respiratory vents overnight. Patient admits continued improvement in her respiratory symptoms. Pulmonology Exam Inpatient Vital signs and Labs for Last 24 Hours: Temp Pulse Resp BP Pulse Ox O2 Del Method O2 Flow Rate 99.2 F 78 18 128/65 94 L Nasal Cannula 3 04/10/25 08:00 04/10/25 08:00 04/10/25 08:00 04/10/25 08:00 04/10/25 08:00 04/10/25 09:00 04/10/25 09:00 FiO2 35 04/08/25 10:00 Laboratory Results - last 24 hr 04/10/25 05:34: WBC 13.3 H, RBC 3.76 L, Hgb 11.4 L, Hct 34.2 L, MCV 91.0, MCH 30.3, MCHC 33.3, RDW 14.6, Plt Count 227, MPV 10.3, Neut % (Auto) 74.1, Lymph % (Auto) 13.4, [place] % (Auto) 9.1, Eos % (Auto) 0.6, Baso % (Auto) 0.2, Neut # (Auto) 9.8 H, Lymph # (Auto) 1.8, [place] # (Auto) 1.2 H, Eos # (Auto) 0.1, Baso # (Auto) 0.0, Sodium 139, Potassium 3.5, Chloride 110 H, Carbon Dioxide 20 L, Anion Gap 12.5, BUN 26 H, Creatinine 0.90, Estimated Creat Clear 44, Estimated GFR 62, Est GFR ( Amer) 75, Glucose 104 H, Calcium 9.2, Magnesium 2.0, Total Bilirubin 1.0, AST 53 H, ALT 56, Alkaline Phosphatase 77, C-Reactive Protein 150.8 H, Total Protein 6.2 L, Albumin 3.4 L, Globulin 2.8, Albumin/Globulin Ratio 1.2, Procalcitonin 4.71 H, TSH 1.89, Free T4 1.60 Temp Pulse Resp BP Pulse Ox O2 Del Method O2 Flow Rate 97.7 F 96 H 18 127/69 92 L Vapotherm 20 04/08/25 08:00 04/08/25 09:37 04/08/25 09:37 04/08/25 08:01 04/08/25 09:37 04/08/25 09:37 04/08/25 09:37 FiO2 30 04/08/25 09:37 Laboratory Results - last 24 hr 04/07/25 12:00: SARS-CoV-2 (PCR) Not detected, Influenza A Untype (PCR) Not detected, Influenza Type B (PCR) Not detected 04/07/25 12:20: WBC 17.8 H, RBC 4.56, Hgb 14.0, Hct 42.0, MCV 92.1, MCH 30.7, MCHC 33.3, RDW 14.0, Plt Count 178, MPV 10.2, Neut % (Auto) 87.4 H, Lymph % (Auto) 4.5 L, [place] % (Auto) 4.6, Eos % (Auto) 2.1, Baso % (Auto) 0.5, Neut # (Auto) 15.6 H, Lymph # (Auto) 0.8, [place] # (Auto) 0.8, Eos # (Auto) 0.4, Baso # (Auto) 0.1, ESR 40 H, PT 13.5 H, INR 1.24 H, VBG pH 7.37, VBG pCO2 37.0, VBG pO2 29.5, VBG HCO3 20.8 L, VBG Total CO2 21.9 L, VBG O2 Saturation 57.9, VBG Base Excess -4.5 L, VBG Lactic Acid 2.6 H, Sodium 141, Potassium 3.1 L, Chloride 108 H, Carbon Dioxide 23, Anion Gap 13.1, BUN 27 H, Creatinine 0.90, Estimated Creat Clear 43, Estimated GFR 62, Est GFR ( Amer) 75, Glucose 125 H, Calcium 9.7, Phosphorus 2.1 L, Magnesium 1.7, Total Bilirubin 2.5 H, AST 63 H, ALT 38, Alkaline Phosphatase 82, Troponin I 0.02, NT-Pro-B Natriuret Pep 4560 H, Total Protein 7.4, Albumin 4.4, Globulin 3.0, Albumin/Globulin Ratio 1.5, Lipase 17 L 04/07/25 16:20: Lactate 1.8, Lactate Dehydrogenase 299 L, Troponin I 0.03, C-Reactive Protein 433.4 H, Procalcitonin 11.3 H 04/07/25 17:55: Lactate 2.7 H, Troponin I 0.03 04/07/25 18:50: Stl C. cayetanensis PCR Not detected, Stool Rotavirus (PCR) Not detected, Stl Adenov F 40/41 PCR Not detected, Stool Astrovirus (PCR) Not detected, Stool Campylobacter PCR Not detected, Stl C.difficile Tox PCR Not detected, Stool Cryptosporidium PCR Not detected, Stl E.coli Shiga Tox PCR Not detected, Stool E coli O157 PCR Not detected, Stl Enterotoxigenic E PCR Not detected, Stool EPEC (PCR) Not detected, Stool EAEC (PCR) Not detected, Stl E. histolytica PCR Not detected, Stool Giardia [place]lia PCR Not detected, Stool Salmonella PCR Not detected, Stool Sapovirus (PCR) Not detected, Stl P. shigelloides PCR Not detected, Stl Shigella/EIEC PCR Not detected, St Y.enterocolitica PCR Not detected, Stool Vibrio (PCR) Not detected, Stl Vibrio cholerae PCR Not detected, Stl Norovirus GI/GII PCR Not detected 04/07/25 20:02: Chlamy pneumoniae PCR Not detected, Adenovirus (PCR) Not detected, B. pertussis DNA (PCR) Not detected, Coronavirus OC43 (PCR) Not detected, Coronavirus HKU1 (PCR) Not detected, Coronavirus 229E (PCR) Not detected, SARS-CoV-2 (PCR) Not detected, Coronavirus NL63 (PCR) Not detected, Human Metapneumovir PCR Not detected, Influenza A (H1) PCR Not detected, Influ A (H1N1/09) PCR Not detected, Influenza A (H3) PCR Not detected, Influenza Type A (PCR) Not detected, Influenza Type B (PCR) Not detected, M. pneumoniae (PCR) Not detected, Parainfluenza 1 (PCR) Not detected, Parainfluenza 2 (PCR) Not detected, Parainfluenza 3 (PCR) Not detected, Parainfluenza 4 (PCR) Not detected, RSV (PCR) Not detected, Entero/Rhino (PCR) Not detected 04/07/25 20:20: Lactate 1.9 04/08/25 05:41: WBC 12.6 H D, RBC 3.66 L, Hgb 11.1 L D, Hct 33.9 L, MCV 92.6, MCH 31.1, MCHC 33.6, RDW 14.2, Plt Count 172, MPV 10.8 H, Neut % (Auto) 90.6 H, Lymph % (Auto) 4.0 L, [place] % (Auto) 4.7, Eos % (Auto) 0.0 L, Baso % (Auto) 0.4, Neut # (Auto) 11.4 H, Lymph # (Auto) 0.5 L, [place] # (Auto) 0.6, Eos # (Auto) 0.0, Baso # (Auto) 0.1, Total Counted 100, Neutrophils % (Manual) 85 H, Lymphocytes % (Manual) 12, Atypical Lymphs % 1.0, Monocytes % (Manual) 2, Platelet Estimate Normal, RBC Morphology Normal, ESR 81 H, Sodium 138, Potassium 3.9 D, Chloride 112 H, Carbon Dioxide 18 L, Anion Gap 11.9, BUN 25 H, Creatinine 0.70 D, Estimated Creat Clear 43, Estimated GFR 83, Est GFR ( Amer) 100 D, Glucose 203 H D, Calcium 8.3 L, Magnesium 2.0 D, Total Bilirubin 1.2, AST 54 H, ALT 40, Alkaline Phosphatase 72, C-Reactive Protein 436.8 H, Total Protein 5.9 L, Albumin 3.3 L D, Globulin 2.6, Albumin/Globulin Ratio 1.3, Procalcitonin 12.5 H I & O for Labs for Last 24 Hours: Intake & Output 04/07/25 04/08/25 04/09/25 04/10/25 23:59 23:59 23:59 23:59 Intake Total 1640 / 1640 740 / 740 840 / 960 120 / 120 Output Total 0 / 0 2500 / 2750 1025 / 1025 Balance 1640 / 1640 -1760 / -2010 -185 / -65 120 / 120 Weight 114 lb 112 lb 3.445 oz 118 lb 6.212 oz 115 lb Intake & Output 04/05/25 04/06/25 04/07/25 04/08/25 23:59 23:59 23:59 23:59 Intake Total 1640 / 1640 200 / 200 Output Total 0 / 0 Balance 1640 / 1640 200 / 200 Weight 114 lb 112 lb 3.445 oz Microbiology Reports for the Last 24 Hours: Microbiology 04/07/25 12:57 Blood Blood Culture - Preliminary NO GROWTH AFTER 48 HOURS 04/07/25 12:20 Blood Blood Culture - Preliminary NO GROWTH AFTER 48 HOURS 04/08/25 12:35 Nose - Nasal MRSA Culture - Final Constitutional: Present mild distress Head: Present normocephalic and atraumatic ENT: Present normal exam, normal oropharynx and mucous membranes moist Neck: Present normal inspection and full ROM Respiratory: Present respiratory distress, rhonchi and able to speak in complete sentences; Absent prolonged expiratory phase, wheezes or crackles Cardiac: Present S1/S2, Tachycardia and radial pulses present GI: Present soft and distention; Absent tenderness or guarding Rectal (female): Present deferred (female): Present deferred Skin: Present intact; Absent cyanosis or jaundice Neuro: Present alert, awake and oriented x 3 Extremities: Present normal inspection; Absent clubbing or cyanosis Psychiatric: Present normal affect and cooperative Assessment and Plan *Assessment and plan (1) Pulmonary hypertension: Status: Acute Category: Medical Code(s): I27.20 - Pulmonary hypertension, unspecified (2) Acute and chronic respiratory failure with hypoxia: Status: Acute Category: Medical Code(s): J96.21 - Acute and chronic respiratory failure with hypoxia (3) Severe sepsis: Status: Acute Category: Medical Code(s): A41.9 - Sepsis, unspecified organism; R65.20 - Severe sepsis without septic shock (4) Pneumonia: Status: Acute Category: Medical Code(s): J18.9 - Pneumonia, unspecified organism Plan Ms. Kaba is a 70-year-old female with reported history of COPD chronic hypoxic respiratory failure 3 L nasal oxygen supplementation, pulmonary hypertension atrial fibrillation status post ablation presented here with worsening respiratory status nausea and vomiting and pulmonary was called for further evaluation and management. Afebrile. Hemodynamically stable. Neutrophilic predominant leukocytosis. Comprehensive respiratory viral PCR panel negative. Blood gas upon admission no evidence of hypercarbic respiratory failure. CTA upon admission no evidence of pulmonary embolism. Bilateral upper lobe predominant dense consolidative changes noted right greater than left. Mediastinal and hilar lymphadenopathy noted bilateral. Currently receiving vancomycin and cefepime. On examination severe respiratory distress. Patient admits including abdominal distress nausea and vomiting followed by worsening respiratory distress. Concerning for aspiration event. Interval Update: MRSA PCR positive. Unable to induce sputum. Blood cultures no growth so far. Chest x-ray improvement in the noted pulmonary infiltrates from this morning. Improving leukocytosis. Continue to receive vancomycin and cefepime. Plan: Continue oxygen supplementation to maintain O2 saturation goal of 90% and above. At baseline using 2 to 2-1/2 L oxygen supplementation Discontinue cefepime Continue vancomycin, antibiotics can be changed to linezolid to complete a total of 7-day course upon discharge Continue vancomycin and cefepime pending blood culture results. Will repeat sputum induction. Follow urine strep Legionella antigens Incentive spirometry and flutter valve # Thank you for involving pulmonary in patient care will follow patient in pulmonary clinic 1 to 2 weeks with a chest x-ray PA lateral.
--- NOTE | 2025-04-10 10:35 | SW/DCPLANNER ---
Addendum entered by Soraya Anderson 04/10/25 12:00: [facility] is able to accept patient. Rika PEÑALOZA Layout Mechanic Original Note: Spoke with patient regarding home health services once she is medically stable and ready for discharge. Patient stated that she is interested in home health services and that she has no preference in what agency i send her stuff to. I faxed patient's information to [facility] and will update once I hear back if they can accept or not. Rika Payan
[2025-04-10 10:53] LABS: Ferritin 450 ng/ml (11.1-264)
--- NOTE | 2025-04-10 11:15 | EXP.DC.SUM ---
General Admission date:: 04/07/25 HPI HPI HPI: Belle Kaba is a 70-year-old female with a medical history significant for COPD on 3 L baseline, pulmonary hypertension, former tobacco smoker, A-fib s/p ablation x 2, anxiety/depression presents to the ED with nausea/vomiting/diarrhea and shortness of breath. Patient states she began having nausea/vomiting on Tuesday after eating supper at [employer]. She then proceeded to have shortness of breath, diarrhea on Tuesday and Tuesday which have progressively gotten worse. She denies fever/chills, chest pain, abdominal pain, urinary symptoms. No recent sick known contacts. Has been adherent to her oxygen, trilogy at home. She also notes that her A-fib has been in NSR for many years since ablation, and that she is in A-fib today. Workup in the ED significant for WBC 17.8 , proBNP 4560, and CTA chest revealing bilateral multifocal pneumonia, with likely reactive hilar adenopathy. She was saturating 87% on 3 L, escalated to Vapotherm 30 L 50% with saturations in the low 90s. She was given vancomycin, Zosyn, DuoNeb, 1 L LR bolus. Full sepsis bolus was not given due to elevated BNP and concern for heart failure. Given these findings, ED provider discussed case with me and I decided to admit patient for acute hypoxic respiratory failure secondary to community-acquired pneumonia. Hospital Course Hospital Course Hospital Course: Belle Kaba is a 70-year-old female with a medical history significant for COPD on 3 L baseline, pulmonary hypertension, former tobacco smoker, A-fib s/p ablation x 2, anxiety/depression presents to the ED with nausea/vomiting/diarrhea and shortness of breath. Patient states she began having nausea/vomiting on Tuesday after eating supper at [employer]. She then proceeded to have shortness of breath, diarrhea on Tuesday and Tuesday which have progressively gotten worse. She denies fever/chills, chest pain, abdominal pain, urinary symptoms. No recent sick known contacts. Has been adherent to her oxygen, trilogy at home. She also notes that her A-fib has been in NSR for many years since ablation, and that she is in A-fib today. Workup in the ED significant for WBC 17.8 , proBNP 4560, and CTA chest revealing bilateral multifocal pneumonia, with likely reactive hilar adenopathy. She was saturating 87% on 3 L, escalated to Vapotherm 30 L 50% with saturations in the low 90s. She was given vancomycin, Zosyn, DuoNeb, 1 L LR bolus. Full sepsis bolus was not given due to elevated BNP and concern for heart failure. Given these findings, ED provider discussed case with me and I decided to admit patient for acute hypoxic respiratory failure secondary to community-acquired pneumonia. #Acute hypoxic respiratory failure #Community-acquired pneumonia #COPD exacerbation #Severe sepsis ? Presented with nausea/vomiting/diarrhea, shortness of breath. CTA chest 04/07/2025 showed multifocal pneumonia. ? Initial WBC 17.8, lactic acid 2.7, heart rate 104, procalcitonin 11.3, CRP 433. Initially required Vapotherm, weaned to his baseline 3 L nasal cannula with treatment as below. ? MRSA PCR positive, patient unable to produce sputum for culture. Blood cultures NGTD. Respiratory panel negative. ? Clinically improved with vancomycin, cefepime, Lasix diuresis, DuoNebs, Pulmicort. Discussed with pulmonology, will wean antibiotics to linezolid for a total of 7 days. ? WBC, procalcitonin, CRP all improved as well. ? Discharged with linezolid 600mg BID for 3 more days, patient is amenable to holding sertraline for 5 days from today. ? Will follow-up with pulmonology within 2 weeks. #HFpEF exacerbation #RV failure #Suspected restrictive pericarditis #Multifocal atrial tachycardia, resolved ? Initial BNP 4560, ECHO 04/08/2025 showing moderately reduced RV function, septal bounce, elevated RVSP 50 to 55 mmHg. Has history of pulmonary hypertension. ? Cardiology considered cardiac MRI to evaluate for restrictive pericarditis, but patient has Tam patch from her ASD repair. Patient refused right heart cath as she has had an RHC earlier this year, but our cardiology team believes there was increased RVSP which would benefit from RHC. Patient wants to follow-up with her senior reliability engineer. - Cardiology believes the patient is in multifocal atrial tachycardia and not A-fib. Converted back to sinus rhythm during admission. Initially treated with therapeutic Lovenox, will not continue anticoagulation as it is not indicated. ? Patient states he has been in NSR since ablation few years ago at [facility]. Not on anticoagulation since. - Continue diltiazem 180 mg daily. Will follow-up with her senior reliability engineer back to [place] within 2 weeks. #Sleep apnea ? Resumed CPAP nightly. Anxiety/depression: Hold Zoloft for 5 days from today to avoid serotonin syndrome while taking Zyvox. #Nausea/vomiting/diarrhea ? Diarrhea panel negative. Resolved during admission. #History of pulmonary hypertension ? Continue home sildenafil 20 mg 3 times a day Total time spent on discharge: 32 minutes on chart review, counseling, documentation, and direct care with patient. Exam Data for Last 24 hours Vital signs and Labs for Last 24 Hours: Temp Pulse Resp BP Pulse Ox O2 Del Method O2 Flow Rate 99.2 F 70 18 128/65 94 L Nasal Cannula 2.5 04/10/25 08:00 04/10/25 11:05 04/10/25 08:00 04/10/25 08:00 04/10/25 08:00 04/10/25 11:00 04/10/25 11:00 FiO2 35 04/08/25 10:00 Laboratory Results - last 24 hr 04/10/25 05:34: WBC 13.3 H, RBC 3.76 L, Hgb 11.4 L, Hct 34.2 L, MCV 91.0, MCH 30.3, MCHC 33.3, RDW 14.6, Plt Count 227, MPV 10.3, Neut % (Auto) 74.1, Lymph % (Auto) 13.4, Lawrence % (Auto) 9.1, Eos % (Auto) 0.6, Baso % (Auto) 0.2, Neut # (Auto) 9.8 H, Lymph # (Auto) 1.8, Lawrence # (Auto) 1.2 H, Eos # (Auto) 0.1, Baso # (Auto) 0.0, Sodium 139, Potassium 3.5, Chloride 110 H, Carbon Dioxide 20 L, Anion Gap 12.5, BUN 26 H, Creatinine 0.90, Estimated Creat Clear 44, Estimated GFR 62, Est GFR ( Amer) 75, Glucose 104 H, Calcium 9.2, Magnesium 2.0, Ferritin 450 H, Total Bilirubin 1.0, AST 53 H, ALT 56, Alkaline Phosphatase 77, C-Reactive Protein 150.8 H, Total Protein 6.2 L, Albumin 3.4 L, Globulin 2.8, Albumin/Globulin Ratio 1.2, Procalcitonin 4.71 H, TSH 1.89, Free T4 1.60 I & O for Last 24 hours: Intake & Output 04/07/25 04/08/25 04/09/25 04/10/25 23:59 23:59 23:59 23:59 Intake Total 1640 / 1640 740 / 740 840 / 960 220 / 220 Output Total 0 / 0 2500 / 2750 1025 / 1025 400 / 400 Balance 1640 / 1640 -1760 / -2010 -185 / -65 -180 / -180 Weight 51.71 kg 50.9 kg 53.7 kg 52.163 kg Microbiology Reports for the Last 24 Hours: Microbiology 04/07/25 12:57 Blood Blood Culture - Preliminary NO GROWTH AFTER 48 HOURS 04/07/25 12:20 Blood Blood Culture - Preliminary NO GROWTH AFTER 48 HOURS 04/08/25 12:35 Nose - Nasal MRSA Culture - Final Constitutional Constitutional: no acute distress and average body habitus *Routine HEENT Exam Head: Present normocephalic and atraumatic ENT: Present mucous membranes moist *Routine Neck Exam Neck: Present supple, full ROM and normal carotid upstroke; Absent JVD, carotid bruit or lymphadenopathy *Routine Respiratory Exam Respiratory: Present CTA bilaterally, normal respiratory effort, able to speak in complete sentences and symmetric chest movement Comments: Chronic pursed lip breathing. *Routine Cardiovascular Exam Cardiovascular: Present RRR, Normal S1 and Normal S2; Absent murmur or gallop *Routine Abdominal Exam Abdominal: Present soft and normoactive bowel sounds; Absent tenderness, distended or organomegaly *Routine Extremities Exam Extremities: Present full ROM, pulses intact and normal capillary refill; Absent cyanosis, clubbing or edema *Routine Skin Exam Skin: Present intact and warm; Absent erythema *Routine Neurological Exam Neurological: Present alert, oriented X3 and CN II-XII intact; Absent sensory deficit or motor deficit Routine Psychiatric Exam Psychiatric: Present normal affect Results Data Completed and Pending Labs on day of discharge: Labs from last 24 hours 04/10/25 05:34 WBC 13.3 H RBC 3.76 L Hgb 11.4 L Hct 34.2 L MCV 91.0 MCH 30.3 MCHC 33.3 RDW 14.6 Plt Count 227 MPV 10.3 Neut % (Auto) 74.1 Lymph % (Auto) 13.4 Lawrence % (Auto) 9.1 Eos % (Auto) 0.6 Baso % (Auto) 0.2 Neut # (Auto) 9.8 H Lymph # (Auto) 1.8 Lawrence # (Auto) 1.2 H Eos # (Auto) 0.1 Baso # (Auto) 0.0 Sodium 139 Potassium 3.5 Chloride 110 H Carbon Dioxide 20 L Anion Gap 12.5 BUN 26 H Creatinine 0.90 Estimated Creat Clear 44 Estimated GFR 62 Est GFR ( Amer) 75 Glucose 104 H Calcium 9.2 Magnesium 2.0 Ferritin 450 H Total Bilirubin 1.0 AST 53 H ALT 56 Alkaline Phosphatase 77 C-Reactive Protein 150.8 H Total Protein 6.2 L Albumin 3.4 L Globulin 2.8 Albumin/Globulin Ratio 1.2 Procalcitonin 4.71 H TSH 1.89 Free T4 1.60 Preliminary micro results at discharge 04/07/25 12:57 Blood Culture - Preliminary Blood NO GROWTH AFTER 48 HOURS 04/07/25 12:20 Blood Culture - Preliminary Blood NO GROWTH AFTER 48 HOURS DS: Diagnosis Discharge Diagnosis (1) Pulmonary hypertension: Status: Acute Code(s): I27.20 - Pulmonary hypertension, unspecified (2) Acute and chronic respiratory failure with hypoxia: Status: Acute Code(s): J96.21 - Acute and chronic respiratory failure with hypoxia (3) Severe sepsis: Status: Acute Code(s): A41.9 - Sepsis, unspecified organism; R65.20 - Severe sepsis without septic shock (4) Pneumonia: Status: Acute Code(s): J18.9 - Pneumonia, unspecified organism Meds Home Medications and Allergies Home Medications ?Medication ?Instructions ?Recorded ?Confirmed ?Type montelukast 10 mg tablet 10 mg PO HS 12/11/17 04/07/25 History alendronate 70 mg tablet 70 mg PO WEEKLY Osteoporosis 04/10/21 04/07/25 History albuterol sulfate 90 mcg/actuation 2 puff inhalation Q4HP PRN short 06/13/21 04/07/25 History aerosol inhaler of breath diltiazem HCl 180 mg 180 mg PO DAILY 07/27/23 04/07/25 History capsule,extended release 24 hr fluticasone fur. 200 mcg-umeclid 1 inh inhalation DAILY 07/27/23 04/08/25 History 62.5 mcg-vilant 25 mcg inhalat.powder (Trelegy Ellipta) rosuvastatin 10 mg tablet 10 mg PO DAILY 07/27/23 04/07/25 History sertraline 50 mg tablet 50 mg PO DAILY 07/27/23 04/07/25 History Held on 04/10/25. Instructions: Resume on 04/15/25. Do not take while you are taking linezolid as this can cause side effects. sildenafil (pulm.hypertension) 20 20 mg PO TID 07/27/23 04/07/25 History mg tablet furosemide 40 mg tablet (Lasix) 40 mg PO DAILY 30 days #30 tabs 04/10/25 Rx linezolid 600 mg tablet 600 mg PO BID 3 days #6 tabs 04/10/25 Rx New Prescriptions to Start Prescriptions: furosemide [Lasix] Sridhar Levine linezolid Sridhar Levine Allergies Allergy/AdvReac Type Severity Reaction Status Date / Time No Known Allergies Allergy Verified 04/07/25 16:44 Discharge Plan Disposition Patient Disposition: Home Health Service Condition: Fair Discharge Order Discharge Orders: Discharge Order (Routine); Ordered 04/10/25 Ordered By: Sridhar Levine Follow up Plan Follow up with: Karen Morales MD [Physician, Pulmonology] - 05/01/25 2:20 pm Red Groves MD [Primary Care Provider, Medical] - 04/15/25 11:15 am Prescriptions/Medication Reconciliation: New linezolid 600 mg tablet 600 mg PO BID 3 Days Qty: 6 0RF furosemide [Lasix] 40 mg tablet 40 mg PO DAILY 30 Days Qty: 30 0RF Continued diltiazem HCl 180 mg capsule,extended release 24hr 180 mg PO DAILY Patient Comments: TAKE 1 CAPSULE BY MOUTH ONCE DAILY rosuvastatin 10 mg tablet 10 mg PO DAILY Patient Comments: TAKE 1 TABLET BY MOUTH ONCE DAILY sildenafil (pulm.hypertension) 20 mg tablet 20 mg PO TID Patient Comments: TAKE 1 TABLET BY MOUTH THREE TIMES DAILY Trelegy Ellipta 200-62.5-25 mcg blister with device 1 inh inhalation DAILY albuterol sulfate 90 mcg/actuation HFA aerosol inhaler 2 puff INHALATION Q4HP PRN (Reason: short of breath) alendronate 70 MG tablet 70 mg PO WEEKLY Rx Instructions: takes sometimes on mondays and sometimes on tuesdays montelukast 10 MG tablet 10 mg PO HS Held sertraline 50 mg tablet 50 mg PO DAILY Hold Instructions: Resume on 04/15/25. Do not take while you are taking linezolid as this can cause side effects. Problem Reconciliation Problems Reviewed?: Yes Patient Discharge Instructions Patient Instructions: Chronic Obstructive Pulmonary Disease, DI for Respiratory Failure, DI for Hypoxia Print Language: Paraguayan Providers Primary Care Provider: Red Groves Admit Provider: Sridhar Levine Attending Provider: Sridhar Levine
--- NOTE | 2025-04-10 12:13 | PC.NURSE ---
communicated with [facility] regarding linezolid and setraline interaction and possible side effects. MD placed sertraline on hold until course of abx is finished. this is on pt paperwork and pt talked with extensively by this RN regarding possible drug interactions if taken together. pt aware to hold sertraline until 24hrs after abx course completed. pt verbalized understanding.
[2025-04-10 13:54] LABS: Vancomycin,Trough 11.0 ug/mL (5.0-10.0)
[2025-04-10] MEDS: VANCOMYCIN/WATER FOR INJ (PEG) 1.25 GM/250 ML PIGGYBACK IV (14:14)
--- NOTE | 2025-04-11 09:55 | SW/DCPLANNER ---
Spoke with patient on the phone. Patient stated that she is doing good. Patient stated that she is aware of her upcoming appointments. Patient stated that she is was able to get her new medicine picked [facility] from [facility]. Patient stated that she has no concerns or questions at this time. Rika Payan
== END 2025-04-10 16:33 | disposition home health service (06) | DRG 871 ==
LOC: ER 14:42 → ICU 04-08 05:58 → 2ND 04-09 11:24
PROVIDERS: Nurse Practitioner Family; Admitting Provider Student in an Organized Health Care Education/Training Program; Emergency Provider Emergency Medicine; PCP Family Medicine; Visit Provider Student in an Organized Health Care Education/Training Program
DX: A41.9 Sepsis, unspecified organism (principal); I50.33 Acute on chronic diastolic (congestive) heart failure; J18.9 Pneumonia, unspecified organism; J96.21 Acute and chronic respiratory failure with hypoxia; J44.0 Chronic obstructive pulmonary disease with (acute) lower respiratory infection; J44.1 Chronic obstructive pulmonary disease with (acute) exacerbation; I31.9 Disease of pericardium, unspecified; I47.19 Other supraventricular tachycardia; R65.20 Severe sepsis without septic shock; I27.20 Pulmonary hypertension, unspecified; F41.9 Anxiety disorder, unspecified; F32.A Depression, unspecified; G47.30 Sleep apnea, unspecified; R11.2 Nausea with vomiting, unspecified; R19.7 Diarrhea, unspecified; Z87.891 Personal history of nicotine dependence; Z22.322 Carrier or suspected carrier of Methicillin resistant Staphylococcus aureus; Z98.890 Other specified postprocedural states; Z79.899 Other long term (current) drug therapy
CPT/HCPCS: 0223U; 36415; 51798; 71045; 71275; 74177; 80053; 80061; 80202; 81001; 82728; 82803; 83036; 83605; 83615; 83690; 83735; 83880; 84100; 84145; 84439; 84443; 84484; 85007; 85025; 85610; 85651; 86140; 87040; 87081; 87507; 87636; 87641; 89220; 93005; 93306; 94640; 94761; 97162; 97166; 97530; 99285; J0692; J1650; J1938; J2003; J2250; J2543; J2919; J3375; J7120; J7614; Q9967

== ENCOUNTER 2025-05-01 15:13 | Outpatient (CLI) | payer MEDICARE, SELFPAY ==
--- OUTSIDE RECORDS SUMMARY | 2022-05-24 09:12 | XMS_ITS | Encounter Summary ---
[facility] [address] [place] [address] Care Team Providers Care Land Acquisition Manager Name Role Phone Red Groves MD Primary Care Provider + Encounter Details Date Type Department Care Team (Late st Contact Info) Description 05/24/2022 9:12 AM EDT Hospital Encounter [facility] PULMONARY & CRITICAL CARE MEDICINE [address] [place] [phone] Social History Tobacco Use Types Packs/Day Years [...] or training? Not on file Preferred Language Guatemalan 04/01/2023 PHQ-2 Answer Date Recorded Patient Health [...] 08/02/2024 9:15 AM Adilia Allen RN * [place] Suicide Severity Rating Scale (Screener/Recent Self-Report) Question [...] Care Team (Late st Contact Info) Description 05/22/2025 9:30 AM EDT Office Visit [facility] CARDIOLOGY [address] [facility] [address] [address] [place] [address] Sherrell Galarza PA [address] [facility] [address] [place] [address] 07/01/2025 9:15 AM EST Registration [facility] PULMONARY & CRITICAL CARE MEDICINE [address] [place] [address] 07/01/2025 9:30 AM EST Office Visit [facility] PULMONARY & CRITICAL CARE MEDICINE [address] [place] [address] 07/01/2025 10:00 AM EST Office Visit [facility] PULMONARY & CRITICAL CARE MEDICINE [address] [place] [address] Christopher Kelly DO [address] [place] [address] 12/11/2025 3:00 PM EDT Office Visit [facility] CARDIOLOGY [address] [facility] [address] [place] [address] Marguerite Moore MD [address] [facility] [address] [id number] 12/16/2025 10:15 AM EDT Office Visit [facility] FAMILY MEDICINE [address] [facility] [place] [address] Red Groves MD [address] [facility] [place] [address] 03/19/2026 8:00 AM EDT Appointment [facility] [address] [place] [address] 03/19/2026 9:00 AM EDT Office Visit [facility] OBGYN [address] [place] [address] Keyona London, MASH TUB COOKER [address] [place] [address] documented as of this encounter Procedures Procedure [...] Narrative 05/24/2022 1:58 PM EDT Davida Kaba [id number] 05/24/2022 Chest X-Ray PA & Lateral Indication: [...] on filedocumented in this encounter Care Teams Land Acquisition Manager Relationship Specialty Start Date End Date Red Groves MD PCP - General 03/13/15 03/15/23 documented as of this encounter
--- OUTSIDE RECORDS SUMMARY | 2022-07-06 20:45 | XMS_ITS | Encounter Summary ---
[facility] [address] [place] [address] Care Team Providers Care Senior Windows Administrator Name Role Phone Red Groves MD Primary Care Provider + Reason for Visit * Hospital - Outpatient (Routine) - Closed Specialty Diagnoses / Procedures Referred By Contac t Referred To Contact Sleep Medicine Diagnoses Sleep apnea, unspecified type Procedures Polysomnography 4 or More Parameters Todd Cruz MD Phone: tel: fax: [facility] SLEEP LAB [address] [address] Phone: tel: fax: Referral ID Status Reason Start Date Expiration Date Visits Re quested Visits Authorized [id number] Closed 06/21/2022 06/21/2023 1 1 Encounter Details Date Type Department Care Team (Late st Contact Info) Description 07/06/2022 7:45 PM EST Hospital Encounter [facility] SLEEP [facility] [address] [facility] [address] [place] [address] Todd Cruz MD [address] [place] [address] Social History Tobacco Use Types Packs/Day Years [...] or training? Not on file Preferred Language Irish 04/01/2023 PHQ-2 Answer Date Recorded Patient Health [...] 08/02/2024 9:15 AM Adilia Allen RN * [place] Suicide Severity Rating Scale (Screener/Recent Self-Report) Question [...] Description 05/22/2025 9:30 AM EDT Office Visit [facility] CARDIOLOGY [address] [address] Sherrell Galarza PA [address] [address] 07/01/2025 9:15 AM EST Registration [facility] PULMONARY & CRITICAL CARE MEDICINE [address] [place] [address] 07/01/2025 9:30 AM EST Office Visit [facility] PULMONARY & CRITICAL CARE MEDICINE [address] [place] [address] 07/01/2025 10:00 AM EST Office Visit [facility] PULMONARY & CRITICAL CARE MEDICINE [address] [place] [address] Christopher Kelly DO [address] [place], [place] [address] 12/11/2025 3:00 PM EDT Office Visit [facility] CARDIOLOGY [address] [facility] [address] [place] [address] Marguerite Moore MD [address] [facility] [address] [place], [place] [address] 12/16/2025 10:15 AM EDT Office Visit [facility] FAMILY MEDICINE [address] [place] [address] Red Groves MD [address] [place] [address] 03/19/2026 8:00 AM EDT Appointment [facility] [address] [place] [address] 03/19/2026 9:00 AM EDT Office Visit [facility] OBGYN [address] [place] [address] Keyona London, LUNCHROOM MONITOR [address] [facility] [address] [place] [address] documented as of this encounter Procedures Procedure [...] on filedocumented in this encounter Care Teams Senior Windows Administrator Relationship Specialty Start Date End Date Red Groves MD PCP - General 03/13/15 03/15/23 documented as of this encounter
--- OUTSIDE RECORDS SUMMARY | 2022-09-24 15:50 | XMS_ITS | Encounter Summary ---
[facility] [address] [place] [address] Care Team Providers Care Diet Kitchen Cook Name Role Phone Red Groves MD Primary Care Provider + Encounter Details Date Type Department Care Team (Late st Contact Info) Description 09/24/2022 2:50 PM EST Hospital Encounter [facility] PULMONARY & CRITICAL CARE MEDICINE [address] [place] [phone] Social History Tobacco Use Types Packs/Day Years [...] or training? Not on file Preferred Language Tanzanian 04/01/2023 PHQ-2 Answer Date Recorded Patient Health [...] 08/02/2024 9:15 AM Adilia Allen RN * [place] Suicide Severity Rating Scale (Screener/Recent Self-Report) Question [...] Description 05/22/2025 9:30 AM EDT Office Visit [facility]ARDIOLOGY [address] [facility] [address] [address] [place] [address] Sherrell Galarza PA [address] [facility] [address] [place] [address] 07/01/2025 9:15 AM EST Registration [facility]MON[facility] MEDICINE [address] [facility] [place] [address] 07/01/2025 9:30 AM EST Office Visit [facility]ULMON[facility] CRITICAL CARE MEDICINE [address] [place] [address] 07/01/2025 10:00 AM EST Office Visit [facility] PULMONARY [facility] CRITICAL CARE MEDICINE [address] [place] [address] Christopher Kelly DO [address] [place] [address] 12/11/2025 3:00 PM EDT Office Visit [facility] CARDIOLOGY [address] [facility] [address] [place] [phone] Marguerite Moore MD [address] [facility] [address] [place], [place] [id number] 12/16/2025 10:15 AM EDT Office Visit [facility] [address] [facility] [place] [address] Red Groves MD [address] [facility] [place] [address] 03/19/2026 8:00 AM EDT Appointment [facility] [address] [facility] [place] [address] 03/19/2026 9:00 AM EDT Office Visit [facility] OBGYN [address] [place] [address] Keyona London, HAND STONER [address] [place] [address] documented as of this encounter Procedures Procedure Name Priority Date/Time Associated Diagnosis Comments XR CHEST PA AND LATERAL Routine 09/24/2022 2:51 PM EST Preoperative respiratory examination documented in this encounter Results * XR Chest PA & Lateral (09/24/2022 2:51 PM EST) Anatomical Region Laterality Modality Body, Chest N/A Radiographic Shabnam ging Narrative 09/24/2022 4:31 PM EST Davida Kaba [id number] 09/24/2022 Chest X-Ray PA & Lateral Indication: [...] on filedocumented in this encounter Care Teams Diet Kitchen Cook Relationship Specialty Start Date End Date Red Groves MD PCP - General 03/13/15 03/15/23 documented as of this encounter
--- OUTSIDE RECORDS SUMMARY | 2025-03-06 11:00 | XMS_ITS | Encounter Summary ---
[facility] Address [address] [place] [address] Care Team Providers Care Marketing Programs Manager Name Role Phone Red Groves MD Primary Care Provider + Reason for Visit * Reason Comments Pulmonary hypertension Encounter Details Date Type Department Care Team (Late st Contact Info) Description 03/06/2025 11:00 AM EDT Office Visit [facility] CARDIOLOGY [address] [facility] [address] [place] [phone] Marguerite Moore MD [address] [facility] [address] [facility] [address] [place] [address] Atrial fibrillation and flutter (Primary Dx); ASD [...] or training? Not on file Preferred Language Ghanaian 04/01/2023 PHQ-2 Answer Date Recorded Patient Health [...] Moore MD - 03/06/2025 11:00 AM EDT [facility] Cardiology Patient ID: Davida Kaba [...] chest findings. Echo, 04/14/2016; EF 55%. Mild [place]. Moderate TR. Mild MR. Echo, 02/10/2021; EF 46-50%. Moderate TR with RVSP >55 mmHg. Mild MR. Aortic valve stenosis. Echo, 06/02/2022; LVEF estimated 55%. RVSP estimated 63 mmHg. Echo, 08/04/2021, LVEF 55%. RVSP improved from 63 to 53 mmHg h. Echo 08/04/22: EF 55%, mod TR, RVSP 53 mmHg ASD Status postrepair at age 11 [facility] 2000: No coronary disease Atherosclerotic disease [...] Office Visit [facility] CARDIOLOGY [address] [facility] [address] [place] [address] Sherrell Galarza PA [address] [facility] [address] [place] [address] 07/01/2025 9:15 AM EST Registration [facility] PULMONARY & CRITICAL CARE MEDICINE [address] [place] [address] 07/01/2025 9:30 AM EST Office Visit [facility] PULMONARY & CRITICAL CARE MEDICINE [address] [place] [address] 07/01/2025 10:00 AM EST Office Visit [facility] PULMONARY & CRITICAL CARE MEDICINE [address] [place] [address] Christopher Kelly, DO [address] [place] [address] 12/11/2025 3:00 PM EDT Office Visit [facility] CARDIOLOGY [address] [facility] [facility] [address] [place] [address] Marguerite Moore MD [address] [facility] [address] [place], [place] [id number] 12/16/2025 10:15 AM EDT Office Visit [facility] FAMILY MEDICINE [address] [place] [address] Red Groves MD [address] [place] [address] 03/19/2026 8:00 AM EDT Appointment [facility] [address] [place] [address] 03/19/2026 9:00 AM EDT Office Visit [facility] OBGYN [address] [place] [address] Keyona London, [employer] [address] [facility] [address] [place], [place] [phone] documented as of this encounter Visit Diagnoses Diagnosis Atrial fibrillation and flutter- Primary ASD (atrial septal defect) Ostium secundum type atrial septal defect Atherosclerotic vascular disease Generalized and unspecified atherosclerosis documented in this encounter Care Teams Marketing Programs Manager Relationship Specialty Start Date End Date Red Groves MD [address] [place] [address] PCP - General Family Medicine 03/16/23 documented as of this encounter
--- OUTSIDE RECORDS SUMMARY | 2025-03-13 13:00 | XMS_ITS | Encounter Summary ---
[facility] Address [address] [place] [address] Care Team Providers Care Intake Worker Name Role Phone Red Groves MD Primary Care Provider + Reason for Visit * Reason Comments Gynecologic Exam Encounter Details Date Type Department Care Team (Late st Contact Info) Description 03/13/2025 1:00 PM EDT Office Visit [facility] OBGYN [address] [place] [address] Keyona London, PRODUCTION WELDER [address] [facility] [address] [place] [address] Pap test, as part of routine gynecological [...] were not included. 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 No Last Pap : 02/24/2022. Results: negative. HPV: negative. History of abnormal Pap smear: no Family history of uterine, colon, breast, or ovarian cancer: no Performs monthly Self-Breast Exam: no Last mammogram: 03/08/2024. Done at [facility]. There is a copy in the chart. Last Completed Mammogram Upcoming MAMMOGRAM (Every 2 Years) Next due on 03/08/2026 03/08/2024 Mammo Screening Digital Tomosynthesis Bilateral With CAD 02/24/2022 SCANNED - MAMMO 12/22/2021 Done - [facility] - Normal 06/10/2017 SCANNED - MAMMO 04/26/2016 [...] mouth Every Morning., Disp: 30tablet, Rfl: 1 ebwnwsau-rzuqdanvv-wlzcxzqglbkzv (MAXITROL) 0.1 % ophthalmic suspension, INSTILL 1 [...] information as entered above. Keyona Marilou Lita, PRODUCTION WELDER Objective BP 124/64 Resp 18 Ht 154.9 cm (60.98 ) Wt 50.8 kg (112 lb) LMP (LMP Unknown) BMI 21.17 kg/m?? Physical Exam Vitals and nursing note reviewed. Exam conducted with a administrative assistant receptionist present. Constitutional: General: She is not in [...] 70 MG tablet History of hysterectomy, supracervical TABLET MAKING MACHINE OPERATOR HELPER annual well woman exam. Reviewed monthly self [...] Description 05/22/2025 9:30 AM EDT Office Visit [facility] CARDIOLOG[facility] [address] [place] [address] Sherrell Galarza PA [address] [place] [address] 07/01/2025 9:15 AM EST Registration [facility] [address] [facility] [place] [address] 07/01/2025 9:30 AM EST Office Visit [facility] [address] [facility] [place] [address] 07/01/2025 10:00 AM EST Office Visit [facility] MEDICINE [address] [place] [address] Christopher Kelly, [address] [place] [address] 12/11/2025 3:00 PM EDT Office Visit [facility] C[facility] [address] [place] [address] Marguerite Moore MD [address] [place], [place] [id number] 12/16/2025 10:15 AM EDT Office Visit [facility] [address] [place] [address] Red Groves MD [address] [place], [place] [id number] 03/19/2026 8:00 AM EDT Appointment [facility] [address] [place] [address] 03/19/2026 9:00 AM EDT Office Visit [facility] [address] [place] [address] Keyona London, PRODUCTION WELDER [address] [facility] [address] [place] [address] Scheduled Orders Name Type Priority Associated Diagnoses [...] fracture documented in this encounter Care Teams Intake Worker Relationship Specialty Start Date End Date Red Groves MD [address] [place] [address] PCP - General Family Medicine 03/16/23 documented as of this encounter
--- OUTSIDE RECORDS SUMMARY | 2025-04-02 08:00 | XMS_ITS | Encounter Summary ---
[facility] Address [address] [place] [address] Care Team Providers Care Marketing Services Rep Name Role Phone Red Groves MD Primary Care Provider + Reason for Referral * Diagnostic Imaging (Routine) - Closed Specialty Diagnoses / Procedures Referred By Jaime fountain Referred To Contact Radiology Diagnoses Abnormality of left breast on screening mammogram Procedures Mammo Diagnostic Digital Tomosynthesis Left With CAD Red Groves MD [address] [place] [address] Phone: tel: fax: [facility] [address] [place] [address] Phone: tel: Referral ID Status Reason Start Date Expiration Date Visits Re quested Visits Authorized [id number] Closed 03/18/2025 06/17/2026 1 1 Reason for Visit * Diagnostic Imaging (Routine) - Closed Specialty Diagnoses / Procedures Referred By Jaime fountain Referred To Contact Radiology Diagnoses Abnormality of left breast on screening mammogram Procedures Mammo Diagnostic Digital Tomosynthesis Left With CAD Red rGoves MD [address] [place] [address] Phone: tel: fax: [facility] 206 [place] [address] Phone: tel: Referral ID Status Reason Start Date Expiration Date Visits Re quested Visits Authorized [id number] Closed 03/18/2025 06/17/2026 1 1 Encounter Details Date Type Department Care Team (Latest Contact Info) Description 04/02/2025 8:00 AM EDT - 04/02/2025 11:59 PM EDT Hospital Encounter [facility] BRE[facility] CENTER [address] [facility] [address] [place] [address] Red Groves MD [address] [place] [address] Abnormality of left breast on [...] or training? Not on file Preferred Language Costa Rican 04/01/2023 PHQ-2 Answer Date Recorded Patient Health [...] mouth Every Morning. 30 tablet 1 04/09/[address] 1 dose under the tongue Daily. MULLEIN EXTRACT DROPS O2 (OXYGEN) Inhale 3 L/min As Needed. rosuvastatin (CRESTOR) 10 MG tabletIndications: Atherosclerotic vascular disease Take 1 tablet by mouth Daily. 90 tablet 3 12/10/2024 sertraline (ZOLOFT) 50 MG tabletIndications: Anxiety disorder, unspecified type Take 1 tablet by mouth Daily. 90 tablet 3 12/10/2024 neomycin-polymyxin -dexamethasone (MAXITROL) 0.1 % ophthalmic suspension INSTILL 1 DROP INTO LEFT EYE 4 TIMES DAILY FOR 7 DAYS 03/08/2025 5 sildenafil (REVATIO) 20 MG tablet TAKE 1 TABLET BY MOUTH THREE TIMES DAILY 90 tablet 6 09/06/2024 5 Trelegy Ellipta 200-62.5-25 MCG/ACT inhalerIndications :Asthma-COPD overlap syndrome INHALE 1 PUFF ONCE DAILY 60 each 3 12/12/2024 5 documented as of this encounter Plan of Treatment Upcoming Encounters Date Type Department Care Team (Late st Contact Info) Description 05/22/2025 9:30 AM EDT Office Visit [facility]ARDIOLOGY [address] [facility] [address] [place] [address] Sherrell Galarza PA [facility] [facility] [address] [place] [address] 07/01/2025 9:15 AM EST Registration [facility] PULMONARY & CRITICAL CARE MEDICINE [address] [place] [address] 07/01/2025 9:30 AM EST Office Visit [facility] PULMONARY & CRITICAL CARE MEDICINE [address] [place] [address] 07/01/2025 10:00 AM EST Office Visit [facility] PULMONARY & CRITICAL CARE MEDICINE [address] [facility] [place] [address] Christopher Kelly DO [address]00 [place] [address] 12/11/2025 3:00 PM EDT Office Visit [facility] CARDIOLOGY [address] [place] [address] Marguerite Moore MD [address] [facility] [address] [place], [place] [address] 12/16/2025 10:15 AM EDT Office Visit [facility] FAMILY MEDICINE [address] [place] [address] Red Groves MD [address] [place] [address] 03/19/2026 8:00 AM EDT Appointment [facility] BREAST CENTER [address] [place] [address] 03/19/2026 9:00 AM EDT Office Visit [facility] OBGYN [address] [place] [address] Keyona London, HOME HEALTH CARE CASE MANAGER 17[address] [facility] [address] [place] [address] documented as of this encounter Procedures Procedure [...] recalled from screening examination with tomosynthesis from [facility] for focal asymmetry in the left breast [...] pattern is stable dating back to 12/22/2021 us Red Groves MD IMG MAMMOGRAPHY ORDERABL ES Final Result documented in this encounter Visit Diagnoses Diagnosis Abnormality of left breast on screening mammogram documented in this encounter Care Teams Marketing Services Rep Relationship Specialty Start Date End Date Red Groves MD [facility] [place] [address] PCP - General Family Medicine 03/16/23 documented as of this encounter
--- OUTSIDE RECORDS SUMMARY | 2025-04-15 11:15 | XMS_ITS | Encounter Summary ---
[facility] Organization [facility] Address [address] [place] [address] Care Team Providers Care Logger Driving Horses Name Role Phone Red Groves MD Primary Care Provider + Reason for Visit * Reason Comments Hospital Follow Up Visit TCM-DISCHARGE D ATE 04/10/25-[facility]- RECORDS IN CHART Encounter Details Date Type Department Care Team (Late st Contact Info) Description 04/15/2025 11:15 AM EDT Office Visit [facility] FAMILY MEDICINE [address] [place] [address] Red Groves MD [address] [place] [address] Pneumonia of both lower lobes [...] or training? Not on file Preferred Language Greek 04/01/2023 PHQ-2 Answer Date Recorded Patient Health [...] AM Date of TCM Phone Call Hospital [facility] Date of Discharge 04/10/2025 Risk for Readmission (LACE) No data recorded History of Present Illness Course During Hospital Stay: Patient was hospitalized from April 07 to April 10 at [facility] after presenting with 48 hours of [...] presentation raising concern for acute heart failure. [facility] cardiology team was consulted by the hospitalist. Patient underwent echocardiogram which showed persistence of elevated RV pressures. Discussion was had about doing a right heart catheterization but patient declined as she had had 1 earlier in the year through her aircraft engine assembler Dr. Moore. MRI of the heart was [...] patient's pneumonia she has scheduled follow-up with [facility] pulmonology.She has completed antibiotics 2. Echocardiogram [...] Description 05/22/2025 9:30 AM EDT Office Visit [facility] CARDIOLOGY [address] [place] [address] Sherrell Galarza PA [address] [place] [address] 07/01/2025 9:15 AM EST Registration [facility] PULMONARY & CRITICAL CARE MEDICINE [address] [place] [address] 07/01/2025 9:30 AM EST Office Visit [facility] PULMONARY & [facility]ITICAL CARE MEDICINE [address] [place] [address] 07/01/2025 10:00 AM EST Office Visit [facility] PULMONARY & CRITICAL CARE MEDICINE [address] [facility] [place] [address] Christopher Kelly, DO [address] [place], [place] [address] 12/11/2025 3:00 PM EDT Office Visit [facility]OLOGY [address] [facility] [address] [place] [address] Marguerite Moore MD [address]20 [facility] [address] [place] [id number] 12/16/2025 10:15 AM EDT Office Visit [facility] FAMILY MEDICINE [address] [place] [address] Red Groves MD [address] [place] [address] 03/19/2026 8:00 AM EDT Appointment [facility] [address] [place] [address] 03/19/2026 9:00 AM EDT Office Visit [facility] OBGYN [address] [place] [address] Keyona London, PLANT CARE WORKER [address] [facility] [address] [place], [place] [phone] documented as of this encounter Visit Diagnoses Diagnosis Pneumonia of both lower lobes due to infectious organism- Primary WHO group 1 PAH Other chronic pulmonary heart diseases Obstructive sleep apnea Obstructive sleep apnea (adult) (pediatric) Thrush Candidiasis of mouth documented in this encounter Care Teams Logger Driving Horses Relationship Specialty Start Date End Date Red Groves MD [address] [place] [address] PCP - General Family Medicine 03/16/23 documented as of this encounter
--- NOTE | 2025-05-01 15:15 | XR_ITS ---
FINAL REPORT TECHNIQUE: Chest PA & Lateral CLINICAL HISTORY: SOB copd COMPARISON: [id number] FINDINGS: 2 views of the chest were performed. The heart size is normal. Multiple median sternotomy wires are present. The previously seen airspace opacity in the right perihilar region and left lung have improved. There is now linear density, probably postinflammatory scarring. There are no pleural effusions. There is no pneumothorax. The bony thorax appears intact. IMPRESSION: Resolved right perihilar and left lung airspace opacity. Postinflammatory scarring. Reviewed, Interpreted and Dictated by Dangelo Thomas MD Transcribed by Annabel Traylor Authenticated and [facility]
--- OUTSIDE RECORDS SUMMARY | 2025-05-01 15:15 | XMS_ITS | Encounter Summary ---
[facility] Address [address] [place] [address] Care Team Providers Care Labor Relations Specialist Name Role Phone Red Groves MD Primary Care Provider + Reason for Visit * Reason Onset Date Comments Medication Reconciliation 03/05/2025 Encounter Details Date Type Department Care Team (Late st Contact Info) Description 03/05/2025 Telephone [facility] CARDIOLOGY [address] [facility] [address] [place] [address] Marguerite Moore MD [address] [facility] [address] [place] [address] Medication Reconciliation Social History Tobacco Use Types [...] or training? Not on file Preferred Language Italian 04/01/2023 PHQ-2 Answer Date Recorded Patient Health [...] Description 05/22/2025 9:30 AM EDT Office Visit [facility] CARDIOLOGY [address] [place] [address] Sherrell Galarza PA [address] [facility] [address] [place] [address] 07/01/2025 9:15 AM EST Registration [facility] PULMONARY & CRITICAL CARE MEDICINE [address] [place] [address] 07/01/2025 9:30 AM EST Office Visit [facility] PULMONARY & CRITICAL CARE MEDICINE [address] [place] [address] 07/01/2025 10:00 AM EST Office Visit [facility] PULMONARY & CRITICAL CARE MEDICINE [address] [place] [address] Christopher Kelly, [address] [place], [place] [address] 12/11/2025 3:00 PM EDT Office Visit [facility] CARDIOLOGY [address] [facility] [address] [place] [address] Marguerite Moore MD [address] [facility] [address] [place], [place] [address] 12/16/2025 10:15 AM EDT Office Visit [facility] FAMILY MEDICINE [address] [place] [address] Red Groves MD [address] [place] [address] 03/19/2026 8:00 AM EDT Appointment [facility] [address] [place] [address] 03/19/2026 9:00 AM EDT Office Visit [facility] OBGYN [address] [place] [address] Keyona London, TEA TREE FARM WORKER 1700 [facility] [address] [place] [address] documented as of this encounter Visit Diagnoses Not on filedocumented in this encounter Care Teams Labor Relations Specialist Relationship Specialty Start Date End Date Red Groves MD [address] [place] [address] PCP - General Family Medicine 03/16/23 documented as of this encounter
--- OUTSIDE RECORDS SUMMARY | 2025-05-01 15:15 | XMS_ITS | Encounter Summary ---
Author Organization [facility] Address [address] [place] [address] Care Team Providers Care Trouble Operator Name Role Phone Red Groves MD [...] or training? Not on file Preferred Language Lebanese 04/01/2023 PHQ-2 Answer Date Recorded Patient Health [...] Description 05/22/2025 9:30 AM EDT Office Visit [facility] [address] [facility] [address] [place] [address] Sherrell Galarza PA [address] [facility] [address] [place] [address] 07/01/2025 9:15 AM EST Registration [facility] PULMONARY & CRITICAL CARE MEDICINE [address] [place] [address] 07/01/2025 9:30 AM EST Office Visit [facility] PULMONARY & CRITICAL CARE MEDICINE [address] [place] [address] 07/01/2025 10:00 AM EST Office Visit [facility] PULMONARY & CRITICAL CARE MEDICINE [address] [place] [address] Christopher Kelly DO [address] [place] [address] 12/11/2025 3:00 PM EDT Office Visit [facility] [address] [facility] [address] [place] [address] Marguerite Moore MD [address] [facility] [address] [place], [place] [address] 12/16/2025 10:15 AM EDT Office Visit [facility] FAMILY MEDIC[facility] [address] [place] [address] Red Groves MD [address] [place] [address] 03/19/2026 8:00 AM EDT Appointment [facility] [address] [place] [address] 03/19/2026 9:00 AM EDT Office Visit [facility] O[facility] [address] [place] [address] Keyona London, IRRIGATOR VALVE PIPE 1700 [facility] [address] [place] [address] documented as of this encounter Visit Diagnoses Not on filedocumented in this encounter Care Teams Trouble Operator Relationship Specialty Start Date End Date Red Groves MD [address] [place] [address] PCP - General Family Medicine 03/16/23 documented as of this encounter
--- OUTSIDE RECORDS SUMMARY | 2025-05-01 15:16 | XMS_ITS | Encounter Summary ---
[facility] Address [address] [place] [address] Care Team Providers Care Kai Whakaruruhau Name Role Phone Red Groves MD Primary Care Provider + Reason for Visit * Reason Onset Date Comments Hospital Follow Up Visit 04/10/2025 Encounter Details Date Type Department Care Team (Late st Contact Info) Description 04/10/2025 Telephone [facility] FAMILY MEDICINE [address] [place] [address] Red Groves MD [address] [place] [address] Hospital Follow Up Visit Social History Tobacco Use Types Packs/Day Years [...] or training? Not on file Preferred Language German 04/01/2023 PHQ-2 Answer Date Recorded Patient Health Questionnaire-2 Score 0 12/10/2024 Comments No Sex and Gender Information Value Date Recorded Sex Assigned at Female 04/01/2025 8:23 AM EDT Legal Sex Female 10:22 AM EDT Gender Identity Not on file Sexual Orientation Straight 04/01/2025 8: 23 AM EDT documented as of this encounter Miscellaneous Notes * Telephone Encounter - [place] - 04/10/2025 10:39 AM EDT Caller: Relationship to patient: Best call back number New or established patient? [] New [x] Established Date of discharge: 04/10/2025 Facility discharged from: [facility] Diagnosis/Symptoms: RESPIRATORY FAILURE Length of stay (If applicable): 3 DAYS Specialty Only: Did you see a [facility] provider? [] Yes [x] No If so, who? Additional Details: documented in this encounter Plan of Treatment Upcoming Encounters Date Type Department Care Team (Late st Contact Info) Description 05/22/2025 9:30 AM EDT Office Visit [facility] CARDIOLOGY [address] [place] [address] Sherrell Galarza PA [address] [place] [address] 07/01/2025 9:15 AM EST Registration [facility] PULMONARY & CRITICAL CARE MEDICINE [address] [place] [address] 07/01/2025 9:30 AM EST Office Visit [facility] PULMONARY & CRITICAL CARE MEDICINE [address] [place] [address] 07/01/2025 10:00 AM EST Office Visit [facility] PULMONARY & CRITICAL CARE MEDICINE [address] [place] [address] Christopher Kelly, DO [address] [place] [address] 12/11/2025 3:00 PM EDT Office Visit [facility] CARDIOLOGY [address] [place] [address] Marguerite Moore MD [address] [facility] [address] [facility] [address] [place] [address] 12/16/2025 10:15 AM EDT Office Visit [facility] FAMILY MEDICINE [address] [place] [address] Red Groves MD 210 [place] [address] 03/19/2026 8:00 AM EDT Appointment [facility] [address] [place] [address] 03/19/2026 9:00 AM EDT Office Visit [facility] OBGYN [address] [place] [address] Keyona London, PROCESS TANK TENDER [address] [place] [address] documented as of this encounter Visit Diagnoses Not on filedocumented in this encounter Care Teams Kai Whakaruruhau Relationship Specialty Start Date End Date Red Groves MD [address] [place] [address] PCP - General Family Medicine 03/16/23 documented as of this encounter
--- OUTSIDE RECORDS SUMMARY | 2025-05-01 15:16 | XMS_ITS | Encounter Summary ---
[facility] Address [address] [place] [address] Care Team Providers Care Chainer Name Role Phone Red Groves MD Primary Care Provider + Reason for Visit * Reason Onset Date Comments New Med Request 04/11/2025 Encounter Details Date Type Department Care Team (Late st Contact Info) Description 04/11/2025 Telephone [facility] FAMILY MEDICINE [address] [place] [address] Red Groves MD [address] [place] [address] New Med Request Social History Tobacco Use Types Packs/Day Years [...] encounter Miscellaneous Notes * Telephone Encounter - Digna Wise MA - 04/11/2025 6:08 PM EDT LM informing pt * Telephone Encounter - Red Groves MD - 04/11/2025 5:14 PM EDT Oral fluconazole sent to patient's pharmacy * Telephone Encounter - Digna Wise MA - 04/11/2025 3:46 PM EDT Pt's symptoms started w/ antibiotic while in hosp. She is using Magic Mouthwash but requesting Diflucan to be sent in. * Telephone Encounter - Lucila Smith RegSched Rep - 04/11/2025 2:13 PM EDT Caller: Davida Kaba Relationship: Self Best call back number: Telephone Information: What medication are you requesting: PILL TO HELP TREAT ORAL THRUSH What are your current symptoms: ORAL THRUSH How long have you been experiencing symptoms: SEVERAL DAYS Have you had these symptoms before: [x] Yes [] No Have you been treated for these symptoms before: [x] Yes [] No If a prescription is needed, what is your preferred pharmacy and phone number: [facility] - [place] - [address] - [phone] - [phone] Additional notes: PATIENT GOT OUT OF THE HOSPITAL YESTERDAY AND IS CURRENTLY USING MAGIC MOUTHWASH THAT WAS PRESCRIBED TO HER BY [facility] TO HELP TREAT THRUSH CAUSED BY MEDICATIONS GIVEN TO HER IN THE HOSPITAL. SHE IS WANTING TO KNOW IF THERE IS AN ORAL PILL SHE CAN TAKE TO HELP CLEAR IT UP WELL THE MAGIC MOUTHWASH IS HELPING BUT SLOWLY. PLEASE CALL TO DISCUSS IF NEEDED. documented in this encounter Plan of Treatment Upcoming Encounters Date Type Department Care Team (Late st Contact Info) Description 05/22/2025 9:30 AM EDT Office Visit [facility] CARDIOLOGY [address] [address] Sherrell Galarza PA [address] [address] 07/01/2025 9:15 AM EST Registration [facility] PULMONARY & CRITICAL CARE MEDICINE [address] [place] [address] 07/01/2025 9:30 AM EST Office Visit [facility] PULMONARY & CRITICAL CARE MEDICINE [address] [place] [address] 07/01/2025 10:00 AM EST Office Visit [facility] PULMONARY & CRITICAL CARE MEDICINE [address] [place] [address] Christopher Kelly, DO [address] [place], [place] [address] 12/11/2025 3:00 PM EDT Office Visit [facility]ARDIOLOGY [address] [facility] [address] [address] [place] [address] Marguerite Moore MD [address] [facility] [address] [place] [address] 12/16/2025 10:15 AM EDT Office Visit [facility] FAMILY MEDICINE [address] [place] [address] Red Groves MD [address] [place] [address] 03/19/2026 8:00 AM EDT Appointment [facility] 206 [place] [address] 03/19/2026 9:00 AM EDT Office Visit [facility] OBGYN 206 [place] [address] Keyona London, TELECOM ASSISTANT [address] [facility] [address] [place] [address] documented as of this encounter Visit Diagnoses Not on filedocumented in this encounter Care Teams Chainer Relationship Specialty Start Date End Date Red Groves MD [address] [place] [address] PCP - General Family Medicine 03/16/23 documented as of this encounter
--- OUTSIDE RECORDS SUMMARY | 2025-05-01 15:16 | XMS_ITS | Encounter Summary ---
[facility] Organization [facility] Address [address] [place] [id number] Care Team Providers Care Software Engineer Kernel Name Role Phone Red Groves MD Primary Care Provider + Reason for Referral * Diagnostic Imaging (Routine) - Closed Specialty Diagnoses / Procedures Referred By Contac t Referred To Contact Radiology Diagnoses Abnormality of left breast on screening mammogram Procedures US breast left limited Red Groves MD [address] [place] [address] Phone: tel: fax: [facility] [address] [place] [address] Phone: tel: Referral ID Status Reason Start Date Expiration Date Visits Re quested Visits Authorized [id number] Closed 03/18/2025 06/17/2026 1 1 * Diagnostic Imaging (Routine) - Closed Specialty Diagnoses / Procedures Referred By Contac t Referred To Contact Radiology Diagnoses Abnormality of left breast on screening mammogram Procedures Mammo Diagnostic Digital Tomosynthesis Left With CAD Red Groves MD [address] [place] [address] Phone: tel: fax: [facility] [address] [place] [address] Phone: tel: Referral ID Status Reason Start Date Expiration Date Visits Re quested Visits Authorized [id number] Closed 03/18/2025 06/17/2026 1 1 Encounter Details Date Type Department Care Team (Late st Contact Info) Description 03/18/2025 Results Follow-Up [facility] FAMILY MEDICINE [address] [place] [address] Red Gorves MD [address] [place] [address] Social History Tobacco Use Types Packs/Day [...] Not on file 09 /08/2022 Preferred Language Kiswahili 04/01/2023 PHQ-2 Answer Date [...] Description 05/22/2025 9:30 AM EDT Office Visit [facility] CARDIOLOGY [address] [facility] [address] [place] [address] Sherrell Galarza PA [address] [facility] [address] [place] [address] 07/01/2025 9:15 AM EST Registration [facility] PULMONARY & CRITICAL CARE MEDICINE [address] [place] [address] 07/01/2025 9:30 AM EST Office Visit [facility] PULMONARY & CRITICAL CARE MEDICINE [address] [place] [address] 07/01/2025 10:00 AM EST Office Visit [facility] PULMONARY & CRITICAL CARE MEDICINE [address] [place] [address] Christopher Kelly DO [address] [place] [address] 12/11/2025 3:00 PM EDT Office Visit [facility] CARDIOLOGY [address] [facility] [address] [place] [address] Marguerite Moore MD [address] [facility] [address] [place] [address] 12/16/2025 10:15 AM EDT Office Visit [facility] FAMILY MEDICINE [address] [place] [address] Red Groves MD [address] [place] [address] 03/19/2026 8:00 AM EDT Appointment [facility] [address] [place] [address] 03/19/2026 9:00 AM EDT Office Visit [facility] OBGYN [address] [place] [address] Keyona London, RESERVATIONS MANAGER 1700 [facility] [address] [place] [address] Scheduled Orders Name Type Priority Associated Diagnoses [...] recalled from screening examination with tomosynthesis from [facility] for focal asymmetry in the left breast [...] mammogram documented in this encounter Care Teams Software Engineer Kernel Relationship Specialty Start Date End Date Red Groves MD [address] [facility] [place] [address] PCP - General Family Medicine 03/16/23 documented as of this encounter
--- OUTSIDE RECORDS SUMMARY | 2025-05-01 15:16 | XMS_ITS | Encounter Summary ---
[facility] Address [address] [place] [address] Care Team Providers Care Aurist Name Role Phone Red Groves MD Primary Care Provider + Encounter Details Date Type Department Care Team (Late st Contact Info) Description 04/10/2025 Readmission Management [facility] [address] [place] [address] Roxy Henderson, RN Social History Tobacco Use Types Packs/Day Years [...] or training? Not on file Preferred Language Singaporean 04/01/2023 PHQ-2 Answer Date Recorded Patient Health Questionnaire-2 Score 0 12/10/2024 Comments No Sex and Gender Information Value Date Recorded Sex Assigned at Female 04/01/2025 8:23 AM EDT Legal Sex Female 10:22 AM EDT Gender Identity Not on file Sexual Orientation Straight 04/01/2025 8: 23 AM EDT documented as of this encounter Miscellaneous Notes * Outreach Note - Roxy Henderson, RN - 04/10/2025 11:09 AM EDT Prep Survey Flowsheet Row Responses [facility] patient discharged from? Non-BH Is LACE score less than 10 ? Non-BH Discharge Eligibility [facility] Date of Discharge 04/10/25 Discharge diagnosis RESPIRATORY FAILURE Does the patient have one of the following disease processes/diagnoses(primary or secondary)? Other Prep survey completed? Yes PCP appt 04/15 Roxy Sabillon - Registered Nurse documented in this encounter Plan of Treatment Upcoming Encounters Date Type Department Care Team (Late st Contact Info) Description 05/22/2025 9:30 AM EDT Office Visit [facility] CARDIOLOGY [address] [place] [address] Sherrell Galarza PA [address] [facility] [address] [address] [place] [address] 07/01/2025 9:15 AM EST Registration [facility] PULMONARY & CRITICAL CARE MEDICINE [address] [place] [address] 07/01/2025 9:30 AM EST Office Visit [facility] PULMONARY & CRITICAL CARE MEDICINE [address] [place] [address] 07/01/2025 10:00 AM EST Office Visit [facility] PULMONARY & CRITICAL CARE MEDICINE [address] [place] [address] Christopher Kelly, [address] [place], [place] [id number] 12/11/2025 3:00 PM EDT Office Visit [facility]ARDIOLOGY [facility] [facility] [address] [place] [address] Marguerite Moore MD [address] [facility] 400 [place], [place] [id number] 12/16/2025 10:15 AM EDT Office Visit [facility] FAMILY MEDICINE [address] [place] [address] Red Groves MD 210 [place] [address] 03/19/2026 8:00 AM EDT Appointment [facility] 206 [place] [address] 03/19/2026 9:00 AM EDT Office Visit [facility] OBGYN [address] [place] [address] Keyona London, COMPRESSOR STATION CHIEF ENGINEER 1700 [facility] [address] [place] [address] documented as of this encounter Visit Diagnoses Not on filedocumented in this encounter Care Teams Aurist Relationship Specialty Start Date End Date Red Groves MD 210 [place] [address] PCP - General Family Medicine 03/16/23 documented as of this encounter
--- OUTSIDE RECORDS SUMMARY | 2025-05-01 15:16 | XMS_ITS | Encounter Summary ---
[facility] Organization [facility] Address [address] [place] [address] Care Team Providers Care Research Development Manager Name Role Phone Red Groves MD [...] or training? Not on file Preferred Language Kosovan 04/01/2023 PHQ-2 Answer Date Recorded Patient Health [...] Description 05/22/2025 9:30 AM EDT Office Visit [facility] CARDIOLOGY [address] [facility] [address] [place] [address] Sherrell Galarza PA 17[address] [facility] [address] [address] [place] [address] 07/01/2025 9:15 AM EST Registration [facility] PULMONARY & CRITICAL CARE MEDICINE [address] [place] [address] 07/01/2025 9:30 AM EST Office Visit [facility] PULMONARY & CRITICAL CARE MEDICINE [address] [place] [address] 07/01/2025 10:00 AM EST Office Visit [facility] PULMONARY & CRITICAL CARE MEDICINE [address] [place] [address] Christopher Kelly DO [address] [place] [address] 12/11/2025 3:00 PM EDT Office Visit [facility] CARDIOLOGY [address] [facility] [address] [place] [address] Marguerite Moore MD [address] [facility] [address] [place], [place] [address] 12/16/2025 10:15 AM EDT Office Visit [facility] FAMILY MEDICINE [address] [place] [address] Red Groves MD [address] [place] [address] 03/19/2026 8:00 AM EDT Appointment [facility] [address] [place] [address] 03/19/2026 9:00 AM EDT Office Visit [facility] OBGYN [address] [place] [address] Keyona London, PIG CONVEYOR OPERATOR 1700 [facility] [address] [place] [address] documented as of this encounter Visit Diagnoses Not on filedocumented in this encounter Care Teams Research Development Manager Relationship Specialty Start Date End Date Red Groves MD [address] [place] [address] PCP - General Family Medicine 03/16/23 documented as of this encounter
--- OUTSIDE RECORDS SUMMARY | 2025-05-01 15:16 | XMS_ITS | Encounter Summary ---
[facility] Address [address] [place] [address] Care Team Providers Care Hide Puller Name Role Phone Red Groves MD Primary Care Provider + Reason for Visit * Reason Comments Med Refill Encounter Details Date Type Department Care Team (Late st Contact Info) Description 05/01/2025 Refill [facility] CARDIOLOGY 1720 [facility] STAN [address] [place], [place] [phone] Marguerite Moore MD 1720 [facility] [place] [address] Med Refill Social History Tobacco Use Types Packs/Day Years [...] or training? Not on file Preferred Language Icelandic 04/01/2023 PHQ-2 Answer Date Recorded Patient Health [...] Description 05/22/2025 9:30 AM EDT Office Visit [facility] CARDIOLOGY [address] [facility] 400 [place] [address] Sherrell Galarza PA [address] [facility] 400 [place] [address] 07/01/2025 9:15 AM EST Registration [facility] PULMONARY & CRITICAL CARE MEDICINE [address] [place] [address] 07/01/2025 9:30 AM EST Office Visit [facility] PULMONARY & CRITICAL CARE MEDICINE [address] [place] [address] 07/01/2025 10:00 AM EST Office Visit [facility] PULMONARY & CRITICAL CARE MEDICINE [address] [place] [address] Christopher Kelly DO [address] [place] [address] 12/11/2025 3:00 PM EDT Office Visit [facility] CARDIOLOG[facility] [address] [facility] [address] [address] [place] [address] Marguerite Moore MD 1720 [facility] [address] [place] [address] 12/16/2025 10:15 AM EDT Office Visit [facility] FAMILY MEDICINE [address] [place] [address] Red Groves MD [address] [place] [address] 03/19/2026 8:00 AM EDT Appointment [facility] [address] [place] [address] 03/19/2026 9:00 AM EDT Office Visit [facility] OBGYN [address] [place] [address] Keyona London, CABLE SWAGER 1700 [facility] [address] [place] [address] documented as of this encounter Visit Diagnoses Not on filedocumented in this encounter Care Teams Hide Puller Relationship Specialty Start Date End Date Red Groves MD [address] [place] [address] PCP - General Family Medicine 03/16/23 documented as of this encounter
--- OUTSIDE RECORDS SUMMARY | 2025-05-01 15:16 | XMS_ITS | Encounter Summary ---
Author Organization [facility] Address [address] [place] [address] Care Team Providers Care Service Technician Copier Name Role Phone Red Groves MD Primary Care Provider + Reason for Visit * Reason Onset Date Comments - SCHEDULING REQUEST 04/23/2025 Encounter Details Date Type Department Care Team (Late st Contact Info) Description 04/23/2025 Telephone [facility] CARDIOLOGY 1720 [facility] 400 [place] [address] Jose Juan Landis MD 1720 [facility] E [facility] 400 [place] [address] - SCHEDULING REQUEST Social History Tobacco Use Types Packs/Day Years [...] encounter Miscellaneous Notes * Telephone Encounter - Subha Mcclure RegSched Rep - 04/24/2025 5:34 PM EDT Sw pt via phone she is aware of the appt date, time, location & who she will be seeing. Mailed out the appt reminder paper. * Telephone Encounter - Estelle Linton RegSched Rep - 04/23/2025 10:40 AM EDT Caller: Davida Kaba Relationship to patient: Self Best call back number: [phone] Type of visit: FU Requested date: PREFERS MORNINGS If rescheduling, when is the original appointment: 04.10.25 Additional notes: PATIENT NEEDING TO RESCHEDULE YEARLY FOLLOW UP. NO AVAILABILITY ON MY END OF THE SCHEDULE. PREFERS TO SEE INSTEAD OF STEPHANIE. WOULD ALSO LIKE A TUESDAY, TUESDAY, OR TUESDAY. documented in this encounter Plan of Treatment Upcoming Encounters Date Type Department Care Team (Late st Contact Info) Description 05/22/2025 9:30 AM EDT Office Visit [facility] CARDIOLOGY [address] [facility] [address] [place] [address] Sherrell Galarza PA [address] [facility] [address] [address] [place] [address] 07/01/2025 9:15 AM EST Registration [facility] PULMONARY & CRITICAL CARE MEDICINE [address] [place] [address] 07/01/2025 9:30 AM EST Office Visit [facility] PULMONARY & CRITICAL CARE MEDICINE [address] [place] [address] 07/01/2025 10:00 AM EST Office Visit [facility] PULMONARY & CRITICAL CARE MEDICINE [address] [place] [address] Christopher Kelly, 2400 [place] [address] 12/11/2025 3:00 PM EDT Office Visit [facility] CARDIOLOGY 1720 [facility] 400 [place] [address] Marguerite Moore MD [address] [facility] [address] [address] [place] [address] 12/16/2025 10:15 AM EDT Office Visit [facility] FAMILY MEDICINE 210 [place] [address] Red Groves MD 210 [facility] ST[address] [place] [place] [address] 03/19/2026 8:00 AM EDT Appointment [facility] [address] [address] 03/19/2026 9:00 AM EDT Office Visit [facility] OBGYN [address] [place] [address] Keyona London, REFERENCE AND INSTRUCTION LIBRARIAN 1700 [facility] [address] [place] [phone] documented as of this encounter Visit Diagnoses Not on filedocumented in this encounter Care Teams Service Technician Copier Relationship Specialty Start Date End Date Red Groves MD [address] [place] [address] PCP - General Family Medicine 03/16/23 documented as of this encounter
--- OUTSIDE RECORDS SUMMARY | 2025-05-01 15:16 | XMS_ITS | Encounter Summary ---
[facility] Address [address] [place] [address] Care Team Providers Care Diagrammer Name Role Phone Red Mills MD Primary Care Provider + Encounter Details Date Type Department Care Team (Late st Contact Info) Description 03/26/2025 Telephone [facility] FAMILY MEDICINE 210 [place] [address] Red Mills MD 210 [place] [address] Social History Tobacco Use Types [...] Description 05/22/2025 9:30 AM EDT Office Visit [facility] CARDIOLOGY [address] [place] [address] Sherrell Galarza PA 1720 [facility] [address] [address] [place], [place] [id number] 07/01/2025 9:15 AM EST Registration [facility] PULMONARY & CRITICAL CARE MEDICINE [address] [place] [address] 07/01/2025 9:30 AM EST Office Visit [facility] PULMONARY & CRITICAL CARE MEDICINE [address] [facility] [place] [address] 07/01/2025 10:00 AM EST Office Visit [facility] PULMONARY & CRITICAL CARE MEDICINE [address] [facility] [place] [address] Christopher Kelly DO [address] [place], [place] [address] 12/11/2025 3:00 PM EDT Office Visit [facility] CARDIOLOGY 1720 [facility] 400 [place] [address] Marguerite Moore MD 1720 [facility] BLDG E [facility] 400 [place], [place] [address] 12/16/2025 10:15 AM EDT Office Visit [facility] FAMILY MEDICINE 210 [facility] [place] [address] Red Mills MD 210 [facility] [place] [address] 03/19/2026 8:00 AM EDT Appointment [facility] [address] [place] [address] 03/19/2026 9:00 AM EDT Office Visit [facility] OBGYN [address] [place] [address] Lita Keyona Jo, STRATEGIC DEBRIEFING SPECIALIST 1700 [facility] [address] [place] [address] documented as of this encounter Visit Diagnoses Not on filedocumented in this encounter Care Teams Diagrammer Relationship Specialty Start Date End Date Red Mills MD [address] [place] [address] PCP - General Family Medicine 03/16/23 documented as of this encounter
--- OUTSIDE RECORDS SUMMARY | 2025-05-01 15:16 | XMS_ITS | Encounter Summary ---
[facility] Address [address] [place] [address] Care Team Providers Care Sales And Marketing Vice President Name Role Phone Red Groves MD Primary Care Provider + Reason for Visit * Reason Onset Date Comments Appointment 04/22/2025 Encounter Details Date Type Department Care Team (Late st Contact Info) Description 04/22/2025 Telephone [facility] FAMILY MEDICINE 210 [place] [address] Red Groves MD 210 [place] [address] Appointment Social History Tobacco Use Types Packs/Day Years [...] or training? Not on file Preferred Language Anguillan 04/01/2023 PHQ-2 Answer Date Recorded Patient Health Questionnaire-2 Score 0 12/10/2024 Comments No Sex and Gender Information Value Date Recorded Sex Assigned at Female 04/01/2025 8:23 AM EDT Legal Sex Female 10:22 AM EDT Gender Identity Not on file Sexual Orientation Straight 04/01/2025 8: 23 AM EDT documented as of this encounter Miscellaneous Notes * Telephone Encounter - Tamiko Good RegSched Rep - 04/22/2025 4:13 PM EDT Caller: Davida Kaba Relationship to patient: Self Best call back number: [phone] Chief complaint: LAST APPOINTMENT SHOWS A NO SHOW AND PATIENT CANCELED IN MY CHART. PATIENT IS SICK AND COULD NOT COME IN TODAY. Additional notes:PATIENT WANTED TO ADVISE THAT SHE CANCELLED THE APPOINTMENT ON 04/22 SHE WAS SICK. documented in this encounter Plan of Treatment Upcoming Encounters Date Type Department Care Team (Late st Contact Info) Description 05/22/2025 9:30 AM EDT Office Visit [facility] CARDIOLOGY [address] [place] [address] Sherrell Galarza PA [address] [place] [address] 07/01/2025 9:15 AM EST Registration [facility] PULMONARY & CRITICAL CARE MEDICINE [address] [place] [address] 07/01/2025 9:30 AM EST Office Visit [facility] PULMONARY & CRITICAL CARE MEDICINE [address] [place] [address] 07/01/2025 10:00 AM EST Office Visit [facility] PULMONARY & CRITICAL CARE MEDICINE [address] [place] [address] Christopher Kelly, DO [address] [place] [address] 12/11/2025 3:00 PM EDT Office Visit [facility] CARDIOLOGY [address] [place] [address] Marguerite Moore MD 17[address] [facility] [address] [address] [place] [address] 12/16/2025 10:15 AM EDT Office Visit [facility] FAMILY MEDICINE 210 [place] [address] Red Groves MD 210 [place] [address] 03/19/2026 8:00 AM EDT Appointment [facility] [address] [place] [address] 03/19/2026 9:00 AM EDT Office Visit [facility] OBGYN [address] [place] [address] Keyona London, NUCLEAR POWER REACTOR OPERATOR [address] [place] [address] documented as of this encounter Visit Diagnoses Not on filedocumented in this encounter Care Teams Sales And Marketing Vice President Relationship Specialty Start Date End Date Red Groves MD [address] [place] [address] PCP - General Family Medicine 03/16/23 documented as of this encounter
--- OUTSIDE RECORDS SUMMARY | 2025-05-01 15:16 | XMS_ITS | Encounter Summary ---
[facility] Address [address] [place] [address] Care Team Providers Care Video Game Script Writer Name Role Phone Red Groves MD Primary Care Provider + Encounter Details Date Type Department Care Team (Late st Contact Info) Description 04/11/2025 Transitional Care Management Telephone Encounter [facility] [address] [place] [address] Kathe Rock, IVIS Social History Tobacco Use Types Packs/Day Years [...] or training? Not on file Preferred Language Bangladeshi 04/01/2023 PHQ-2 Answer Date Recorded Patient Health Questionnaire-2 Score 0 12/10/2024 Comments No Sex and Gender Information Value Date Recorded Sex Assigned at Female 04/01/2025 8:23 AM EDT Legal Sex Female 10:22 AM EDT Gender Identity Not on file Sexual Orientation Straight 04/01/2025 8: 23 AM EDT documented as of this encounter Miscellaneous Notes * Outreach Note - Kathe Rock RN - 04/11/2025 2:40 PM EDT Images from the original note were not included. Call Center TCM Note Flowsheet Row Responses [facility] patient discharged from? [facility] [[facility]] Does the patient have one of the following disease processes/diagnoses(primary or secondary)? Other TCM attempt successful? Yes Call start time 1446 Call end time 1448 Discharge diagnosis RESPIRATORY FAILURE Meds reviewed with patient/caregiver? Yes Is the patient having any side effects they believe may be caused by any medication additions or changes? No Does the patient have all medications ordered at discharge? Yes Is the patient taking all medications as directed (includes completed medication regime)? Yes Medication comments Zyvox and lasix added at discharge Comments Hospital f/u 04/15/25@1115am (appt in place at time of call) Does the patient have an appointment with their PCP within 7-14 days of discharge? Yes Nursing Interventions Confirmed date/time of appointment Has home health visited the patient within 72 hours of discharge? N/A DME comments Pt uses O2 @ 2.5 lpm per nc Psychosocial issues? No Did the patient receive a copy of their discharge instructions? Yes Nursing interventions Reviewed instructions with patient What is the patient's perception of their health status since discharge? Improving [Pt is doing well, no SOA or edema noted. Using her O2 as ordered, Encouraged daily wts and reveiwed wt gain parameters with pt. No questions today.] Is the patient/caregiver able to teach back signs and symptoms related to disease process for when to call PCP? Yes Is the patient/caregiver able to teach back signs and symptoms related to disease process for when to call 911? Yes TCM call completed? Yes Call end time 1448 KATHE Oconnor - Registered Nurse 04/11/2025, 14:50 EDT documented in this encounter Plan of Treatment Upcoming Encounters Date Type Department Care Team (Late st Contact Info) Description 05/22/2025 9:30 AM EDT Office Visit [facility] CARDIOLOGY [address] [facility] [address] [place] [address] Sherrell Galarza PA [address] [facility] [address] [place] [address] 07/01/2025 9:15 AM EST Registration [facility] PULMONARY & CRITICAL CARE MEDICINE [address] [place] [address] 07/01/2025 9:30 AM EST Office Visit [facility] PULMONARY & CRITICAL CARE MEDICINE [address] [place] [address] 07/01/2025 10:00 AM EST Office Visit [facility] PULMONARY & CRITICAL CARE MEDICINE [address] [place] [address] Christopher Kelly, 2400 [place] [address] 12/11/2025 3:00 PM EDT Office Visit [facility] CARDIOLOGY [address] [facility] [address] [place] [address] Marguerite Moore MD [address] [facility] [address] [place] [address] 12/16/2025 10:15 AM EDT Office Visit [facility] FAMILY MEDICINE [address] [place] [address] Red Groves MD [address] [place] [address] 03/19/2026 8:00 AM EDT Appointment [facility] [address] [place] [address] 03/19/2026 9:00 AM EDT Office Visit [facility] OBGYN [address] [place] [address] Keyona London, ASSISTANT GOLF COACH 1700 [facility] [address] [place] [address] documented as of this encounter Visit Diagnoses Not on filedocumented in this encounter Care Teams Video Game Script Writer Relationship Specialty Start Date End Date Red Groves MD [address] [place] [address] PCP - General Family Medicine 03/16/23 documented as of this encounter
--- OUTSIDE RECORDS SUMMARY | 2025-05-01 15:16 | XMS_ITS | Encounter Summary ---
Author Organization [facility] Address [address] [place] [address] Care Team Providers Care Wire Frame Dipper Name Role Phone Red Groves MD Primary Care Provider + Encounter Details Date Type Department Care Team (Late st Contact Info) Description 03/06/2025 Patient rounding ([facility]) [facility] CARDIOLOGY 1720 [facility] ST[address] [place] [address] Addis Rubalcava, [facility] Rep Social History Tobacco Use [...] 03/06/2025 11:14 AM EDT March 06, 2025 Yasmin, gwendolyn I speak with Davida Kaba? My name is ADDIS I am with [facility] THIEN [facility] CARDIOLOGY 1720 [facility] 400 [facility] [address] . [...] Description 05/22/2025 9:30 AM EDT Office Visit [facility] CARDIOLOGY 1720 [facility] 400 [place] [address] Sherrell Galarza PA 1720 [facility] [address]LDG E [facility] 400 [place], [place] [address] 07/01/2025 9:15 AM EST Registration [facility] PULMONARY & CRITICAL CARE MEDICINE 2400 [facility] [place] [address] 07/01/2025 9:30 AM EST Office Visit [facility] PULMONARY & CRITICAL CARE MEDICINE 2400 [facility] [place] [address] 07/01/2025 10:00 AM EST Office Visit [facility] PULMONARY & CRITICAL CARE MEDICINE 2400 [facility] [place] [place] [address] Christopher Kelly DO [address] [place] [address] 12/11/2025 3:00 PM EDT Office Visit [facility] CARDIOLOGY 1720 [facility] 400 [place] [address] Marguerite Moore MD 1720 [facility] BLDG E [facility] 400 [place], [place] [address] 12/16/2025 10:15 AM EDT Office Visit [facility] FAMILY MEDICINE 210 [place] [address] Red Groves MD 210 [place] [address] 03/19/2026 8:00 AM EDT Appointment [facility] [address] [place] [address] 03/19/2026 9:00 AM EDT Office Visit [facility]YN [facility] [place] [address] Keyona London, QUALITY ENG 1700 [facility] [address] [place] [address] documented as of this encounter Visit Diagnoses Not on filedocumented in this encounter Care Teams Wire Frame Dipper Relationship Specialty Start Date End Date Red Groves MD [address] [place] [address] PCP - General Family Medicine 03/16/23 documented as of this encounter
--- OUTSIDE RECORDS SUMMARY | 2025-05-01 15:16 | XMS_ITS | Encounter Summary ---
Author Organization [facility] Address [address] [place] [address] Care Team Providers Care Market Research Specialist Name Role Phone Red Groves MD Primary Care Provider + Encounter Details Date Type Department Care Team (Late st Contact Info) Description 04/02/2025 Results Follow-Up [facility] FAMILY MEDICINE 210 [place] [address] Red Groves MD 210 [place] [address] Social History Tobacco Use Types [...] or training? Not on file Preferred Language Faroese 04/01/2023 PHQ-2 Answer Date Recorded Patient Health [...] Description 05/22/2025 9:30 AM EDT Office Visit [facility] CARDIOLOGY 1720 [facility] [address] [place] [address] Sherrell Galarza PA [address] [facility] 400 [place] [address] 07/01/2025 9:15 AM EST Registration [facility] PULMONARY & CRITICAL CARE MEDICINE [address] [place] [address] 07/01/2025 9:30 AM EST Office Visit [facility] PULMONARY & CRITICAL CARE MEDICINE 2400 [facility] [place] [address] 07/01/2025 10:00 AM EST Office Visit [facility] PULMONARY & CRITICAL CARE MEDICINE [address] [place] [address] Christopher Kelly DO [address] [place] [address] 12/11/2025 3:00 PM EDT Office Visit [facility] CARDIOLOGY [facility] [address] [place] [address] Marguerite Moore MD 1720 [facility] [address] [place], [place] [id number] 12/16/2025 10:15 AM EDT Office Visit [facility] FAMILY MEDICINE 210 [place] [address] Red Groves MD 210 [place] [address] 03/19/2026 8:00 AM EDT Appointment [facility] 206 [place] [address] 03/19/2026 9:00 AM EDT Office Visit [facility] OBGYN 206 [place] [address] Keyona London, TECHNICAL MAINTENANCE TECHNICIAN 1700 [facility] [address] [place] [address] documented as of this encounter Visit Diagnoses Not on filedocumented in this encounter Care Teams Market Research Specialist Relationship Specialty Start Date End Date Red Groves MD [address] [place] [address] PCP - General Family Medicine 03/16/23 documented as of this encounter
--- OUTSIDE RECORDS SUMMARY | 2025-05-01 15:16 | XMS_ITS | Encounter Summary ---
[facility] Address [address] [place] [address] Care Team Providers Care Eyeglass Assembler Name Role Phone Red Groves MD Primary Care Provider + Encounter Details Date Type Department Care Team (Late st Contact Info) Description 10/22/2024 Results Follow-Up [facility] [address] [place] [address] Giovanna Prater L, TRANSPORT ANALYST [address] [place] [address] Social History Tobacco Use Types [...] 9:30 AM EDT Office Visit [facility] [address] [facility] [address] [place] [address] Sherrell Galarza PA [address] [facility] [address] [facility] [address] [place] [address] 07/01/2025 9:15 AM EST Registration [facility] MEDICINE [address] [place] [address] 07/01/2025 9:30 AM EST Office Visit [facility] [address] [facility] [place] [place] [address] 07/01/2025 10:00 AM EST Office Visit [facility] [address] [facility] [place] [address] Christopher Kelly DO [address] [place] [address] 12/11/2025 3:00 PM EDT Office Visit [facility] [address] [facility] [address] [place] [phone] Marguerite Moore MD [address] [facility] [address] [place], [place] [id number] 12/16/2025 10:15 AM EDT Office Visit [facility] [address] [place] [address] Red Groves MD [address] [place] [address] 03/19/2026 8:00 AM EDT Appointment [facility] 206 [place] [address] 03/19/2026 9:00 AM EDT Office Visit [facility] 206 [place] [address] Keyona London, TRANSPORT ANALYST [address] [facility] [address] [place] [address] documented as of this encounter Visit Diagnoses Not on filedocumented in this encounter Care Teams Eyeglass Assembler Relationship Specialty Start Date End Date Red Groves MD [address] [place] [address] PCP - General Family Medicine 03/16/23 documented as of this encounter
--- OUTSIDE RECORDS SUMMARY | 2025-05-01 15:16 | XMS_ITS | Encounter Summary ---
Author Organization [facility] Address [address] [place] [address] Care Team Providers Care Java Core Developer Name Role Phone Red Groves MD Primary Care Provider + Encounter Details Date Type Department Care Team (Late st Contact Info) Description 04/17/[address] [facility] [address] [facility] [address] [place] [address] Marguerite Moore MD [address] [facility] [address] [place] [address] Social History Tobacco Use Types Packs/Day Years [...] or training? Not on file Preferred Language Slovak 04/01/2023 PHQ-2 Answer Date Recorded Patient Health Questionnaire-2 Score 0 12/10/2024 Comments No Sex and Gender Information Value Date Recorded Sex Assigned at Female 04/01/2025 8:23 AM EDT Legal Sex Female 10:22 AM EDT Gender Identity Not on file Sexual Orientation Straight 04/01/2025 8: 23 AM EDT documented as of this encounter Miscellaneous Notes * Telephone Encounter - Wilbur Arevalo RN - 04/17/2025 10:17 AM EDT Patient left voice mail message requesting a return call. Spoke with patient. She reports being in the hospital at [facility]. She had food poisoning with nausea/vomiting. She aspirated and double pneumonia. She was in ICU at [facility]. She was admitted for four days. She finished her antibiotics yesterday. She states she had an echo while at hospital. Dr. Groves suggested we get those images and see if [facility] is OK with the images. I will get images and make sure [facility] reviews the images. She verbalizes understanding. Letter requesting images from [facility] sent. documented in this encounter Plan of Treatment Upcoming Encounters Date Type Department Care Team (Late st Contact Info) Description 05/22/2025 9:30 AM EDT Office Visit [facility] [address] [place] [address] Sherrell Galarza PA [address] [place] [address] 07/01/2025 9:[address] [facility] MEDICINE [address] [place] [address] 07/01/2025 9:30 AM EST Office Visit [facility] MEDICINE [address] [place] [address] 07/01/2025 10:00 AM EST Office Visit [facility] MEDICINE [address] [place] [address] Christopher Kelly DO [address] [place] [address] 12/11/2025 3:00 PM EDT Office Visit [facility] [address] [place] [address] Marguerite Moore MD [address] [place], [place] [id number] 12/16/2025 10:15 AM EDT Office Visit [facility] FAM[facility] MEDICINE [address] [place] [address] Red Groves MD [address] [place] [address] 03/19/2026 8:00 AM EDT Appointment [facility] [address] [place] [address] 03/19/2026 9:00 AM EDT Office Visit [facility] O[facility] [address] [place] [address] Keyona London, DOCKETING SPECIALIST [address] [place], [place] [id number] documented as of this encounter Visit Diagnoses Not on filedocumented in this encounter Care Teams Java Core Developer Relationship Specialty Start Date End Date Red Groves MD [address] [place] [address] PCP - General Family Medicine 03/16/23 documented as of this encounter
--- OUTSIDE RECORDS SUMMARY | 2025-05-01 15:16 | XMS_ITS | Encounter Summary ---
[facility] Address [address] [place] [address] Care Team Providers Care Executive Producer Name Role Phone Red Groves MD Primary Care Provider + Encounter Details Date Type Department Care Team (Latest Contact Info) Description 04/15/2025 Travel Social History Tobacco Use Types Packs/Day [...] 9:30 AM EDT Office Visit [facility] [address] [place] [address] Sherrell Galarza PA [address] [facility] [address] [address] [place] [address] 07/01/2025 9:15 AM EST Registration [facility] P[facility] MEDICINE [address] [place] [address] 07/01/2025 9:30 AM EST Office Visit [facility]ICAL [facility]ARE MEDICINE [address] [place] [address] 07/01/2025 10:00 AM EST Office Visit [facility] P[facility]ICAL [facility]ARE MEDICINE [address] [place] [address] Christopher Kelly DO [address] [place] [address] 12/11/2025 3:00 PM EDT Office Visit [facility] [address] [place] [address] Marguerite Moore MD [address] [facility] [address] [address] [place], [place] [id number] 12/16/2025 10:15 AM EDT Office Visit [facility] FAMILY MEDIC[facility] [address] [place] [address] Red Groves MD [address] [place] [address] 03/19/2026 8:00 AM EDT Appointment [facility] [address] [place] [address] 03/19/2026 9:00 AM EDT Office Visit [facility] O[facility] [address] [place] [address] Keyona London, CONTROL ROOM TECHNICIAN [address] [facility] [address] [place] [address] documented as of this encounter Visit Diagnoses Not on filedocumented in this encounter Care Teams Executive Producer Relationship Specialty Start Date End Date Red Groves MD [address] [place] [address] PCP - General Family Medicine 03/16/23 documented as of this encounter
--- OUTSIDE RECORDS SUMMARY | 2025-05-01 15:16 | XMS_ITS | Encounter Summary ---
[facility] Address [address] [place] [address] Care Team Providers Care Antique Repairer Name Role Phone Red Groves MD Primary Care Provider + Encounter Details Date Type Department Care Team (Late st Contact Info) Description 03/26/2025 Results Follow-Up [facility] [address] [address] Red Groves MD [address] [place] [address] Social History Tobacco Use Types Packs/Day Years [...] or training? Not on file Preferred Language Sami 04/01/2023 PHQ-2 Answer Date Recorded Patient Health [...] Visit [facility] [address] [facility] [address] [place] [address] Sherrell Galarza PA [address] [facility] [address] [facility] [address] [place] [address] 07/01/2025 9:15 AM EST Registration [facility] PULMONARY [facility]ITICAL [facility]ARE MEDICINE [address] [place] [address] 07/01/2025 9:30 AM EST Office Visit [facility] MED[facility] [address] [facility] [place] [address] 07/01/2025 10:00 AM EST Office Visit [facility] MEDICINE [address] [place] [address] Christopher Kelly DO [address] [place] [address] 12/11/2025 3:00 PM EDT Office Visit [facility] [address] [facility] [address] [place] [address] Marguerite Moore MD [address] [facility] [address] [address] [place] [address] 12/16/2025 10:15 AM EDT Office Visit [facility] FAM[facility] MEDICINE [address] [place] [address] Red Groves MD [address] [place] [address] 03/19/2026 8:00 AM EDT Appointment [facility] [address] [place] [address] 03/19/2026 9:00 AM EDT Office Visit [facility] OBGYN [address] [place] [address] Keyona London, PAINTER AIRCRAFT 1700 [facility] [address] [place], [place] [address] documented as of this encounter Visit Diagnoses Not on filedocumented in this encounter Care Teams Antique Repairer Relationship Specialty Start Date End Date Red Groves MD [address] [place] [address] PCP - General Family Medicine 03/16/23 documented as of this encounter
--- OUTSIDE RECORDS SUMMARY | 2025-05-01 15:16 | XMS_ITS | Clinical Summary ---
Author Organization [facility] ystem Address [address] [place] [address] Care Team Providers Care Asthma Educator Name Role Phone Red Groves MD Primary Care Provider + Allergies Active Allergy Reactions Criticality Noted Date Comments Amoxicillin-Pot Clavulanate Nausea And Vomiting Low 03/14/2023 Pseudoephedrine Anxiety Low 04/08/2016 makes me anxious - cant sleep Medications Calcium Carbonate-Vitam in D 600-200 MG-UNIT tablet Take 1 tablet by mouth 2 (Two) Times a Day. Active multivitamin with minerals (MULTIVITAMIN ADULT PO) Take 1 tablet by mouth Every Morning. 30 tablet 1 04/09/20 23 Active O2 (OXYGEN) Inhale 3 L/min As Needed. Active albuterol sulfate HFA 108 (90 Base) MCG/ACT inhalerIndicati ons:Asthma-COPD overlap syndrome Inhale 2 puffs Every 4 (Four) Hours As Needed for Wheezing. 18 g 11 12/07/19 24 Active dilTIAZem XR (Dilt-XR) 180 MG 24 hr capsule Take 1 capsule by mouth once daily 90 capsule 3 07/04/20 24 Active fluticasone (FLONASE) 50 MCG/ACT nasal sprayIndication s:Non-seasonal allergic rhinitis due to pollen Administer 2 sprays into the nostril(s) as directed by provider Daily for 360 days. 48 g 3 12/11/19 25 026 Active montelukast (SINGULAIR) 10 MG tabletIndicatio ns:Non-seasonal allergic rhinitis due to pollen Take 1 tablet by mouth Every Night. 90 tablet 3 12/11/19 25 Active rosuvastatin (CRESTOR) 10 MG tabletIndicatio ns:Atherosclero tic vascular disease Take 1 tablet by mouth Daily. 90 tablet 3 12/11/19 25 Active sertraline (ZOLOFT) 50 MG tabletIndicatio ns:Anxiety disorder, unspecified type Take 1 tablet by mouth Daily. 90 tablet 3 12/11/[address] 1 dose under the tongue Daily. MULLEIN EXTRACT DROPS Active alendronate (Fosamax) 70 MG tabletIndicatio ns:Osteopenia, senile,Age-rela johan osteoporosis without current pathological fracture Take 30 minutes before first morning food, drink or other medication. Avoid lying down for 30 minutes after dose administered. 4 tablet 12 03/13/20 25 Active Trelegy Ellipta 200-62.5-25 MCG/ACT inhalerIndicati ons:Asthma-COPD overlap syndrome INHALE 1 PUFF ONCE DAILY 60 each 04/08/20 25 Active fluconazole (DIFLUCAN) 100 MG tablet Take 1 tablet by mouth Daily. 7 tablet 04/11/20 25 Active mupirocin (BACTROBAN) 2 % nasal ointmentIndicat ions:Impetigo Administer 1 Application into the nostril(s) as directed by provider 2 (Two) Times a Day. 15 g 04/22/20 25 Active sildenafil (REVATIO) 20 MG tablet TAKE 1 TABLET BY MOUTH THREE TIMES DAILY 90 tablet 1 05/01/20 25 Active sildenafil (REVATIO) 20 MG tablet TAKE 1 TABLET BY MOUTH THREE TIMES DAILY 90 tablet 6 09/06/19 25 025 Discontinued Trelegy Ellipta 200-62.5-25 MCG/ACT inhalerIndicati ons:Asthma-COPD overlap syndrome INHALE 1 PUFF ONCE DAILY 60 each 3 12/13/19 25 025 Discontinued neomycin-polymy davi-dexamethaso ne (MAXITROL) 0.1 % ophthalmic suspension INSTILL 1 DROP INTO LEFT EYE 4 TIMES DAILY FOR 7 DAYS 03/08/20 25 025 Discontinued Active Problems Problem Noted Date Diagnosed Date [...] rate of 63 beats per minute. Normal [place], QRS and QTc intervals. Nonspecific ST-T wave [...] Encounters Date Type Department Care Team Description 05/01/2025 Refill [facility] CARDIOLOGY [address] [facility] [address] [place] [address] Marguerite Moore MD Med Refill 04/23/2025 Telephone [facility] CARDIOLOGY [address] [facility] [address] [place] [address] [address]is MD DR[address]TOMASSONI - SCHEDULING REQUEST 04/22/2025 Telephone [facility] FAMILY MEDICINE [address] [facility] [place] [address] Red Groves MD Appointment 04/17/2025 Telephone [facility] CARDIOLOGY [address] [facility] [address] [place] [address] Marguerite Moore MD 04/15/2025 11:15 AM EDT Office Visit [facility] MEDICINE [address] [facility] [place] [address] Red Groves MD Pneumonia of both lower lobes due to infectious organism (Primary Dx); WHO group 1 PAH; Obstructive sleep apnea; Thrush 04/15/2025 Travel 04/11/2025 Transitional Care Management Telephone Encounter [facility] NUR[facility] CALL C[facility] [address] [place] [address] Kathe Rock RN 04/11/2025 Telephone [facility] FAMILY MEDICINE [address] [facility] [place] [address] Red Groves MD New Med Request 04/10/2025 Readmission Management [facility] [address] [place] [address] Roxy Henderson RN 04/10/2025 Telephone [facility] [address] [facility] [place] [address] Red Groves MD Hospital Follow Up Visit 04/08/2025 Refill [facility] PULMONARY & CRITICAL CARE MEDICINE [address] [place] [address] Christopher Kelly DO Asthma-COPD overlap syndrome 04/02/2025 8:00 AM EDT - 04/02/2025 11:59 PM EDT Hospital Encounter [facility] BRE[facility] [address] [address] Red Groves MD Abnormality of left breast on screening mammogram Discharge Disposition: Home or Self Care 04/02/2025 Results Follow-Up [facility] MEDICINE [address] [facility] [place] [address] Red Groves MD 04/02/2025 Travel 03/26/2025 Telephone [facility] FAMILY MEDICINE [address] [facility] [place] [address] Red Groves MD 03/26/2025 Results Follow-Up [facility] [address] [facility] [address] [address] [place] [address] Red Grvoes MD 03/18/2025 Results Follow-Up [facility] FAM[facility] MED[facility]INE [address] [facility] [place] [address] Red Groves MD 03/13/2025 1:00 PM EDT Office Visit [facility] OBGYN [address] [place] [address] Keyona London APRN Pap test, as part of routine gynecological examination (Primary Dx); Women's annual routine gynecological examination; Breast cancer screening by mammogram; Menopausal state; Osteopenia, senile; History of hysterectomy, supracervical; Age-related osteoporosis without current pathological fracture 03/13/2025 Telephone [facility] OBGYN [address] [facility] [address] [place] [address] Keyona London APRN 03/13/2025 Travel 03/06/2025 11:00 AM EDT Office Visit [facility] CARDIOLOGY [address] [facility] [address] [place] [address] Marguerite Moore MD Atrial fibrillation and flutter (Primary Dx); ASD (atrial septal defect); Atherosclerotic vascular disease 03/06/2025 Patient rounding ([facility] only) [facility] CARDIOLOG[facility] [address] [facility] [address] [place] [address] Addis Rubalcava RegSched Rep 03/06/2025 Travel 03/05/2025 Telephone [facility] CARDIOLOGY [address] [facility] [address] [place] [address] Marguerite Moore MD Medication Reconciliation from Last 3 Months Immunizations Immunization Administration Dates Next Due Arexvy (RSV, Adults 60+ yrs) 08/25/2023 COVID-19 (PFIZER) Purple Cap Monovalent 04/25/20 21,10/14/2020,09/21/2020 Covid-19 (Pfizer) Gutierrez Cap Monovalent 12/09/2021 Flu [...] Relation Name Status Comments Brother 1 Manohar Katharineats Brother 2 Father Zak Barber Maternal Grandmother Mother hSila Barber - Paternal Grandfather Eder Barber Paternal [...] or training? Not on file Preferred Language Grenadian 04/01/2023 PHQ-2 Answer Date Recorded Patient Health [...] Mass Index 19.1 04/15/2025 11:06 AM EDT Plan of Treatment Upcoming Encounters Date Type Department Care Team (Late st Contact Info) Description 05/22/2025 9:30 AM EDT Office Visit [facility]OLOG[facility] [address] [facility] [address] [address] [place] [address] Sherrell Galarza PA [address] [facility] [address] [place] [address] 07/01/2025 9:15 AM EST Registration [facility] PULMONARY & CRITICAL CARE MEDICINE [address] [facility] [place] [address] 07/01/2025 9:30 AM EST Office Visit [facility] PULMONARY & CRITICAL CARE MEDICINE [address] [place] [address] 07/01/2025 10:00 AM EST Office Visit [facility] PULMONARY & CRITICAL CARE MEDICINE [address] [place] [address] Christopher Kelly DO [address] [place] [address] 12/11/2025 3:00 PM EDT Office Visit [facility] CARDIOLOGY [address] [facility] [address] [place] [address] Marguerite Moore MD [address] [facility] [address] [id number] 12/16/2025 10:15 AM EDT Office Visit [facility] FAMILY MEDICINE [address] [facility] [place] [address] Red Groves MD [address] [facility] [place] [address] 03/19/2026 8:00 AM EDT Appointment [facility] [address] [place] [address] 03/19/2026 9:00 AM EDT Office Visit [facility] OBGYN [address] [place] [address] Keyona London, HAND MITER OPERATOR [address] [place] [address] Health Maintenance Due Date Last Done Comments COLOGUARD 01/27/2001 COLON CANCER SCREENING 5 YEA R SIGMOIDOSCOPY 01/27/2001 CT COLONOGRAPHY 01/27/2001 FECAL OCCULT BLOOD TEST 01/27/2001 FIT Testing (1 year) 01/27/2001 DXA SCAN 04/23/2018 04/23/2016 INFLUENZA VACCINE 03/01/2025 05/12/2024, , 04/27/2022, Additional history exists COVID-19 Vaccine (2023-09 5 season) 2025 05/12/2024, 07/02/2023, 05/15/2022, Additional history exists ANNUAL WELLNESS VISIT 12/10/2025 12/10/2024, 025 TDAP/TD VACCINES (3 - Td or Tdap) 05/29/2026 016, 10/05/1996 MAMMOGRAM 04/02/2027 04/02/2025, 03/01, 03/13/2025, Additional history exists COLONOSCOPY 09/07/2031 09/07/2021 COLORECTAL CANCER SCREENING 09/07/2031 ZOSTER VACCINE Completed 09/07/2019, 05/02, 04/03/2016 HEPATITIS C SCREENING Completed 11/20/2021 Pneumococcal Vaccine 50+ Completed 04/27/2022, 09/2020 LUNG CANCER SCREENING Discontinued 08/14/2024, 014 Medical Devices Implanted Type Area Associate Professor Of English Device Identifier Shelf Expiration Date Model / Serial / Lot Tam Patch (Asd Repair) Procedures Procedure Name Priority Date/Time Associated Diagnosis Comments SCANNED EKG 04/07/2025 SCANNED EKG 04/07/2025 SCANNED EKG 04/07/2025 SCANNED - LABS 04/07/2025 SCANNED - LABS 04/07/2025 SCANNED - LABS 04/07/2025 SCANNED - LABS 04/07/2025 SCANNED - IMAGING 04/07/2025 SCANNED - IMAGING 04/07/2025 SCANNED - IMAGING 04/07/2025 MAMMO DIAGNOSTIC DIGITAL TOMOSYNTHESIS LEFT W CAD Routine 04/02/2025 9:12 AM EDT Abnormality of left breast on screening mammogram AMBRY GENETIC ASSESSMENT Routine 04/01/2025 7:08 PM EDT SCANNED - IMAGING 03/13/2025 MAMMO OUTSIDE FILMS Routine 03/13/2025 1 2:00 AM EDT H/O mammogram SCANNED - MAMMO 03/13/2025 CT CHEST LOW DOSE WO CANCER SCREENING Routine 08/14/2024 9:28 AM EST Personal history of smoking HEPATITIS C ANTIBODY Routine 11/20/2021 9:10 AM EDT DEXA BONE DENSITY AXIAL Routine 04/23/2016 8:32 AM EDT Menopause from Last 3 Months or Most Recently Relevant to Health Maintenance Results * ECG Scan (04/07/2025) Only the most recent of3 resultswithin the time period is included. Red Groves MD ECG ORDERABLES Final Re sult * IMAGING SCANNED (04/07/2025) Only the most recent of4 resultswithin the time period is included. Anatomical Region Laterality Modality Radiographic Shabnam ging Red Groves MD IMG DIAGNOSTIC IMAGING O RDERABLES Final Result * LABS SCANNED (04/07/2025) Only the most recent of4 resultswithin the time period is included. Red Groves MD LAB BLOOD ORDERABLES Fin al Result * Mammo Diagnostic Digital Tomosynthesis Left With [...] IMG MAMMOGRAPHY ORDERABL ES Final Result * Get-n-Post GENETIC RISK ASSESSMENT QUESTIONNAIRE - , (04/01/2025 7:08 PM EDT) Robbin 2.6 KELLIPicfair NCCN NCCN not met Purple Comment:High Risk Cancer Ris k Assessment 04/01/2025 7:08 PM EDT Red Groves MD GENETIC TESTING Final Re sult [facility]
[address] [place] [address], [place] [phone] * MAMMO Scan (03/13/2025) Anatomical Region Laterality Modality Other Red Groves MD CHART REVIEW TABS Fin al Result * MAMMO Outside Films (03/13/2025 12:00 AM EDT) Narrative 03/25/2025 1:02 PM EDT This procedure was auto-finalized with no dictation required. Procedure Note 03/25/2025 This procedure was auto-finalized with no dictation required. Red Groves MD IMG MAMMOGRAPHY ORDERABL ES [...] MD 08/15/2024 3:56 PM EST Workstation ID: [id number] Narrative 08/15/2024 3:[address] CHEST [...] <1% chance of malignancy. Electronically Signed: Brent oWod MD 08/15/2024 3:56 PM EST Workstation ID: [id number] Christopher Kelly DO IMG CT ORDERABLES F inal Result * Hepatitis C Antibody (11/20/2021 9:10 AM EDT) Hep C Virus Ab <0.1 0.0 - 0.9 s/co ratio [facility] Comment: Negative: < 0.8 Indeterminate: 0.8 - 0.9 Positive: > 0.9 The CDC recommends that a positive HCV antibody result be followed up with a HCV Nucleic Acid Amplification test ([id number]). 11/20/2021 9:10 AM EDT 11/20/2021 Narrative [facility] (AMBULATORY) - 11/21/2021 8:11 AM EDT Performed at: [facility] [id number] Bulk Clerk: Kt Sinclair PhD, Phone: [phone] Patient Fasting: Y Red Groves MD LAB BLOOD ORDERABLES Fin al Result [facility] (AMBULATORY) [address] [place] [address], [facility] [address] [place] [address], * DEXA Bone Density Axial (04/23/2016 8:32 [...] A BMD test was performed using the ShuttersongXA DXA System manufactured by [employer]. The bone densitometry was evaluated by determining [...] A BMD test was performed using the ShuttersongXA DXA System manufactured by [employer]. The bone densitometry was evaluated by determining [...] Most Recently Relevant to Health Maintenance Insurance [facility] MEDICARE ADVANTAGE PPO Advance Directives Documents on File Type Date Recorded Patient Metal Treater Expl anation PATIENT ADVANCE DIRECTIVES - SCAN 04/20/2022 10:30 AM OK ADVANCE DIRECTIVE S, 08/18/2010 POWER OF SURVEY RESEARCHER - SCAN 04/20/2022 10:30 AM DURABLE POWER OF SURVEY RESEARCHER, 08/18/2010 * CPR (Attempt to Resuscitate) (Latest Code Status on File) Date Activated Date Inactivated Comments 04/20/2022 1:44 PM 04/20/2022 8:27 PM Question Answer Comments Code Status (Patient has no pulse and is not breathing): CPR (Attempt to Resuscitate) Medical Interventions (Patie nt has pulse or is breathing): Full Level Of Support Discussed With: Patient Care Teams Asthma Educator Relationship Specialty Start Date End Date Red Groves MD [address] [place] [address] PCP - General Family Medicine 03/16/23
--- OUTSIDE RECORDS SUMMARY | 2025-05-01 15:16 | XMS_ITS | Encounter Summary ---
[facility] Address [address] [place] [address] Care Team Providers Care Sorting Grapple Operator Name Role Phone Red Groves MD Primary Care Provider + Reason for Visit * Reason Comments Med Refill Encounter Details Date Type Department Care Team (Late st Contact Info) Description 04/08/2025 Refill [facility] PULMONARY & CRITICAL CARE MEDICINE [address] [place] [address] Christopher Kelly, [address] [place] [address] [phone] Asthma-COPD overlap syndrome Social History Tobacco Use Types Packs/Day Years [...] or training? Not on file Preferred Language Chinese 04/01/2023 PHQ-2 Answer Date Recorded Patient Health Questionnaire-2 Score 0 12/10/2024 Comments No Sex and Gender Information Value Date Recorded Sex Assigned at Female 04/01/2025 8:23 AM EDT Legal Sex Female 10:22 AM EDT Gender Identity Not on file Sexual Orientation Straight 04/01/2025 8: 23 AM EDT documented as of this encounter Miscellaneous Notes * Telephone Encounter - Abel Lindsay MA - 04/08/2025 10:54 AM EDT Refill has been approved and sent to pharmacy documented in this encounter Plan of Treatment Upcoming Encounters Date Type Department Care Team (Late st Contact Info) Description 05/22/2025 9:30 AM EDT Office Visit [facility] CARDIOLOGY [address] [facility] [address] [place] [address] Sherrell Galarza PA [address] [place] [address] 07/01/2025 9:15 AM EST Registration [facility] PULMONARY & CRITICAL CARE MEDICINE [address] [place] [address] 07/01/2025 9:30 AM EST Office Visit [facility] PULMONARY & CRITICAL CARE MEDICINE [address] [place] [address] 07/01/2025 10:00 AM EST Office Visit [facility] PULMONARY & CRITICAL CARE MEDICINE [address] [place] [address] Christopher Kelly DO [address] [place] [address] 12/11/2025 3:00 PM EDT Office Visit [facility] [address] [facility] [address] [place] [address] Marguerite Moore MD [address] [facility] [address] [address] [place], [place] [id number] 12/16/2025 10:15 AM EDT Office Visit [facility] FAMILY MEDICINE [address] [place] [address] Red Groves MD [address] [place], [place] [id number] 03/19/2026 8:00 AM EDT Appointment [facility] [address] [place] [address] 03/19/2026 9:00 AM EDT Office Visit [facility] OBGYN [address] [place] [address] Keyona London, PERIOPERATIVE ASSISTANT [address] [facility] [address] [place] [address] documented as of this encounter Visit Diagnoses Diagnosis Asthma-COPD overlap syndrome documented in this encounter Care Teams Sorting Grapple Operator Relationship Specialty Start Date End Date Red Groves MD [address] [place] [address] PCP - General Family Medicine 03/16/23 documented as of this encounter
--- OUTSIDE RECORDS SUMMARY | 2025-05-01 15:16 | XMS_ITS | Encounter Summary ---
[facility] Address [address] [place] [address] Care Team Providers Care Petroleum Engineer Name Role Phone Red Groves MD Primary [...] or training? Not on file Preferred Language Kazakh 04/01/2023 PHQ-2 Answer Date Recorded Patient Health [...] Description 05/22/2025 9:30 AM EDT Office Visit [facility]ARDIOLOGY [address] [place] [address] Sherrell Galarza PA [address] [facility] [address] [address] [place] [address] 07/01/2025 9:15 AM EST Registration [facility] PULMONARY & CRITICAL CARE MEDICINE [address] [place] [address] 07/01/2025 9:30 AM EST Office Visit [facility] PULMONARY & CRITICAL CARE MEDICINE [address] [place] [address] 07/01/2025 10:00 AM EST Office Visit [facility] PULMONARY & CRITICAL CARE MEDICINE [address] [place] [address] Christopher Kelly DO [address] [place] [address] 12/11/2025 3:00 PM EDT Office Visit [facility] CARDIOLOGY [address] [place] [address] Marguerite Moore MD [address] [facility] [address] [address] [place], [place] [id number] 12/16/2025 10:15 AM EDT Office Visit [facility] FAMILY MEDICINE [address] [place] [address] Red Groves MD [address] [place] [address] 03/19/2026 8:00 AM EDT Appointment [facility] [address] [place] [address] 03/19/2026 9:00 AM EDT Office Visit [facility] OBGYN [address] [place] [address] Keyona London, EXPLOSIVE ORDNANCE HANDLER [address] [facility] [address] [place] [address] documented as of this encounter Visit Diagnoses Not on filedocumented in this encounter Care Teams Petroleum Engineer Relationship Specialty Start Date End Date Red Groves MD [address] [place] [address] PCP - General Family Medicine 03/16/23 documented as of this encounter
--- OUTSIDE RECORDS SUMMARY | 2025-05-01 15:16 | XMS_ITS | Encounter Summary ---
[facility] Organization [facility] [address] [id number] Care Team Providers Care Dental Hygiene Teacher Name Role Phone Red Groves MD Primary Care Provider + Encounter Details Date Type Department Care Team (Late st Contact Info) Description 03/13/2025 Telephone [facility] OBGYN [address] [facility] [address] [place] [address] LitaKeyona, TRANSCRIPTION [address] [facility] [address] [place], [place] [id number] Social History Tobacco Use Types Packs/Day Years [...] or training? Not on file Preferred Language Australian 04/01/2023 PHQ-2 Answer Date Recorded Patient Health [...] London APRN. Returned call to Melissa at [facility] pharmacy. Clarified that Fosamax dosing should be one tablet onceweekly. She v/u. * Telephone Encounter - Sherry Mendez RegSched Rep - 03/13/2025 2:56 PM EDT [facility] Melissa needing some medication clarification on alendronate (Fosamax) 70 MG tablet - please call Melissa at [phone] documented in this encounter Plan of Treatment Upcoming Encounters Date Type Department Care Team (Late st Contact Info) Description 05/22/2025 9:30 AM EDT Office Visit [facility] CARDIOLOGY [address] [place] [address] [address] [place] [address] Sherrell Galarza PA [address] [facility] [address] [place] [address] 07/01/2025 9:15 AM EST Registration [facility] PULMONARY & CRITICAL CARE MEDICINE [address] [place] [address] 07/01/2025 9:30 AM EST Office Visit [facility] PULMONARY & CRITICAL CARE MEDICINE [address] [place] [address] 07/01/2025 10:00 AM EST Office Visit [facility] PULMONARY & CRITICAL CARE MEDICINE [address] [facility] [place] [address] Christopher Kelly DO [address] [place] [address] 12/11/2025 3:00 PM EDT Office Visit [facility] CARDIOLOGY [address] [facility] [address] [place] [address] Marguerite Moore MD [address] [facility] [address] [place] [address] 12/16/2025 10:15 AM EDT Office Visit [facility] FAMILY MEDICINE 210 [place] [address] Red Groves MD [address] [place] [address] 03/19/2026 8:00 AM EDT Appointment [facility] [address] [place] [address] 03/19/2026 9:00 AM EDT Office Visit [facility] OBGYN [address] [place] [address] Keyona London, TRANSCRIPTION [address] [facility] [address] [place] [address] documented as of this encounter Visit Diagnoses Not on filedocumented in this encounter Care Teams Dental Hygiene Teacher Relationship Specialty Start Date End Date Red Groves MD [address] [place] [address] PCP - General Family Medicine 03/16/23 documented as of this encounter
--- OUTSIDE RECORDS SUMMARY | 2025-05-01 15:16 | XMS_ITS | Encounter Summary ---
Author Organization [facility] Address [address] [place] [address] Care Team Providers Care Product Line Manager Name Role Phone Red Groves MD Primary Care Provider + Encounter Details Date Type Department Care Team (Late st Contact Info) Description 10/18/2024 Results Follow-Up [facility] [address] [place] [address] Giovanna Prater L, RHIT [address] [place] [address] Social History Tobacco Use Types [...] or training? Not on file Preferred Language Citizen Of [place] 04/01/2023 PHQ-2 Answer Date Recorded Patient Health [...] Visit [facility] [address] [facility] [address] [place] [address] Sherrell Galarza PA [address] [facility] [address] [facility] [address] [place] [address] 07/01/2025 9:15 AM EST Registration [facility] PULMONARY & CRITICAL CARE MEDICINE [address] [place] [address] 07/01/2025 9:30 AM EST Office Visit [facility] MED[facility]INE [address] [facility] [place] [place] [address] 07/01/2025 10:00 AM EST Office Visit [facility]ULMON[facility] MEDICINE [address] [facility] [place] [place] [address] Christopher Kelly DO [address] [place] [address] 12/11/2025 3:00 PM EDT Office Visit [facility] [address] [facility] [address] [place] [address] Marguerite Moore MD [address] [facility] [address] [place], [place] [id number] 12/16/2025 10:15 AM EDT Office Visit [facility] FAMILY MEDICINE [address] [place] [address] Red Groves MD [address] [place] [address] 03/19/2026 8:00 AM EDT Appointment [facility] [address] [place] [address] 03/19/2026 9:00 AM EDT Office Visit [facility] OBGYN [address] [place] [address] Keyona [place], RHIT [address] [facility] [address] [place] [address] documented as of this encounter Visit Diagnoses Not on filedocumented in this encounter Care Teams Product Line Manager Relationship Specialty Start Date End Date Red Groves MD [address] [place] [address] PCP - General Family Medicine 03/16/23 documented as of this encounter
== END 2025-05-01 23:59 | disposition home or self-care (01) ==
LOC: RT 15:14
PROVIDERS: PCP Family Medicine; Visit Provider Internal Medicine Pulmonary Disease
DX: J98.4 Other disorders of lung (principal); R06.02 Shortness of breath; R91.8 Other nonspecific abnormal finding of lung field
CPT/HCPCS: 71046

== ENCOUNTER 2025-06-03 08:30 | Outpatient (CLI) | payer MEDICARE, SELFPAY ==
--- OUTSIDE RECORDS SUMMARY | 2022-05-24 08:12 | XMS_ITS | Encounter Summary ---
[facility] [address] [place] [address] Care Team Providers Care Consumer Safety Officer Name Role Phone Red Groves MD Primary Care Provider + Encounter Details Date Type Department Care Team (Late st Contact Info) Description 05/24/2022 9:12 AM EDT Hospital Encounter [facility] PULMONARY & CRITICAL CARE MEDICINE [address] [place] [phone] Social History Tobacco Use Types Packs/Day Years Used Date Smoking Tobacco: Former Cigarettes 1 30 0 08/01/1979 - 08/01/2009 Smokeless Tobacco: Never Alcohol Use Standard Drinks/Week Comments Not Currently 0 (1 standard drink = 0.6 oz pur e alcohol) AUDIT-C Answer Date Recorded Q1: How often do you have a drink containing alcohol? Never 08/02/2024 Q2: How many drinks containi ng alcohol do you have on a typical day when you are drinking? Patient does not drink Q3: How often do you have si x or more drinks on one occasion? Never 08/02/2024 PHQ-2 Answer Date Recorded Retired PHQ-9: Brief Depression Severity Measure Score 0 11/22/2022 Abuse Screen Answer Date Recorded Feels Unsafe at Home or Work/School no 08/02/2024 Feels Threatened by Someone no 09/2024 Does Anyone Try to Keep You From Having Contact with Others or Doing Things Outside Your Home? no 08/02/2024 Physical Signs of Abuse Present no 08/02/2024 Housing Stability Answer Date Recorded Current Living Arrangements home 09/2024 Potentially Unsafe Housing Conditions Not on luís e 08/02/2024 Disabilities Answer Date Recorded Difficulty Concentrating, Remembering or Making Decisions no 08/02/2024 Difficulty Managing Errands Independently no 08/02/2024 Education Answer Date Recorded Help with school or training? Not on file Preferred Language [place] 04/01/2023 PHQ-2 Answer Date Recorded Patient Health Questionnaire-2 Score 0 12/10/2024 Comments No Sex and Gender Information Value Date Recorded Sex Assigned at Female 04/01/2025 8:23 AM EDT Legal Sex Female 10:22 AM EDT Gender Identity Not on file Sexual Orientation Straight 04/01/2025 8: 23 AM EDT documented as of this encounter Functional Status * Question Answer Date of Assessment Author 1. Wish to be (Past 1 Month) No 025 9:15 AM Adilia Allen RN 2. Non-Specific Active Suici jacob Thoughts (Past 1 Month) No 08/02/2024 9:15 AM Adilia Allen RN * Calculated C-SSRS Risk Score (Lifetime/Recent) Answer Date of Assessment Author No Risk Indicated 08/02/2024 9:15 AM Adilia Allen RN * [place] Suicide Severity Rating Scale (Screener/Recent Self-Report) Question Answer Date of Assessment Author 6. Suicidal Behavior (Lifetime) No 9:15 AM Adilia Allen RN * Question Answer Date of Assessment Author Little interest or pleasure in doing things Not at all 12/10/2024 10:23 AM EDT Miranda Farah MA Feeling down, depressed, or hopeless Not at all 12/10/2024 10:23 AM EDT Miranda Farah MA Patient Health Questionnaire-2 Score 0 12/10/2024 10:23 AM EDT Miranda Farah MA How difficult have these problems made it for you to do your work, take care of things at home, or get along with other people? Not difficult at all 12/10/2024 10:23 AM INDIRAT Miranda Farah MA documented as of this encounter Plan of Treatment Upcoming Encounters Date Type Department Care Team (Late st Contact Info) Description 07/01/2025 9:15 AM EST Registration [facility] P[facility] MEDICINE [address] [place] [address] 07/01/2025 9:30 AM EST Office Visit [facility]MON[facility]ITICAL [facility]ARE MEDICINE [address] [place] [address] 07/01/2025 10:00 AM EST Office Visit [facility] PULMON[facility]ICAL [facility] MEDICINE [address] [facility] [place] [address] Christopher Kelly DO [address] [place] [id number] 12/11/2025 3:00 PM EDT Office Visit [facility]OLOGY [address] [facility] [address] [place] [address] Marguerite Moore MD [address] [facility] [address] [address] [place] [id number] 12/16/2025 10:15 AM EDT Office Visit [facility] FAMILY MEDICINE [address] [place] [address] Red Groves MD [address] [place] [address] 03/19/2026 8:00 AM EDT Appointment [facility] BRE[facility] CENTER [address] [place] [address] 03/19/2026 9:00 AM EDT Office Visit [facility] OBGYN [address] [place] [address] Keyona London, TOMBSTONE ERECTOR HELPER [address] [facility] [address] [place], [place] [id number] 09/24/2026 2:30 PM EST Office Visit [facility] [address] [place] [address] Jose Juan Landis MD [address] [place] [address] documented as of this encounter Procedures Procedure Name Priority Date/Time Associated Diagnosis Comments XR CHEST PA AND LATERAL Routine 05/24/2022 9:12 AM EDT Pulmonary hypertension Chronic respiratory failure with hypoxia Atrial fibrillation and flutter documented in this encounter Results * XR Chest PA & Lateral (05/24/2022 9:12 AM EDT) Anatomical Region Laterality Modality Body, Chest N/A Radiographic Shabnam ging Narrative 05/24/2022 1:58 PM EDT Davida Kaba [id number] 05/24/2022 Chest X-Ray PA & Lateral Indication: Shortness of breath Findings: Lungs are clear. No effusions. Chronic hyperexpansion of the lungs consistent with underlying emphysema. Heart and mediastinum unremarkable. No pneumothorax. Interpretation: No acute cardiopulmonary findings. Changes consistent with chronic obstructive pulmonary disease. Francisco Kelly, Please note that portions of this note may have been completed with a voice recognition program. Efforts were made to edit the dictations, but occasionally words are mistranscribed. Christopher Kelly DO IMG DIAGNOSTIC IMAG ING ORDERABLES Final Result documented in this encounter Visit Diagnoses Not on filedocumented in this encounter Care Teams Consumer Safety Officer Relationship Specialty Start Date End Date Red Groves MD PCP - General 03/13/15 03/15/23 documented as of this encounter
--- OUTSIDE RECORDS SUMMARY | 2022-07-06 19:45 | XMS_ITS | Encounter Summary ---
[facility] [address] [place] [address] Care Team Providers Care External Relations Director Name Role Phone Red Groves MD Primary Care Provider + Reason for Visit * Hospital - Outpatient (Routine) - Closed Specialty Diagnoses / Procedures Referred By Contac t Referred To Contact Sleep Medicine Diagnoses Sleep apnea, unspecified type Procedures Polysomnography 4 or More Parameters Todd Cruz MD Phone: tel: fax: [facility] SLEEP LAB [address] [address] Phone: tel: fax: Referral ID Status Reason Start Date Expiration Date Visits Re quested Visits Authorized [id number] Closed 06/21/2022 06/21/2023 1 1 Encounter Details Date Type Department Care Team (Late st Contact Info) Description 07/06/2022 7:45 PM EST Hospital Encounter [facility] [address] [facility] [address] [place] [address] Todd Cruz MD [address] [place] [address] Social History Tobacco Use Types Packs/Day Years [...] or training? Not on file Preferred Language Sammarinese 04/01/2023 PHQ-2 Answer Date Recorded Patient Health Questionnaire-2 Score 0 12/10/2024 Comments No Sex and Gender Information Value Date Recorded Sex Assigned at Female 04/01/2025 8:23 AM EDT Legal Sex Female 10:22 AM EDT Gender Identity Not on file Sexual Orientation Straight 04/01/2025 8: 23 AM EDT documented as of this encounter Last Filed Vital Signs Vital Sign Reading Time Taken Comments Blood Pressure - - Pulse - - Temperature - - Respiratory Rate - - Oxygen Saturation - - Inhaled Oxygen Concentration - - Weight 56.2 kg (124 lb) 07/06/2022 8:51 PM EST Height 154.9 cm (5' 1 ) 07/06/2022 8:51 PM EST Body Mass Index 23.43 07/06/2022 8:51 PM EST documented in this encounter Functional Status * Question Answer Date of Assessment Author 1. Wish to be (Past 1 Month) No 01/02/2 025 9:15 AM Adilia Allen RN 2. Non-Specific Active Suici jacob Thoughts (Past 1 Month) No 08/02/2024 9:15 AM Adilia Allen RN * Calculated C-SSRS Risk Score (Lifetime/Recent) Answer Date of Assessment Author No Risk Indicated 08/02/2024 9:15 AM Adilia Allen RN * Leon Suicide Severity Rating Scale (Screener/Recent Self-Report) Question [...] Not difficult at all 12/10/2024 10:23 AM EDT Miranda Farah MA documented as of this encounter Plan of Treatment Upcoming Encounters Date Type Department Care Team (Late st Contact Info) Description 07/01/2025 9:15 AM EST Registration [facility] PULMONARY & CRITICAL CARE MEDICINE [address] [place] [address] 07/01/2025 9:30 AM EST Office Visit [facility] PULMONARY & CRITICAL CARE MEDICINE [address] [place] [address] 07/01/2025 10:00 AM EST Office Visit [facility] PULMONARY & CRITICAL CARE MEDICINE [address] [place] [address] Christopher Kelly DO [address] [place] [address] 12/11/2025 3:00 PM EDT Office Visit [facility] CARDIOLOGY [address] [facility] [address] [place] [address] Marguerite Moore MD [address] [facility] [address] [place], [place] [id number] 12/16/2025 10:15 AM EDT Office Visit [facility] FAMILY MEDICINE [address] [place] [address] Red Groves MD [address] [place] [address] 03/19/2026 8:00 AM EDT Appointment [facility] [address] [place] [address] 03/19/2026 9:00 AM EDT Office Visit [facility] OBGYN [address] [place] [address] Keyona London, INTERNATIONAL PROJECT MANAGER 1700 [facility] [address] [place] [id number] 09/24/2026 2:30 PM EST Office Visit [facility] CARDIOLOGY [address] [facility] [address] [place] [address] Jose Juan Landis MD [address] [facility] [address] [address] [place], [place] [id number] documented as of this encounter Procedures Procedure Name Priority Date/Time Associated Diagnosis Comments NPSG Routine 07/07/2022 5:51 AM EST Sleep apnea, unspecified type documented in this encounter Results * NPSG (07/07/2022 5:51 AM EST) Impressions Todd Cruz MD - 07/21/2022 9:32 AM EST 1. Mild obstructive sleep apnea. 2. Snoring. 3. Nocturnal hypoxemia, 1 LPM O2 needed to correct RECOMMENDATIONS: 1. Available data is suggestive of mild obstructive sleep apnea. Consider auto CPAP trial 4 to 20 cm of water pressure and CPAP download on therapy to make sure we are not missing any other pathology and to determine the adequacy of the pressure settings. Patient needed 1 L of oxygen during the study to treat sleep-related hypoxia. Will recommend repeating overnight oximetry on auto CPAP to see if patient will still need supplemental oxygen. 2. Discuss good sleep hygiene habits, including but not limited to fixed wake up and sleep time, avoid alcohol 4 hours before sleep and not driving while drowsy. Maintain ideal body weight. I have conducted an epoch by epoch review of the raw data and agree with the interpretation. Electronically signed by: Todd Cruz MD 07/21/22 09:28 EST Narrative Todd Cruz MD - 07/21/2022 9:32 AM EST Table formatting from the original result was not included. Polysomnography Report Patient Name: Davida Kaba Interpreting Physician: Todd Cruz MD Date of : 1955 Referring Physician: No info available Primary Care Physician: Red Groves MD Date of Study: Clinical Information Patient is a 67 y.o. female. With a history of snoring, pulmonary hypertension and COPD requiring supplemental oxygen. Methods used for Diagnostic Study: Subject was monitored in the sleep laboratory. Electroencephalogram (C3/M2, C4/M1, F3/M2, F4/M1, 01/M2, O2/M1), EOG, EKG, and EMG (chin and bilateral anterior tibialis) were monitored by surface electrodes and recorded utilizing a computerized polygraph. Airflow was recorded by a thermistor and pressure transducer at the nose and mouth and oxygen saturation was recorded by a pulse oximeter. Thoracic and abdominal respiratory movements were recorded on 2 separate channels by respiratory inductive plethysmograph. Sleep stages were scored by standard techniques and abnormal respiratory events, cardiac arrhythmias, and leg movements were analyzed. Polysomnography Results Diagnostic Summary TOTAL RECORDING TIME: Total Recording Time (TIB) (min): 487.8 minutes TOTAL SLEEP TIME: Total Sleep Time (TST)(min): 370.5 minutes SLEEP LATENCY: Sleep Latency (min): 50.4 STAGE R. LATENCY: Stage R Latency (min): 179.5 min SLEEP EFFICIENCY: Sleep Efficiency (%): 76 % WAKE AFTER SLEEP ONSET: Wake After Sleep Onset (WASO)(min): 66.9 minutes STAGE N1 DURATION: Stage N1 Duration (min): 70 minutes STAGE N1% TST Stage N1 % TST: 18.9 % STAGE N2 DURATION: Stage N2 Duration (min): 202.5 minutes STAGE N3% TST Stage N2 % TST: 54.7 % STAGE N2% TST Stage N3 Duration (min): 38.5 minutes STAGE N3 DURATION Stage N3 % TST: 10.4 % STAGE R DURATION Stage R Duration (min): 59.5 minutes STAGE R % TST Stage R % TST: 16.1 % LATENCY N1 FROM LIGHTS OUT Latency N1 from Lights Out (min): 50.4 minutes LATENCY N1 FROM SLEEP ONSET Latency N1 from Sleep Onset (min): 0 minutes LATENCY N2 FROM LIGHTS OUT Latency N2 from Lights Out (min): 53.4 minutes LATENCY N2 FROM SLEEP ONSET Latency N2 from Sleep Onset (min): 3 minutes LATENCY N3 FROM LIGHTS OUT Latency N3 from Lights Out (min): 90.9 minutes LATENCY N3 FROM SLEEP ONSET Latency N3 from Sleep Onset (min): 40.5 minutes LATENCY R FROM LIGHTS OUT Latency R from Lights Out (min): 229.9 minutes LATENCY R FROM SLEEP ONSET Latency R from Sleep Onset (min): 179.5 minutes Respiratory Data OBSTRUCTIVE APNEA INDEX Obstructive Apnea Index (#/hr TST): 0.8 OBSTRUCTIVE APNEA TOTAL Obstructive Apnea Total: 5 CENTRAL APNEA INDEX No data recorded CENTRAL APNEA TOTAL Central Apnea Total : 0 MIXED APNEA INDEX No data recorded MIXED APNEA TOTAL No data recorded OBSTRUCTIVE HYPOPNEA INDEX Obstructive Hypopnea Index (#/hr TST): 7.1 OBSTRUCTIVE HYPOPNEA TOTAL Obstructive Hypopnea Total (#/hr TST): 49 TOTAL APNEA INDEX Total Apnea Index (#/hr TST): 0.8 AHI: AHI: 7.9 RDI: RDI (if applicable): 0.8 NREM OAI NREM OAI (#/hr TST): 3 NREM CAREY NREM CAREY (#/hr TST): 3 NREM TE: No data recorded NREM TOTAL AL NREM Total Al (#/hr TST): 3 REM OAI: REM OAI (#/hr TST): 1 REM CAREY: No data recorded REM TE No data recorded REM TOTAL AL REM TOTAL Al (#/hr TST): 1 OCCURRENCE OF SAMI WEBB No data recorded DURATION OF SAMI WEBB No data recorded REM HYPOPNEA INDEX REM Hypopnea Index: 9.1 REM HYPOPNEA TOTAL REM Hypopnea (Total Count): 9 APNEA TOTAL No data recorded NREM HYPOPNEA INDEX NREM Hypopnea Index: 6.8 NREM HYPOPNEA TOTAL NREM Hypopnea (Total Count): 35 Arousals RESP AROUSAL INDEX Resp Arousal Index (#/hr TST): 6.5 LEG AROUSAL INDEX Leg Arousal Index (#/hr TST): 30 SPONTANEOUS AROUSAL INDEX No data recorded TOTAL AROUSAL INDEX Spontaneous Arousal Index (#/hr TST): 27.4 SNORE AROUSAL INDEX Total Arousal Index : 63.8 Limb Movements PLMS (TOTAL #) Total # PLMS: 239 PLMS INDEX Total # PLMS Arousals: 180 PLMS AROUSAL INDEX PLMS Index: 38.7 PLMS AROUSALS (TOTAL #) PLMS Arousal Index: 29.1 Cardiac AVG HR DURING SLEEP Avg HR During Sleep: 52.8 bpm HIGHEST HR DURING SLEEP Highest HR During Sleep: 77 bpm BRADYCARDIA Highest HR During Recordin bpm ASYSTOLE No data recorded SINUS TACHYCARDIA DURING SLEEP No data recorded NARROW COMPLEX TACHYCARDIA No data recorded WIDE COMPLEX TACHYCARDIA No data recorded HIGHEST HR DURING RECORDING No data recorded ATRIAL FIBRILLATION No data recorded OTHER ARRHTYMIAS No data recorded Oximetry MIN SPO2 Min SpO2: 83 % O2 SATURATION, MEAN VALUE Arterial Oxygen Saturation, Mean Value (%): 89.5 % Diagnostic Respiratory Index Summary by Body Position Supine AHI, REM No data recorded AHI, NREM No data recorded AHI, TOTAL No data recorded RDI, REM No data recorded RDI, NREM No data recorded RDI, TOTAL No data recorded TST (min) No data recorded AI, REM No data recorded AI, NREM No data recorded AI, TOTAL No data recorded HI, REM No data recorded HI, NREM No data recorded HI, TOTAL No data recorded Duration (Min) No data recorded Left AHI, REM AHI, REM : 20 AHI, NREM AHI, NREM: 9.3 AHI, TOTAL AHI, TOTAL : 10.5 RDI, REM RDI, REM : 20 RDI, NREM RDI, NREM : 9.3 RDI, TOTAL RDI, TOTAL : 10.5 TST (min) TST (min) : 176.5 AI, REM No data recorded AI, NREM No data recorded AI, TOTAL No data recorded HI, REM HI, REM : 20 HI, NREM HI, NREM : 9.3 HI, TOTAL HI, TOTAL : 10.5 Duration (Min) Duration (min) : 222.3 Right AHI, REM AHI, REM : 4.7 AHI, NREM AHI,NREM: 5.4 AHI, TOTAL AHI, TOTAL : 5.6 RDI, REM RDI, REM: 10.9 RDI, NREM RDI, NREM : 5.8 RDI, TOTAL RDI, TOTAL: 7.1 TST (min) TST (min) : 194 AI, REM AI, REM : 1.6 AI, NREM AI, NREM : 1.2 AI, TOTAL AI, TOTAL : 1.5 HI, REM HI, REM : 3.1 HI, NREM HI, NREM : 4.2 HI, TOTAL HI, TOTAL : 4 Duration (Min) Duration (min) : 214.2 Todd Cruz MD SLEEP CENTER ORDERABLES Final Result documented in this encounter Visit Diagnoses Not on filedocumented in this encounter Care Teams External Relations Director Relationship Specialty Start Date End Date Red Groves MD PCP - General 03/13/15 03/15/23 documented as of this encounter
--- OUTSIDE RECORDS SUMMARY | 2022-09-24 14:50 | XMS_ITS | Encounter Summary ---
[facility] [address] [place] [address] Care Team Providers Care Coating Technician Name Role Phone Red Groves MD Primary Care Provider + Encounter Details Date Type Department Care Team (Late st Contact Info) Description 09/24/2022 2:50 PM EST Hospital Encounter [facility] PULMONARY & CRITICAL CARE MEDICINE [address] [place] [address] Social History Tobacco Use Types Packs/Day Years [...] or training? Not on file Preferred Language Paraguayan 04/01/2023 PHQ-2 Answer Date Recorded Patient Health [...] 08/02/2024 9:15 AM Adilia Allen RN * [place] Suicide Severity Rating Scale (Screener/Recent Self-Report) Question [...] Info) Description 07/01/2025 9:15 AM EST Registration [facility] PULMONARY & CRITICAL CARE MEDICINE [address] [place] [address] 07/01/2025 9:30 AM EST Office Visit [facility] PULMONARY & CRITICAL CARE MEDICINE [address] [place] [address] 07/01/2025 10:00 AM EST Office Visit [facility] PULMONARY & CRITICAL CARE MEDICINE [address] [place] [address] Christopher Kelly, [address] [place], [place] [address] 12/11/2025 3:00 PM EDT Office Visit [facility] [facility] [address] [address] [place] [address] Marguerite Moore MD [address] [facility] [address] [place], [place] [address] 12/16/2025 10:15 AM EDT Office Visit [facility] FAMILY MEDICINE [address] [place] [address] Red Groves MD [address] [place] [address] 03/19/2026 8:00 AM EDT Appointment [facility] [address] [place] [address] 03/19/2026 9:00 AM EDT Office Visit [facility] OBGYN [address] [place] [address] Keyona London, ASSOCIATE PROGRAMMER [address] [facility] [address] [address] [place], [place] [address] 09/24/2026 2:30 PM EST Office Visit [facility] CARDIOLOGY [address] [place] [address] Jose Juan Landis MD [address] [place] [address] documented as of this encounter Procedures Procedure Name Priority Date/Time Associated Diagnosis Comments XR CHEST PA AND LATERAL Routine 09/24/2022 2:51 PM EST Preoperative respiratory examination documented in this encounter Results * XR Chest PA & Lateral (09/24/2022 2:51 PM EST) Anatomical Region Laterality Modality Body, Chest N/A Radiographic Shabnam ging Narrative 09/24/2022 4:31 PM EST Davida Kaba [id number] 09/24/2022 Chest X-Ray PA & Lateral Indication: Shortness of breath Findings: Lungs are clear. Chronic emphysematous changes. No effusions. Heart and mediastinum unremarkable. No pneumothorax. Interpretation: No acute cardiopulmonary findings Francisco Kelly DO Please note that portions of this note may have been completed with a voice recognition program. Efforts were made to edit the dictations, but occasionally words are mistranscribed. us Christopher Kelly DO IMG DIAGNOSTIC IMAG ING ORDERABLES Final Result documented in this encounter Visit Diagnoses Not on filedocumented in this encounter Care Teams Coating Technician Relationship Specialty Start Date End Date Red Groves MD PCP - General 03/13/15 03/15/23 documented as of this encounter
--- OUTSIDE RECORDS SUMMARY | 2025-04-15 10:15 | XMS_ITS | Encounter Summary ---
[facility] Address [address] [place] [address] Care Team Providers Care Welder Plasma Arc Name Role Phone Red Groves MD Primary Care Provider + Reason for Visit * Reason Comments Hospital Follow Up Visit TCM-DISCHARGE D ATE 04/10/25-[facility]- RECORDS IN CHART Encounter Details Date Type Department Care Team (Late st Contact Info) Description 04/15/2025 11:15 AM EDT Office Visit [facility] [address] [place] [address] Red Groves MD [address] [place] [address] Pneumonia of both lower lobes due to infectious organism (Primary Dx); WHO group 1 PAH; Obstructive sleep apnea; Thrush Social History Tobacco Use Types Packs/Day Years [...] or training? Not on file Preferred Language Mauritanian 04/01/2023 PHQ-2 Answer Date Recorded Patient Health [...] Sign Reading Time Taken Comments Blood Pressure 118/72 04/15/2025 11:06 AM EDT Pulse 84 04/15/2025 11:06 AM EDT Temperature 36.1 C (97 F) 04/15/2025 11:06 AM EDT Respiratory Rate 20 04/15/2025 11:0 6 AM EDT Oxygen Saturation 90% 04/15/2025 11: 06 AM EDT 3l pulse oxygen Inhaled Oxygen Concentration - - Weight 45.8 kg (101 lb) 04/15/2025 11:0 6 AM EDT Height 154.9 cm (5' 0.98 ) 04/15/2025 1 1:06 AM EDT Body Mass Index 19.1 04/15/2025 11:06 AM EDT documented in this encounter Progress Notes * Red Groves MD - 04/15/2025 11:15 AM EDT Transitional Care Follow Up Visit Subjective Davida Kaba is a 70 y.o. female who presents for a transitional care management visit. Within 48 business hours after discharge our office contacted her via telephone to coordinate her care and needs. I reviewed and discussed the details of that call along with the discharge summary, hospital problems, inpatient lab results, inpatient diagnostic studies, and consultation reports with Davida. Current outpatient and discharge medications have been reconciled for the patient. Reviewed by: Red Groves MD 04/10/2025 11:09 AM Date of TCM Phone Call Hospital [facility] Date of Discharge 04/10/2025 Risk for Readmission (LACE) No data recorded History of Present Illness Course During Hospital Stay: Patient was hospitalized from April 07 to April 10 at [facility] after presenting with 48 hours of an illness that began with nausea and vomiting shortly after eating out at a restaurant. She developed diarrhea 24 hours later. By the day of admission she was very weak and had increased shortness of breath. In the emergency room she was evaluatedand diagnosed with bilateral pneumonia and sepsis. Sepsis protocol was initiated and she was placedon antibiotics and admitted. Patient improved quickly. By the day of discharge she was back on 3 L/min of oxygen via nasal cannula and by the time of today's visit she has completed her oral antibiotics. Patient developed thrush from the antibiotics and was given nystatin. She had contacted this officelate last week requesting an oral medication due to the nausea that nystatin was causing. Patient was given fluconazole. Patient has known pulmonary artery hypertension and a history of atrial fibrillation. Patient had an elevated BNP on presentation raising concern for acute heart failure. [facility] cardiology team was consulted by the hospitalist. Patient underwent echocardiogram which showed persistence of elevated RV pressures. 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 Moore. MRI of the heart was considered to assess for potential restrictive pericarditis but ultimately decided against. Patient believes she was in atrial fibrillation upon presentation but cardiology felt like it was more likely multifocal atrial tachycardia and by the day of discharge had returned to sinus rhythm. The following portions of the patient's history were reviewed and updated as appropriate: allergies, current medications, past family history, past medical history, past social history, past surgicalhistory, and problem list. Review of Systems Objective BP 118/72 Pulse 84 Temp 97 ??F (36.1 ??C) Resp 20 Ht 154.9 cm (60.98 ) Wt 45.8 kg (101 lb) SpO2 90% Comment: 3l pulse oxygen BMI 19.10 kg/m?? Physical Exam Vitals reviewed. Constitutional: Appearance: Normal appearance. She is ill-appearing. HENT: Head: Normocephalic. Nose: Nose normal. Mouth/Throat: Mouth: Mucous membranes are dry. Comments: Small area of thrush on the left soft palate. Lips and tongue are dry Eyes: Conjunctiva/sclera: Conjunctivae normal. Cardiovascular: Rate and Rhythm: Normal rate and regular rhythm. Pulses: Normal pulses. Heart sounds: Normal heart sounds. Pulmonary: Effort: Pulmonary effort is normal. No respiratory distress. Breath sounds: Normal breath sounds. No wheezing. Comments: Patient is wearing her supplemental oxygen Neurological: Mental Status: She is alert. Assessment & Plan Diagnoses and all orders for this visit: 1. Pneumonia of both lower lobes due to infectious organism (Primary) 2. WHO group 1 PAH 3. Obstructive sleep apnea 4. Thrush Plan 1. For patient's pneumonia she has scheduled follow-up with [facility] pulmonology.She has completed antibiotics 2. Echocardiogram report is in the patient's chart but I explained to the patient it is likely Dr. Moore will want to see images. She will contact Dr. Moore's office regarding her recent echocardiogram 3. Continue use of CPAP for NEPTALI 4. Patient has 2 days left on her oral fluconazole which she will continue and may use the nystatinas a swish and spit documented in this encounter Plan of Treatment Upcoming Encounters Date Type Department Care Team (Late st Contact Info) Description 07/01/2025 9:15 AM EST Registration [facility] [address] [place] [address] 07/01/2025 9:30 AM EST Office Visit [facility] [address] [place] [address] 07/01/2025 10:00 AM EST Office Visit [facility] [address] [place] [phone] Ricardo Kellypeacejosie Saez, [address] [place], [place] [id number] 12/11/2025 3:00 PM EDT Office Visit [facility] [address] [facility] [address] [place] [phone] Marguerite Moore MD [address] [facility] [address] [place], [place] [id number] 12/16/2025 10:15 AM EDT Office Visit [facility] [address] [place] [address] Red Groves MD [address] [place] [address] 03/19/2026 8:00 AM EDT Appointment [facility] [address] [place] [address] 03/19/2026 9:00 AM EDT Office Visit [facility] [address] [place] [address] Keyona London, BELLY DANCER [address] [facility] [address] [place] [address] 09/24/2026 2:30 PM EST Office Visit [facility] [address] [facility] [address] [place] [address] Jose Juan Landis MD [address] [facility] [address] [place], [place] [id number] documented as of this encounter Visit Diagnoses Diagnosis Pneumonia of both lower lobes due to infectious organism- Primary WHO group 1 PAH Other chronic pulmonary heart diseases Obstructive sleep apnea Obstructive sleep apnea (adult) (pediatric) Thrush Candidiasis of mouth documented in this encounter Care Teams Welder Plasma Arc Relationship Specialty Start Date End Date Red Groves MD [address] [place] [address] PCP - General Family Medicine 03/16/23 documented as of this encounter
--- OUTSIDE RECORDS SUMMARY | 2025-05-08 11:15 | XMS_ITS | Encounter Summary ---
[facility] Organization [facility] Address [address] [place] [address] Care Team Providers Care College And Career Counselor Name Role Phone Red Groves MD Primary Care Provider + Encounter Details Date Type Department Care Team (Latest Contact Info) Description 05/08/2025 12:15 PM EDT - 05/08/2025 11:59 PM EDT Hospital Encounter [facility] [address] [facility] 3rd [place] [address] Encounter for examination for normal comparison or control in clinical research program Discharge Disposition: Home or Self Care Social [...] or training? Not on file Preferred Language Nigerian 04/01/2023 PHQ-2 Answer Date Recorded Patient Health [...] Hours As Needed for Wheezing. 18 g 3 05/07/2025 alendronate (Fosamax) 70 MG tabletIndications: Osteopenia, senile,Age-related [...] mouth once daily 90 capsule 3 07/04/2024 fluconazole (DIFLUCAN) 100 MG tablet Take 1 tablet by mouth Daily. 7 tablet 04/11/2025 fluticasone (FLONASE) 50 MCG/ACT nasal sprayIndications:N on-seasonal allergic rhinitis due to pollen Administer 2 sprays into the nostril(s) as directed by provider Daily for 360 days. 48 g 3 12/10/2024 Fluticasone-Umecli din-Vilant (Trelegy Ellipta) 200-62.5-25 MCG/ACT inhalerIndications :Asthma-COPD overlap syndrome Inhale 1 puff Daily. 60 each 3 05/07/2025 montelukast (SINGULAIR) 10 MG tabletIndications: Non-seasonal allergic [...] MOUTH THREE TIMES DAILY 90 tablet 1 05/01/2025 mupirocin (BACTROBAN) 2 % nasal ointmentIndication s:Impetigo Administer 1 Application into the nostril(s) as directed by provider 2 (Two) Times a Day. 15 g 04/22/2025 documented as of this encounter Plan of Treatment Upcoming Encounters Date Type Department Care Team (Late st Contact Info) Description 07/01/2025 9:15 AM EST Registration [facility] PULMONARY [facility]ITICAL [facility]ARE MEDICINE [address] [place] [address] 07/01/2025 9:30 AM EST Office Visit [facility]UL[facility]ARE MEDICINE [address] [place] [address] 07/01/2025 10:00 AM EST Office Visit [facility] MEDICINE [address] [place] [address] Christopher Kelly DO [address] [place] [address] 12/11/2025 3:00 PM EDT Office Visit [facility] CARDIOLOGY [address] [facility] [address] [place] [phone] Marguerite Moore MD [address] [facility] [address] [place], [place] [id number] 12/16/2025 10:15 AM EDT Office Visit [facility] FAMILY MEDICINE [address] [place] [address] Red Groves MD [address] [place] [address] 03/19/2026 8:00 AM EDT Appointment [facility] [address] [place] [address] 03/19/2026 9:00 AM EDT Office Visit [facility] OBG[facility] [address] [place] [address] LitaKeyona, DOUGH MIXER OPERATOR [address] [facility] [address] [place], [place] [id number] 09/24/2026 2:30 PM EST Office Visit [facility] C[facility]IOLOG[facility] [address] [facility] [address] [place] [phone] Jose Juan Landis MD [address] [facility] [address] [place], [place] [id number] documented as of this encounter Procedures Procedure Name Priority Date/Time Associated Diagnosis Comments OUTSIDE NON-INVASIVE CARDIOLOGY STUDY Routine 05/08/2025 12:15 PM EDT Encounter for examination for normal comparison or control in clinical research program documented in this encounter Results * External Echo Procedure (05/08/2025 12:15 PM EDT) Narrative SYSTEMGENERATED, DOCUMENTATION - 05/08/2025 12:15 PM EDT This procedure was auto-finalized with no dictation required. us Marguerite Moore MD [facility] ORD ERABLES Final Result documented in this encounter Visit Diagnoses Diagnosis Encounter for examination for normal comparison or control in clinical research program documented in this encounter Care Teams College And Career Counselor Relationship Specialty Start Date End Date Red Groves MD [address] [place] [address] PCP - General Family Medicine 03/16/23 documented as of this encounter
--- OUTSIDE RECORDS SUMMARY | 2025-05-22 08:30 | XMS_ITS | Encounter Summary ---
[facility] Address [address] [place] [address] Care Team Providers Care Mophead Trimmer And Wrapper Name Role Phone Red Groves MD Primary Care Provider + Reason for Visit * Reason Comments Atrial fibrillation and flutter Encounter Details Date Type Department Care Team (Late st Contact Info) Description 05/22/2025 9:30 AM EDT Office Visit [facility] [address] [facility] [address] [place] [phone] Sherrell Galarza PA [address] [facility] [address] [place] [address] Atrial fibrillation and flutter (Primary Dx); Pulmonary HTN; Asthma-COPD overlap syndrome Social History Tobacco Use [...] or training? Not on file Preferred Language Salvadorean 04/01/2023 PHQ-2 Answer Date Recorded Patient Health [...] Sign Reading Time Taken Comments Blood Pressure 118/52 05/22/2025 9:25 AM EDT Pulse 78 05/22/2025 9:25 AM EDT Temperature - - Respiratory Rate - - Oxygen Saturation 92% 05/22/2025 9:25 AM EDT Inhaled Oxygen Concentration - - Weight 49.1 kg (108 lb 3.2 oz) 05/22/2025 9:25 A M EDT Height 154.9 cm (5' 1 ) 05/22/2025 9:25 AM EDT Body Mass Index 20.44 05/22/2025 9:25 AM EDT documented in this encounter Progress Notes * Sherrell Galarza PA - 05/22/2025 9:30 AM EDTAssociated Order(s): ECG 12 Lead Post-Procedure Diagnose(s): Atrial fibrillation and flutter Davida Kaba 1955 Home phone not available 05/22/2025 [facility] Referring Provider: No ref. provider found Red Groves MD [address] [place] [address] Chief Complaint Patient presents with Atrial fibrillation and flutter Problem List: Atrial fibrillation/atrial flutter: Diagnosed in 2006, at the time of foot surgery. ROXI external cardioversion to normal sinus rhythm, 12/12/2006, with moderate pulmonary hypertension, EF 35%. Holter monitor, 04/04/2007, heart rate 44-92; average 60 BPM with no arrhythmias. CHADS score of 0. ROXI-guided external cardioversion of atrial flutter, May 2010, by Dr. Marguerite Moore with ROXI demonstrating a left ventricular ejection fraction of 55% to 60%, moderate to severe TR, and mild to moderate MR. EP study with radiofrequency ablation of 2 right atrial tachycardias, induction of a left atrial flutter not ablated, 08/20/2010. Echocardiogram, 03/06/2012, showing left ventricular ejection fraction of 50% to 55%, mild MR and mild to moderate TR. Recurrent atrial flutter, status post external cardioversion to normal sinus rhythm, 09/21/2013. Atrial flutter by EKG, 10/23/2013. External cardioversion of her atrial flutter with recurrent atrial fibrillation shortly thereafter,May 2014. Tikosyn initiation, May 2014 with conversion to normal sinus rhythm. Pulmonary vein ablation, RFA of atrial flutter and RFA of atrial tachycardia, 07/17/[address] Jose Juan Landis. Event monitor, April 2015: no evidence of atrial fibrillation, predominant rhythm is sinus withoccasional PACs, with subsequent discontinuation of Eliquis. Echo: 04/14/2016 EF 55%, mild MR, Moderate TR Echo 02/10/2021 LVEF 50%, mod TR, significant pulm HTN, mild MR Echo 06/02/22: EF 55%, Mod TR, RVSP 63 mmHg Echo 08/04/22: EF 55%, mod TR, RVSP 53 mmHg Diverticulosis. Atherosclerotic disease: CT scan of abdomen and pelvis, 11/07/2009: Atherosclerotic disease within abdominal aorta and iliacvessels. ASD: Repair at age 11. Left heart catheterization in 2000, with no coronary artery disease. Echocardiogram, 10/10/2008, with mild pulmonary hypertension, RVSP 42 mmHg, EF 65%. COPD/asthma Pulmonary HTN A. RHC, 04/20/2022: Excellent response to nitric oxide in a patient with severe pulmonary hypertension RHC 08/02/2024:Very good response to nitric oxide in a patient with severe pulmonary hypertension. Notes that she has been off of her CPAP for 1 month following nasal fracture Echocardiogram 10/30/2024: EF 55%, RVSP 55 mmHg, moderate to severe TR Echocardiogram 04/07/2025: EF 55%, LA mildly dilated. Mild AR, mild MR, RVSP 50-55 mmHg Thyroid nodule/hyperthyroidism: Diagnosed, September 2013. On methimazole with upcoming thyroidectomy per Dr. Magallanes, December 2013. Partial thyroidectomy by Dr. Jonathan Magallanes, 03/18/2014, with benign biopsy. Surgical history: Hysterectomy. Appendectomy. Hammertoe repair. Allergies Allergies Allergen Reactions Augmentin [Amoxicillin-Pot Clavulanate] Nausea And Vomiting Drixoral Non-Drowsy [Pseudoephedrine] Anxiety makes me anxious - cant sleep Current Medications Current Outpatient Medications: albuterol sulfate HFA 108 (90 Base) MCG/ACT inhaler, Inhale 2 puffs Every 4 (Four) Hours As Needed for Wheezing., Disp: 18 g, Rfl: 3 alendronate (Fosamax) 70 MG tablet, Take 30 [...] once daily, Disp: 90 capsule, Rfl: 3 fluconazole (DIFLUCAN) 100 MG tablet, Take 1 tablet by mouth Daily., Disp: 7 tablet, Rfl: 0 fluticasone (FLONASE) 50 MCG/ACT nasal spray, Administer 2 sprays into the nostril(s) as directed by provider Daily for 360 days., Disp: 48 g, Rfl: 3 Cfqisbahfww-Twezenrqp-Mrkkdu (Trelegy Ellipta) 200-62.5-25 MCG/ACT inhaler, Inhale 1 puff Daily., Disp: 60 each, Rfl: 3 montelukast (SINGULAIR) 10 MG tablet, [...] THREE TIMES DAILY, Disp: 90 tablet, Rfl: 1 mupirocin (BACTROBAN) 2 % nasal ointment, Administer 1 Application into the nostril(s) as directed by provider 2 (Two) Times a Day. (Patient not taking: Reported on 05/22/2025), Disp: 15 g, Rfl: 0 History of Present Illness: Pt presents for follow up of AF/AFL/ASD. Since we last saw the pt, she states she was in the hospital in April for food poisoning and aspiration PNA. She was there 3 days and did have an episode of AFIB that was brief. She has not had other episodes of AFIB that she is aware of. She has chronicSOB which is unchanged, CP, LH, and dizziness. Denies any hospitalizations, ER visits, bleeding, orTIA/CVA symptoms. Overall feels well for the most part. She watches her great grandchild 3-4 days. Vitals: 05/22/25 0925 BP: 118/52 BP Location: Left arm Patient Position: Sitting Cuff Size: Adult Pulse: 78 SpO2: 92% Weight: 49.1 kg (108 lb 3.2 oz) Height: 154.9 cm (61 ) Body mass index is 20.44 kg/m??. PE: General: NAD Neck: no JVD, no carotid bruits, no TM Heart RRR, NL S1, S2, S4 present, no rubs, murmurs Lungs: CTA, no wheezes, rhonchi, or rales Abd: soft, non-tender, NL BS Ext: No musculoskeletal deformities, no edema, cyanosis, or clubbing Psych: normal mood and affect Diagnostic Data: ECG 12 Lead Date/Time: 05/22/2025 10:14 AM Performed by: Sherrell Galarza PA Authorized by: Sherrell Galarza PA Comparison: compared with previous ECG from 06/01/2024 Similar to previous ECG Rhythm: sinus rhythm BPM: 74 1. Atrial fibrillation and flutter 2. Pulmonary HTN 3. Asthma-COPD overlap syndrome Plan: 1. PAF: PVA 2013, Overall doing well for the most part, but did have an episode of atrial fibrillation during hospital admission 04/07/2025 for food poisoning and aspiration pneumonia. This was brief and she has since not had any further episodes. 2. Atrial tachycardia, Remote RFA. No recurrence 3. Anticoagulation: Chadsvasc=4. ASA daily. She is currently not on anticoagulation due to hematuria in the past and superficial bleeding with scrapes and bruising. Discussed CVA risk with her today and benefit of anticoagulation. She is very hesitant to take anticoagulation at this time. Also discussed option of Watchman device. She is interested and would like more information about Watchman. She has previously declined this but is thinking about it again. I had a long discussion with her today on the procedure. I provided her with a booklet and she is going to talk to her family more aboutit and let us know what she thinks. 4. VHD/ASD/pulm HTN. Follow-up with Dr. Moore 5. COPD/asthma; on meds F/up in 12 months Electronically signed by STEPHANIE Jiménez, 05/22/25, 10:17 AM EDT. documented in this encounter Plan of Treatment Upcoming Encounters Date Type Department Care Team (Late st Contact Info) Description 07/01/2025 9:15 AM EST Registration [facility] [address] [place] [address] 07/01/2025 9:30 AM EST Office Visit [facility] [address] [place] [address] 07/01/2025 10:00 AM EST Office Visit [facility] [address] [place] [phone] Christopher Kelly, [address] [place], [place] [phone] 12/11/2025 3:00 PM EDT Office Visit [facility] [address] [facility] [address] [place] [phone] Marguerite Moore MD [address] [facility] [address] [place], [place] [id number] 12/16/2025 10:15 AM EDT Office Visit [facility] [address] [place] [address] Red Groves MD [address] [place] [address] 03/19/2026 8:00 AM EDT Appointment [facility] [address] [place] [address] 03/19/2026 9:00 AM EDT Office Visit [facility] [address] [place] [address] Keyona London, LOADING MACHINE TOOL SETTER [address] [facility] [address] [place] [address] 09/24/2026 2:30 PM EST Office Visit [facility] [address] [facility] [address] [place] [address] Jose Juan Landis MD [address] [facility] [address] [place], [place] [id number] documented as of this encounter Procedures Procedure Name Priority Date/Time Associated Diagnosis Comments ECG 12-LEAD Routine 05/22/2025 Atrial fibrillation and flutter documented in this encounter Results * ECG 12-LEAD (05/22/2025) Narrative 05/22/2025 Sherrell Galarza PA 05/22/2025 10:19 AM ECG 12 Lead Date/Time: 05/22/2025 10:14 AM Performed by: Sherrell Galarza PA Authorized by: Sherrell Galarza PA Comparison: compared with previous ECG from 06/01/2024 Similar to previous ECG Rhythm: sinus rhythm BPM: 74 Procedure Note Sherrell Galarza PA - 05/22/2025 9:30 AM EDT Davida Kaba 1955 Home phone not available 05/22/2025 [facility] Referring Provider: No ref. provider found Red Groves MD [address] [place] [address] Chief Complaint Patient presents with Atrial fibrillation and flutter Problem List: Atrial fibrillation/atrial flutter: Diagnosed in 2006, at the time of foot surgery. ROXI external cardioversion to normal sinus rhythm, 12/12/2006, withmoderate pulmonary hypertension, EF 35%. Holter monitor, 04/04/2007, heart rate 44-92; average 60 BPM with noarrhythmias. CHADS score of 0. ROXI-guided external cardioversion of atrial flutter, May 2010, by Dr.Paula Moore with ROXI demonstrating a left ventricular ejectionfraction of 55% to 60%, moderate to severe TR, and mild to moderate MR. EP study with radiofrequency ablation of 2 right atrial tachycardias,induction of a left atrial flutter not ablated, 08/20/2010. Echocardiogram, 03/06/2012, showing left ventricular ejection fraction of50% to 55%, mild MR and mild to moderate TR. Recurrent atrial flutter, status post external cardioversion to normalsinus rhythm, 09/21/2013. Atrial flutter by EKG, 10/23/2013. External cardioversion of her atrial flutter with recurrent atrialfibrillation shortly thereafter, May 2014. Tikosyn initiation, May 2014 with conversion to normal sinus rhythm. Pulmonary vein ablation, RFA of atrial flutter and RFA of atrialtachycardia, 07/17/[address] Jose uJan Landis. Event monitor, April 2015: no evidence of atrial fibrillation,predominant rhythm is sinus with occasional PACs, with subsequentdiscontinuation of Eliquis. Echo: 04/14/2016 EF 55%, mild MR, Moderate TR Echo 02/10/2021 LVEF 50%, mod TR, significant pulm HTN, mild MR Echo 06/02/22: EF 55%, Mod TR, RVSP 63 mmHg Echo 08/04/22: EF 55%, mod TR, RVSP 53 mmHg Diverticulosis. Atherosclerotic disease: CT scan of abdomen and pelvis, 11/07/2009: Atherosclerotic disease withinabdominal aorta and iliac vessels. ASD: Repair at age 11. Left heart catheterization in 2000, with no coronary artery disease. Echocardiogram, 10/10/2008, with mild pulmonary hypertension, RVSP 42mmHg, EF 65%. COPD/asthma Pulmonary HTN A. RHC, 04/20/2022: Excellent response to nitric oxide in a patient withsevere pulmonary hypertension RHC 08/02/2024:Very good response to nitric oxide in a patient with severepulmonary hypertension. Notes that she has been off of her CPAP for 1month following nasal fracture Echocardiogram 10/30/2024: EF 55%, RVSP 55 mmHg, moderate to severe TR Echocardiogram 04/07/2025: EF 55%, LA mildly dilated. Mild AR, mild MR, [id number] mmHg Thyroid nodule/hyperthyroidism: Diagnosed, September 2013. On methimazole with upcoming thyroidectomy per Dr. Magallanes, December 2013. Partial thyroidectomy by Dr. Jonathan Magallanes, 03/18/2014, with benignbiopsy. Surgical history: Hysterectomy. Appendectomy. Hammertoe repair. Allergies Allergies Allergen Reactions Augmentin [Amoxicillin-Pot Clavulanate] Nausea And Vomiting Drixoral Non-Drowsy [Pseudoephedrine] Anxiety makes me anxious - cant sleep Current Medications Current Outpatient Medications: albuterol sulfate HFA 108 (90 Base) MCG/ACT inhaler, Inhale 2 puffsEvery 4 (Four) Hours As Needed for Wheezing., Disp: 18 g, Rfl: 3 alendronate (Fosamax) 70 MG tablet, Take 30 minutes before first morningfood, drink or other medication. Avoid lying down for 30 minutes afterdose administered., Disp: 4 tablet, Rfl: 12 Calcium Carbonate-Vitamin D 600-200 MG-UNIT tablet, Take 1 tablet bymouth 2 (Two) Times a Day., Disp: , Rfl: dilTIAZem XR (Dilt-XR) 180 MG 24 hr capsule, Take 1 capsule by mouthonce daily, Disp: 90 capsule, Rfl: 3 fluconazole (DIFLUCAN) 100 MG tablet, Take 1 tablet by mouth Daily.,Disp: 7 tablet, Rfl: 0 fluticasone (FLONASE) 50 MCG/ACT nasal spray, Administer 2 sprays intothe nostril(s) as directed by provider Daily for 360 days., Disp: 48 g,Rfl: 3 Vdxfgqjdhok-Zsafsfwgx-Pacjqw (Trelegy Ellipta) 200-62.5-25 MCG/ACTinhaler, Inhale 1 puff Daily., Disp: 60 each, Rfl: 3 montelukast (SINGULAIR) 10 MG tablet, Take 1 tablet by mouth EveryNight., Disp: 90 tablet, Rfl: 3 multivitamin with minerals (MULTIVITAMIN ADULT PO), Take 1 tablet bymouth Every Morning., Disp: 30 tablet, Rfl: 1 NON FORMULARY, Place 1 dose under the tongue Daily. MULLEIN EXTRACTDROPS, Disp: , Rfl: O2 (OXYGEN), Inhale 3 L/min As Needed., Disp: , Rfl: rosuvastatin (CRESTOR) 10 MG tablet, Take 1 tablet by mouth Daily.,Disp: 90 tablet, Rfl: 3 sertraline (ZOLOFT) 50 MG tablet, Take 1 tablet by mouth Daily., Disp:90 tablet, Rfl: 3 sildenafil (REVATIO) 20 MG tablet, TAKE 1 TABLET BY MOUTH THREE TIMESDAILY, Disp: 90 tablet, Rfl: 1 mupirocin (BACTROBAN) 2 % nasal ointment, Administer 1 Application intothe nostril(s) as directed by provider 2 (Two) Times a Day. (Patient nottaking: Reported on 05/22/2025), Disp: 15 g, Rfl: 0 History of Present Illness: Pt presents for follow up of AF/AFL/ASD. Since we last saw the pt, shestates she was in the hospital in April for food poisoning andaspiration PNA. She was there 3 days and did have an episode of AFIB thatwas brief. She has not had other episodes of AFIB that she is aware of.She has chronic SOB which is unchanged, CP, LH, and dizziness. Denies anyhospitalizations, ER visits, bleeding, or TIA/CVA symptoms. Overall feelswell for the most part. She watches her great grandchild 3-4 days. Vitals: 05/22/25 0925 BP: 118/52 BP Location: Left arm Patient Position: Sitting Cuff Size: Adult Pulse: 78 SpO2: 92% Weight: 49.1 kg (108 lb 3.2 oz) Height: 154.9 cm (61 ) Body mass index is 20.44 kg/m . PE: General: NAD Neck: no JVD, no carotid bruits, no TM Heart RRR, NL S1, S2, S4 present, no rubs, murmurs Lungs: CTA, no wheezes, rhonchi, or rales Abd: soft, non-tender, NL BS Ext: No musculoskeletal deformities, no edema, cyanosis, or clubbing Psych: normal mood and affect Diagnostic Data: ECG 12 Lead Date/Time: 05/22/2025 10:14 AM Performed by: Sherrell Galarza PA Authorized by: Sherrell Galarza PA Comparison: compared with previous ECGfrom 06/01/2024 Similar to previous ECG Rhythm: sinus rhythm BPM: 74 1. Atrial fibrillation and flutter 2. Pulmonary HTN 3. Asthma-COPD overlap syndrome Plan: 1. PAF: PVA 2013, Overall doing well for the most part, but did have anepisode of atrial fibrillation during hospital admission 04/07/2025 for foodpoisoning and aspiration pneumonia. This was brief and she has since nothad any further episodes. 2. Atrial tachycardia, Remote RFA. No recurrence 3. Anticoagulation: Chadsvasc=4. ASA daily. She is currently not onanticoagulation due to hematuria in the past and superficial bleeding withscrapes and bruising. Discussed CVA risk with her today and benefit ofanticoagulation. She is very hesitant to take anticoagulation at thistime. Also discussed option of Watchman device. She is interested andwould like more information about Watchman. She has previously declinedthis but is thinking about it again. I had a long discussion with hertoday on the procedure. I provided her with a booklet and she is going totalk to her family more about it and let us know what she thinks. 4. VHD/ASD/pulm HTN. Follow-up with Dr. Moore 5. COPD/asthma; on meds F/up in 12 months Electronically signed by STEPHANIE Jiménez, 05/22/25, 10:17 AM EDT. us Sherrell BROWN ECG ORDERABLES Final Result documented in this encounter Visit Diagnoses Diagnosis Atrial fibrillation and flutter- Primary Pulmonary HTN Asthma-COPD overlap syndrome documented in this encounter Care Teams Mophead Trimmer And Wrapper Relationship Specialty Start Date End Date Red Groves MD [address] [place] [address] PCP - General Family Medicine 03/16/23 documented as of this encounter
--- NOTE | 2025-06-03 08:33 | XR_ITS ---
FINAL REPORT CLINICAL HISTORY: right hand pain COMPARISON: None FINDINGS: RIGHT HAND Three views demonstrate no acute fracture or dislocation. Osteopenia is noted. The visualized joint spaces are normally aligned. The soft tissues are unremarkable. IMPRESSION: No acute bony abnormality. Reviewed, Interpreted and Dictated by Jocy Vivar MD Transcribed by Annabel Traylor Authenticated and [facility]
--- NOTE | 2025-06-03 08:33 | XR_ITS ---
FINAL REPORT CLINICAL HISTORY: rt wrist pain FINDINGS: AP, oblique, and lateral views of the right wrist were obtained. There is no prior exam for comparison. Osteopenia limits exam. There is no acute fracture or dislocation. There is widening of the scapholunate distance consistent with scapholunate ligament tear. No acute soft tissue edema. IMPRESSION: No acute osseous abnormality of the right wrist. Scapholunate ligament tear. Reviewed, Interpreted and Dictated by Jocy Vivar MD Transcribed by Annabel Traylor Authenticated and [facility]
--- OUTSIDE RECORDS SUMMARY | 2025-06-03 08:36 | XMS_ITS | Encounter Summary ---
[facility] Address [address] [place] [address] Care Team Providers Care Nursery Attendant Name Role Phone Red Groves MD Primary Care Provider + Reason for Visit * Reason Comments Med Refill Encounter Details Date Type Department Care Team (Late st Contact Info) Description 04/08/2025 Refill [facility] MED[facility] [address] [place] [address] Christopher Kelly, [address] [place] [phone] Asthma-COPD overlap syndrome Social History Tobacco Use [...] or training? Not on file Preferred Language Belarusian 04/01/2023 PHQ-2 Answer Date Recorded Patient Health [...] Info) Description 07/01/2025 9:15 AM EST Registration [facility] [address] [place] [address] 07/01/2025 9:30 AM EST Office Visit [facility] [address] [place] [address] 07/01/2025 10:00 AM EST Office Visit [facility] [address] [place] [address] Christopher Kelly, [address] [place] [address] 12/11/2025 3:00 PM EDT Office Visit [facility] [address] [facility] [address] [place] [phone] Marguerite Moore MD [address] [facility] [address] [place] [address] 12/16/2025 10:15 AM EDT Office Visit [facility] [address] [place] [address] Red Groves MD [address] [place] [address] 03/19/2026 8:00 AM EDT Appointment [facility] [address] [place] [address] 03/19/2026 9:00 AM EDT Office Visit [facility] OBG[facility] [address] [place] [address] Keyona London, BOAT CARPENTER MECHANIC [address] [facility] [address] [place], [place] [id number] 09/24/2026 2:30 PM EST Office Visit [facility] [address] [facility] [address] [place] [phone] Jose Juan Landis MD [address] [facility] [address] [place] [address] documented as of this encounter Visit Diagnoses Diagnosis Asthma-COPD overlap syndrome documented in this encounter Care Teams Nursery Attendant Relationship Specialty Start Date End Date Red Groves MD [address] [place] [address] PCP - General Family Medicine 03/16/23 documented as of this encounter
--- OUTSIDE RECORDS SUMMARY | 2025-06-03 08:36 | XMS_ITS | Encounter Summary ---
[facility] Address [address] [place] [address] Care Team Providers Care Glass Smoother Name Role Phone Red Groves MD Primary [...] or training? Not on file Preferred Language Frisian 04/01/2023 PHQ-2 Answer Date Recorded Patient Health [...] Info) Description 07/01/2025 9:15 AM EST Registration [facility] [address] [facility] [place] [address] 07/01/2025 9:30 AM EST Office Visit [facility] MEDICINE [address] [place] [address] 07/01/2025 10:00 AM EST Office Visit [facility] MEDICINE [address] [place] [address] Christopher Kelly DO [address] [place] [address] 12/11/2025 3:00 PM EDT Office Visit [facility] C[facility] [address] [address] Marguerite Moore MD [address] [facility] [address] [address] 12/16/2025 10:15 AM EDT Office Visit [facility] [address] [facility] [place] [phone] Red Groves MD [address] [facility] [address] [place] [address] 03/19/2026 8:00 AM EDT Appointment [facility] [address] [place] [address] 03/19/2026 9:00 AM EDT Office Visit [facility] O[facility]YN [address] [place] [address] Keyona London, LVN [address] [facility] [address] [place] [address] 09/24/2026 2:30 PM EST Office Visit [facility] [address] [facility] [address] [place] [phone] Jose Juan Landis MD [address] [facility] [address] [address] [place], [place] [phone] documented as of this encounter Visit Diagnoses Not on filedocumented in this encounter Care Teams Glass Smoother Relationship Specialty Start Date End Date Red Groves MD [address] [place] [address] PCP - General Family Medicine 03/16/23 documented as of this encounter
--- OUTSIDE RECORDS SUMMARY | 2025-06-03 08:36 | XMS_ITS | Encounter Summary ---
[facility] Organization [facility] Address [address] [place] [address] Care Team Providers Care Mathematics Teacher Name Role Phone Red Groves MD Primary Care Provider + Reason for Referral * Diagnostic Imaging (Routine) - Closed Specialty Diagnoses / Procedures Referred By Contac t Referred To Contact Radiology Diagnoses Abnormality of left breast on screening mammogram Procedures Mammo Diagnostic Digital Tomosynthesis Left With CAD Red Groves MD [address] [place] [address] Phone: tel: fax: [facility] [address] [place] [address] Phone: tel: Referral ID Status Reason Start Date Expiration Date Visits Re quested Visits Authorized [id number] Closed 03/18/2025 06/17/2026 1 1 Encounter Details Date Type Department Care Team (Late st Contact Info) Description 03/18/2025 Results Follow-Up [facility] FAMILY MEDICINE [address] [place] [address] Red Groves MD [address] [place] [address] Social History Tobacco Use Types [...] or training? Not on file Preferred Language Ukrainian 04/01/2023 PHQ-2 Answer Date Recorded Patient Health [...] Info) Description 07/01/2025 9:15 AM EST Registration [facility] PULMONARY & CRITICAL CARE MEDICINE [address] [place] [address] 07/01/2025 9:30 AM EST Office Visit [facility] PULMONARY & CRITICAL CARE [place]IC[place] [address] 07/01/2025 10:00 AM EST Office Visit [facility] PULMONARY & CRITICAL CARE MEDICINE [address] [place] [address] Christopher Kelly DO [address] [place], [place] [address] 12/11/2025 3:00 PM EDT Office Visit [facility] CARDIOLOGY 1720 [facility] ST[address] [place] [address] Marguerite Moore MD 1720 [facility] BLDG E STAN [address] [place], [place] [address] 12/16/2025 10:15 AM EDT Office Visit [facility] FAMILY MEDICINE [address] [place] [address] Red Groves MD 210 [place] [address] 03/19/2026 8:00 AM EDT Appointment [facility] [address] [place] [address] 03/19/2026 9:00 AM EDT Office Visit [facility] OBGYN [address] [place] [address] Keyona London, CISCO ADMINISTRATOR 1700 [facility] [address] [place] [address] 09/24/2026 2:30 PM EST Office Visit [facility] CARDIOLOGY 1720 [facility] ST[address] [place] [address] Jose Juan Landis MD 1720 [facility] BLDG E ST[address] [place], [place] [id number] documented as of this encounter Results * [...] recalled from screening examination with tomosynthesis from [facility] for focal asymmetry in the left [...] mammogram documented in this encounter Care Teams Mathematics Teacher Relationship Specialty Start Date End Date [place] [address] PCP - General Family Medicine 03/16/23 documented as of this encounter
--- OUTSIDE RECORDS SUMMARY | 2025-06-03 08:36 | XMS_ITS | Encounter Summary ---
[facility] Address [address] [place] [address] Care Team Providers Care Highway Safety Engineer Name Role Phone Red Groves MD Primary Care Provider + Encounter Details Date Type Department Care Team (Late st Contact Info) Description 10/22/2024 Results Follow-Up [facility] 206 [place] [address] Giovanna Prater L, HAND DRAWER IN HELPER 210 [place] [address] Social History Tobacco Use Types [...] Info) Description 07/01/2025 9:15 AM EST Registration [facility] PULMONARY & CRITICAL CARE MEDICINE [address] [facility] [place] [address] 07/01/2025 9:30 AM EST Office Visit [facility] PULMONARY & CRITICAL CARE MEDICINE [address] [facility] [place] [address] 07/01/2025 10:00 AM EST Office Visit [facility] PULMONARY & CRITICAL CARE MEDICINE [address] [place] [address] Christopher Kelly DO [address] [place] [address] 12/11/2025 3:00 PM EDT Office Visit [facility] CARDIOLOGY 1720 [facility] 400 [place] [address] Marguerite Moore MD [address] E [facility] 400 [place] [address] 12/16/2025 10:15 AM EDT Office Visit [facility] FAMILY MEDICINE [address] [place] [address] Red Groves MD [address] [place], [place] [address] 03/19/2026 8:00 AM EDT Appointment [facility] [address] [place] [address] 03/19/2026 9:00 AM EDT Office Visit [facility] OBGYN [address] [place] [address] Keyona London, HAND DRAWER IN HELPER 1700 [facility] 701 [place] [address] 09/24/2026 2:30 PM EST Office Visit [facility] CARDIOLOGY 1720 [facility] 400 [place] [address] Jose Juan Landis MD 1720 [facility] BLDG E [facility] 400 [place] [address] documented as of this encounter Visit Diagnoses Not on filedocumented in this encounter Care Teams Highway Safety Engineer Relationship Specialty Start Date End Date Red Groves MD [address] [place] [address] PCP - General Family Medicine 03/16/23 documented as of this encounter
--- OUTSIDE RECORDS SUMMARY | 2025-06-03 08:36 | XMS_ITS | Encounter Summary ---
[facility] Address [address] [place] [address] Care Team Providers Care Musical Engineer Name Role Phone Red Groves MD Primary Care Provider + Encounter Details Date Type Department Care Team (Late st Contact Info) Description 04/11/2025 Transitional Care Management Telephone Encounter [facility] [address] [place] [address] Kathe Rock, IVIS Social History Tobacco [...] Call Center TCM Note Flowsheet Row Responses [facility] patient discharged from? [facility] Does the patient have one of [...] CENTER PULMONARY & CRITICAL CARE MEDICINE [address] [place] [address] 07/01/2025 9:30 AM EST Office Visit [facility] PULMONARY & CRITICAL CARE MEDICINE [address] [place] [address] 07/01/2025 10:00 AM EST Office Visit [facility] PULMONARY & CRITICAL CARE MEDICINE [address] [place] [address] Christopher Kelly, 2400 [place] [address] 12/11/2025 3:00 PM EDT Office Visit [facility] CARDIOLOGY [address] [address] Marguerite Moore MD 1720 [facility] [address] [address] 12/16/2025 10:15 AM EDT Office Visit [facility] FAMILY MEDICINE 210 [facility] [place] [address] Red Groves MD 210 [facility] [place] [address] 03/19/2026 8:00 AM EDT Appointment [facility] [address] [place] [address] 03/19/2026 9:00 AM EDT Office Visit [facility] OBGYN [address] [place] [address] Keyona London, STITCH SEPARATOR 1700 [facility] [address] [address] [place], [place] [address] 09/24/2026 2:30 PM EST Office Visit [facility] CARDIOLOGY 1720 [facility] [address] [address] [place] [address] Jose Juan Landis MD 1720 [facility] BLDG E ST[address] [place], [place] [address] documented as of this encounter Visit Diagnoses Not on filedocumented in this encounter Care Teams Musical Engineer Relationship Specialty Start Date End Date Red Groves MD 210 [place] [address] PCP - General Family Medicine 03/16/23 documented as of this encounter
--- OUTSIDE RECORDS SUMMARY | 2025-06-03 08:36 | XMS_ITS | Encounter Summary ---
Author Organization [facility] Address [address] [place] [address] Care Team Providers Care Patrol Community Service Officer Name Role Phone Red Groves MD Primary Care Provider + Encounter Details Date Type Department Care Team (Late st Contact Info) Description 03/26/2025 Results Follow-Up [facility] [address] [address] Red Groves MD [address] [place] [address] Social History Tobacco Use Types Packs/Day Years [...] or training? Not on file Preferred Language Czech 04/01/2023 PHQ-2 Answer Date Recorded Patient Health [...] Info) Description 07/01/2025 9:15 AM EST Registration [facility] PULMONARY & CRITICAL CARE MEDICINE [address] [facility] [place] [address] 07/01/2025 9:30 AM EST Office Visit [facility] PULMONARY & CRITICAL CARE MEDICINE [address] [facility] [place] [address] 07/01/2025 10:00 AM EST Office Visit [facility] PULMONARY & CRITICAL CARE MEDICINE [address] [facility] [place] [address] Christopher Kelly DO [address] [place] [address] 12/11/2025 3:00 PM EDT Office Visit [facility] CARDIOLOGY [address] [facility] 400 [place] [address] Marguerite Moore MD [address] [facility] 400 [place] [address] 12/16/2025 10:15 AM EDT Office Visit [facility] FAMILY MEDICINE [address] [place] [address] Red Groves MD [address] [place] [address] 03/19/2026 8:00 AM EDT Appointment PSYCHIATRIC [address] [place] [address] 03/19/2026 9:00 AM EDT Office Visit [facility] OBGYN [address] [place] [address] Keyona London, ROAD MECHANIC 1700 [facility] ST[facility] [address] [place] [address] 09/24/2026 2:30 PM EST Office Visit [facility] CARDIOLOGY [address] [place] [address] Jose Juan Landis MD 1720 [facility] [address] [address] [place], [place] [address] documented as of this encounter Visit Diagnoses Not on filedocumented in this encounter Care Teams Patrol Community Service Officer Relationship Specialty Start Date End Date Red Groves MD [address] [place] [address] PCP - General Family Medicine 03/16/23 documented as of this encounter
--- OUTSIDE RECORDS SUMMARY | 2025-06-03 08:36 | XMS_ITS | Encounter Summary ---
Author Organization [facility] Address [address] [place] [address] Care Team Providers Care Transport Rn Name Role Phone Red Groves MD Primary Care Provider + Reason for Visit * Reason Onset Date Comments - SCHEDULING REQUEST 04/23/2025 Encounter Details Date Type Department Care Team (Late st Contact Info) Description 04/23/2025 Telephone [facility] CARDIOLOGY 1720 [facility] 400 [place] [address] Jose Juan Landis MD 1720 [facility] E [facility] 400 [place] [address] - SCHEDULING REQUEST Social History Tobacco Use [...] to patient: Self Best call back number: [phone] Type of visit: FU Requested date: PREFERS [...] PULMONARY & CRITICAL CARE MEDICINE [address] [place] [address] 07/01/2025 9:30 AM EST Office Visit [facility] PULMONARY & CRITICAL CARE MEDICINE 2400 [facility] [place] [address] 07/01/2025 10:00 AM EST Office Visit [facility] PULMONARY & CRITICAL CARE MEDICINE [address] [facility] [place] [address] Christopher Kelly DO 2400 [place] [address] 12/11/2025 3:00 PM EDT Office Visit [facility] CARDIOLOGY [address] [address] Marguerite Moore MD 1720 [facility] BLDG E [address] [id number] 12/16/2025 10:15 AM EDT Office Visit [facility] FAMILY MEDICINE 210 [place] [address] Red Groves MD 210 [place] [address] 03/19/2026 8:00 AM EDT Appointment [facility] [address] [place] [address] 03/19/2026 9:00 AM EDT Office Visit [facility] OBGYN 206 [place] [address] Keyona London, DENTAL MOLD MAKER 1700 [facility] STAN [address] [place] [address] 09/24/2026 2:30 PM EST Office Visit [facility] CARDIOLOGY 1720 [facility] STAN [address] [place] [address] Jose Juan Landis MD 1720 [facility] BLDG E STAN [address] [place], [place] [address] documented as of this encounter Visit Diagnoses Not on filedocumented in this encounter Care Teams Transport Rn Relationship Specialty Start Date End Date Red Groves MD [address] [place] [address] PCP - General Family Medicine 03/16/23 documented as of this encounter
--- OUTSIDE RECORDS SUMMARY | 2025-06-03 08:36 | XMS_ITS | Encounter Summary ---
Author Organization [facility] Address [address] [place] [address] Care Team Providers Care Er Nurse Name Role Phone Red Groves MD Primary Care Provider + Reason for Visit * Reason Onset Date Comments Hospital Follow Up Visit 04/10/2025 Encounter Details Date Type Department Care Team (Late st Contact Info) Description 04/10/2025 Telephone [facility] FAMILY MEDICINE 210 [place] [address] Red Groves MD 210 [place] [address] Hospital Follow Up Visit Social [...] or training? Not on file Preferred Language Ivorian 04/01/2023 PHQ-2 Answer Date Recorded Patient Health [...] Date of discharge: 04/10/2025 Facility discharged from: [facility] Diagnosis/Symptoms: RESPIRATORY FAILURE Length of stay (If applicable): 3 DAYS Specialty Only: Did you see a [facility] health provider? [] Yes [x] No If so, who? Additional Details: documented in this encounter Plan of Treatment Upcoming Encounters Date Type Department Care Team (Late st Contact Info) Description 07/01/2025 9:15 AM EST Registration [facility] PULMONARY & CRITICAL CARE MEDICINE [address] [place] [address] 07/01/2025 9:30 AM EST Office Visit [facility] PULMONARY & CRITICAL CARE MEDICINE [address] [place] [address] 07/01/2025 10:00 AM EST Office Visit [facility] PULMONARY & CRITICAL CARE MEDICINE [address] [place] [address] Christopher Kelly DO 2400 [place] [address] 12/11/2025 3:00 PM EDT Office Visit [facility] CARDIOLOGY 1720 [facility] STAN 400 [place] [address] Marguerite Moore MD 1720 [facility] BLDG E STAN [address] [place], [place] [address] 12/16/2025 10:15 AM EDT Office Visit [facility] FAMILY MEDICINE 210 [place] [address] Red Groves MD 210 [place], [place] [address] 03/19/2026 8:00 AM EDT Appointment [facility] 206 [place] [address] 03/19/2026 9:00 AM EDT Office Visit [facility] OBGYN 206 [place] [address] Keyona London, HOUSE FELLOW 1700 [facility] 701 [place] [address] 09/24/2026 2:30 PM EST Office Visit [facility] CARDIOLOGY 1720 [facility] ST[address] [place] [address] Jose Juan Landis MD 1720 [facility] BLDG E ST[address] [place], [place] [address] documented as of this encounter Visit Diagnoses Not on filedocumented in this encounter Care Teams Er Nurse Relationship Specialty Start Date End Date Red Groves MD [address] [place] [address] PCP - General Family Medicine 03/16/23 documented as of this encounter
--- OUTSIDE RECORDS SUMMARY | 2025-06-03 08:36 | XMS_ITS | Encounter Summary ---
[facility] Address [address] [place] [address] Care Team Providers Care Bar Manager Name Role Phone Red Groves MD Primary Care Provider + Reason for Visit * Reason Onset Date Comments Appointment 04/22/2025 Encounter Details Date Type Department Care Team (Late st Contact Info) Description 04/22/2025 Telephone [facility] FAMILY MEDICINE 210 [place] [address] Red Groves MD 210 [place] [address] Appointment Social History Tobacco Use [...] or training? Not on file Preferred Language Chadian 04/01/2023 PHQ-2 Answer Date Recorded Patient Health [...] to patient: Self Best call back number: [phone] Chief complaint: LAST APPOINTMENT SHOWS A NO SHOW AND PATIENT CANCELED IN MY CHART. PATIENT IS SICK AND COULD NOT COME IN TODAY. Additional notes:PATIENT WANTED TO ADVISE THAT SHE CANCELLED THE APPOINTMENT ON 04/22 SHE WAS SICK. documented in this encounter Plan of Treatment Upcoming Encounters Date Type Department Care Team (Late st Contact Info) Description 07/01/2025 9:15 AM EST Registration [facility] PULMONARY & CRITICAL CARE MEDICINE [address] [place] [address] 07/01/2025 9:30 AM EST Office Visit [facility] PULMONARY & CRITICAL CARE MEDICINE [address] [place] [address] 07/01/2025 10:00 AM EST Office Visit [facility] PULMONARY & CRITICAL CARE MEDICINE [address] [place] [address] Christopher Kelly DO [address] [place] [address] 12/11/2025 3:00 PM EDT Office Visit [facility] CARDIOLOGY 1720 [facility] ST[facility] 400 [place] [address] Marguerite Moore MD 1720 [facility] BLDG E ST[address] [place], [place] [address] 12/16/2025 10:15 AM EDT Office Visit [facility] FAMILY MEDICINE 210 [place] [address] Red Groves MD 210 [place], [place] [address] 03/19/2026 8:00 AM EDT Appointment [facility] 206 [place] [address] 03/19/2026 9:00 AM EDT Office Visit [facility] OBGYN 206 [place] [address] Keyona London, OIL WELL DIRECTIONAL SURVEYOR 1700 [facility] 701 [place] [address] 09/24/2026 2:30 PM EST Office Visit [facility] CARDIOLOGY 1720 [facility] ST[facility] [address] [place] [address] Jose Juan Landis MD 1720 [facility] BLDG E ST[address] [place], [place] [address] documented as of this encounter Visit Diagnoses Not on filedocumented in this encounter Care Teams Bar Manager Relationship Specialty Start Date End Date Red Groves MD [address] [place] [address] PCP - General Family Medicine 03/16/23 documented as of this encounter
--- OUTSIDE RECORDS SUMMARY | 2025-06-03 08:36 | XMS_ITS | Encounter Summary ---
Author Organization [facility] Address [address] [place] [address] Care Team Providers Care Battalion Chief Name Role Phone Red Groves MD Primary Care Provider + Encounter Details Date Type Department Care Team (Late st Contact Info) Description 04/17/[address] [facility] CARDIOLOGY [address] [facility] [address] [place] [address] Marguerite Moore MD [address] [facility] [address] [address] [place] [address] Social History Tobacco Use Types Packs/Day Years [...] She reports being in the hospital at [facility]. She had food poisoning with nausea/vomiting. She aspirated and double pneumonia. She was in ICU at [facility]. She was admitted for four days. She finished her antibiotics yesterday. She states she had an echo while at hospital. Dr. Groves suggested we get those images and see if [facility] is OK with the images. I will get images and make sure [facility] reviews the images. She verbalizes understanding. Letter requesting images from [facility] sent. documented in this encounter Plan of Treatment Upcoming Encounters Date Type Department Care Team (Late st Contact Info) Description 07/01/2025 9:[address] [facility] PULMONARY & CRITICAL CARE MEDICINE [address] [place] [address] 07/01/2025 9:30 AM EST Office Visit [facility] PULMONARY & CRITICAL CARE MEDICINE [address] [place] [address] 07/01/2025 10:00 AM EST Office Visit [facility] PULMONARY & CRITICAL CARE MEDICINE [address] [place] [address] Christopher Kelly DO [address] [place], [place] [address] 12/11/2025 3:00 PM EDT Office Visit [facility] CARDIOLOGY [address] [facility] [address] [place] [address] Marguerite Moore MD [address] [facility] [address] [place], [place] [address] 12/16/2025 10:15 AM EDT Office Visit [facility] FAMILY MEDICINE 210 [place] [address] Red Groves MD 210 [place] [address] 03/19/2026 8:00 AM EDT Appointment [facility] 206 [place] [address] 03/19/2026 9:00 AM EDT Office Visit [facility] OBGYN 206 [place] [address] Keyona London, COMMERCIAL CREDIT SPECIALIST [address] [facility] [address] [place] [address] 09/24/2026 2:30 PM EST Office Visit [facility] CARDIOLOGY [address] [facility] [address] [place] [address] Jose Juan Landis MD [address] [facility] [address] [place], [place] [address] documented as of this encounter Visit Diagnoses Not on filedocumented in this encounter Care Teams Battalion Chief Relationship Specialty Start Date End Date Red Groves MD [address] [place] [address] PCP - General Family Medicine 03/16/23 documented as of this encounter
--- OUTSIDE RECORDS SUMMARY | 2025-06-03 08:36 | XMS_ITS | Encounter Summary ---
[facility] Address [address] [place] [address] Care Team Providers Care Mastic Floor Layer Name Role Phone Red Groves MD Primary Care Provider + Reason for Visit * Reason Comments Med Refill Encounter Details Date Type Department Care Team (Late st Contact Info) Description 05/01/[address] [facility] CARDIOLOGY 1720 [facility] [address] [place], [place] [address] Marguerite Moore MD [address] [facility] [place] [address] Med Refill Social History Tobacco Use Types [...] Description 07/01/2025 9:[address] [facility] PULMONARY & CRITICAL CARE MEDICINE [address] [place] [address] 07/01/2025 9:30 AM EST Office Visit [facility] PULMONARY & CRITICAL CARE MEDICINE [address] [place] [address] 07/01/2025 10:00 AM EST Office Visit [facility] PULMONARY & CRITICAL CARE MEDICINE [address] [place] [address] Christopher Kelly, [address]00 [place] [address] 12/11/2025 3:00 PM EDT Office Visit [facility] CARDIOLOGY [address] [place] [address] Marguerite Moore MD [address] [place] [address] 12/16/2025 10:15 AM EDT Office Visit [facility] FAMILY MEDICINE [address] [place] [address] Red Groves MD [address] [place], [place] [address] 03/19/2026 8:00 AM EDT Appointment [facility] [address] [place] [address] 03/19/2026 9:00 AM EDT Office Visit [facility] OBGYN [address] [place] [address] Keyona London, DIESEL ENGINE ASSEMBLER 1700 [facility] 701 [place] [address] 09/24/2026 2:30 PM EST Office Visit [facility] CARDIOLOGY 1720 [facility] [address] [place] [address] Jose Juan Landis MD 1720 [facility] [address] [place] [address] documented as of this encounter Visit Diagnoses Not on filedocumented in this encounter Care Teams Mastic Floor Layer Relationship Specialty Start Date End Date Red Groves MD [address] [place] [address] PCP - General Family Medicine 03/16/23 documented as of this encounter
--- OUTSIDE RECORDS SUMMARY | 2025-06-03 08:36 | XMS_ITS | Encounter Summary ---
[facility] Address [address] [place] [address] Care Team Providers Care Wired Sweatband Cutter Name Role Phone Red Groves MD Primary Care Provider + Encounter Details Date Type Department Care Team (Late st Contact Info) Description 10/18/2024 Results Follow-Up [facility] [address] [place] [address] Giovanna Prater L, FBI SPECIAL AGENT [address] [place] [address] Social History Tobacco Use Types [...] or training? Not on file Preferred Language Tajik 04/01/2023 PHQ-2 Answer Date Recorded Patient Health [...] Info) Description 07/01/2025 9:15 AM EST Registration [facility] PULMONARY & CRITICAL CARE MEDICINE [address] [facility] [place] [address] 07/01/2025 9:30 AM EST Office Visit [facility] PULMONARY & [facility]ITICAL CARE MEDICINE [address] [facility] [place] [address] 07/01/2025 10:00 AM EST Office Visit [facility] PULMONARY & CRITICAL CARE MEDICINE [address] [place] [address] Christopher Kelly DO [address] [place] [address] 12/11/2025 3:00 PM EDT Office Visit [facility] CARDIOLOGY [address] [facility] [address] [place] [address] Marguerite Moore MD [address] [facility] [address] [place] [address] 12/16/2025 10:15 AM EDT Office Visit [facility] FAMILY MEDICINE [address] [place] [address] Red Groves MD [address] [place] [place], [place] [id number] 03/19/2026 8:00 AM EDT Appointment [facility] [address] [place] [address] 03/19/2026 9:00 AM EDT Office Visit [facility] OBGYN [address] [place] [address] Keyona London, FBI SPECIAL AGENT [address] [facility] [address] [place] [address] 09/24/2026 2:30 PM EST Office Visit [facility] CARDIOLOGY [address] [facility] 400 [place] [address] Jose Juan Landis MD [address] [facility] [address] [facility] [address] [place] [address] documented as of this encounter Visit Diagnoses Not on filedocumented in this encounter Care Teams Wired Sweatband Cutter Relationship Specialty Start Date End Date Red Groves MD [address] [place] [address] PCP - General Family Medicine 03/16/23 documented as of this encounter
--- OUTSIDE RECORDS SUMMARY | 2025-06-03 08:37 | XMS_ITS | Encounter Summary ---
[facility] Address [address] [place] [address] Care Team Providers Care Aircraft Servicer Name Role Phone Red Groves MD Primary Care Provider + Encounter Details Date Type Department Care Team (Late st Contact Info) Description 04/10/2025 Readmission Management [facility] [address] [place] [address] Roxy Henderson, RN Social History Tobacco [...] AM EDT Prep Survey Flowsheet Row Responses [facility] patient discharged from? Non-BH Is LACE score less than 10 ? Non-BH Discharge Eligibility [facility] Date of Discharge 04/10/25 Discharge diagnosis [...] & CRITICAL CARE MEDICINE [address] [place] [address] 07/01/2025 9:30 AM EST Office Visit [facility] PULMONARY & CRITICAL CARE MEDICINE [address] [place] [address] 07/01/2025 10:00 AM EST Office Visit [facility] PULMONARY & CRITICAL CARE MEDICINE [address] [place] [address] Christopher Kelly, [address] [place] [id number] 12/11/2025 3:00 PM EDT Office Visit [facility] CARDIOLOGY [address] [facility] 400 [place] [address] Marguerite Moore MD [address] [facility] 400 [place], [place] [id number] 12/16/2025 10:15 AM EDT Office Visit [facility] FAMILY MEDICINE 210 [place] [address] Red Groves MD 210 [place] [address] 03/19/2026 8:00 AM EDT Appointment [facility] 206 [place] [address] 03/19/2026 9:00 AM EDT Office Visit [facility] OBGYN 206 [place] [address] Keyona London, DIRECTOR DIGITAL SALES [address] [facility] [address] [place] [address] 09/24/2026 2:30 PM EST Office Visit [facility] CARDIOLOGY [address] [facility] 400 [place] [address] Jose Juan Landis MD [address] [facility] 400 [place], [place] [id number] documented as of this encounter Visit Diagnoses Not on filedocumented in this encounter Care Teams Aircraft Servicer Relationship Specialty Start Date End Date Red Groves MD 210 [place] [address] PCP - General Family Medicine 03/16/23 documented as of this encounter
--- OUTSIDE RECORDS SUMMARY | 2025-06-03 08:37 | XMS_ITS | Encounter Summary ---
[facility] Address [address] [place] [address] Care Team Providers Care Home Care Specialist Name Role Phone Red Groves MD Primary Care Provider + Reason for Visit * Reason Onset Date Comments New Med Request 04/11/2025 Encounter Details Date Type Department Care Team (Late st Contact Info) Description 04/11/2025 Telephone [facility] FAMILY MEDICINE [address] [place] [address] Red Groves MD [address] [place] [address] New Med Request Social History [...] is your preferred pharmacy and phone number: [facility] - [place] - [address] [facility] - [phone] [facility] [phone] Additional notes: PATIENT GOT OUT OF THE HOSPITAL YESTERDAY AND IS CURRENTLY USING MAGIC MOUTHWASH THAT WAS PRESCRIBED TO HER BY [facility] TO HELP TREAT THRUSH CAUSED BY MEDICATIONS [...] Info) Description 07/01/2025 9:15 AM EST Registration [facility] PULMONARY & CRITICAL CARE MEDICINE [address] [place] [address] 07/01/2025 9:30 AM EST Office Visit [facility] PULMONARY & CRITICAL CARE MEDICINE [address] [place] [address] 07/01/2025 10:00 AM EST Office Visit [facility] PULMONARY & CRITICAL CARE MEDICINE [address] [place] [address] Christopher Kelly, [address] [place] [address] 12/11/2025 3:00 PM EDT Office Visit [facility] CARDIOLOGY [address] [place] [address] Marguerite Moore MD [address] [facility] [address] [address] [place] [address] 12/16/2025 10:15 AM EDT Office Visit [facility] FAMILY MEDICINE [address] [place] [address] Red Groves MD [address] [place], [place] [id number] 03/19/2026 8:00 AM EDT Appointment [facility] [address] [place] [address] 03/19/2026 9:00 AM EDT Office Visit [facility] OBGYN 206 [place] [address] Keyona London, PIPE BLANKS CUT OFF SAW OPERATOR [address] [facility] [address] [place] [address] 09/24/2026 2:30 PM EST Office Visit [facility] CARDIOLOGY [address] [facility] [address] [place] [address] Jose Juan Landis MD [address] [facility] [address] [address] [place] [address] documented as of this encounter Visit Diagnoses Not on filedocumented in this encounter Care Teams Home Care Specialist Relationship Specialty Start Date End Date Red Groves MD [address] [place] [address] PCP - General Family Medicine 03/16/23 documented as of this encounter
--- OUTSIDE RECORDS SUMMARY | 2025-06-03 08:37 | XMS_ITS | Encounter Summary ---
Author Organization [facility] Address [address] [place] [address] Care Team Providers Care Electronic Warfare Specialist Name Role Phone Red Groves MD Primary Care Provider + Encounter Details Date Type Department Care Team (Late st Contact Info) Description 04/02/2025 Results Follow-Up [facility] FAMILY MEDICINE [address] [place] [address] Red Groves MD [address] [place] [address] Social History Tobacco Use Types [...] or training? Not on file Preferred Language Russian 04/01/2023 PHQ-2 Answer Date Recorded Patient Health [...] CENTER PULMONARY & CRITICAL CARE MEDICINE [address] [address] 07/01/2025 9:30 AM EST Office Visit [facility] PULMONARY & CRITICAL CARE MEDICINE [address] [address] 07/01/2025 10:00 AM EST Office Visit [facility] PULMONARY & CRITICAL CARE MEDICINE [address] [place] [address] Christopher Kelly DO [address] [place] [address] 12/11/2025 3:00 PM EDT Office Visit [facility] CARDIOLOGY [address] [place] [address] Marguerite Moore MD [address] [facility] 400 [place] [address] 12/16/2025 10:15 AM EDT Office Visit [facility] FAMILY MEDICINE [address] [place] [address] Red Groves MD [address] [place], [place] [address] 03/19/2026 8:00 AM EDT Appointment [facility] [address] [place] [address] 03/19/2026 9:00 AM EDT Office Visit [facility] OBGYN [address] [place] [address] Keyona London, FREIGHT WEIGHER 1700 [facility] [address] [place], [place] [address] 09/24/2026 2:30 PM EST Office Visit [facility] CARDIOLOGY [address] [facility] [address] [place] [address] Jose Juan Landis MD [address] [facility] [address] [place], [place] [id number] documented as of this encounter Visit Diagnoses Not on filedocumented in this encounter Care Teams Electronic Warfare Specialist Relationship Specialty Start Date End Date Red Groves MD [address] [place] [address] PCP - General Family Medicine 03/16/23 documented as of this encounter
--- OUTSIDE RECORDS SUMMARY | 2025-06-03 08:37 | XMS_ITS | Encounter Summary ---
[facility] Address [address] [place] [address] Care Team Providers Care Mill Recorder Name Role Phone Red Mills MD Primary Care Provider + Encounter Details Date Type Department Care Team (Late st Contact Info) Description 03/26/2025 Telephone [facility] FAMILY MEDICINE [address] [place] [address] Red Mills MD [address] [place] [address] Social History Tobacco Use Types [...] or training? Not on file Preferred Language Puerto Rican 04/01/2023 PHQ-2 Answer Date Recorded Patient Health Questionnaire-2 Score 0 12/10/2024 Comments No Sex and Gender Information Value Date Recorded Sex Assigned at Female 04/01/2025 8:23 AM EDT Legal Sex Female 10:22 AM EDT Gender Identity Not on file Sexual Orientation Straight 04/01/2025 8: 23 AM EDT documented as of this encounter Miscellaneous Notes * Telephone Encounter - Kaz Gao MA - 05/16/2025 10:41 AM EDT Noted. * Telephone Encounter - Red Mills MD [...] OR BECAUSE OF DR MILLS NOTE FRON 0825 SHE IS ASKING IF SHE SHOULD WAIT A YEAR. documented in this encounter Plan of Treatment Upcoming Encounters Date Type Department Care Team (Late st Contact Info) Description 07/01/2025 9:15 AM EST Registration [facility] PULMONARY & CRITICAL CARE MEDICINE [address] [place] [address] 07/01/2025 9:30 AM EST Office Visit [facility] PULMONARY & CRITICAL CARE MEDICINE [address] [place] [address] 07/01/2025 10:00 AM EST Office Visit [facility] PULMONARY & CRITICAL CARE MEDICINE [address] [place] [address] Christopher Kelly DO [address] [place] [address] 12/11/2025 3:00 PM EDT Office Visit [facility] CARDIOLOGY [address] [place] [address] Marguerite Moore MD [address] [facility] [address] [address] [place], [place] [id number] 12/16/2025 10:15 AM EDT Office Visit [facility] FAMILY MEDICINE [address] [place] [address] Red Mills MD [address] [place] [address] 03/19/2026 8:00 AM EDT Appointment [facility] [address] [place] [address] 03/19/2026 9:00 AM EDT Office Visit [facility] OBGYN [address] [place] [address] Keyoan London, CLINICAL CARE LEADER [address] [facility] [address] [place] [address] 09/24/2026 2:30 PM EST Office Visit [facility] CARDIOLOGY [address] [facility] 400 [place] [address] Jose Juan Landis MD [address] [facility] [address] [address] [facility] 400 [place], [place] [id number] documented as of this encounter Visit Diagnoses Not on filedocumented in this encounter Care Teams Mill Recorder Relationship Specialty Start Date End Date Red Mills MD [address] [place] [address] PCP - General Family Medicine 03/16/23 documented as of this encounter
--- OUTSIDE RECORDS SUMMARY | 2025-06-03 08:37 | XMS_ITS | Clinical Summary ---
Author Organization [facility] ystem Address [address] [place] [address] Care Team Providers Care Wine Blender Name Role Phone Red Groves MD Primary [...] (OXYGEN) Inhale 3 L/min As Needed. Active dilTIAZem XR (Dilt-XR) 180 MG 24 hr capsule Take 1 capsule by mouth once daily 90 capsule 3 07/04/20 24 Active fluticasone (FLONASE) 50 MCG/ACT nasal sprayIndications :Non-seasonal allergic rhinitis due to pollen Administer 2 sprays into the nostril(s) as directed by provider Daily for 360 days. 48 g 3 12/11/19 25 026 Active montelukast (SINGULAIR) 10 MG tabletIndication s:Non-seasonal allergic rhinitis due to pollen Take 1 tablet by mouth Every Night. 90 tablet 3 12/11/19 25 Active rosuvastatin (CRESTOR) 10 MG tabletIndication s:Atheroscleroti c vascular disease Take 1 tablet by mouth Daily. 90 tablet 3 12/11/19 25 Active sertraline (ZOLOFT) 50 MG tabletIndication s:Anxiety disorder, unspecified type Take 1 tablet by mouth Daily. 90 tablet 3 12/11/19 [address] 1 dose under the tongue Daily. MULLEIN EXTRACT DROPS Active alendronate (Fosamax) 70 MG tabletIndication s:Osteopenia, senile,Age-relat ed osteoporosis without current pathological fracture Take 30 minutes before first morning food, drink or other medication. Avoid lying down for 30 minutes after dose administered. 4 tablet 12 03/13/20 25 Active fluconazole (DIFLUCAN) 100 MG tablet Take 1 tablet by mouth Daily. 7 tablet 04/11/20 25 Active sildenafil (REVATIO) 20 MG tablet TAKE 1 TABLET BY MOUTH THREE TIMES DAILY 90 tablet 1 05/01/20 25 Active albuterol sulfate HFA 108 (90 Base) MCG/ACT inhalerIndicatio ns:Asthma-COPD overlap syndrome Inhale 2 puffs Every 4 (Four) Hours As Needed for Wheezing. 18 g 3 05/07/20 25 Active Fluticasone-Umec lidin-Vilant (Trelegy Ellipta) 200-62.5-25 MCG/ACT inhalerIndicatio ns:Asthma-COPD overlap syndrome Inhale 1 puff Daily. 60 each 3 05/07/20 25 Active albuterol sulfate HFA 108 (90 Base) MCG/ACT inhalerIndicatio ns:Asthma-COPD overlap syndrome Inhale 2 puffs Every 4 (Four) Hours As Needed for Wheezing. 18 g 11 12/07/19 24 025 Discontinu ed(Reorder ) Trelegy Ellipta 200-62.5-25 MCG/ACT inhalerIndicatio ns:Asthma-COPD overlap syndrome INHALE 1 PUFF ONCE DAILY 60 each 04/08/20 25 025 Discontinu ed(Reorder ) mupirocin (BACTROBAN) 2 % nasal ointmentIndicati ons:Impetigo Administer 1 Application into the nostril(s) as directed by provider 2 (Two) Times a Day. 15 g 04/22/20 25 025 Discontinu ed(Discont inued by another clinician) Active Problems Problem Noted Date Diagnosed Date [...] rate of 63 beats per minute. Normal AK, QRS and QTc intervals. Nonspecific ST-T wave [...] Encounters Date Type Department Care Team Description 05/22/2025 9:30 AM EDT Office Visit [facility] CARDIOLOGY [address] [place] [address] Sherrell Galarza, PA Atrial fibrillation and flutter (Primary Dx); Pulmonary HTN; Asthma-COPD overlap syndrome 05/22/2025 Travel 05/08/2025 12:15 PM EDT - 05/08/2025 11:59 PM EDT Hospital Encounter [facility] CARDI[facility]ULAR LAB [address] [place] [phone] Encounter for examination for normal comparison or control in clinical research program Discharge Disposition: Home or Self Care 05/07/2025 Refill [facility] PULMONARY & CRITICAL CARE MEDICINE [address] [place] [address] Christopher Kelly, DO Asthma-COPD overlap syndrome 05/04/2025 Refill [facility] PULMONARY & CRITICAL CARE MEDICINE [address] [place] [address] jettRicardo johnsonwen Se, DO Asthma-COPD overlap syndrome 05/01/2025 Refill [facility] CARDIOLOGY [address] [facility] [address] [place] [address] Marguerite Moore MD Med Refill 04/23/2025 Telephone [facility] CARDIOLOGY [address] [place] [address] MD [address]TOMASSONI - SCHEDULING REQUEST 04/22/2025 Telephone [facility] FAMILY MEDICINE [address] [place] [address] Red Groves MD Appointment 04/17/2025 Telephone [facility] CARDIOLOGY [address] [facility] [address] [place] [address] Marguerite Moore MD 04/15/2025 11:15 AM EDT Office Visit [facility] MEDICINE [address] [place] [address] Red Groves MD Pneumonia of both lower lobes due to infectious organism (Primary Dx); WHO group 1 PAH; Obstructive sleep apnea; Thrush 04/15/2025 Travel 04/11/2025 Transitional Care Management Telephone Encounter [facility] NURSE CALL CENTER [address] [facility] [place] [address] Kathe Rock RN 04/11/2025 Telephone [facility] MEDICINE [address] [place] [address] Red Groves MD New Med Request 04/10/2025 Readmission Management [facility] CALL [facility] [address] [place] [address] Roxy Henderson RN 04/10/2025 Telephone [facility] FAMILY MEDICINE [address] [place] [address] Red Groves MD Hospital Follow Up Visit 04/08/2025 Refill [facility] PULMONARY & CRITICAL CARE MEDICINE [address] [place] [phone] Christopher Kelly DO Asthma-COPD overlap syndrome 04/02/2025 8:00 AM EDT - 04/02/2025 11:59 PM EDT Hospital Encounter [facility] [address] [place] [phone] Red Groves MD Abnormality of left breast on screening mammogram Discharge Disposition: Home or Self Care 04/02/2025 Results Follow-Up [facility] FAMILY MEDICINE [address] [place] [address] Red Groves MD 04/02/2025 Travel 03/26/2025 Telephone [facility] FAMILY MEDICINE [address] [place] [address] Red Groves MD 03/26/2025 Results Follow-Up [facility] [address] [facility] [address] [place] [address] Red Groves MD 03/18/2025 Results Follow-Up [facility] FAMILY MEDICINE [address] [place] [address] Red Groves MD 03/13/2025 1:00 PM EDT Office Visit [facility] OBGYN [address] [place] [address] Lita, Keyona Marilou, HOME SPECIALIST Pap test, as part of routine gynecological examination (Primary Dx); Women's annual routine gynecological examination; Breast cancer screening by mammogram; Menopausal state; Osteopenia, senile; History of hysterectomy, supracervical; Age-related osteoporosis without current pathological fracture 03/13/2025 Telephone [facility] OBGYN [address] [place] [phone] LitaKeyona whitman ACACIA Zamarripa 03/13/2025 Travel 03/06/2025 11:00 AM EDT Office Visit [facility] CARDIOLOGY [address] [facility] [address] [place] [phone] Marguerite Moore MD Atrial fibrillation and flutter (Primary Dx); ASD (atrial septal defect); Atherosclerotic vascular disease 03/06/2025 Patient rounding ([facility] [place] [facility] [address] [facility] [address] [place] [address] Addis Rubalcava, RegRondaed Rep 03/06/2025 Travel 03/05/2025 Telephone [facility] CARDIOLOGY [address] [facility] [address] [place] [address] Marguerite Moore MD Medication Reconciliation from Last [...] Relation Name Status Comments Brother 1 Manohar Barber Brother 2 Father Zak Barber Maternal Grandmother [...] Pulse 78 05/22/2025 9:25 AM EDT Temperature 36.1 C (97 F) 04/15/2025 11:06 AM EDT Respiratory Rate 20 04/15/2025 11:06 AM EDT Oxygen Saturation 92% 05/22/2025 9:25 AM EDT Inhaled Oxygen Concentration - - Weight 49.1 kg (108 lb 3.2 oz) 05/22/2025 9:25 A M EDT Height 154.9 cm (5' 1 ) 05/22/2025 9:25 AM EDT Body Mass Index 20.44 05/22/2025 9:25 AM EDT Plan of Treatment Upcoming Encounters Date Type Department Care Team (Late st Contact Info) Description 07/01/2025 9:15 AM EST Registration [facility] PULMONARY & CRITICAL CARE MEDICINE [address] [place] [address] 07/01/2025 9:30 AM EST Office Visit [facility] PULMONARY & CRITICAL CARE MEDICINE [address] [place] [address] 07/01/2025 10:00 AM EST Office Visit [facility] PULMONARY & CRITICAL CARE MEDICINE [address] [place] [address] Christopher Kelly, [address] [place] [address] 12/11/2025 3:00 PM EDT Office Visit [facility] CARDIOLOGY [address] [facility] [address] [place] [address] Marguerite Moore MD [address] [place], [place] [phone] 12/16/2025 10:15 AM EDT Office Visit [facility] FAMILY MEDICINE [address] [place] [address] Red Groves MD [address] [place] [address] 03/19/2026 8:00 AM EDT Appointment [facility] BREAST CENTER [address] [place] [address] 03/19/2026 9:00 AM EDT Office Visit [facility] OBGYN [address] [place] [address] Keyona London, HOME SPECIALIST [address] [place] [address] 09/24/2026 2:30 PM EST Office Visit [facility] CARDIOLOGY [address] [place] [address] Jose Juan Landis MD [address] [place] [address] Health Maintenance Due Date Last Done Comments COLOGUARD 01/27/2001 COLON CANCER SCREENING 5 YEA R SIGMOIDOSCOPY 01/27/2001 CT COLONOGRAPHY 01/27/2001 FECAL OCCULT BLOOD TEST 01/27/2001 FIT Testing (1 year) 01/27/2001 DXA SCAN 04/23/2018 04/23/2016 INFLUENZA VACCINE 03/01/2025 05/12/2024, , 04/27/2022, Additional history exists COVID-19 Vaccine (8 - Pfizer risk 2024-25 season) 2025 05/12/2024, 07/02/2023, 05/15/2022, Additional history [...] 08/14/2024, 014 Medical Devices Implanted Type Area Drop Wire Aliner Device Identifier Shelf Expiration Date Model / Serial / Lot Tam Patch (Asd Repair) Procedures Procedure Name Priority Date/Time Associated Diagnosis Comments ECG 12-LEAD Routine 05/22/2025 Atrial fibrillation and flutter OUTSIDE NON-INVASIVE CARDIOLOGY STUDY Routine 05/08/2025 12:15 PM EDT Encounter for examination for normal comparison or control in clinical research program SCANNED EKG 04/07/2025 SCANNED EKG 04/07/2025 SCANNED [...] Relevant to Health Maintenance Results * ECG 12-LEAD (05/22/2025) Narrative 05/22/2025 Sherrell Galarza PA 05/22/2025 10:19 AM ECG 12 Lead Date/Time: 05/22/2025 10:14 AM Performed by: Sherrell Galarza PA Authorized by: Sherrell Galarza PA Comparison: compared with previous ECG from 06/01/2024 Similar to previous ECG Rhythm: sinus rhythm BPM: 74 Procedure Note Sherrell Galarza PA - 05/22/2025 9:30 AM EDT Davida Peteronnie Kaba 1955 Home phone not available 05/22/2025 [facility] CARDIOLOGY Referring Provider: No ref. provider found Red Groves MD [address] [place] [address] Chief Complaint Patient presents with Atrial fibrillation [...] RFA of atrialtachycardia, 07/17/[address] Jose Juan Landis. Event [...] LA mildly dilated. Mild AR, mild MR, DBYL20-68 mmHg Thyroid nodule/hyperthyroidism: Diagnosed, September 2013. On [...] for 360 days., Disp: 48 g,Rfl: 3 Oibpxadmzmo-Bqzoykyrr-Nscwro (Trelegy Ellipta) 200-62.5-25 MCG/ACTinhaler, Inhale 1 puff [...] by STEPHANIE Jiménez, 05/22/25, 10:17 AM EDT. Sherrell BROWN ECG ORDERABLES Final Result * External Echo Procedure (05/08/2025 12:15 PM EDT) Narrative SYSTEMGENERATED, DOCUMENTATION - 05/08/2025 12:15 PM EDT This procedure was auto-finalized with no dictation required. Marguerite Moore MD CV CARDIAC SERVICES ORD ERABLES Final Result * ECG Scan (04/07/2025) Only the most [...] of4 resultswithin the time period is included. us Red Groves MD LAB BLOOD ORDERABLES [...] from screening examination with tomosynthesis from [facility] for focal asymmetry in the [...] IMG MAMMOGRAPHY ORDERABL ES Final Result * [facility] GENETIC RISK ASSESSMENT QUESTIONNAIRE - , (04/01/2025 7:08 PM EDT) Robbin 2.6 AMB GENETICS NCCN NCCN not met [facility] Comment:High Risk Cancer Ris k Assessment 04/01/2025 7:08 PM EDT Red Groves MD GENETIC TESTING Final Re sult GEM MITCHELL
[address] [facility] [place] [address], * MAMMO Scan (03/13/2025) Anatomical Region Laterality [...] MD 08/15/2024 3:56 PM EST Workstation ID: [id number] Narrative 08/15/2024 3:[address] CHEST [...] MD 08/15/2024 3:56 PM EST Workstation ID: [id number] Christopher Kelly DO IMG CT ORDERABLES F inal Result * Hepatitis C Antibody (11/20/2021 9:10 AM EDT) Hep C Virus Ab <0.1 0.0 - 0.9 s/co ratio [facility] Comment: Negative: < 0.8 Indeterminate: 0.8 - 0.9 Positive: > 0.9 The CDC recommends that a positive HCV antibody result be followed up with a HCV Nucleic Acid Amplification test (655032). 11/20/2021 9:10 AM EDT 11/20/2021 Narrative [facility] (AMBULATORY) - 11/21/2021 8:11 AM EDT Performed at: [address] [place], [place] [id number] Head Cd Reactor Operator: Kt Sinclair PhD, Phone: [phone] Patient Fasting: Y us Red Groves MD LAB BLOOD ORDERABLES Fin al Result [facility] (AMBULATORY) [address] [place] [address], [facility] [address] [place] [address], * DEXA Bone Density Axial (04/23/2016 8:32 [...] A BMD test was performed using the [employer]XA DXA System manufactured by [employer]. The bone densitometry was evaluated by determining [...] A BMD test was performed using the [employer]XA DXA System manufactured by [employer]. The bone densitometry was evaluated by determining [...] Most Recently Relevant to Health Maintenance Insurance [facility] MEDICARE ADVANTAGE PPO Advance Directives Documents on File Type Date Recorded Patient Equipment Engineering Technician Expl anation PATIENT ADVANCE DIRECTIVES - SCAN 04/20/2022 10:30 AM [place] ADVANCE DIRECTIVE S, 08/18/2010 POWER OF TWO NEEDLE MACHINE OPERATOR - SCAN 04/20/2022 10:30 AM DURABLE POWER OF TWO NEEDLE MACHINE OPERATOR, 08/18/2010 * CPR (Attempt to Resuscitate) (Latest Code Status on File) Date Activated Date Inactivated Comments 04/20/2022 1:44 PM 04/20/2022 8:27 PM Question Answer Comments Code Status (Patient has no pulse and is not breathing): CPR (Attempt to Resuscitate) Medical Interventions (Patie nt has pulse or is breathing): Full Level Of Support Discussed With: Patient Care Teams Wine Blender Relationship Specialty Start Date End Date Red Groves MD [address] [facility] [place] [address] PCP - General Family Medicine 03/16/23
--- OUTSIDE RECORDS SUMMARY | 2025-06-03 08:38 | XMS_ITS | Encounter Summary ---
Author Organization [facility] yste Address [address] [place] [address] Care Team Providers Care Cloth Printing Inspector Name Role Phone Red Groves MD Primary Care Provider + Reason for Visit * Reason Onset Date Comments Med Refill 05/07/2025 Encounter Details Date Type Department Care Team (Late st Contact Info) Description 05/07/2025 Refill [facility] PULMONARY & CRITICAL CARE MEDICINE [address] [place] [address] Christopher Kelly DO [address] [place] [phone] Asthma-COPD overlap syndrome Social History Tobacco Use [...] or training? Not on file Preferred Language Lithuanian 04/01/2023 PHQ-2 Answer Date Recorded Patient Health [...] Description 07/01/2025 9:15 AM EST Registration [facility]IC[facility] [address] [place] [address] 07/01/2025 9:30 AM EST Office Visit [facility]ICINE [address] [place] [address] 07/01/2025 10:00 AM EST Office Visit [facility] PUL[facility] CRITICAL CARE MEDICINE [address] [place] [address] Christopher Kelly, [address] [place] [address] 12/11/2025 3:00 PM EDT Office Visit [facility] CARDIOLOGY [address] [place] [address] Marguerite Moore MD [address] [place] [address] 12/16/2025 10:15 AM EDT Office Visit [facility] FAMILY MEDICINE [address] [place] [address] Red Groves MD [address] [place], [place] [address] 03/19/2026 8:00 AM EDT Appointment [facility] CENTER [address] [place] [address] 03/19/2026 9:00 AM EDT Office Visit [facility] OBGYN [address] [place] [address] Keyona London, CONTACT LENS TECHNICIAN [address] [address] [place] [address] 09/24/2026 2:30 PM EST Office Visit [facility]OLOG[facility] [address] [place] [address] Jose Juan Landis MD [address] [facility] [address] [place] [address] documented as of this encounter Visit Diagnoses Diagnosis Asthma-COPD overlap syndrome documented in this encounter Care Teams Cloth Printing Inspector Relationship Specialty Start Date End Date Red Groves MD [address] [place] [address] PCP - General Family Medicine 03/16/23 documented as of this encounter
--- OUTSIDE RECORDS SUMMARY | 2025-06-03 08:38 | XMS_ITS | Encounter Summary ---
[facility] Address [address] [place] [address] Care Team Providers Care Relationship Management Lead Name Role Phone Red Groves MD Primary Care Provider + Reason for Visit * Reason Comments Med Refill Encounter Details Date Type Department Care Team (Late st Contact Info) Description 05/04/[address] [facility] PULMONARY & CRITICAL CARE MEDICINE [address] [place] [address] Christopher Kelly, [address] [place] [phone] Asthma-COPD overlap syndrome Social History Tobacco Use [...] 07/01/2025 9:[address] [facility] PULMONARY & CRITICAL CARE MEDICINE [address] [facility] [place] [address] 07/01/2025 9:30 AM EST Office Visit [facility] PULMONARY & CRITICAL CARE MEDICINE [address] [facility] [place] [address] 07/01/2025 10:00 AM EST Office Visit [facility] PULMONARY & CRITICAL CARE MEDICINE [address] [place] [address] Christopher Kelly, [address] [place] [address] 12/11/2025 3:00 PM EDT Office Visit [facility] CARDIOLOGY [address] [place] [address] Marguerite Moore MD [address] [place] [address] 12/16/2025 10:15 AM EDT Office Visit [facility] FAMILY MEDICINE [address] [place] [address] Red Groves MD [address] [place], [place] [address] 03/19/2026 8:00 AM EDT Appointment [facility] [address] [place] [address] 03/19/2026 9:00 AM EDT Office Visit [facility] OBGYN [address] [place] [address] Keyona London, METHODS ANALYST DATA PROCESSING [address] [facility] [address] [place], [place] [address] 09/24/2026 2:30 PM EST Office Visit [facility] CARDIOLOGY [address] [facility] [address] [place] [phone] Jose Juan Landis MD [address] [facility] [address] [facility] [address] [place] [address] documented as of this encounter Visit Diagnoses Diagnosis Asthma-COPD overlap syndrome documented in this encounter Care Teams Relationship Management Lead Relationship Specialty Start Date End Date Red Groves MD [address] [place] [address] PCP - General Family Medicine 03/16/23 documented as of this encounter
--- OUTSIDE RECORDS SUMMARY | 2025-06-03 08:38 | XMS_ITS | Encounter Summary ---
[facility] Address [address] [place] [address] Care Team Providers Care Telephone Directory Deliverer Name Role Phone Red Groves MD Primary Care Provider + Encounter Details Date Type Department Care Team (Latest Contact Info) Description 05/22/2025 Travel Social History Tobacco Use Types Packs/Day [...] or training? Not on file Preferred Language Kinyarwanda 04/01/2023 PHQ-2 Answer Date Recorded Patient Health [...] Info) Description 07/01/2025 9:15 AM EST Registration [facility] PULMONARY & CRITICAL CARE MEDICINE [address] [facility] [place] [address] 07/01/2025 9:30 AM EST Office Visit [facility] PULMONARY & CRITICAL CARE MEDICINE [address] [place] [address] 07/01/2025 10:00 AM EST Office Visit [facility] PULMONARY & CRITICAL CARE MEDICINE [address] [place] [address] Christopher Kelly DO [address] [place] [address] 12/11/2025 3:00 PM EDT Office Visit [facility] CARDIOLOGY [address] [address] Marguerite Moore MD [address] [facility] [address] [address] 12/16/2025 10:15 AM EDT Office Visit [facility] FAMILY MEDICINE [address] [facility] [place] [address] Red Groves MD [address] [facility] [place] [address] 03/19/2026 8:00 AM EDT Appointment [facility] CENTER [address] [place] [address] 03/19/2026 9:00 AM EDT Office Visit [facility] OBGYN [address] [place] [address] Keyona London, AUDIO VISUAL DESIGN ENGINEER [address] [facility] [address] [place] [address] 09/24/2026 2:30 PM EST Office Visit [facility] CARDIOLOGY [address] [facility] [address] [place] [address] Jose Juan Landis MD [address] [facility] [address] [place], [place] [phone] documented as of this encounter Visit Diagnoses Not on filedocumented in this encounter Care Teams Telephone Directory Deliverer Relationship Specialty Start Date End Date Red Groves MD [address] [place] [address] PCP - General Family Medicine 03/16/23 documented as of this encounter
== END 2025-06-03 23:59 | disposition home or self-care (01) ==
LOC: RAD 08:31
PROVIDERS: PCP Family Medicine; Visit Provider Physician Assistant Surgical
DX: S63.591A Other specified sprain of right wrist, initial encounter (principal); M79.641 Pain in right hand
CPT/HCPCS: 73110; 73130